=== PATIENT | female | born 1960 | race Caucasian/White ===

== ENCOUNTER 2016-11-24 14:38 | Inpatient (IN) | payer OTHER ==
[~2016-11-24] VITALS: Ht 165.1 cm; Wt 90.6 kg
[~2016-11-24 14:38] MED LIST: ALBU18002 INH; ASPI81TA28 PO; CARV6.252 PO; PARO1TAB27 PO; PRAV20TA PO
[2016-11-24] MEDS ORDERED: SODIUM CHLORIDE 0.9% 1000ML 1,000 ML IV SCH (14:56)
[2016-11-24] MEDS ORDERED: OPTIRAY 320 IV PRN (15:00)
--- NOTE | 2016-11-24 15:03 | EMERGENCY ROOM VISIT NOTE ---
History Report prepared by Katie: Ab Palomino Under the Supervision of: Dr. Michele Viramontes M.D. First contact with patient: 14:46 Chief Complaint: REFERRED BY DOCTOR Stated Complaint: BLOOD SUGAR SPIKED History of Present Illness The patient is a 56 year old female who presents to the Emergency Room via EMS from [facility] with complaints of persistent stroke symptoms that started earlier this morning. She says that she felt "weird" this morning, so she checked her blood sugar and it was 200. The patient states that she then had some coffee, and then an hour later she checked her blood sugar again and it was 292. The patient notes that she then got a really bad right-sided headache, with throbbing pain on the right side of her face into her eye, as well as into the right side of her jaw and neck. She says that she had some numbness on the right side of her neck. The patient adds that she had right ear pain. She says that her right eye was puffy and droopy. The patient states she went to her doctor's office, and had her ear checked, and nothing was found that would be causing her ear pain. She then had a CT scan of her head, which revealed a possible mini-stroke. The patient was then brought here to be evaluated for further treatment. The patient states that she is still having the symptoms, including the right-sided facial and head pain. The patient says that she has a history of migraines, but her migraines have never felt like this. She is a smoker. The patient has not had any recent tick bites. Source of History: patient, spouse/significant other Onset: Earlier this morning Position: other (global - stroke symptoms) Timing: other (persistent) Associated Symptoms: + headache (right side), + neck pain (right side), + numbness (right side of neck) Note: Associated symptoms: [place] "weird this morning" with blood sugar of 292. Right sided facial pain, right sided jaw pain, right eye pain, right eye puffiness and droopiness. Right ear pain. Review of Systems See HPI for pertinent positives & negatives. A total of 10 systems reviewed and were otherwise negative. Past Medical & Surgical Medical Problems: (1) Chest pain (2) COPD (chronic obstructive pulmonary disease) (3) Depression (4) Dyslipidemia (5) HTN (hypertension) (6) Osteoarthritis Surgical Problems: (1) H/O ankle fusion (2) H/O arthroscopic knee surgery (3) H/O hernia repair (4) H/O inguinal hernia repair (5) H/O oophorectomy (6) H/O: hysterectomy (7) History of cholecystectomy (8) History of tonsillectomy Family History FH: CAD (coronary artery disease) FATHER (first [place] in his 40s, from [place] at 75) MOTHER ( from [place] at age 67) BROTHER ([place] in his 50s) BROTHER ([place] in his 50s) FH: CVA (cerebrovascular accident) FATHER FH: diabetes mellitus FATHER Social History Smoking Status: Current Every Day Smoker Marital Status: Housing Status: lives with family Occupation Status: unemployed Current/Historical Medications Scheduled Aspirin (Aspirin Ec), 81 MG PO DAILY Atorvastatin (Lipitor), 40 MG PO DAILY Carvedilol (Coreg), 6.25 MG PO BID Glipizide Xl (Glucotrol Xl), 5 MG PO QAM Ibuprofen (Advil), 400 MG PO PRN UD Paroxetine (Paxil), 20 MG PO DAILY Trazodone Hcl (Trazodone), 100 MG PO HS Allergies Coded Allergies: Morphine (Verified Allergy, Severe, CHEST PAIN, 06/30/16) *06/30/16 "I WAS ON MORPHINE FOR 3 YEARS. I'M NOT ALLERGIC." Sumatriptan (Verified Allergy, Intermediate, DIAPHORESIS, "SKIN CRAWLING" , 06/30/16) Physical Exam Vital Signs Date Time Temp Pulse Resp B/P (MAP) Pulse Ox O2 Delivery O2 Flow Rate FiO2 11/24/16 16:43 86 20 117/71 96 Room Air 11/24/16 16:00 71 16 135/83 96 Room Air 11/24/16 15:17 71 11/24/16 15:06 97 Room Air 11/24/16 15:05 95 Room Air 11/24/16 14:39 36.6 70 18 124/82 96 Room Air Physical Exam GENERAL: Patient is a healthy-appearing well-nourished HEAD: Normocephalic atraumatic EYES: Ocular movements intact pupils equal and react to light OROPHARYNX mucous membranes are moist no exudates present no erythema or edema present NECK: Supple no nuchal rigidity CHEST: Good equal expansion LUNGS: Clear and equal to auscultation CARDIAC: Normal S1 and S2 ABDOMEN: Soft nontender no guarding BACK: No CVA tenderness EXTREMITIES: No pain upon palpation normal muscle strength in all groups no clubbing cyanosis or edema NEURO: Patient is following commands is answering questions appropriately. Alert and oriented x3 Cranial Nerves 2-12 grossly intact Medical Decision & Procedures ER Provider Diagnostic Interpretation: Radiology results as stated below per my review and radiologist interpretation: CT ANGIOGRAPHY HEAD COMBO CLINICAL HISTORY: Stroke symptoms. TECHNIQUE: Unenhanced and arterial phase imaging of the head was performed. Injection of 93 cc Optiray 320 IV was uneventful. Sagittal and coronal reconstructions were viewed on an independent 3-D workstation. COMPARISON STUDY: None. FINDINGS: No acute intracranial hemorrhage, midline shift or mass effect is present. Ventricular system is normal. Basilar cisterns are patent. There are no extra-axial collections. There are no findings to suggest acute dural sinus thrombosis or acute territorial infarct. Numerous white matter hypodensities are noted. These are nonspecific. There are no significant calvarial abnormalities. Visualized portions of the sinuses and the mastoid air cells are clear. The bilateral M1, M2, A1 and A2 segments are patent. The right vertebral artery is dominant. The left vertebral artery likely ends in PICA. No aneurysm or abrupt vessel cut off is identified within the intracranial circulation. IMPRESSION: 1. No acute intracranial findings. 2. Unremarkable CTA of the intracranial circulation. 3. Numerous white matter hypodensities, predominantly subcortical in location. These are nonspecific although statistically reflect small vessel disease. Electronically signed by: Quentin Lepe M.D. 11/24/2016 3:51 PM Dictated Date/Time: 11/24/2016 3:42 PM CHEST ONE VIEW PORTABLE CLINICAL HISTORY: Stroke COMPARISON STUDY: Chest radiograph June 30, 2016. FINDINGS: There is no pneumothorax or pleural effusion. Cardiomediastinal silhouette is stable. There is no evidence of pulmonary edema. No consolidation is identified. IMPRESSION: No acute cardiopulmonary findings. Electronically signed by: Quentin Lepe M.D. 11/24/2016 3:27 PM Dictated Date/Time: 11/24/2016 3:[address] ANGIOGRAPHY OF THE NECK WITH CONTRAST CLINICAL HISTORY: Stroke symptoms. COMPARISON STUDY: No previous studies for comparison. Technique: CT angiography of the carotid and vertebral arteries was obtained using Optiray 320 IV and 3D reconstruction on an independent workstation. NASCET criteria was utilized. CT DOSE: 3351.53 mGy.cm Findings: The bilateral common carotid, internal carotid and vertebral arteries are patent. There is mild plaque within the proximal left internal carotid artery. The right vertebral artery is dominant. The left is diminutive. There is no dissection within the major vasculature of the neck. A few small thyroid nodules are noted. There is no cervical lymphadenopathy. No cervical masses are identified. Chest will be reported separately. IMPRESSION: No stenosis or dissection within the major vasculature of the neck. Electronically signed by: Quentin Lepe M.D. 11/24/2016 3:55 PM Dictated Date/Time: 11/24/2016 3:51 PM CHEST COMBO ANGIO DISSECTION CLINICAL HISTORY: Right sided chest pain. Stroke symptoms. COMPARISON STUDY: Chest CT March 29, 2016. TECHNIQUE: Unenhanced and arterial phase imaging of the chest was performed. Injection of 93 cc of Optiray 320 IV was uneventful. Sagittal and coronal reconstructions were viewed on an independent 3-D workstation. FINDINGS: There is no evidence for intramural hematoma within the thoracic aorta. There is no thoracic aortic dissection. There is mild to moderate calcified plaque within the coronary arteries. There is no pericardial effusion. Central airways are patent. There is no consolidation. There are mild groundglass opacities with mosaic attenuation. Linear right middle lobe opacity reflects atelectasis. There is atelectasis within the lingula. There is no pneumothorax or pleural effusion. Bony thorax is unremarkable. Abdomen and pelvis will be reported separately. There is no thoracic lymphadenopathy. A few small thyroid nodules are suspected. Fatty infiltration of the liver is noted. A hypervascular subcapsular segment 8/4 a focus is unchanged. IMPRESSION: 1. No thoracic aortic dissection. 2. Minimal groundglass opacities with mosaic attenuation within the lungs which could reflect air trapping or a mild infectious process. 3. Mild to moderate coronary artery calcification. Electronically signed by: Quentin Lepe M.D. 11/24/2016 4:02 PM Dictated Date/Time: 11/24/2016 3:[address] OF THE ABDOMEN AND PELVIS WITH CONTRAST CLINICAL HISTORY: Right-sided chest pain. Stroke symptoms. COMPARISON STUDY: CT of the abdomen and pelvis October 03, 2011. TECHNIQUE: Following IV administration of 93 mL of Optiray-320, axial images of the abdomen and pelvis were obtained from the lung bases to the proximal femurs. Images were reviewed in the axial, sagittal, and coronal planes. IV contrast was administered without complication. FINDINGS: Fatty infiltration of the liver is noted. Mild biliary ductal dilatation is unchanged since exam of October 03, 2011 and likely related to prior cholecystectomy. A 2 cm subcapsular hypervascular focus within segment 8/4 is unchanged since prior exam. This is benign given stability. The spleen, adrenal glands, kidneys and pancreas are normal. There is no hydronephrosis or perinephric infiltration. There is no evidence for acute appendicitis. There is hyperdense material within the appendix which is otherwise normal. There is colonic diverticulosis without evidence for acute diverticulitis. There is no lymphadenopathy. The uterus is not visualized. The caliber of the abdominal aorta is normal. There is no dissection of the abdominal aorta. There is mild atherosclerotic plaque. IMPRESSION: 1. No acute process within the abdomen or pelvis. 2. Fatty liver. 3. Stable biliary ductal dilatation likely related to prior cholecystectomy. 4. No abdominal aortic aneurysm or dissection. Electronically signed by: Quentin Lepe M.D. 11/24/2016 4:07 PM Dictated Date/Time: 11/24/2016 4:02 PM Laboratory Results 11/24/16 15:00 Red Blood Count 4.92, Mean Corpuscular Volume 91.3, Mean Corpuscular Hemoglobin 30.9, Mean Corpuscular Hemoglobin Concent 33.9, Mean Platelet Volume 9.2, Neutrophils (%) (Auto) 54.5, Lymphocytes (%) (Auto) 34.1, Monocytes (%) (Auto) 6.7, Eosinophils (%) (Auto) 3.7, Basophils (%) (Auto) 0.5, Neutrophils # (Auto) 5.00, Lymphocytes # (Auto) 3.13, Monocytes # (Auto) 0.62, Eosinophils # (Auto) 0.34, Basophils # (Auto) 0.05 11/24/16 15:00 Test 11/24/16 15:00 11/24/16 15:11 11/24/16 17:22 White Blood Count 9.19 K/uL (4.8-10.8) Red Blood Count 4.92 M/uL (4.2-5.4) Hemoglobin 15.2 g/dL (12.0-16.0) Hematocrit 44.9 % (37-47) Mean Corpuscular Volume 91.3 fL (80-100) Mean Corpuscular Hemoglobin 30.9 pg (25-34) Mean Corpuscular Hemoglobin Concent 33.9 g/dl (32-36) Platelet Count 211 K/uL (130-400) Mean Platelet Volume 9.2 fL (7.4-10.4) Neutrophils (%) (Auto) 54.5 % Lymphocytes (%) (Auto) 34.1 % Monocytes (%) (Auto) 6.7 % Eosinophils (%) (Auto) 3.7 % Basophils (%) (Auto) 0.5 % Neutrophils # (Auto) 5.00 K/uL (1.4-6.5) Lymphocytes # (Auto) 3.13 K/uL (1.2-3.4) Monocytes # (Auto) 0.62 K/uL (0.11-0.59) Eosinophils # (Auto) 0.34 K/uL (0-0.5) Basophils # (Auto) 0.05 K/uL (0-0.2) RDW Standard Deviation 43.0 fL (36.4-46.3) RDW Coefficient of Variation 12.9 % (11.5-14.5) Immature Granulocyte % (Auto) 0.5 % Immature Granulocyte # (Auto) 0.05 K/uL (0.00-0.02) Erythrocyte Sedimentation Rate 10 mm/hr (0-21) Prothrombin Time 10.8 SECONDS (9.0-12.0) Prothromb Time International Ratio 1.0 (0.9-1.1) Activated Partial Thromboplast Time 27.2 SECONDS (21.0-31.0) Partial Thromboplastin Ratio 1.0 Est Creatinine Clear Calc Drug Dose 93.9 ml/min Estimated GFR () 105.0 Estimated GFR (Non- 90.6 BUN/Creatinine Ratio 9.4 (10-20) Calcium Level 8.5 mg/dl (8.5-10.1) Total Creatine Kinase 153 U/L (26-192) Creatine Kinase MB 0.5 ng/ml (0.5-3.6) Creatine Kinase MB Ratio 0.3 (0-3.0) Troponin I < 0.015 ng/ml (0-0.045) C-Reactive Protein 0.36 mg/dl (0-0.29) Bedside Hemoglobin 15.3 g/dl (12.0-16.0) Bedside Hematocrit 45 % (37-47) Bedside Sodium 142 mEq/L (135-144) Bedside Potassium 4.1 mEq/L (3.3-5.0) Bedside Chloride 103 mEq/L (101-112) Bedside Total CO2 24 mEq/l (24-31) Anion Gap 20.0 mmol/L (16-25) Bedside Blood Urea Nitrogen 6 mg/dl (7-18) Bedside Creatinine 0.7 mg/dl (0.6-1.3) Bedside Glucose (other) 88 mg/dl (70-99) Bedside Ionized Calcium (Steven) 1.16 mmol/l (1.12-1.32) Bedside Glucose 131 mg/dl (70-90) Labs reviewed by ED physician. Medications Administered Medications (Trade) Dose Ordered Sig/Hortensia Route Start Time Stop Time Status Last Admin Dose Admin Sodium Chloride 1,000 ml @ 50 mls/hr Q20H IV 11/24/16 14:56 12/24/16 14:55 11/24/16 15:34 50 MLS/HR Aspirin (Aspirin Chew) 324 mg STK-MED ONCE .ROUTE 11/24/16 15:05 11/24/16 15:06 DC 11/24/16 15:07 324 MG Morphine Sulfate (MoRPHine SULFATE INJ) 8 mg NOW STAT IV 11/24/16 15:13 11/24/16 15:15 DC 11/24/16 16:32 8 MG Ondansetron HCl (Zofran Inj) 4 mg NOW STAT IV 11/24/16 15:13 11/24/16 15:15 DC 11/24/16 16:31 4 MG Nicotine (Nicoderm Cq 21MG Patch) 1 patch QAM STAT TD 11/24/16 15:32 11/24/16 15:33 DC 11/24/16 16:18 1 PATCH Methylprednisolone Sodium Succinate (Solu-Medrol IV) 125 mg NOW STAT IV 11/24/16 16:00 11/24/16 16:02 DC 11/24/16 16:32 125 MG Dextrose (Dextrose 50% 50ML Syringe) 50 ml STK-MED ONCE .ROUTE 11/24/16 16:13 11/24/16 16:14 DC 11/24/16 16:17 50 ML ECG Indication: other (stroke symptoms) Rate (beats per minute): 67 Rhythm: normal sinus Findings: T-wave inversion (Anterior), no ectopy Comparison ECG Date: changed from earlier performed today ED Course 1447: Past medical records reviewed. The patient was evaluated in room B6. A complete history and physical examination was performed. 1456: Ordered NSS 1000 ml @ 50 mls/hr IV. 1509: Ordered Aspirin Chew 324 mg PO. 1513: Ordered Zofran Inj 4 mg IV, Morphine Sulfate Inj 8 mg IV. 1532: Ordered Nicoderm Cq 21MG Patch 1 patch TD. 1543: I discussed the patient with Dr. Lepe of radiology. 1600: Ordered Solu-Medrol IV 125 mg IV. 1619: Upon reexamination the patient is resting comfortably. I discussed results and treatment plan with the patient. She verbalizes agreement and understanding. The patient will be evaluated for further management. 1622: I discussed the patient with Dr. Sebas LARES hospitalist - he will evaluate the patient for further treatment. Medical Decision Differential diagnosis: Intracranial hemorrhage, intracranial mass, migraine headache, tension headache , sinusitis, meningitis This is a 56-year-old female who presents emergency department complaining of severe right-sided head pain. The patient was transferred from [facility] over concerns that she was having a CVA. The patient has no evidence of CVA on exam. She also has an abnormal EKG from [place] however her EKG here is normalized. The patient is a smoker as well as a diabetic. An IV was established and laboratory work was drawn. The patient has a normal CBC normal renal profile normal liver profile. She was given morphine and Zofran for the pain. Repeat examination revealed improvement patient's symptoms. Patient was also given 3 and 24 mg of aspirin. Based on the nature of the patient's symptoms she was sent for a CT dissection study which did not show any evidence of acute process. I did discuss the case with the hospitalist service who agreed to admit the patient. Patient family were in agreement with the treatment plan. Consults Time Called: 1540 Consulting Physician: Dr. Lepe of radiology Returned Call: 1543 I discussed the patient with Dr. Lepe of radiology. Additional Consults: Time Called: 1619 Consulted Physician: Dr. Sebas LARES hospitalist Returned Call: 1622 Additional Comments: I discussed the patient with Dr. Sebas LARES hospitalist - he will evaluate the patient for further treatment. Impression Primary Impression: Headache Scribe Attestation The scribe's documentation has been prepared under my direction and personally reviewed by me in its entirety. I confirm that the note above accurately reflects all work, treatment, procedures, and medical decision making performed by me. Departure Information Dispostion Being Evaluated By Hospitalist Referrals Sheyla Caots M.D. (PCP) Patient Instructions My [facility] Problem Qualifiers Primary Impression: Headache Headache type: unspecified Headache chronicity pattern: acute headache Intractability: not intractable Qualified Codes: R51 - Headache
[2016-11-24] MEDS ORDERED: ASPIRIN 324 MG CHEW ONE (15:05)
[2016-11-24] MEDS ORDERED: ASPIRIN 324 MG CHEW PO STA (15:09)
[2016-11-24] MEDS ORDERED: ONDANSETRON INJ 2 MG/ML 2 ML VIAL IV STA (15:13)
[2016-11-24] MEDS ORDERED: MoRPHine SULFATE 10 MG/ML CARP/VIAL IV STA (15:13)
[2016-11-24 15:15] LABS: BASO % 0.5 %; BASO ABS # 0.05 K/uL (0-0.2); COMPLETE YES; EOS % 3.7 %; HEMATOCRIT 44.9 % (37-47); IG% 0.5 %; LYMPH % 34.1 %; LYMPH ABS # 3.13 K/uL (1.2-3.4); MEAN CELL VOLUME 91.3 fL (80-100); MEAN CORPUSCULAR HEMOGLOBIN 30.9 pg (25-34); MEAN CORPUSCULAR HGB CONC 33.9 g/dl (32-36); MEAN PLATELET VOLUME 9.2 fL (7.4-10.4); MONO % 6.7 %; NEUT % 54.5 %; PLATELET COUNT 211 K/uL (130-400); RED BLOOD COUNT 4.92 M/uL (4.2-5.4); WHITE BLOOD COUNT 9.19 K/uL (4.8-10.8)
[2016-11-24 15:23] LABS: PROTHROMBIN TIME (PATIENT) 10.8 SECONDS (9.0-12.0)
[2016-11-24 15:24] LABS: ISTAT CREATININE 0.7 mg/dl (0.6-1.3); ISTAT HEMOGLOBIN 15.3 g/dl (12.0-16.0); ISTAT IONIZED CALCIUM 1.16 mmol/l (1.12-1.32)
--- NOTE | 2016-11-24 15:28 | DIAGNOSTIC IMAGING REPORT ---
CHEST ONE VIEW PORTABLE CLINICAL HISTORY: Stroke COMPARISON STUDY: Chest radiograph June 30, 2016. FINDINGS: There is no pneumothorax or pleural effusion. Cardiomediastinal silhouette is stable. There is no evidence of pulmonary edema. No consolidation is identified. IMPRESSION: No acute cardiopulmonary findings. Electronically signed by: Qunetin Lepe M.D. 11/24/2016 3:27 PM Dictated Date/Time: 11/24/2016 3:25 PM
[2016-11-24 15:31] LABS: BLOOD UREA NITROGEN 7 mg/dl (7-18); BUN/CREATININE RATIO 9.4 (10-20); CALCIUM 8.5 mg/dl (8.5-10.1); CARBON DIOXIDE 27 mmol/L (21-32); CHLORIDE 108 mmol/L (98-107); CREATININE 0.74 mg/dl (0.60-1.20); GLUCOSE 85 mg/dl (70-99); POTASSIUM 4.1 mmol/L (3.5-5.1); SODIUM 143 mmol/L (136-145)
[2016-11-24] MEDS ORDERED: NICOTINE 21 MG/24 HR TDSY TD STA (15:32)
[2016-11-24 15:35] LABS: CKMB/CK RATIO 0.3 (0-3.0)
--- NOTE | 2016-11-24 15:52 | DIAGNOSTIC IMAGING REPORT ---
CT ANGIOGRAPHY HEAD COMBO CLINICAL HISTORY: Stroke symptoms. TECHNIQUE: Unenhanced and arterial phase imaging of the head was performed. Injection of 93 cc Optiray 320 IV was uneventful. Sagittal and coronal reconstructions were viewed on an independent 3-D workstation. COMPARISON STUDY: None. FINDINGS: No acute intracranial hemorrhage, midline shift or mass effect is present. Ventricular system is normal. Basilar cisterns are patent. There are no extra-axial collections. There are no findings to suggest acute dural sinus thrombosis or acute territorial infarct. Numerous white matter hypodensities are noted. These are nonspecific. There are no significant calvarial abnormalities. Visualized portions of the sinuses and the mastoid air cells are clear. The bilateral M1, M2, A1 and A2 segments are patent. The right vertebral artery is dominant. The left vertebral artery likely ends in PICA. No aneurysm or abrupt vessel cut off is identified within the intracranial circulation. IMPRESSION: 1. No acute intracranial findings. 2. Unremarkable CTA of the intracranial circulation. 3. Numerous white matter hypodensities, predominantly subcortical in location. These are nonspecific although statistically reflect small vessel disease. Electronically signed by: Qunetin Lepe M.D. 11/24/2016 3:51 PM Dictated Date/Time: 11/24/2016 3:42 PM
--- NOTE | 2016-11-24 15:56 | DIAGNOSTIC IMAGING REPORT ---
CT ANGIOGRAPHY OF THE NECK WITH CONTRAST CLINICAL HISTORY: Stroke symptoms. COMPARISON STUDY: No previous studies for comparison. Technique: CT angiography of the carotid and vertebral arteries was obtained using [employer] 320 IV and 3D reconstruction on an independent workstation. NASCET criteria was utilized. CT DOSE: 3351.53 mGy.cm Findings: The bilateral common carotid, internal carotid and vertebral arteries are patent. There is mild plaque within the proximal left internal carotid artery. The right vertebral artery is dominant. The left is diminutive. There is no dissection within the major vasculature of the neck. A few small thyroid nodules are noted. There is no cervical lymphadenopathy. No cervical masses are identified. Chest will be reported separately. IMPRESSION: No stenosis or dissection within the major vasculature of the neck. Electronically signed by: Quentin Lepe M.D. 11/24/2016 3:55 PM Dictated Date/Time: 11/24/2016 3:51 PM
[2016-11-24] MEDS ORDERED: METHYLPREDNISOLONE 125 MG VIAL IV STA (16:00)
--- NOTE | 2016-11-24 16:04 | DIAGNOSTIC IMAGING REPORT ---
CHEST COMBO ANGIO DISSECTION CLINICAL HISTORY: Right sided chest pain. Stroke symptoms. COMPARISON STUDY: Chest CT March 29, 2016. TECHNIQUE: Unenhanced and arterial phase imaging of the chest was performed. Injection of 93 cc of Optiray 320 IV was uneventful. Sagittal and coronal reconstructions were viewed on an independent 3-D workstation. FINDINGS: There is no evidence for intramural hematoma within the thoracic aorta. There is no thoracic aortic dissection. There is mild to moderate calcified plaque within the coronary arteries. There is no pericardial effusion. Central airways are patent. There is no consolidation. There are mild groundglass opacities with mosaic attenuation. Linear right middle lobe opacity reflects atelectasis. There is atelectasis within the lingula. There is no pneumothorax or pleural effusion. Bony thorax is unremarkable. Abdomen and pelvis will be reported separately. There is no thoracic lymphadenopathy. A few small thyroid nodules are suspected. Fatty infiltration of the liver is noted. A hypervascular subcapsular segment 8/4 a focus is unchanged. IMPRESSION: 1. No thoracic aortic dissection. 2. Minimal groundglass opacities with mosaic attenuation within the lungs which could reflect air trapping or a mild infectious process. 3. Mild to moderate coronary artery calcification. Electronically signed by: Quentin Lepe M.D. 11/24/2016 4:02 PM Dictated Date/Time: 11/24/2016 3:55 PM
--- NOTE | 2016-11-24 16:08 | DIAGNOSTIC IMAGING REPORT ---
CT OF THE ABDOMEN AND PELVIS WITH CONTRAST CLINICAL HISTORY: Right-sided chest pain. Stroke symptoms. COMPARISON STUDY: CT of the abdomen and pelvis October 03, 2011. TECHNIQUE: Following IV administration of 93 mL of Optiray-320, axial images of the abdomen and pelvis were obtained from the lung bases to the proximal femurs. Images were reviewed in the axial, sagittal, and coronal planes. IV contrast was administered without complication. FINDINGS: Fatty infiltration of the liver is noted. Mild biliary ductal dilatation is unchanged since exam of October 03, 2011 and likely related to prior cholecystectomy. A 2 cm subcapsular hypervascular focus within segment 8/4 is unchanged since prior exam. This is benign given stability. The spleen, adrenal glands, kidneys and pancreas are normal. There is no hydronephrosis or perinephric infiltration. There is no evidence for acute appendicitis. There is hyperdense material within the appendix which is otherwise normal. There is colonic diverticulosis without evidence for acute diverticulitis. There is no lymphadenopathy. The uterus is not visualized. The caliber of the abdominal aorta is normal. There is no dissection of the abdominal aorta. There is mild atherosclerotic plaque. IMPRESSION: 1. No acute process within the abdomen or pelvis. 2. Fatty liver. 3. Stable biliary ductal dilatation likely related to prior cholecystectomy. 4. No abdominal aortic aneurysm or dissection. Electronically signed by: Quentin Lepe M.D. 11/24/2016 4:07 PM Dictated Date/Time: 11/24/2016 4:02 PM
[2016-11-24] MEDS ORDERED: GLIP1TAB91 PO (16:09)
[2016-11-24] MEDS ORDERED: ATOR-24 PO (16:09)
[2016-11-24] MEDS ORDERED: IBUP-1050 PO (16:09)
[2016-11-24] MEDS ORDERED: DEXTROSE 50% 50 ML SYR ONE (16:13)
[2016-11-24] MEDS ORDERED: ONDANSETRON INJ 2 MG/ML 2 ML VIAL IV PRN (17:30)
[2016-11-24] MEDS ORDERED: GLUCOSE 10 TABS/TUBE PO PRN (17:30)
[2016-11-24] MEDS ORDERED: GLUCAGON FOR INJ 1 MG VIAL SQ PRN (17:30)
[2016-11-24] MEDS ORDERED: DEXTROSE 50% 50 ML SYR IV PRN (17:30)
[2016-11-24] MEDS ORDERED: GLUCOSE 40% GEL 15 GM TUBE PO PRN (17:30)
[2016-11-24] MEDS ORDERED: NITROGLYCERIN 0.4 MG SL PER TAB CHARGE SL PRN (17:30)
[2016-11-24] MEDS ORDERED: IV FLUIDS COMPLETED PRN (17:45)
[2016-11-24 17:55] VITALS: O2SAT 93; BMI 32.9
--- NOTE | 2016-11-24 19:23 | History and Physical ---
History & Physical Date & Time of Service: Nov 24, 2016 at 19:05 Chief Complaint: Blood Sugar Spiked Primary Care Physician: Sheyla Coats M.D. History of Present Illness Source: patient, hospital records The patient is a 56-year-old female who initially presented to [facility] with strokelike symptoms involving a right sided throbbing headache, extending to the right side of her eye, jaw and neck. She reports that she's had on and off right ear pain over the past 6 months, but has not had any diagnosis able to be made during that interval. At [facility], there was concern regarding possible CVA, and patient was then arranged to be brought to [facility]. Upon arrival [facility], her symptoms were persistent, that she reported one like any of her migraine headaches, and she underwent a further workup in the emergency department at that time. Past Medical/Surgical History Medical Problems: (1) COPD (chronic obstructive pulmonary disease) Status: Chronic (2) Depression Status: Chronic (3) Dyslipidemia Status: Chronic (4) HTN (hypertension) Status: Chronic (5) Osteoarthritis Status: Chronic Surgical Problems: (1) H/O ankle fusion Status: Chronic (2) H/O arthroscopic knee surgery Status: Chronic (3) H/O hernia repair Status: Chronic (4) H/O inguinal hernia repair Status: Chronic (5) H/O oophorectomy Status: Chronic (6) H/O: hysterectomy Status: Chronic (7) History of cholecystectomy Status: Chronic (8) History of tonsillectomy Status: Chronic Family History FH: CAD (coronary artery disease) FATHER (first [place] in his 40s, [place] at 75) MOTHER ( from [place] at age 67) BROTHER ([place] in his 50s) BROTHER ([place] in his 50s) FH: CVA (cerebrovascular accident) FATHER FH: diabetes mellitus FATHER Social History Smoking Status: Current Every Day Smoker Smokeless Tobacco Use: No Alcohol Use: none Drug Use: none Marital Status: Housing status: lives with family Occupational Status: unemployed Immunizations History of Influenza Vaccine: Yes Influenza Vaccine Date: May 03, 2016 Multi-Drug Resistant Organisms History of MDRO: No Allergies Coded Allergies: Morphine (Verified Allergy, Severe, CHEST PAIN, 06/30/16) *06/30/16 "I WAS ON MORPHINE FOR 3 YEARS. I'M NOT ALLERGIC." Sumatriptan (Verified Allergy, Intermediate, DIAPHORESIS, "SKIN CRAWLING" , 06/30/16) Home Medications Scheduled Aspirin (Aspirin Ec), 81 MG PO DAILY Atorvastatin (Lipitor), 40 MG PO DAILY Carvedilol (Coreg), 6.25 MG PO BID Glipizide Xl (Glucotrol Xl), 5 MG PO QAM Ibuprofen (Advil), 400 MG PO PRN UD Paroxetine (Paxil), 20 MG PO DAILY Trazodone Hcl (Trazodone), 100 MG PO HS Review of Systems The patient denies chest pain, palpitations, shortness of breath, cough, lower extremity swelling, vision change, hearing change, sore throat, fevers, chills, sweats, weight change, fatigue, nausea, vomiting, abdominal pain, pelvic pain, blood in urine or stool, dysuria, urinary frequency or urgency, memory loss, rash, abnormal bruising or bleeding, imbalance, focal or generalized weakness, arthralgias or myalgias, night sweats, or allergy symptoms. The review of systems is otherwise negative other than for that already noted above, and at least 10 systems have been reviewed. Physical Exam Vital Signs Date Time Temp Pulse Resp B/P (MAP) Pulse Ox O2 Delivery O2 Flow Rate FiO2 11/24/16 18:13 69 12 92 11/24/16 18:02 115/76 11/24/16 17:55 93 Room Air 11/24/16 17:43 76 22 93 11/24/16 17:38 75 21 93 11/24/16 17:32 133/78 11/24/16 17:08 65 10 92 11/24/16 17:02 137/86 11/24/16 16:43 86 20 117/71 96 Room Air 11/24/16 16:38 72 17 94 11/24/16 16:32 117/71 11/24/16 16:08 68 14 95 11/24/16 16:02 135/83 11/24/16 16:00 71 16 135/83 96 Room Air 11/24/16 15:38 70 17 94 11/24/16 15:17 71 11/24/16 15:09 126/75 11/24/16 15:06 97 Room Air 11/24/16 15:05 95 Room Air 11/24/16 14:39 36.6 70 18 124/82 96 Room Air The patient is awake, well-developed and adequately nourished, alert and oriented 3, normocephalic and atraumatic, lying in bed and in no acute distress. HEENT--PERRL, EOMI, mucous membranes and oropharynx dry. Right scalp tender to light touch. Neck--supple, no JVD or bruits, thyroid normal, trachea midline, no adenopathy. Heart--normal S1 and S2, no extra beats, no murmurs, rubs or gallops. Lungs--clear bilaterally with good air movement, no respiratory distress, no accessory muscle use. Abdomen--normal bowel sounds and soft, nontender and nondistended, no hernias or masses, no organomegaly. Extremities--no cyanosis, clubbing or edema. There are good distal pulses b/l. Dermatologic--normal skin turgor, normal color, warm and dry, no abnormal lymph nodes, no rash. Right scalp tender to light touch Neurologic--cranial nerves II through XII grossly intact, motor and sensory examination normal. Rheumatologic--normal range of motion, nontender, muscles and joints. Psychiatric--normal affect. Diagnostics Laboratory Results Results Past 24 Hours Test 11/24/16 15:00 11/24/16 15:11 11/24/16 15:57 11/24/16 17:22 Range/Units White Blood Count 9.19 4.8-10.8 K/uL Red Blood Count 4.92 4.2-5.4 M/uL Hemoglobin 15.2 12.0-16.0 g/dL Hematocrit 44.9 37-47 % Mean Corpuscular Volume 91.3 80-100 fL Mean Corpuscular Hemoglobin 30.9 25-34 pg Mean Corpuscular Hemoglobin Concent 33.9 32-36 g/dl Platelet Count 211 130-400 K/uL Mean Platelet Volume 9.2 7.4-10.4 fL Neutrophils (%) (Auto) 54.5 % Lymphocytes (%) (Auto) 34.1 % Monocytes (%) (Auto) 6.7 % Eosinophils (%) (Auto) 3.7 % Basophils (%) (Auto) 0.5 % Neutrophils # (Auto) 5.00 1.4-6.5 K/uL Lymphocytes # (Auto) 3.13 1.2-3.4 K/uL Monocytes # (Auto) 0.62 0.11-0.59 K/uL Eosinophils # (Auto) 0.34 0-0.5 K/uL Basophils # (Auto) 0.05 0-0.2 K/uL RDW Standard Deviation 43.0 36.4-46.3 fL RDW Coefficient of Variation 12.9 11.5-14.5 % Immature Granulocyte % (Auto) 0.5 % Immature Granulocyte # (Auto) 0.05 0.00-0.02 K/uL Erythrocyte Sedimentation Rate 10 0-21 mm/hr Prothrombin Time 10.8 9.0-12.0 SECONDS Prothromb Time International Ratio 1.0 0.9-1.1 Activated Partial Thromboplast Time 27.2 21.0-31.0 SECONDS Partial Thromboplastin Ratio 1.0 Sodium Level 143 136-145 mmol/L Potassium Level 4.1 3.5-5.1 mmol/L Chloride Level 108 98-107 mmol/L Carbon Dioxide Level 27 21-32 mmol/L Anion Gap 8.0 20.0 16-25 mmol/L Blood Urea Nitrogen 7 7-18 mg/dl Creatinine 0.74 0.60-1.20 mg/dl Est Creatinine Clear Calc Drug Dose 93.9 ml/min Estimated GFR () 105.0 Estimated GFR (Non- 90.6 BUN/Creatinine Ratio 9.4 10-20 Random Glucose 85 70-99 mg/dl Calcium Level 8.5 8.5-10.1 mg/dl Total Creatine Kinase 153 26-192 U/L Creatine Kinase MB 0.5 0.5-3.6 ng/ml Creatine Kinase MB Ratio 0.3 0-3.0 Troponin I < 0.015 0-0.045 ng/ml C-Reactive Protein 0.36 0-0.29 mg/dl Bedside Hemoglobin 15.3 12.0-16.0 g/dl Bedside Hematocrit 45 37-47 % Bedside Sodium 142 135-144 mEq/L Bedside Potassium 4.1 3.3-5.0 mEq/L Bedside Chloride 103 101-112 mEq/L Bedside Total CO2 24 24-31 mEq/l Bedside Blood Urea Nitrogen 6 7-18 mg/dl Bedside Creatinine 0.7 0.6-1.3 mg/dl Bedside Glucose (other) 88 70-99 mg/dl Bedside Ionized Calcium (Steven) 1.16 1.12-1.32 mmol/l Bedside Glucose 78 131 70-90 mg/dl Diagnostic Radiology Patient Name: YUN JHAVERI Unit Number: [id number] Dictated: 11/24/161541 Transcribed: 11/24/161541 JA Printed Date/Time: [~ rep prt dt]/[~ rep prt tm] [~ rep ct labl] - [~ rep ct ivnm] [facility] [place] [address] Dictated: 11/24/161541 Transcribed: 11/24/161541 JA Printed Date/Time: [~ rep prt dt]/[~ rep prt tm] [~ rep ct labl] - [~ rep ct ivnm] CT ANGIOGRAPHY HEAD COMBO CLINICAL HISTORY: Stroke symptoms. TECHNIQUE: Unenhanced and arterial phase imaging of the head was performed. Injection of 93 cc Optiray 320 IV was uneventful. Sagittal and coronal reconstructions were viewed on an independent 3-D workstation. COMPARISON STUDY: None. FINDINGS: No acute intracranial hemorrhage, midline shift or mass effect is present. Ventricular system is normal. Basilar cisterns are patent. There are no extra-axial collections. There are no findings to suggest acute dural sinus thrombosis or acute territorial infarct. Numerous white matter hypodensities are noted. These are nonspecific. There are no significant calvarial abnormalities. Visualized portions of the sinuses and the mastoid air cells are clear. The bilateral M1, M2, A1 and A2 segments are patent. The right vertebral artery is dominant. The left vertebral artery likely ends in PICA. No aneurysm or abrupt vessel cut off is identified within the intracranial circulation. IMPRESSION: 1. No acute intracranial findings. 2. Unremarkable CTA of the intracranial circulation. 3. Numerous white matter hypodensities, predominantly subcortical in location. These are nonspecific although statistically reflect small vessel disease. Electronically signed by: Quentin Lepe M.D. 11/24/2016 3:51 PM Dictated Date/Time: 11/24/2016 3:42 PM The status of this report is Signed. Draft = Not yet reviewed or approved by Radiologist. Signed = Reviewed and approved by Radiologist. <AttendingPhy></AttendingPhy> <FamilyPhy>Westrick, Sheyla,M.D.</FamilyPhy> < PrimaryPhy>Sheyla Coats M.D.</PrimaryPhy> <UnitNumber>[id number]</UnitNumber > <VisitNumber>[id number]</VisitNumber> <PatientName>YUN JHAVERI</ PatientName> <DateOfBirth>1960</DateOfBirth> <Location>C.EDB</Location> < ServiceDate>11/24/16</ServiceDate> <MNE>ESINDI</MNE> <OrderingPhy>Michele Viramontes MD</OrderingPhy> <OrderingPhyMNE>f rep ord dr flores</OrderingPhyMNE> < DictatingPhyMNE>f rep dict dr flores</DictatingPhyMNE> <CCListMNE>f rep ct mne</ CCListMNE> <AdmittingPhyMNE>f pt admit dr flores</AdmittingPhyMNE> <AttendingPhyMNE >f pt attend dr flores</AttendingPhyMNE> <ConsultingPhyMNE>f pt consult dr flores</ConsultingPhyMNE> <FamilyPhyMNE>f pt fam dr flores</FamilyPhyMNE> <OtherPhyMNE>f pt other dr flores</OtherPhyMNE> < PrimaryPhyMNE>f pt prim care dr flores</PrimaryPhyMNE> <ReferringPhyMNE>f pt referring dr flores</ReferringPhyMNE> Patient Name: YUN JHAVERI Unit Number: [id number] Dictated: 11/24/161524 Transcribed: 11/24/161524 JA Printed Date/Time: [~ rep prt dt]/[~ rep prt tm] [~ rep ct labl] - [~ rep ct ivnm] [facility] [place] [address] Dictated: 11/24/161524 Transcribed: 11/24/161524 JA Printed Date/Time: [~ rep prt dt]/[~ rep prt tm] [~ rep ct labl] - [~ rep ct ivnm] CHEST ONE VIEW PORTABLE CLINICAL HISTORY: Stroke COMPARISON STUDY: Chest radiograph June 30, 2016. FINDINGS: There is no pneumothorax or pleural effusion. Cardiomediastinal silhouette is stable. There is no evidence of pulmonary edema. No consolidation is identified. IMPRESSION: No acute cardiopulmonary findings. Electronically signed by: Quentin Lepe M.D. 11/24/2016 3:27 PM Dictated Date/Time: 11/24/2016 3:25 PM The status of this report is Signed. Draft = Not yet reviewed or approved by Radiologist. Signed = Reviewed and approved by Radiologist. <AttendingPhy></AttendingPhy> <FamilyPhy>Sheyla Coats M.D.</FamilyPhy> < PrimaryPhy>Sheyla Coats M.D.</PrimaryPhy> <UnitNumber>[id number]</UnitNumber > <VisitNumber>[id number]</VisitNumber> <PatientName>YUN JHAVERI</ PatientName> <DateOfBirth>1960</DateOfBirth> <Location>C.EDB</Location> < ServiceDate>11/24/16</ServiceDate> <MNE>ESINDI</MNE> <OrderingPhy>Michele Viramontes MD</OrderingPhy> <OrderingPhyMNE>f rep ord dr flores</OrderingPhyMNE> < DictatingPhyMNE>f rep dict dr flores</DictatingPhyMNE> <CCListMNE>f rep ct wandae</ CCListMNE> <AdmittingPhyMNE>f pt admit dr flores</AdmittingPhyMNE> <AttendingPhyMNE >f pt attend dr flores</AttendingPhyMNE> <ConsultingPhyMNE>f pt consult dr flores</ConsultingPhyMNE> <FamilyPhyMNE>f pt fam dr flores</FamilyPhyMNE> <OtherPhyMNE>f pt other dr flores</OtherPhyMNE> < PrimaryPhyMNE>f pt prim care dr flores</PrimaryPhyMNE> <ReferringPhyMNE>f pt referring dr flores</ReferringPhyMNE> Patient Name: YUN JHAVERI Unit Number: [id number] Dictated: 11/24/161550 Transcribed: 11/24/16 155 JA Printed Date/Time: [~ rep prt dt]/[~ rep prt tm] [~ rep ct labl] - [~ rep ct ivnm] [facility] Radiology Department [place] [id number] Dictated: 11/24/161550 Transcribed: 11/24/161550 DANNY Printed Date/Time: [~ rep prt dt]/[~ rep prt tm] [~ rep ct labl] - [~ rep ct ivnm] CT ANGIOGRAPHY OF THE NECK WITH CONTRAST CLINICAL HISTORY: Stroke symptoms. COMPARISON STUDY: No previous studies for comparison. Technique: CT angiography of the carotid and vertebral arteries was obtained using [employer] 320 IV and 3D reconstruction on an independent workstation. NASCET criteria was utilized. CT DOSE: 3351.53 mGy.cm Findings: The bilateral common carotid, internal carotid and vertebral arteries are patent. There is mild plaque within the proximal left internal carotid artery. The right vertebral artery is dominant. The left is diminutive. There is no dissection within the major vasculature of the neck. A few small thyroid nodules are noted. There is no cervical lymphadenopathy. No cervical masses are identified. Chest will be reported separately. IMPRESSION: No stenosis or dissection within the major vasculature of the neck. Electronically signed by: Quentin Lepe M.D. 11/24/2016 3:55 PM Dictated Date/Time: 11/24/2016 3:51 PM The status of this report is Signed. Draft = Not yet reviewed or approved by Radiologist. Signed = Reviewed and approved by Radiologist. <AttendingPhy></AttendingPhy> <FamilyPhy>Sheyla Coats M.D.</FamilyPhy> < PrimaryPhy>Sheyla Coats M.D.</PrimaryPhy> <UnitNumber>[id number]</UnitNumber > <VisitNumber>[id number]</VisitNumber> <PatientName>YUN JHAVERI</ PatientName> <DateOfBirth>1960</DateOfBirth> <Location>[facility]AB</Location> < ServiceDate>11/24/16</ServiceDate> <MNE>ESINDI</MNE> <OrderingPhy>Michele Viramontes MD</OrderingPhy> <OrderingPhyMNE>f rep ord dr flores</OrderingPhyMNE> < DictatingPhyMNE>f rep dict dr flores</DictatingPhyMNE> <CCListMNE>f rep ct mne</ CCListMNE> <AdmittingPhyMNE>f pt admit dr flores</AdmittingPhyMNE> <AttendingPhyMNE >f pt attend dr flores</AttendingPhyMNE> <ConsultingPhyMNE>f pt consult dr flores</ConsultingPhyMNE> <FamilyPhyMNE>f pt fam dr flores</FamilyPhyMNE> <OtherPhyMNE>f pt other dr flores</OtherPhyMNE> < PrimaryPhyMNE>f pt prim care dr flores</PrimaryPhyMNE> <ReferringPhyMNE>f pt referring dr flores</ReferringPhyMNE> Patient Name: YUN JHAVERI Unit Number: [id number] Dictated: 11/24/161554 Transcribed: 11/24/161554 JA Printed Date/Time: [~ rep prt dt]/[~ rep prt tm] [~ rep ct labl] - [~ rep ct ivnm] [facility] [place] [address] Dictated: 11/24/161554 Transcribed: 11/24/161554 JA Printed Date/Time: [~ rep prt dt]/[~ rep prt tm] [~ rep ct labl] - [~ rep ct ivnm] CHEST COMBO ANGIO DISSECTION CLINICAL HISTORY: Right sided chest pain. Stroke symptoms. COMPARISON STUDY: Chest CT March 29, 2016. TECHNIQUE: Unenhanced and arterial phase imaging of the chest was performed. Injection of 93 cc of Optiray 320 IV was uneventful. Sagittal and coronal reconstructions were viewed on an independent 3-D workstation. FINDINGS: There is no evidence for intramural hematoma within the thoracic aorta. There is no thoracic aortic dissection. There is mild to moderate calcified plaque within the coronary arteries. There is no pericardial effusion. Central airways are patent. There is no consolidation. There are mild groundglass opacities with mosaic attenuation. Linear right middle lobe opacity reflects atelectasis. There is atelectasis within the lingula. There is no pneumothorax or pleural effusion. Bony thorax is unremarkable. Abdomen and pelvis will be reported separately. There is no thoracic lymphadenopathy. A few small thyroid nodules are suspected. Fatty infiltration of the liver is noted. A hypervascular subcapsular segment 8/4 a focus is unchanged. IMPRESSION: 1. No thoracic aortic dissection. 2. Minimal groundglass opacities with mosaic attenuation within the lungs which could reflect air trapping or a mild infectious process. 3. Mild to moderate coronary artery calcification. Electronically signed by: Quentin Lepe M.D. 11/24/2016 4:02 PM Dictated Date/Time: 11/24/2016 3:55 PM The status of this report is Signed. Draft = Not yet reviewed or approved by Radiologist. Signed = Reviewed and approved by Radiologist. <AttendingPhy></AttendingPhy> <FamilyPhy>Sheyla Coats M.D.</FamilyPhy> < PrimaryPhy>Sheyla Coats M.D.</PrimaryPhy> <UnitNumber>[id number]</UnitNumber > <VisitNumber>[id number]</VisitNumber> <PatientName>YUN JHAVERI</ PatientName> <DateOfBirth>1960</DateOfBirth> <Location>C.EDB</Location> < ServiceDate>11/24/16</ServiceDate> <MNE>ESINDI</MNE> <OrderingPhy>Michele Viramontes MD</OrderingPhy> <OrderingPhyMNE>f rep ord dr flores</OrderingPhyMNE> < DictatingPhyMNE>f rep dict dr flores</DictatingPhyMNE> <CCListMNE>f rep ct mark</ CCListMNE> <AdmittingPhyMNE>f pt admit dr flores</AdmittingPhyMNE> <AttendingPhyMNE >f pt attend dr flores</AttendingPhyMNE> <ConsultingPhyMNE>f pt consult dr flores</ConsultingPhyMNE> <FamilyPhyMNE>f pt fam dr flores</FamilyPhyMNE> <OtherPhyMNE>f pt other dr flores</OtherPhyMNE> < PrimaryPhyMNE>f pt prim care dr flores</PrimaryPhyMNE> <ReferringPhyMNE>f pt referring dr flores</ReferringPhyMNE> Patient Name: YUN JHAVERI Unit Number: [id number] Dictated: 11/24/161601 Transcribed: 11/24/161601 JA Printed Date/Time: [~ rep prt dt]/[~ rep prt tm] [~ rep ct labl] - [~ rep ct ivnm] [facility] Radiology Department [place] [id number] Dictated: 11/24/161601 Transcribed: 11/24/161601 JA Printed Date/Time: [~ rep prt dt]/[~ rep prt tm] [~ rep ct labl] - [~ rep ct ivnm] CT OF THE ABDOMEN AND PELVIS WITH CONTRAST CLINICAL HISTORY: Right-sided chest pain. Stroke symptoms. COMPARISON STUDY: CT of the abdomen and pelvis October 03, 2011. TECHNIQUE: Following IV administration of 93 mL of Optiray-320, axial images of the abdomen and pelvis were obtained from the lung bases to the proximal femurs. Images were reviewed in the axial, sagittal, and coronal planes. IV contrast was administered without complication. FINDINGS: Fatty infiltration of the liver is noted. Mild biliary ductal dilatation is unchanged since exam of October 03, 2011 and likely related to prior cholecystectomy. A 2 cm subcapsular hypervascular focus within segment 8/4 is unchanged since prior exam. This is benign given stability. The spleen, adrenal glands, kidneys and pancreas are normal. There is no hydronephrosis or perinephric infiltration. There is no evidence for acute appendicitis. There is hyperdense material within the appendix which is otherwise normal. There is colonic diverticulosis without evidence for acute diverticulitis. There is no lymphadenopathy. The uterus is not visualized. The caliber of the abdominal aorta is normal. There is no dissection of the abdominal aorta. There is mild atherosclerotic plaque. IMPRESSION: 1. No acute process within the abdomen or pelvis. 2. Fatty liver. 3. Stable biliary ductal dilatation likely related to prior cholecystectomy. 4. No abdominal aortic aneurysm or dissection. Electronically signed by: Quentin Lepe M.D. 11/24/2016 4:07 PM Dictated Date/Time: 11/24/2016 4:02 PM The status of this report is Signed. Draft = Not yet reviewed or approved by Radiologist. Signed = Reviewed and approved by Radiologist. <AttendingPhy></AttendingPhy> <FamilyPhy>Sheyla Coats M.D.</FamilyPhy> < PrimaryPhy>Sheyla Coats M.D.</PrimaryPhy> <UnitNumber>[id number]</UnitNumber > <VisitNumber>[id number]</VisitNumber> <PatientName>YUN JHAVERI</ PatientName> <DateOfBirth>1960</DateOfBirth> <Location>C.EDB</Location> < ServiceDate>11/24/16</ServiceDate> <MNE>ESINDI</MNE> <OrderingPhy>Michele Viramontes MD</OrderingPhy> <OrderingPhyMNE>f rep ord dr flores</OrderingPhyMNE> < DictatingPhyMNE>f rep dict dr flores</DictatingPhyMNE> <CCListMNE>f rep ct wandae</ CCListMNE> <AdmittingPhyMNE>f pt admit dr flores</AdmittingPhyMNE> <AttendingPhyMNE >f pt attend dr flores</AttendingPhyMNE> <ConsultingPhyMNE>f pt consult dr flores</ConsultingPhyMNE> <FamilyPhyMNE>f pt fam dr flores</FamilyPhyMNE> <OtherPhyMNE>f pt other dr flores</OtherPhyMNE> < PrimaryPhyMNE>f pt prim care dr flores</PrimaryPhyMNE> <ReferringPhyMNE>f pt referring dr flores</ReferringPhyMNE> EKG EKG shows normal sinus rhythm with T-wave inversions leads V1 through V4. Impression Assessment and Plan Right-sided throbbing headache--symptoms more consistent with temporal arteritis , although sedimentation rate is normal. She was given Solu-Medrol 125 mg IV in the emergency department, and we'll continue with 40 mg IV every 6 hours and follow response. It was not felt that her symptoms were related to TIA or CVA. Abnormal EKG--she is a variable signs of ischemia on EKGs in the past. She'll be admitted to the telemetry unit for serial cardiac enzymes, cardiac rhythm monitoring and a 2-D echocardiogram with Dopplers. We'll consult cardiology for their assessment. We'll continue aspirin 81 mg by mouth daily, and carvedilol 6.25 mg by mouth twice a day. Diabetes mellitus--hold glipizide 5 mg by mouth every morning. Placed on Accu- Cheks before meals and at bedtime with NovoLog coverage per scale. Hypercholesterolemia-- continue atorvastatin 40 mg by mouth daily. Depression--continue Peroxin 1520 mg by mouth daily and trazodone 100 mg by mouth at bedtime. Level of Care Telemetry Advanced Directives Existing Advance Directive: No Existing Living Will: No Existing Power of Professor Of Psychology: No Resuscitation Status FULL RESUSCITATION VTE Prophylaxis VTE Risk Assessment Done? Y/N: Yes Risk Level: Moderate Given or contraindicated: SCD's
[2016-11-24 19:30] VITALS: BP 108/67; PULSE 70; TEMP 36.6; TEMP 36.9; O2SAT 92
[2016-11-24 20:54] LABS: MANUAL MICROSCOPIC REQUIRED? NO; REVIEW REQ? YES; URINE APPEARANCE CLEAR (CLEAR); URINE COLOR DK YELLOW; URINE EPITHELIAL CELL AUTO >30 /lpf (0-5); URINE NITRITE NEG (NEG); URINE SPECIFIC GRAVITY > 1.045 (1.000-1.030); UROBILINOGEN NEG (NEG); ZZUR CULT IF INDIC CLEAN CATCH YES
[2016-11-24 20:55] LABS: URINE BILIRUBIN NEG (NEG)
[2016-11-24] MEDS ORDERED: TRAZ100T29 PO (21:09)
[2016-11-24 21:30] VITALS: BP 109/72; PULSE 68; TEMP 36.6; O2SAT 93
[2016-11-24] MEDS: TRAZODONE HCL 100 MG TAB PO SCH (21:33)
[2016-11-24] MEDS ORDERED: KETOROLAC TROMETHAMINE 30 MG/ML VIAL IV STA (21:34)
[2016-11-24] MEDS: METHYLPREDNISOLONE IV 40 MG in SYRINGE 0 ML IV SCH (21:34)
[2016-11-24] MEDS: CARVEDILOL 6.25 MG TAB PO SCH (21:34)
[2016-11-24 21:38] VITALS: BP 109/72; PULSE 68
[2016-11-24] MEDS: INSULIN ASPART 100 UNITS/ML 3 ML PEN SC SCH (21:43)
[2016-11-24 23:00] VITALS: BP 98/61; PULSE 72; TEMP 36.6; O2SAT 90
[2016-11-24 23:09] VITALS: BP 98/61; PULSE 72; TEMP 36.6; O2SAT 90
[2016-11-25] MEDS: ACETAMINOPHEN 325 MG TAB PO PRN (02:10)
[2016-11-25 04:00] VITALS: BP_SYST 139; BP_SYST 93; BP_DIAS 56; BP_DIAS 87; PULSE 73; PULSE 78; TEMP 36.5; TEMP 36.8; O2SAT 91; O2SAT 92
[2016-11-25] MEDS: METHYLPREDNISOLONE IV 40 MG in SYRINGE 0 ML IV SCH ×3 (04:12→20:45)
[2016-11-25 05:50] LABS: MEAN CORPUSCULAR HGB CONC 34.3 g/dl (32-36); MEAN PLATELET VOLUME 9.5 fL (7.4-10.4); PLATELET COUNT 201 K/uL (130-400)
[2016-11-25 06:06] LABS: INR 1.1 (0.9-1.1); PROTHROMBIN TIME (PATIENT) 11.3 SECONDS (9.0-12.0)
[2016-11-25 06:21] LABS: COMPLETE YES; LYMPH ABS # 0.48 K/uL (1.2-3.4); LYMPHOCYTE % 3.5 %; MEAN CELL VOLUME 93.8 fL (80-100); MEAN CORPUSCULAR HEMOGLOBIN 32.2 pg (25-34); NEUTROPHILS % 95.6 %; RED BLOOD COUNT 4.69 M/uL (4.2-5.4); WHITE BLOOD COUNT 13.69 K/uL (4.8-10.8)
[2016-11-25 06:22] LABS: BUN/CREATININE RATIO 15.9 (10-20); CALCIUM 8.6 mg/dl (8.5-10.1); CREATININE 0.95 mg/dl (0.60-1.20); MAGNESIUM 2.1 mg/dl (1.8-2.4); POTASSIUM 4.7 mmol/L (3.5-5.1)
[2016-11-25] MEDS: CARVEDILOL 6.25 MG TAB PO SCH ×2 (08:01→20:42)
[2016-11-25] MEDS: ASPIRIN 81 MG ECTAB PO SCH (08:02)
[2016-11-25] MEDS: PAROXETINE 20 MG TAB PO SCH (08:02)
[2016-11-25] MEDS: ATORVASTATIN 40 MG TAB PO SCH (08:02)
[2016-11-25] MEDS: INSULIN ASPART 100 UNITS/ML 3 ML PEN SC SCH ×4 (08:06→21:15)
[2016-11-25 08:22] VITALS: BP 120/75; PULSE 76; TEMP 36.7; O2SAT 93
[2016-11-25] MEDS ORDERED: BUTALBITAL/ACETAMIN/CAFFEINE TAB PO STA (08:36)
[2016-11-25 10:20] LABS: CKMB/CK RATIO 0.5 (0-3.0)
--- NOTE | 2016-11-25 11:39 | CARDIOLOGY CONSULTATION ---
DATE OF CONSULTATION: 11/25/2016 REFERRING PHYSICIAN: Dr. Moncho Mullen. CHIEF COMPLAINT: Abnormal EKG. HISTORY OF PRESENT ILLNESS: Mrs. Karon Sanchez is a 56-year-old woman with a history of diabetes mellitus and nonobstructive coronary disease who presented initially to an urgent care center for evaluation of high blood glucose when she developed a severe right-sided headache. The severity of the patient's headache was such that she was transferred to [facility] under suspicion of possible cerebrovascular accident. The patient states that she occasionally has migraine headaches, but this was quite severe, involved primarily the right side of the face and head. She also had some discomfort in the neck and more recently this has generalized to include right-sided chest wall discomfort. This appeared to come on quite suddenly and is associated with some mild blurry vision in the right eye. She did not have any particular speech difficulty. She did not have any motor deficits. Evaluation at [facility] involved an EKG which is felt to be abnormal. The patient also underwent imaging of the chest and attempt to exclude dissection of the aorta and carotids, this did reveal evidence of coronary calcification. In general, the patient is limited by significant dyspnea. She states that she has dyspnea on exertion, which has been progressive over the past several months. She is noted to have dyspnea even with walking, but this has gotten to the point recently where she has stopped walking with her niece due to an inability to keep up with her. She denies significant orthopnea; however, she has no paroxysmal nocturnal dyspnea. She states that she does awaken at night sometimes due to a sensation of wheezing, but this does not require any change in position as she is able to fall back to sleep. She denies symptoms of chest discomfort with activity. She has fleeting chest pains, some under the left breast and some on the right side of the chest. These lasts for several seconds and are not related to exertion. PAST MEDICAL HISTORY: Significant for 1. COPD. The patient is a current smoker. 2. Nonobstructive coronary disease. The patient claims to have had a positive stress test and subsequent cardiac catheterization perhaps in 2012 in [place]. She stated that she had "small arteries" that have blockages. No intervention was performed. 3. Congestive heart failure by report. 4. Diabetes mellitus, noncompliant. 5. Depression. 6. Hyperlipidemia. 7. Hypertension. 8. Arthritis. PAST SURGICAL HISTORY: Includes arthroscopic knee surgery, a left ankle fusion, multiple inguinal hernia repairs, hysterectomy and oophorectomy, cholecystectomy and tonsillectomy. OUTPATIENT MEDICATIONS: Included aspirin, atorvastatin, carvedilol, glipizide, paroxetine and trazodone. MEDICAL ALLERGIES: INCLUDED MORPHINE AND SUMATRIPTAN. FAMILY HISTORY: Significant for coronary artery disease with 2 brothers who have premature coronary disease, both father and mother had coronary disease, although at later ages. There is a history of diabetes in the family as well. SOCIAL HISTORY: The patient currently lives with her in [place]. She is currently disabled due to frequent hernias. She is a current smoker, but denies significant alcohol use. REVIEW OF SYSTEMS: A complete review of systems was performed with the pertinent positives noted in the history of present illness, the remainder being negative. She does not describe any recent constitutional symptoms such as fevers or chills. She denies swelling in her lower extremities with the exception of the left ankle on occasion. She is not aware of any sustained tachycardias, although she does report occasional palpitations which are fleeting. She has no significant dizziness or lightheadedness. She has not suffered a recent syncopal episode. PHYSICAL EXAMINATION: GENERAL: The patient did appear to be in distress. She was uncomfortable and quite tearful at the beginning of the interview, but she was alert and oriented and answered all questions appropriately. VITAL SIGNS: Include blood pressure of 120/75 with a pulse of 76. Sclerae are anicteric. HEENT: Pupils equal and reactive to light and accommodation. Extraocular movements were intact. Palpation of submandibular region did not reveal any significant lymphadenopathy. The carotids are palpable bilaterally. I do not appreciate any bruits on auscultation. There is no evidence of jugular venous distention. Thyroid is not enlarged. LUNGS: Auscultation of both lung garcia reveal them to be clear. There were no rales, wheezes or rhonchi. She had normal respiratory effort without use of accessory muscles. CARDIAC: Revealed her to be in a regular rhythm. S1, S2, appeared normal. I did not appreciate any murmurs on exam. PMI did not appear to be markedly displaced on palpation. ABDOMEN: Soft and nontender. EXTREMITIES: Evaluation of both wrists revealed radial pulses that were equal in intensity. There is no evidence of cyanosis or clubbing. Evaluation of lower extremities did not reveal any significant peripheral edema. She did have a scar on the left ankle. SKIN: I do not appreciate any rashes on examination today. NEUROLOGIC: Revealed cranial nerves that were intact. LABORATORY STUDIES: Obtained at the time of admission included a white cell count of 13.6, hemoglobin of 15 and a platelet count of 201. Sodium was 141, potassium is 4.7, BUN was 15, creatinine was 0.9, troponin was less than detectable limit. Multiple imaging studies were performed including CT angiography. There was no evidence of aortic dissection. There was no evidence of stenosis or dissection in the carotids or cerebrovascular circulation. Simple head CT did not reveal any acute intracranial findings. Single view chest x-ray was also obtained which did not reveal any acute cardiopulmonary findings. There is no evidence of cardiomegaly or pulmonary edema. Abdomen and pelvic CT was also performed and this did reveal evidence of coronary calcifications. A 12-lead EKG was obtained at the time of admission and again this morning, this revealed the patient to be in normal sinus rhythm with some T-wave changes in the anterior precordium and nonspecific ST changes. ASSESSMENT AND PLAN: 1. Abnormal EKG: The patient's EKG is abnormal, but the findings are relatively nonspecific. She is known to have coronary disease and I suspect this EKG is unchanged from prior. There is also the possibility of some T-wave changes in the setting of acute pain or possibly a cerebrovascular event, which appears to have been excluded currently. She does not have symptoms consistent with an acute coronary syndrome at this time. She does not describe symptoms of angina, although she is very sedentary due to significant breathing trouble likely related to chronic obstructive pulmonary disease. At this point, it would seem prudent to attempt retrieval of her records from [place]; however, in the absence of symptoms at this time or other objective evidence of an acute coronary syndrome I think additional workup can be deferred and she could be followed in an outpatient setting. 2. Congestive heart failure: The patient reports this diagnosis, but this has not been confirmed. She does have significant breathing trouble even with exertion. This would be consistent with chronic obstructive pulmonary disease or possibly congestive heart failure. An echocardiogram was ordered today and this will be reviewed by me later. She is on a beta-tessy currently but no diuretic therapy. Depending on the results of the echocardiogram, we may recommend changes in her medical management. 3. Coronary artery disease: The patient reports having had a cardiac catheterization, perhaps in 2012. She does have coronary calcification on her CT scan. Her description of the cath report is consistent with most diabetics in the sense that she has distal and small vessel disease. No intervention was performed and I suspect at this point medical management will be most appropriate. She is on a daily aspirin and high dose atorvastatin. The patient is also on a beta-tessy. Any additional recommendations will be based on the results of her echocardiogram and symptoms. This once again can be followed over time and she could be seen in the outpatient setting in our clinic if she desires.
[2016-11-25] MEDS: HYDROmorphone INJ 1 MG/ML SYR IV PRN ×2 (11:52→20:45)
[2016-11-25 11:58] VITALS: BP 120/76; PULSE 79; TEMP 37.2; O2SAT 92
--- NOTE | 2016-11-25 12:17 | Neurology Consultation ---
Neurology Consultation Date of Consultation: Nov 25, 2016. Attending Physician: Kulwant Márquez MD Primary Care Physician: Sheyla Coats M.D. Reason for Consultation: New onset headaches concern for possible temporal arteritis, versus early parasellar, versus trigeminal neuralgia. History of Present Illness Source: patient, hospital records This is a 56-year-old female who presents with chief complaint of worsening ear pain and new onset headaches. She reports that she's been having right ear pain that is sharp intermittently for the last 6 months but slowly worsening. She reports that she's been seen several times by primary care in urgent care without any results. Starting yesterday morning she had new onset symptoms. She reports a severe throbbing pain in her right temporal area. She notes new onset blurred vision in her right eye. The blurred vision is intermittent. The pain in the right temporal area is constant. It's tender to touch. She also has associated right jaw pain which is new. She denies any TMJ type symptoms in the past. She reports light and sound sensitivity with these symptoms. She only had nausea in association with getting narcotics in the emergency room. She reports that the ear pain is more intense than it was before. She also reports some of the pain spreading down into her neck and occipital area just behind the ear. She denies any trouble with speech or swallowing. The ear pain is described as more stabbing. She reports one episode of tingling in the right lower face for 10 minutes that resolved. No weakness. She reports a sense of feeling like her temporal and periorbital area is more swollen. No skin changes. No rashes. Patient does report that she had several bottom teeth removed in May but reports the ear pain started before that. Patient is unable to get an MRI of her brain due to what she reports is broken off needle somewhere in her stomach from surgical procedure. CTA of the head and neck done yesterday was unremarkable except for some signs of small vessel ischemic disease. Labs were reviewed and unremarkable except for minimally elevated CRP of 0.36. ESR is normal at 10, but was only checked a few hours after symptom onset. Therapeutic trials. She reports that she's tried [id number] NSAIDs which have not helped. She has had morphine in the past for migraine headaches and back pain which is helpful. She reports that Dilaudid in the emergency room made her nauseous. Reportedly tried the Imitrex causes diaphoresis. Patient does report a history of migraine headaches mostly when she was younger. She describes her migraine headaches in the past as being more generalized, severe, throbbing, light and sound sensitivity. Sometimes would have of black dots in her vision but no other visual auras. Past Medical/Surgical History Medical Problems: (1) Headache Status: Acute Past medical history see began for COPD/asthma, dyslipidemia, hypertension, diabetes on oral medication, insomnia, depression, history of migraine headaches Family History Patient reports a sister with migraine headaches CAD, CVA, diabetes, and hypertension also runs in the family Social History Patient is normally independent in her activities of daily living. Positive daily tobacco use. No alcohol use. No illegal drug use. Smoking Status: Former smoker Smokeless Tobacco Use: No Alcohol Use: none Drug Use: none Marital Status: Housing Status: lives with family Occupation Status: unemployed Allergies Coded Allergies: Morphine (Verified Allergy, Severe, CHEST PAIN, 06/30/16) *06/30/16 "I WAS ON MORPHINE FOR 3 YEARS. I'M NOT ALLERGIC." Sumatriptan (Verified Allergy, Intermediate, DIAPHORESIS, "SKIN CRAWLING" , 06/30/16) Current Inpatient Medications Current Inpatient Medications Medications (Trade) Dose Ordered Sig/Hortensia Route Start Time Stop Time Status Last Admin Dose Admin Ioversol (Optiray 320) 100 ml UD PRN IV 11/24/16 15:00 11/28/16 14:59 Acetaminophen (Tylenol Tab) 650 mg Q4H PRN PO 11/24/16 17:30 12/24/16 17:29 11/25/16 02:10 650 MG Nitroglycerin (Nitrostat Tab) 0.4 mg UD PRN SL 11/24/16 17:30 12/24/16 17:29 Aspirin (Ecotrin Tab) 81 mg DAILY PO 11/25/16 09:00 12/25/16 08:59 11/25/16 08:02 81 MG Atorvastatin Calcium (Lipitor Tab) 40 mg DAILY PO 11/25/16 09:00 12/25/16 08:59 11/25/16 08:02 40 MG Carvedilol (Coreg Tab) 6.25 mg BID PO 11/24/16 21:00 12/24/16 20:59 11/24/16 21:34 6.25 MG Paroxetine HCl (pAXil TAB) 20 mg DAILY PO 11/25/16 09:00 12/25/16 08:59 11/25/16 08:02 20 MG Trazodone HCl (Desyrel Tab) 100 mg HS PO 11/24/16 21:00 12/24/16 20:59 11/24/16 21:33 100 MG Ondansetron HCl (Zofran Inj) 4 mg Q6H PRN IV 11/24/16 17:30 12/24/16 17:29 Insulin Aspart (novoLOG ASPART) SLIDING SCALE If C... ACHS SC 11/24/16 21:00 12/24/16 20:59 11/25/16 08:06 10 UNITS Glucose (Glucose 40% Gel) UD PRN PO 11/24/16 17:30 12/24/16 17:29 Glucose (Glucose Chew Tab) 1 tabs UD PRN PO 11/24/16 17:30 12/24/16 17:29 Dextrose (Dextrose 50% 50ML Syringe) 50 ml UD PRN IV 11/24/16 17:30 12/24/16 17:29 Glucagon (Glucagon Inj) 1 mg UD PRN SQ 11/24/16 17:30 12/24/16 17:29 Miscellaneous (Iv Fluids Completed) 1 ea PRN PRN N/A 11/24/16 17:45 11/24/17 17:44 Hydromorphone HCl (Dilaudid Inj) 0.5 mg Q3H PRN IV 11/25/16 10:45 12/09/16 10:44 Methylprednisolone Sodium Succinate 40 mg/Syringe 0.64 ml @ 1.5 mls/min Q12H IV 11/25/16 22:00 12/24/16 21:59 Review of Systems Complete review of systems otherwise negative except for the above noted in history of present illness Physical Exam Vital Signs (Past 24 Hrs): Date Time Temp Pulse Resp B/P (MAP) Pulse Ox O2 Delivery O2 Flow Rate FiO2 11/25/16 08:22 36.7 76 16 120/75 (90) 93 11/25/16 08:15 Room Air 11/25/16 04:00 Room Air 11/25/16 04:00 36.5 78 20 93/56 (68) 91 Room Air 11/25/16 00:01 Room Air 11/24/16 23:09 36.6 72 20 98/61 (73) 90 Room Air 11/24/16 23:00 36.6 72 20 98/61 (73) 90 Room Air 11/24/16 21:38 68 109/72 (84) 11/24/16 21:30 36.6 68 18 109/72 (84) 93 Room Air 11/24/16 20:00 Room Air 11/24/16 19:30 36.9 70 18 108/67 (81) 92 Room Air 11/24/16 19:30 36.6 70 18 108/67 (81) 92 Room Air 11/24/16 19:11 69 12 115/76 92 11/24/16 18:13 69 12 92 11/24/16 18:02 115/76 11/24/16 17:55 93 Room Air 11/24/16 17:43 76 22 93 11/24/16 17:38 75 21 93 11/24/16 17:32 133/78 11/24/16 17:08 65 10 92 11/24/16 17:02 137/86 11/24/16 16:43 86 20 117/71 96 Room Air 11/24/16 16:38 72 17 94 11/24/16 16:32 117/71 11/24/16 16:08 68 14 95 11/24/16 16:02 135/83 11/24/16 16:00 71 16 135/83 96 Room Air 11/24/16 15:38 70 17 94 11/24/16 15:17 71 11/24/16 15:09 126/75 11/24/16 15:06 97 Room Air 11/24/16 15:05 95 Room Air 11/24/16 14:39 36.6 70 18 124/82 96 Room Air Gen.: Patient is alert and sitting in chair, in no acute distress. HEENT: Normocephalic /atraumatic, no scleral icterus. Patient is tender to touch over the right scientology area. There is a sense of fullness to palpation compared to the left. No jaw popping or crepitations with palpation of the jaw. No significant tenderness with palpation to the rest of the head and cervical area. Heart: Regular rate and rhythm Extremities: No gross deformities or rashes noted Neurological examination: Mental status: Patient is alert and oriented x3. Attention and concentration normal for the situation. Good fund of knowledge. Able to give her own history. Speech is fluent without any dysarthria or aphasia noted Cranial nerve: Funduscopic examination was unremarkable. No papilledema. Pupils equally round and reactive to light. Extraocular muscles intact without nystagmus. No facial asymmetry noted. Facial sensation intact. Tongue is midline. Good palatal elevation. Good shoulder shrug bilaterally. Hearing grossly intact to voice. Strength: 5/5 both proximal and distally in all extremities. There is no arm drift. Tone is normal. Sensation: Grossly intact to light touch in all extremities. Deep tendon reflexes: +1 in bilateral biceps, brachioradialis and patellar. Coordination: Patient had good finger to nose without dysmetria Station within the chair was normal Laboratory Results Past 24 Hours: 11/25/16 05:35 Red Blood Count 4.69, Mean Corpuscular Volume 93.8, Mean Corpuscular Hemoglobin 32.2, Mean Corpuscular Hemoglobin Concent 34.3, Mean Platelet Volume 9.5 11/25/16 05:35 Test 11/24/16 15:00 11/24/16 15:11 11/24/16 20:00 11/25/16 05:35 Immature Granulocyte % (Auto) 0.5 % White Blood Count 9.19 K/uL (4.8-10.8) 13.69 K/uL (4.8-10.8) Red Blood Count 4.92 M/uL (4.2-5.4) 4.69 M/uL (4.2-5.4) Hemoglobin 15.2 g/dL (12.0-16.0) 15.1 g/dL (12.0-16.0) Hematocrit 44.9 % (37-47) 44.0 % (37-47) Mean Corpuscular Volume 91.3 fL (80-100) 93.8 fL (80-100) Mean Corpuscular Hemoglobin 30.9 pg (25-34) 32.2 pg (25-34) Mean Corpuscular Hemoglobin Concent 33.9 g/dl (32-36) 34.3 g/dl (32-36) Platelet Count 211 K/uL (130-400) 201 K/uL (130-400) Mean Platelet Volume 9.2 fL (7.4-10.4) 9.5 fL (7.4-10.4) Neutrophils (%) (Auto) 54.5 % Lymphocytes (%) (Auto) 34.1 % Monocytes (%) (Auto) 6.7 % Eosinophils (%) (Auto) 3.7 % Basophils (%) (Auto) 0.5 % Neutrophils # (Auto) 5.00 K/uL (1.4-6.5) Lymphocytes # (Auto) 3.13 K/uL (1.2-3.4) Monocytes # (Auto) 0.62 K/uL (0.11-0.59) Eosinophils # (Auto) 0.34 K/uL (0-0.5) Basophils # (Auto) 0.05 K/uL (0-0.2) Immature Granulocyte # (Auto) 0.05 K/uL (0.00-0.02) Erythrocyte Sedimentation Rate 10 mm/hr (0-21) C-Reactive Protein 0.36 mg/dl (0-0.29) Bedside Hemoglobin 15.3 g/dl (12.0-16.0) Bedside Hematocrit 45 % (37-47) Bedside Sodium 142 mEq/L (135-144) Bedside Potassium 4.1 mEq/L (3.3-5.0) Bedside Chloride 103 mEq/L (101-112) Bedside Total CO2 24 mEq/l (24-31) Bedside Blood Urea Nitrogen 6 mg/dl (7-18) Bedside Creatinine 0.7 mg/dl (0.6-1.3) Bedside Glucose (other) 88 mg/dl (70-99) Bedside Ionized Calcium (Steven) 1.16 mmol/l (1.12-1.32) Urine Color DK YELLOW Urine Appearance CLEAR (CLEAR) Urine pH 7.0 (4.5-7.5) Urine Specific Hilton > 1.045 (1.000-1.030) Urine Protein TRACE (NEG) Urine Glucose (UA) NEG (NEG) Urine Ketones 1+ (NEG) Urine Occult Blood NEG (NEG) Urine Nitrite NEG (NEG) Urine Bilirubin NEG (NEG) Urine Urobilinogen NEG (NEG) Urine Leukocyte Esterase TRACE (NEG) Urine WBC (Auto) >30 /hpf (0-5) Urine RBC (Auto) 5-10 /hpf (0-4) Urine Hyaline Casts (Auto) 1-5 /lpf (0-5) Urine Epithelial Cells (Auto) >30 /lpf (0-5) Urine Bacteria (Auto) 1+ (NEG) Urine Pathogenic Casts /lpf (0) RDW Standard Deviation 44.3 fL (36.4-46.3) RDW Coefficient of Variation 12.9 % (11.5-14.5) Neutrophils % (Manual) 95.6 % Lymphocytes % (Manual) 3.5 % Monocytes % (Manual) 0.9 % Neutrophils # (Manual) 13.09 K/uL (1.4-6.5) Total Absolute Neutrophils 13.09 K/uL (1.4-6.5) Lymphocytes # (Manual) 0.48 K/uL (1.2-3.4) Total Absolute Lymphocytes 0.48 K/uL (1.2-3.4) Monocytes # (Manual) 0.12 K/uL (0.11-0.59) Red Blood Cell Morphology Unremarkable Prothrombin Time 11.3 SECONDS (9.0-12.0) Prothromb Time International Ratio 1.1 (0.9-1.1) Activated Partial Thromboplast Time 26.6 SECONDS (21.0-31.0) Partial Thromboplastin Ratio 1.0 Anion Gap 10.0 mmol/L (3-11) Est Creatinine Clear Calc Drug Dose 73.2 ml/min Estimated GFR () 77.6 Estimated GFR (Non- 67.0 BUN/Creatinine Ratio 15.9 (10-20) Calcium Level 8.6 mg/dl (8.5-10.1) Magnesium Level 2.1 mg/dl (1.8-2.4) Test 11/25/16 08:00 11/25/16 09:45 Bedside Glucose 222 mg/dl (70-90) Total Creatine Kinase 119 U/L (26-192) Creatine Kinase MB 0.6 ng/ml (0.5-3.6) Creatine Kinase MB Ratio 0.5 (0-3.0) Troponin I < 0.015 ng/ml (0-0.045) Imaging As noted above in history of present illness Impression This is a 66-year-old female with signs and symptoms concerning for right temporal arteritis. Patient does have some migrainous components to her headache which could be due to the fact that she's had a history of migraine headaches. Current symptoms do not seem consistent with her past history of migraine headaches. Differential diagnosis could include migraine headaches. It is unlikely that this is a trigeminal neuralgia or autonomic cephalgia. Of course cannot rule out early varicella-zoster, but I think this is less likely as well. No signs of acute stroke. Plan Agree with steroids as tolerated with her diabetes control. Recommend repeat checking ESR to see if it is increasing, as initial ESR may have been checked to early in terms of her symptoms. Overall I think the patient will likely need to go for a temporal artery biopsy. Considering the patient was started on steroids, there is possibility that the biopsy may be unremarkable. As such if the patient's symptoms appear to be controlled on current steroids, the recommendation would be to continue steroids for a total of 9 months with a slow gradual taper by 10% of the total dose every 2 weeks. Recommend treating headache pain with NSAIDs and limited narcotics. Avoid vasoconstrictive medications in the setting of cardiovascular risk factors. Can use Compazine, Phenergan, or Zofran as needed for nausea. Compazine or Phenergan may also help with migrainous type components to the headaches. Ideally I would've liked an MRI of the brain due to new onset headaches, but the patient is unable to get an MRI secondary to which she reports is broken off needle in her stomach after a surgical procedure. Thank you for allowing me to participate in this patient's care. If there is any questions or concerns, feel free to call/page me. Dr. Carson will be coming onto neurology consult service on Saturday.
--- NOTE | 2016-11-25 15:09 | CONSULTATION REPORT ---
DATE OF CONSULTATION: 11/25/2016 REQUESTING PHYSICIAN: Dr. Márquez. SUMMARY: We were consulted by Dr. Márquez regarding Karon Sanchez for a right temporal artery biopsy to rule out arteritis. I examined the patient with the presence of her who apparently stated that Saturday she had an acute onset of pain into her right side of her head going towards the back of her neck and down to her jaw area. She has had a history of migraines and also had neurologist evaluation. The patient is quite uncomfortable, in fact now she has noticed that her eye, the upper lid is swollen and she has been in the hospital last 24 hours. She has been on some steroids. She has never had any pain like this before. PHYSICAL EXAMINATION: The patient is obviously in some kind of uncomfortable state with pain localized that she describes as almost going around to the front of her head, to the back of her head, to the jaw in the upper neck area. On examination, she is exquisitely tender at the angle of the mandible, that reproduce intensity and sharp pain. LABORATORY: Showed her sed rate when she came in yesterday at a 10, this was repeated, it is 5 today. Other laboratories showed her BUN of 15, creatinine 0.25, WBC slightly elevated at 13.6 now with a left shift. ASSESSMENT AND PLAN: At this point, I discussed the situation with Dr. Márquez. I do not feel at this time that we should chapman in to do a temporal artery biopsy and the fact that she is quite uncomfortable and secondly given the characteristic of the pain and the laboratory findings, I doubt that this is very low in the differential. I would certainly think possibly a trigeminal neuralgia is a primary possibility and other causes. I did discuss with Dr. Márquez also that we will be glad to do it at any time if he needs to more indication this is it. We have about a 2-week window to establish a positive biopsy by arterial sampling even though if the patient is on steroids. I had her on a schedule for tomorrow, but at this point I am going to hold off. MTDD
[2016-11-25 16:21] VITALS: BP 106/93; PULSE 77; TEMP 37; O2SAT 92
[2016-11-25 19:57] VITALS: BP 111/68; PULSE 79; TEMP 37.1; O2SAT 92
[2016-11-25] MEDS: TRAZODONE HCL 100 MG TAB PO SCH (20:42)
[2016-11-25] MEDS: INSULIN GLARGINE SOLOSTAR 100 UNITS/ML 3 ML PEN SC SCH (22:01)
--- NOTE | 2016-11-25 23:39 | Progress Note ---
Subjective Date of Service: Nov 25, 2016. Subjective Pt evaluation today including: conversation w/ patient, physical exam, chart review, lab review, review of studies, conversation w/ [facility] accommodation consultant (neurology, general surgery), review of inpatient medication list Pain: right nondenominational and right face PO Intake: fair Voiding: no voiding problems tele normal since admission patient has severe pain of the right nondenominational, right zygoma area, right cheek, and right jaw no significant pain with eating occasional numbness along the mandible on the right she also mentions pain in the right cervical paraspinal region denies right arm pain/numbness denies any rash of the face Problem List Medical Problems: (1) Headache Status: Acute Review of Systems Constitutional: No fever, No chills Respiratory: No cough, No shortness of breath Cardiac: No chest pain Abdomen: No pain Objective Vital Signs Date Time Temp Pulse Resp B/P (MAP) Pulse Ox O2 Delivery O2 Flow Rate FiO2 11/25/16 20:00 Room Air 11/25/16 19:57 37.1 79 20 111/68 (82) 92 Room Air 11/25/16 16:21 37.0 77 18 106/93 (97) 92 Room Air 11/25/16 16:15 Room Air 11/25/16 12:15 Room Air 11/25/16 11:58 37.2 79 18 120/76 (91) 92 11/25/16 08:22 36.7 76 16 120/75 (90) 93 11/25/16 08:15 Room Air 11/25/16 04:00 Room Air 11/25/16 04:00 36.5 78 20 93/56 (68) 91 Room Air 11/25/16 00:01 Room Air Physical Exam General Appearance: + mild distress (holding the right side of her face - uncomfortable; a/o x 3) ENT: pharynx normal Neck: no JVD, + pertinent finding (passive ROM of the neck does not elicit much pain ) Respiratory/Chest: lungs clear, no respiratory distress, no accessory muscle use Cardiovascular: regular rate, rhythm, no gallop, no murmur Abdomen: normal bowel sounds, non tender, soft, no organomegaly Extremities: no pedal edema Neurologic/Psychiatric: no motor/sensory deficits, alert, oriented x 3 Skin: no rash (on face) Comments: head - very tender to palpation along the course of the right temporal artery; this area seems scantly swollen as well; she is also tender to touch along the course of the right mandible Laboratory Results Last 24 Hours Test 11/25/16 01:12 11/25/16 05:35 11/25/16 08:00 11/25/16 09:45 Total Creatine Kinase 135 U/L 119 U/L Creatine Kinase MB < 0.5 ng/ml 0.6 ng/ml Creatine Kinase MB Ratio 0.5 Troponin I < 0.015 ng/ml < 0.015 ng/ml White Blood Count 13.69 K/uL Red Blood Count 4.69 M/uL Hemoglobin 15.1 g/dL Hematocrit 44.0 % Mean Corpuscular Volume 93.8 fL Mean Corpuscular Hemoglobin 32.2 pg Mean Corpuscular Hemoglobin Concent 34.3 g/dl Platelet Count 201 K/uL Mean Platelet Volume 9.5 fL RDW Standard Deviation 44.3 fL RDW Coefficient of Variation 12.9 % Neutrophils % (Manual) 95.6 % Lymphocytes % (Manual) 3.5 % Monocytes % (Manual) 0.9 % Neutrophils # (Manual) 13.09 K/uL Total Absolute Neutrophils 13.09 K/uL Lymphocytes # (Manual) 0.48 K/uL Total Absolute Lymphocytes 0.48 K/uL Monocytes # (Manual) 0.12 K/uL Red Blood Cell Morphology Unremarkable Prothrombin Time 11.3 SECONDS Prothromb Time International Ratio 1.1 Activated Partial Thromboplast Time 26.6 SECONDS Partial Thromboplastin Ratio 1.0 Sodium Level 141 mmol/L Potassium Level 4.7 mmol/L Chloride Level 106 mmol/L Carbon Dioxide Level 25 mmol/L Anion Gap 10.0 mmol/L Blood Urea Nitrogen 15 mg/dl Creatinine 0.95 mg/dl Est Creatinine Clear Calc Drug Dose 73.2 ml/min Estimated GFR () 77.6 Estimated GFR (Non- 67.0 BUN/Creatinine Ratio 15.9 Random Glucose 187 mg/dl Calcium Level 8.6 mg/dl Magnesium Level 2.1 mg/dl Bedside Glucose 222 mg/dl Test 11/25/16 11:43 11/25/16 12:35 11/25/16 15:47 Bedside Glucose 224 mg/dl 230 mg/dl Erythrocyte Sedimentation Rate 5 mm/hr C-Reactive Protein 0.36 mg/dl Assessment and Plan 56yo female: 1. severe right-sided headache - has history of migraines but patient reports this is "very different." Diff dx - temporal arteritis vs prodrome to shingles vs trigeminal neuralgia vs referred pain from cervical spine issue vs other. All imaging of the head negative. Sed rate/crp normal, but can be normal early on in the setting of temporal arteritis. Spoke with neurology, Dr. Schmidt, who feels we should pursue temporal artery bx. Gen surg consulted for such. Recheck sed rate today. In meantime, continue steroids but cut to q12h dosing. If rash develops then this is shingles and should be appropriately treated. If this is trigeminal neuralgia then trial of tegretol. 2. uncontrolled T2DM - add lantus 10 U HS cont novolog ac/hs 3. abnormal EKG - appreciate cardiology consultation. no evidence of ACS troponin neg echo pending 4. DVT proph - hold on chemical means due to possible temporal artery bx 5. COPD - not in exacerbation at this time. 6. HTN - controlled; continue home meds. 7. abnormal u/a - follow urine culture. 8. prolonged QTc on EKG - mag, K both normal. follow carefully. Continued [facility] stay due to: multiple IV medications needed Discharge planning: home
[2016-11-26] VITALS (9 sets, daily range): BP systolic 102–128; BP diastolic 66–77; PULSE 60–73; TEMP 36.5–37.2; O2SAT 90–96; Ht 165.1 cm; Wt 90.6 kg
[2016-11-26] MEDS: HYDROmorphone INJ 1 MG/ML SYR IV PRN ×4 (01:10→21:15)
[2016-11-26 07:03] LABS: BASO % 0.1 %; BASO ABS # 0.01 K/uL (0-0.2); COMPLETE YES; EOS % 0.1 %; HEMATOCRIT 42.8 % (37-47); IG% 0.6 %; LYMPH % 9.6 %; LYMPH ABS # 1.84 K/uL (1.2-3.4); MEAN CELL VOLUME 93.2 fL (80-100); MEAN CORPUSCULAR HEMOGLOBIN 32.5 pg (25-34); MEAN CORPUSCULAR HGB CONC 34.8 g/dl (32-36); MEAN PLATELET VOLUME 9.9 fL (7.4-10.4); MONO % 5.5 %; NEUT % 84.1 %; PLATELET COUNT 222 K/uL (130-400); RED BLOOD COUNT 4.59 M/uL (4.2-5.4); WHITE BLOOD COUNT 19.11 K/uL (4.8-10.8)
[2016-11-26 07:15] LABS: PARTIAL THROMBOPLASTIN RATIO 0.9; PROTHROMBIN TIME (PATIENT) 10.4 SECONDS (9.0-12.0)
[2016-11-26 07:29] LABS: CALCIUM 8.5 mg/dl (8.5-10.1); CREATININE 0.89 mg/dl (0.60-1.20); MAGNESIUM 2.6 mg/dl (1.8-2.4)
--- NOTE | 2016-11-26 07:51 | Surgery Progress Note ---
Surgery Progress Note Date of Service Nov 26, 2016. Subjective similar pain right jaw Objective Vital Signs: Date Time Temp Pulse Resp B/P (MAP) Pulse Ox O2 Delivery O2 Flow Rate FiO2 11/26/16 04:18 Room Air 11/26/16 04:00 36.7 69 20 117/66 (83) 92 Room Air 11/26/16 00:27 37.2 73 18 116/73 (87) 90 Room Air 11/26/16 00:19 Room Air 11/25/16 20:00 Room Air 11/25/16 19:57 37.1 79 20 111/68 (82) 92 Room Air 11/25/16 16:21 37.0 77 18 106/93 (97) 92 Room Air 11/25/16 16:15 Room Air 11/25/16 12:15 Room Air 11/25/16 11:58 37.2 79 18 120/76 (91) 92 11/25/16 08:22 36.7 76 16 120/75 (90) 93 11/25/16 08:15 Room Air Head: + pertinent finding (tener jaw angle) Laboratory Results: Results Past 24 Hours Test 11/25/16 08:00 11/25/16 09:45 11/25/16 11:43 11/25/16 12:35 Range/Units Bedside Glucose 222 224 70-90 mg/dl Total Creatine Kinase 119 26-192 U/L Creatine Kinase MB 0.6 0.5-3.6 ng/ml Creatine Kinase MB Ratio 0.5 0-3.0 Troponin I < 0.015 0-0.045 ng/ml Erythrocyte Sedimentation Rate 5 0-21 mm/hr C-Reactive Protein 0.36 0-0.29 mg/dl Test 11/25/16 15:47 11/26/16 06:12 Range/Units Bedside Glucose 230 70-90 mg/dl White Blood Count 19.11 4.8-10.8 K/uL Red Blood Count 4.59 4.2-5.4 M/uL Hemoglobin 14.9 12.0-16.0 g/dL Hematocrit 42.8 37-47 % Mean Corpuscular Volume 93.2 80-100 fL Mean Corpuscular Hemoglobin 32.5 25-34 pg Mean Corpuscular Hemoglobin Concent 34.8 32-36 g/dl Platelet Count 222 130-400 K/uL Mean Platelet Volume 9.9 7.4-10.4 fL Neutrophils (%) (Auto) 84.1 % Lymphocytes (%) (Auto) 9.6 % Monocytes (%) (Auto) 5.5 % Eosinophils (%) (Auto) 0.1 % Basophils (%) (Auto) 0.1 % Neutrophils # (Auto) 16.09 1.4-6.5 K/uL Lymphocytes # (Auto) 1.84 1.2-3.4 K/uL Monocytes # (Auto) 1.05 0.11-0.59 K/uL Eosinophils # (Auto) 0.01 0-0.5 K/uL Basophils # (Auto) 0.01 0-0.2 K/uL RDW Standard Deviation 44.4 36.4-46.3 fL RDW Coefficient of Variation 13.0 11.5-14.5 % Immature Granulocyte % (Auto) 0.6 % Immature Granulocyte # (Auto) 0.11 0.00-0.02 K/uL Prothrombin Time 10.4 9.0-12.0 SECONDS Prothromb Time International Ratio 1.0 0.9-1.1 Activated Partial Thromboplast Time 24.4 21.0-31.0 SECONDS Partial Thromboplastin Ratio 0.9 Sodium Level 141 136-145 mmol/L Potassium Level 4.0 3.5-5.1 mmol/L Chloride Level 105 98-107 mmol/L Carbon Dioxide Level 27 21-32 mmol/L Anion Gap 9.0 3-11 mmol/L Blood Urea Nitrogen 19 7-18 mg/dl Creatinine 0.89 0.60-1.20 mg/dl Est Creatinine Clear Calc Drug Dose 78.2 ml/min Estimated GFR () 84.0 Estimated GFR (Non- 72.5 BUN/Creatinine Ratio 21.0 10-20 Random Glucose 216 70-99 mg/dl Calcium Level 8.5 8.5-10.1 mg/dl Magnesium Level 2.6 1.8-2.4 mg/dl Assessment & Plan right jaw pain ESR, CRP remain normal pain slowly improving will hold off on biopsy for today, revaluate tomorrow or can be seen/ performed as an outpatient seen with Dr. Padron
[2016-11-26] MEDS: ASPIRIN 81 MG ECTAB PO SCH (08:26)
[2016-11-26] MEDS: CARVEDILOL 6.25 MG TAB PO SCH ×2 (08:26→21:13)
[2016-11-26] MEDS: PAROXETINE 20 MG TAB PO SCH (08:26)
[2016-11-26] MEDS: ATORVASTATIN 40 MG TAB PO SCH (08:26)
[2016-11-26] MEDS: INSULIN ASPART 100 UNITS/ML 3 ML PEN SC SCH ×4 (08:30→21:12)
--- NOTE | 2016-11-26 09:29 | Neurology Progress Notes ---
Neurology Progress Note Date of Service Nov 26, 2016. Subjective c/o persistent right sided headache, especially ear, stabbing quality, triggered by chewing or speaking, present for about six months Objective Date Time Temp Pulse Resp B/P (MAP) Pulse Ox O2 Delivery O2 Flow Rate FiO2 11/26/16 08:19 36.7 67 18 116/75 (89) 96 11/26/16 04:18 Room Air 11/26/16 04:00 36.7 69 20 117/66 (83) 92 Room Air 11/26/16 00:27 37.2 73 18 116/73 (87) 90 Room Air 11/26/16 00:19 Room Air 11/25/16 20:00 Room Air 11/25/16 19:57 37.1 79 20 111/68 (82) 92 Room Air 11/25/16 16:21 37.0 77 18 106/93 (97) 92 Room Air 11/25/16 16:15 Room Air 11/25/16 12:15 Room Air 11/25/16 11:58 37.2 79 18 120/76 (91) 92 Last 24 Hours Test 11/25/16 09:45 11/25/16 11:43 11/25/16 12:35 11/25/16 15:47 Total Creatine Kinase 119 U/L Creatine Kinase MB 0.6 ng/ml Creatine Kinase MB Ratio 0.5 Troponin I < 0.015 ng/ml Bedside Glucose 224 mg/dl 230 mg/dl Erythrocyte Sedimentation Rate 5 mm/hr C-Reactive Protein 0.36 mg/dl Test 11/26/16 06:12 11/26/16 07:45 White Blood Count 19.11 K/uL Red Blood Count 4.59 M/uL Hemoglobin 14.9 g/dL Hematocrit 42.8 % Mean Corpuscular Volume 93.2 fL Mean Corpuscular Hemoglobin 32.5 pg Mean Corpuscular Hemoglobin Concent 34.8 g/dl Platelet Count 222 K/uL Mean Platelet Volume 9.9 fL Neutrophils (%) (Auto) 84.1 % Lymphocytes (%) (Auto) 9.6 % Monocytes (%) (Auto) 5.5 % Eosinophils (%) (Auto) 0.1 % Basophils (%) (Auto) 0.1 % Neutrophils # (Auto) 16.09 K/uL Lymphocytes # (Auto) 1.84 K/uL Monocytes # (Auto) 1.05 K/uL Eosinophils # (Auto) 0.01 K/uL Basophils # (Auto) 0.01 K/uL RDW Standard Deviation 44.4 fL RDW Coefficient of Variation 13.0 % Immature Granulocyte % (Auto) 0.6 % Immature Granulocyte # (Auto) 0.11 K/uL Prothrombin Time 10.4 SECONDS Prothromb Time International Ratio 1.0 Activated Partial Thromboplast Time 24.4 SECONDS Partial Thromboplastin Ratio 0.9 Sodium Level 141 mmol/L Potassium Level 4.0 mmol/L Chloride Level 105 mmol/L Carbon Dioxide Level 27 mmol/L Anion Gap 9.0 mmol/L Blood Urea Nitrogen 19 mg/dl Creatinine 0.89 mg/dl Est Creatinine Clear Calc Drug Dose 78.2 ml/min Estimated GFR () 84.0 Estimated GFR (Non- 72.5 BUN/Creatinine Ratio 21.0 Random Glucose 216 mg/dl Calcium Level 8.5 mg/dl Magnesium Level 2.6 mg/dl Bedside Glucose 211 mg/dl Exam: alert, fully oriented, normal spontaneous speech pattern, no facial droop, tongue and palate midline, no hearing loss, no pronator drift or weakness of the limbs Current Inpatient Medications Medications (Trade) Dose Ordered Sig/Hortensia Route Start Time Stop Time Status Last Admin Dose Admin Ioversol (Optiray 320) 100 ml UD PRN IV 11/24/16 15:00 11/28/16 14:59 Acetaminophen (Tylenol Tab) 650 mg Q4H PRN PO 11/24/16 17:30 12/24/16 17:29 11/25/16 02:10 650 MG Nitroglycerin (Nitrostat Tab) 0.4 mg UD PRN SL 11/24/16 17:30 12/24/16 17:29 Aspirin (Ecotrin Tab) 81 mg DAILY PO 11/25/16 09:00 12/25/16 08:59 11/26/16 08:26 81 MG Atorvastatin Calcium (Lipitor Tab) 40 mg DAILY PO 11/25/16 09:00 12/25/16 08:59 11/26/16 08:26 40 MG Carvedilol (Coreg Tab) 6.25 mg BID PO 11/24/16 21:00 12/24/16 20:59 11/26/16 08:26 6.25 MG Paroxetine HCl (pAXil TAB) 20 mg DAILY PO 11/25/16 09:00 12/25/16 08:59 11/26/16 08:26 20 MG Trazodone HCl (Desyrel Tab) 100 mg HS PO 11/24/16 21:00 12/24/16 20:59 11/25/16 20:42 100 MG Ondansetron HCl (Zofran Inj) 4 mg Q6H PRN IV 11/24/16 17:30 12/24/16 17:29 Insulin Aspart (novoLOG ASPART) SLIDING SCALE If C... ACHS SC 11/24/16 21:00 12/24/16 20:59 11/26/16 08:30 9 UNITS Glucose (Glucose 40% Gel) UD PRN PO 11/24/16 17:30 12/24/16 17:29 Glucose (Glucose Chew Tab) 1 tabs UD PRN PO 11/24/16 17:30 12/24/16 17:29 Dextrose (Dextrose 50% 50ML Syringe) 50 ml UD PRN IV 11/24/16 17:30 12/24/16 17:29 Glucagon (Glucagon Inj) 1 mg UD PRN SQ 11/24/16 17:30 12/24/16 17:29 Miscellaneous (Iv Fluids Completed) 1 ea PRN PRN N/A 11/24/16 17:45 11/24/17 17:44 Hydromorphone HCl (Dilaudid Inj) 0.5 mg Q3H PRN IV 11/25/16 10:45 12/09/16 10:44 11/26/16 08:43 0.5 MG Methylprednisolone Sodium Succinate 40 mg/Syringe 0.64 ml @ 1.5 mls/min Q12H IV 11/25/16 22:00 12/24/16 21:59 11/25/16 20:45 1.5 MLS/MIN Insulin Glargine (Lantus Solostar Pen) 10 unit HS SC 11/25/16 21:45 12/25/16 21:44 11/25/16 22:01 10 UNIT Impression suspect Trigeminal Neuralgia variant with prominent otalgia Plan start carbamazepine 100 mg tid for 5 days, then increase to 200 mg tid f/u in neurology clinic
[2016-11-26] MEDS ORDERED: NURSING VERBAL MED ORDER ONE ×2 (09:30→18:00)
[2016-11-26] MEDS ORDERED: CARBAMAZEPINE 100 MG CHEW TAB PO ONE (09:30)
[2016-11-26] MEDS: NICOTINE 14 MG/24 HR TDSY TD SCH (10:12)
[2016-11-26] MEDS: METHYLPREDNISOLONE IV 40 MG in SYRINGE 0 ML IV SCH ×2 (10:13→21:43)
--- NOTE | 2016-11-26 10:44 | SURGERY PROGRESS NOTE ---
DATE: 11/26/2016 Karon feels better than she did yesterday, but she still has some residual pain mostly in the side of her head and jaw and upper neck. She says the pain is accentuated even by opening her mouth and she still has some tenderness at the angle of mandible. At this time, I told her we will hold off any temporal artery biopsy in the fact that the likely diagnosis is temporal arteritis is unlikely with low sed rate and yield malina 1-2%, but I did mention to her that if the neurologist and Dr. Márquez still feel strongly about proceeding with that, then we could certainly do it any time in a window of 2 weeks since she started steroids. LARRY
[2016-11-26] MEDS: CARBAMAZEPINE 100 MG CHEW TAB PO SCH ×2 (13:30→21:39)
--- NOTE | 2016-11-26 13:31 | Progress Note ---
Subjective Date of Service: Nov 26, 2016. Subjective Pt evaluation today including: conversation w/ patient, physical exam, chart review, lab review, review of studies, review of inpatient medication list Pt states right ear pain resolved but just had pain medicine Right shoulder no pain for past 2 days No fevers or chills Radiation of pain from right ear into face Problem List Medical Problems: (1) Headache Status: Acute Review of Systems Constitutional: No fever, No chills, No sweats, No weight loss, No weakness Eyes: No worsening of vision, No eye pain, No redness, No diplopia ENT: No hearing loss, No unusual epistaxis, No nasal symptoms, No sore throat, No trouble swallowing Respiratory: No cough, No sputum, No wheezing, No shortness of breath, No dyspnea on exertion Cardiac: No chest pain, No orthopnea, No PND, No edema Abdomen: No pain, No nausea, No vomiting, No diarrhea, No constipation Musculoskeletal: No joint pain, No muscle pain, No swelling, No calf pain Female : No dysuria, No urinary frequency, No hematuria, No incontinence Neurologic: No memory loss, No paralysis, No weakness, No numbness/tingling Psychiatric: No depression symptoms, No anhedonism, No anxiety, No insomnia Skin: No rash, No itch, No new/changing skin lesions, No color change Objective Vital Signs Date Time Temp Pulse Resp B/P (MAP) Pulse Ox O2 Delivery O2 Flow Rate FiO2 11/26/16 08:19 36.7 67 18 116/75 (89) 96 11/26/16 04:18 Room Air 11/26/16 04:00 36.7 69 20 117/66 (83) 92 Room Air 11/26/16 00:27 37.2 73 18 116/73 (87) 90 Room Air 11/26/16 00:19 Room Air 11/25/16 20:00 Room Air 11/25/16 19:57 37.1 79 20 111/68 (82) 92 Room Air 11/25/16 16:21 37.0 77 18 106/93 (97) 92 Room Air 11/25/16 16:15 Room Air Physical Exam General Appearance: WD/WN, + mild distress ENT: normal ENT inspection, hearing grossly normal, TMs normal, pharynx normal Neck: supple, no adenopathy, thyroid normal, no JVD Respiratory/Chest: chest non-tender, lungs clear, normal breath sounds, no respiratory distress Cardiovascular: regular rate, rhythm, no edema, no gallop, no JVD Abdomen: normal bowel sounds, non tender, soft, no organomegaly Extremities: normal range of motion, non-tender, normal inspection, no pedal edema Neurologic/Psychiatric: no motor/sensory deficits, alert, normal mood/affect, oriented x 3 Laboratory Results Last 24 Hours Test 11/25/16 15:47 11/26/16 06:12 11/26/16 07:45 11/26/16 11:52 Bedside Glucose 230 mg/dl 211 mg/dl 169 mg/dl White Blood Count 19.11 K/uL Red Blood Count 4.59 M/uL Hemoglobin 14.9 g/dL Hematocrit 42.8 % Mean Corpuscular Volume 93.2 fL Mean Corpuscular Hemoglobin 32.5 pg Mean Corpuscular Hemoglobin Concent 34.8 g/dl Platelet Count 222 K/uL Mean Platelet Volume 9.9 fL Neutrophils (%) (Auto) 84.1 % Lymphocytes (%) (Auto) 9.6 % Monocytes (%) (Auto) 5.5 % Eosinophils (%) (Auto) 0.1 % Basophils (%) (Auto) 0.1 % Neutrophils # (Auto) 16.09 K/uL Lymphocytes # (Auto) 1.84 K/uL Monocytes # (Auto) 1.05 K/uL Eosinophils # (Auto) 0.01 K/uL Basophils # (Auto) 0.01 K/uL RDW Standard Deviation 44.4 fL RDW Coefficient of Variation 13.0 % Immature Granulocyte % (Auto) 0.6 % Immature Granulocyte # (Auto) 0.11 K/uL Prothrombin Time 10.4 SECONDS Prothromb Time International Ratio 1.0 Activated Partial Thromboplast Time 24.4 SECONDS Partial Thromboplastin Ratio 0.9 Sodium Level 141 mmol/L Potassium Level 4.0 mmol/L Chloride Level 105 mmol/L Carbon Dioxide Level 27 mmol/L Anion Gap 9.0 mmol/L Blood Urea Nitrogen 19 mg/dl Creatinine 0.89 mg/dl Est Creatinine Clear Calc Drug Dose 78.2 ml/min Estimated GFR () 84.0 Estimated GFR (Non- 72.5 BUN/Creatinine Ratio 21.0 Random Glucose 216 mg/dl Calcium Level 8.5 mg/dl Magnesium Level 2.6 mg/dl Assessment and Plan Right otalgia/facial pain Hx of migraines, states pain is more noted in right ear Head CTA neg Gen surg recs unlikely temp arteritis, no urgent need for biopsy even if on steroids Neurology consulted, cont solumedrol 40 mg IV q 12 hrs and start carbamazepine 100 mg PO TID T2DM still uncontrolled Cont lantus 10 U HS Cont novolog AC/HS Abnormal EKG appreciate cardiology consultation. no evidence of ACS, symptoms likely related to pulm etiology troponin neg, echo to be reviewed COPD Stable No worsening shortness of breath Not in exacerbation at this time. HTN Controlled Continue coreg 6.25 mg PO BID FULL CODE Continued [facility] stay due to: multiple IV medications needed Discharge planning: home
[2016-11-26] MEDS ORDERED: HYDROmorphone INJ 1 MG/ML SYR IV STA (18:09)
[2016-11-26] MEDS: INSULIN GLARGINE SOLOSTAR 100 UNITS/ML 3 ML PEN SC SCH (21:12)
[2016-11-26] MEDS: TRAZODONE HCL 100 MG TAB PO SCH (21:14)
[2016-11-27] VITALS (8 sets, daily range): BP systolic 95–131; BP diastolic 56–76; PULSE 60–71; TEMP 36.6–36.9; O2SAT 91–96
--- NOTE | 2016-11-27 07:48 | Surgery Progress Note ---
Surgery Progress Note Date of Service Nov 27, 2016. Subjective pain improving Objective Vital Signs: Date Time Temp Pulse Resp B/P (MAP) Pulse Ox O2 Delivery O2 Flow Rate FiO2 11/27/16 07:42 93 Room Air 11/27/16 07:18 36.7 62 18 122/76 (91) 93 11/27/16 04:19 36.6 60 18 111/62 (78) 91 Room Air 11/27/16 04:00 Room Air 11/27/16 00:00 Room Air 11/26/16 23:55 36.5 60 20 109/71 (84) 92 Room Air 11/26/16 20:00 94 Room Air 11/26/16 19:25 36.7 72 18 102/66 (78) 94 Room Air 11/26/16 16:14 37.0 69 16 118/77 (91) 93 Room Air 11/26/16 16:00 93 Room Air 11/26/16 12:00 36.5 71 16 128/72 (90) 95 11/26/16 08:19 36.7 67 18 116/75 (89) 96 Head: + pertinent finding (minimal tenderness) Laboratory Results: Results Past 24 Hours Test 11/26/16 11:52 11/26/16 17:10 11/26/16 21:00 11/26/16 23:22 Range/Units Bedside Glucose 169 206 175 148 70-90 mg/dl Test 11/27/16 07:29 Range/Units Bedside Glucose 157 70-90 mg/dl Assessment & Plan right jaw pain ESR, CRP remain normal pain improving no plans for biopsy, can be seen as an outpatient if needed seen with Dr. Padron
--- NOTE | 2016-11-27 08:15 | SURGERY PROGRESS NOTE ---
DATE: 11/27/2016 Karon is doing much better. She has resolved the pain triggered by just opening her mouth. She has some residual pain above the temporomandibular junction, but overall she is greatly improved. Yesterday, she was started on Tegretol. She is maintained on steroids. At this point, I have nothing further to add. I will leave it up to the medical service to decide whether to stop the steroids and continue the Tegretol, but it is indicated that they would like to proceed with biopsy to resolve this issue more definitively, we will be glad to do it at anytime, but I am glad overall that her symptoms which were quite significant have pretty much all resolved. I will be out of town for approximately a week or so, but Dr. Holley and Dr. Galarza will be available if further surgical needs are required.
[2016-11-27] MEDS: CARBAMAZEPINE 100 MG CHEW TAB PO SCH ×3 (08:25→20:52)
[2016-11-27] MEDS: NICOTINE 14 MG/24 HR TDSY TD SCH (08:26)
[2016-11-27] MEDS: PAROXETINE 20 MG TAB PO SCH (08:26)
[2016-11-27] MEDS: ASPIRIN 81 MG ECTAB PO SCH (08:26)
[2016-11-27] MEDS: CARVEDILOL 6.25 MG TAB PO SCH ×2 (08:26→20:52)
[2016-11-27] MEDS: ATORVASTATIN 40 MG TAB PO SCH (08:26)
[2016-11-27] MEDS: INSULIN ASPART 100 UNITS/ML 3 ML PEN SC SCH ×4 (08:32→20:59)
[2016-11-27 09:19] LABS: BASO % 0.1 %; BASO ABS # 0.01 K/uL (0-0.2); COMPLETE YES; EOS % 0.1 %; HEMATOCRIT 43.5 % (37-47); LYMPH % 17.8 %; LYMPH ABS # 2.48 K/uL (1.2-3.4); MEAN CORPUSCULAR HEMOGLOBIN 32.4 pg (25-34); MEAN CORPUSCULAR HGB CONC 34.5 g/dl (32-36); MEAN PLATELET VOLUME 9.4 fL (7.4-10.4); MONO % 4.6 %; NEUT % 76.4 %; PLATELET COUNT 204 K/uL (130-400); RED BLOOD COUNT 4.63 M/uL (4.2-5.4); WHITE BLOOD COUNT 13.95 K/uL (4.8-10.8)
[2016-11-27] MEDS: ACETAMINOPHEN 325 MG TAB PO PRN (09:59)
[2016-11-27] MEDS: METHYLPREDNISOLONE IV 40 MG in SYRINGE 0 ML IV SCH (09:59)
[2016-11-27] MEDS: HYDROmorphone INJ 1 MG/ML SYR IV PRN ×3 (11:25→21:01)
--- NOTE | 2016-11-27 11:31 | ECHOCARDIOGRAM REPORT ---
*NOTICE TO RECEIVING [employer] This information is strictly Confidential and protected under [place] law. [place] law prohibits you from making any further disclosure of this information unless further disclosure is expressly permitted by the written consent of the person to whom it pertains or is authorized by law. A general authorization for the release of medical or other information is not sufficient for this purpose. Hospital accepts no responsibility if the information is made available to any other person, INCLUDING THE PATIENT. Interpretation Summary * Name: YUN JHAVERI Study Date: 11/27/2016 06:36 AM BP: 111/62 mmHg * Patient Location: .MED\S\N280\S\2 HR: 63 * : 1960 (M/d/yyyy) Gender: Female Height: 65 in * Age: 56 yrs Ethnicity: [place] Weight: 198 lb * Ordering Physician: Christopher. Zavala MD * Performed By: Destini Pandey * * Reason For Study: CHF, ABNORMAL EKG * BSA: 2.0 m2 * -- Conclusions -- * 1. Mildly dilated left ventricle with normal systolic function. EF 60-65%. No regional wall motion abnormalities. No significant left ventricular hypertrophy. Type 1 diastolic dysfunction. * 2. There is mild mitral regurgitation. * 3. No significant change from prior study on 07/01/2016. Procedure Details * A complete two-dimensional transthoracic echocardiogram was performed (2D, M-mode, Doppler and color flow Doppler). Left Ventricle * Mildly dilated left ventricle with normal systolic function. EF 60-65%. No regional wall motion abnormalities. No significant left ventricular hypertrophy. Type 1 diastolic dysfunction. Right Ventricle * The right ventricle is normal in size and function. * The right ventricular systolic function is normal as assessed by tricuspid annular plane systolic excursion (TAPSE) (normal >1.5 cm). Atria * The left atrial size is normal. * Right atrial size is normal. * There is no evidence of atrial septal defect, but resolution does not allow assessment for a patent foramen ovale. Mitral Valve * The mitral valve is grossly normal. * There is no mitral valve stenosis. * There is mild mitral regurgitation. Tricuspid Valve * The tricuspid valve is not well visualized, but is grossly normal. * There is no tricuspid stenosis. * Significant tricuspid regurgitation is absent. Aortic Valve * The aortic valve is normal in structure and function. * The aortic valve is trileaflet. * No hemodynamically significant valvular aortic stenosis. * No aortic regurgitation is present. Pulmonic Valve * The pulmonary valve is inadequately visualized, but the Doppler data is adequate for interpretation. * There is no pulmonic valvular stenosis. * There is no significant pulmonary regurgitation. Great Vessels * The aortic root is normal size. * Ascending aorta of normal dimension * Aortic arch of normal dimension. Pericardium/Pleural * There is no pericardial effusion. MMode 2D Measurements and Calculations IVSd 1.1 cm IVSs 2.4 cm LVIDd 5.7 cm LVIDs 2.9 cm LVPWd 1.1 cm LVPWs 1.3 cm IVS/LVPW 1.0 FS 48.9 % EDV(Teich) 157.2 ml ESV(Teich) 31.9 ml EF(Teich) 79.7 % EDV(cubed) 180.9 ml ESV(cubed) 24.1 ml EF(cubed) 86.7 % % IVS thick 112.1 % % LVPW thick 16.6 % LV mass(C)d 265.0 grams LV mass(C)dI 134.6 grams/m\S\2 LV mass(C)s 222.9 grams LV mass(C)sI 113.2 grams/m\S\2 CO(Teich) 6.6 l/min CI(Teich) 3.4 l/min/m\S\2 SV(Teich) 125.3 ml SI(Teich) 63.6 ml/m\S\2 CO(cubed) 8.3 l/min CI(cubed) 4.2 l/min/m\S\2 SV(cubed) 156.8 ml SI(cubed) 79.6 ml/m\S\2 Ao root diam 3.5 cm Ao root area 9.8 cm\S\2 ACS 1.5 cm LA dimension 4.3 cm asc Aorta Diam 3.0 cm LA/Ao 1.2 LVOT diam 2.2 cm LVOT area 3.7 cm\S\2 LVAd ap4 23.5 cm\S\2 LVLd ap4 6.4 cm EDV(MOD-sp4) 70.7 ml LVAs ap4 12.7 cm\S\2 LVLs ap4 5.5 cm ESV(MOD-sp4) 25.7 ml EF(MOD-sp4) 63.6 % LVAd ap2 18.8 cm\S\2 LVLd ap2 6.7 cm EDV(MOD-sp2) 46.0 ml EDV(sp2-el) 47.6 ml LVAs ap2 10.6 cm\S\2 LVLs ap2 5.6 cm ESV(MOD-sp2) 17.2 ml EF(MOD-sp2) 62.6 % CO(MOD-sp4) 2.4 l/min CI(MOD-sp4) 1.2 l/min/m\S\2 SV(MOD-sp4) 45.0 ml SI(MOD-sp4) 22.8 ml/m\S\2 CO(MOD-sp2) 1.5 l/min CI(MOD-sp2) 0.77 l/min/m\S\2 SV(MOD-sp2) 28.8 ml SI(MOD-sp2) 14.6 ml/m\S\2 Doppler Measurements and Calculations MV E max renuka 68.9 cm/sec MV A max renuka 102.3 cm/sec MV E/A 0.67 MV dec time 0.24 sec Ao V2 max 119.4 cm/sec Ao max PG 5.7 mmHg Ao max PG (full) 2.7 mmHg AINSLEY(V,A) 2.7 cm\S\2 AINSLEY(V,D) 2.7 cm\S\2 LV V1 max PG 3.0 mmHg LV V1 max 86.5 cm/sec TV E max renuka 41.6 cm/sec PA V2 max 81.5 cm/sec PA max PG 2.7 mmHg
--- NOTE | 2016-11-27 15:06 | Progress Note ---
Subjective Date of Service: Nov 27, 2016. Subjective Pt evaluation today including: conversation w/ patient, physical exam, chart review, lab review, review of studies, review of inpatient medication list Pt states right ear pain/facial pain improved Denies any fevers or chills Ambulating well States new medicine is working well but does not want to be on steroids Problem List Medical Problems: (1) Headache Status: Acute Review of Systems Constitutional: No fever, No chills Eyes: No worsening of vision, No eye pain, No redness, No discharge ENT: No hearing loss, No unusual epistaxis, No nasal symptoms, No sore throat Respiratory: No cough, No sputum, No wheezing, No shortness of breath, No dyspnea on exertion Cardiac: No chest pain, No orthopnea, No PND, No edema Abdomen: No pain, No nausea, No vomiting, No diarrhea, No constipation Musculoskeletal: No joint pain, No muscle pain, No swelling Female : No dysuria, No urinary frequency, No hematuria, No incontinence Neurologic: No memory loss, No paralysis, No weakness, No numbness/tingling Psychiatric: No depression symptoms, No anhedonism, No anxiety, No insomnia Endo: No fatigue, No excessive thirst Skin: No rash, No itch Objective Vital Signs Date Time Temp Pulse Resp B/P (MAP) Pulse Ox O2 Delivery O2 Flow Rate FiO2 11/27/16 12:00 93 Room Air 11/27/16 11:56 36.7 60 18 116/66 (83) 94 11/27/16 07:42 93 Room Air 11/27/16 07:18 36.7 62 18 122/76 (91) 93 11/27/16 04:19 36.6 60 18 111/62 (78) 91 Room Air 11/27/16 04:00 Room Air 11/27/16 00:00 Room Air 11/26/16 23:55 36.5 60 20 109/71 (84) 92 Room Air 11/26/16 20:00 94 Room Air 11/26/16 19:25 36.7 72 18 102/66 (78) 94 Room Air 11/26/16 16:14 37.0 69 16 118/77 (91) 93 Room Air 11/26/16 16:00 93 Room Air Physical Exam General Appearance: WD/WN, + mild distress Neck: supple, no adenopathy, thyroid normal, no JVD Respiratory/Chest: chest non-tender, lungs clear, normal breath sounds, no respiratory distress Cardiovascular: regular rate, rhythm, no edema, no gallop, no JVD Abdomen: normal bowel sounds, non tender, soft, no organomegaly Neurologic/Psychiatric: no motor/sensory deficits, alert, normal mood/affect, oriented x 3 Laboratory Results Last 24 Hours Test 11/26/16 17:10 11/26/16 21:00 11/26/16 23:22 11/27/16 07:29 Bedside Glucose 206 mg/dl 175 mg/dl 148 mg/dl 157 mg/dl Test 11/27/16 09:10 11/27/16 10:50 11/27/16 11:42 White Blood Count 13.95 K/uL Red Blood Count 4.63 M/uL Hemoglobin 15.0 g/dL Hematocrit 43.5 % Mean Corpuscular Volume 94.0 fL Mean Corpuscular Hemoglobin 32.4 pg Mean Corpuscular Hemoglobin Concent 34.5 g/dl Platelet Count 204 K/uL Mean Platelet Volume 9.4 fL Neutrophils (%) (Auto) 76.4 % Lymphocytes (%) (Auto) 17.8 % Monocytes (%) (Auto) 4.6 % Eosinophils (%) (Auto) 0.1 % Basophils (%) (Auto) 0.1 % Neutrophils # (Auto) 10.67 K/uL Lymphocytes # (Auto) 2.48 K/uL Monocytes # (Auto) 0.64 K/uL Eosinophils # (Auto) 0.01 K/uL Basophils # (Auto) 0.01 K/uL RDW Standard Deviation 45.0 fL RDW Coefficient of Variation 13.0 % Immature Granulocyte % (Auto) 1.0 % Immature Granulocyte # (Auto) 0.14 K/uL Bedside Glucose 206 mg/dl 134 mg/dl Assessment and Plan Right otalgia/facial pain - improved on carbamazepine Hx of migraines, states pain is more noted in right ear Head CTA neg Gen surg recs unlikely temp arteritis, no urgent need for biopsy Wean steroids at this time Neurology consulted Cont carbamazepine 100 mg PO TID x 5 days then increase to 200 mg PO TID T2DM Controlled, possiblly also from steroids Cont lantus 10 U HS Cont novolog AC/HS Abnormal EKG appreciate cardiology consultation. no evidence of ACS, symptoms likely related to pulm etiology troponin neg, echo to be reviewed COPD Stable No worsening shortness of breath Not in exacerbation at this time. HTN Controlled Continue coreg 6.25 mg PO BID FULL CODE Continued [facility] stay due to: multiple IV medications needed Discharge planning: home
[2016-11-27] MEDS: TRAZODONE HCL 100 MG TAB PO SCH (20:52)
[2016-11-27] MEDS: INSULIN GLARGINE SOLOSTAR 100 UNITS/ML 3 ML PEN SC SCH (21:00)
[2016-11-28 04:05] VITALS: BP 103/56; PULSE 70; TEMP 36.9; O2SAT 94
[2016-11-28 07:18] VITALS: BP 120/72; PULSE 59; TEMP 36.6; O2SAT 94
[2016-11-28 07:48] VITALS: PULSE 62
[2016-11-28] MEDS: NICOTINE 14 MG/24 HR TDSY TD SCH (07:50)
[2016-11-28] MEDS: CARBAMAZEPINE 100 MG CHEW TAB PO SCH (07:50)
[2016-11-28] MEDS: CARVEDILOL 6.25 MG TAB PO SCH (07:50)
[2016-11-28] MEDS: ATORVASTATIN 40 MG TAB PO SCH (07:50)
[2016-11-28] MEDS: PAROXETINE 20 MG TAB PO SCH (07:50)
[2016-11-28] MEDS: ASPIRIN 81 MG ECTAB PO SCH (07:50)
[2016-11-28] MEDS: INSULIN ASPART 100 UNITS/ML 3 ML PEN SC SCH (07:53)
[2016-11-28] MEDS: ACETAMINOPHEN 325 MG TAB PO PRN (08:01)
[2016-11-28 08:38] LABS: HEMATOCRIT 44.2 % (37-47); MEAN CELL VOLUME 92.7 fL (80-100); MEAN CORPUSCULAR HEMOGLOBIN 30.2 pg (25-34); MEAN CORPUSCULAR HGB CONC 32.6 g/dl (32-36); MEAN PLATELET VOLUME 9.4 fL (7.4-10.4); PLATELET COUNT 196 K/uL (130-400); RED BLOOD COUNT 4.77 M/uL (4.2-5.4); WHITE BLOOD COUNT 12.47 K/uL (4.8-10.8)
[2016-11-28 08:59] LABS: BUN/CREATININE RATIO 17.2 (10-20); CREATININE 1.1 mg/dl (0.60-1.20); POTASSIUM 3.8 mmol/L (3.5-5.1)
[2016-11-28 09:00] LABS: BASO % 0.2 %; BASO ABS # 0.02 K/uL (0-0.2); COMPLETE YES; EOS % 0.7 %; IG% 0.9 %; LYMPH % 48.3 %; LYMPH ABS # 6.02 K/uL (1.2-3.4); MONO % 6.3 %; NEUT % 43.6 %
[2016-11-28] MEDS ORDERED: METHYLPREDNISOLONE IV 40 MG in SYRINGE 0 ML IV SCH (09:00)
[2016-11-28 09:10] LABS: CALCIUM 8.5 mg/dl (8.5-10.1)
[2016-11-28 10:43] LABS: ESTIMATED AVERAGE GLUCOSE 151 mg/dl; HA1C FLAG Normal (Normal)
[2016-11-28] MEDS ORDERED: TGR100 PO (10:54)
--- NOTE | 2016-11-28 10:56 | Discharge Instructions ---
Discharge Instructions Date of Service Nov 28, 2016. Admission Reason for Admission: Headache Discharge Discharge Diagnosis / Problem: Headache, trigeminal neuralgia Discharge Goals Goal(s): Decrease discomfort, Improve function, Increase independence, Improve disease control, Learn about illness, Diagnostic testing, Therapeutic intervention, Prevent Disease Progression Activity Recommendations Activity Limitations: resume your previous activity Exercise/Sports Limitations: none . Instructions / Follow-Up Instructions / Follow-Up Patient to be discharged home Please take carbamazepine 100 mg three times a day If worsening headache, jaw pain please come back to ER Follow up with Dr Carson in 1-2 weeks Current Hospital Diet Patient's current hospital diet: AHA Diet (Heart Healthy), Diabetes Type 2 Diet Discharge Diet Recommended Diet: AHA Diet (Heart Healthy), Diabetes Type 2 Diet Pending Studies Studies pending at discharge: no Laboratory Results Hemoglobin A1c Test 11/28/16 08:26 Range/Units Estimated Average Glucose 151 mg/dl Hemoglobin A1c 6.9 H 4.5-5.6 % Medical Emergencies . Who to Call and When: Medical Emergencies: If at any time you feel your situation is an emergency, please call 911 immediately. . Non-Emergent Contact Non-Emergency issues call your: Primary Care Provider Call Non-Emergent contact if: your pain is worsening . . "Provider Documentation" section prepared by Antwan Mcmahon. . VTE Core Measure Inpt VTE Proph given/why not?: SCD's
[2016-11-28 11:04] VITALS: BP 120/72; PULSE 62; TEMP 36.6; O2SAT 94
--- NOTE | 2016-11-28 13:06 | Discharge Summary ---
Discharge Summary Date of Service Nov 28, 2016. Discharge Summary Admission Date: Nov 25, 2016 at 12:04 Discharge Date: Nov 28, 2016 Discharge Disposition: Home Principal Diagnosis: trigeminal neuralgia Immunizations: Have You Had Influenza Vaccine: Yes Influenza Vaccine Date: May 03, 2016 Consultations: Neurology Medication Reconciliation New Medications: Carbamazepine (Carbamazepine) 100 Mg Chew 100 MG PO TID for 30 Days, #90 TABS Continued Medications: Aspirin (Aspirin Ec) 81 Mg Tab 81 MG PO DAILY Atorvastatin (Lipitor) 40 Mg Tab 40 MG PO DAILY, TAB Carvedilol (Coreg) 6.25 Mg Tab 6.25 MG PO BID, TAB Glipizide Xl (Glucotrol Xl) 5 Mg Tab 5 MG PO QAM, TAB Ibuprofen (Advil) 200 Mg Tab 400 MG PO PRN UD, TAB Paroxetine (Paxil) 20 Mg Tab 20 MG PO DAILY, TAB Trazodone Hcl (Trazodone) 100 Mg Tab 100 MG PO HS, TAB Discharge Exam Review of Systems: Constitutional: No fever, No chills, No sweats, No weakness Respiratory: No cough, No sputum, No wheezing, No shortness of breath, No dyspnea on exertion, No dyspnea at rest Cardiovascular: No chest pain, No orthopnea, No PND, No edema Abdomen: No pain, No nausea, No vomiting, No diarrhea Musculoskeletal: No joint pain, No muscle pain, No swelling Genitourinary - Female: No dysuria, No urinary frequency, No urinary urgency , No urinary incontinence Neurologic: No memory loss, No paralysis, No weakness, No numbness/tingling Psychiatric: No depression symptoms, No anhedonism, No anxiety, No insomnia Endocrine: No fatigue, No excessive thirst Integumentary: No rash, No itch Physical Exam: General Appearance: WD/WN, no apparent distress Eyes: normal inspection, PERRL, EOMI, sclerae normal Neck: supple, no adenopathy, thyroid normal, no JVD Respiratory/Chest: chest non-tender, lungs clear, normal breath sounds, no respiratory distress Cardiovascular: regular rate, rhythm, no edema, no gallop, no JVD Abdomen / GI: normal bowel sounds, non tender, soft, no organomegaly Extremities: normal inspection, no calf tenderness, normal capillary refill , no pedal edema Neurologic/Psychiatric: alert, normal mood/affect, normal reflexes, oriented x 3 Hospital Course Right otalgia/facial pain - resolved on carbamazepine 100 mg PO TID Head CTA neg Gen surg recs unlikely temp arteritis, no urgent need for biopsy Wean steroids at this time, and discontinue on discharge as pt not wanting to take any due to hyperglycemia Neurology consulted cont carbamazepine 100 mg PO TID x 5 days then increase to 200 mg PO TID if needed Will f/u with neurology in 1-2 weeks T2DM Controlled, possibly also from steroids Cont lantus 10 U HS Cont novolog AC/HS Cont glipizide back on DC Abnormal EKG appreciate cardiology consultation. no evidence of ACS, symptoms likely related to pulm etiology troponin neg, echo to be reviewed COPD Stable No worsening shortness of breath Not in exacerbation at this time. HTN Controlled Continue coreg 6.25 mg PO BID FULL CODE Total Time Spent: Greater than 30 minutes This includes examination of the patient, discharge planning, medication reconciliation, and communication with other providers. Discharge Instructions Please refer to the electronic Patient Visit Report (Discharge Instructions) for additional information.
== END 2016-11-28 11:17 | disposition home or self-care (01) | DRG 74 ==
LOC: C.EDB 14:39 → C.MED 17:27 → ENRESERV 17:51 → OBSVTOIN 11-25 12:04 → UNDODISIN 11-26 15:00
PROVIDERS: ADMIT Hospitalist; ATTEND Hospitalist
DX: G50.0 Trigeminal neuralgia (principal); F17.200 Nicotine dependence, unspecified, uncomplicated; J44.9 Chronic obstructive pulmonary disease, unspecified; F32.9 Major depressive disorder, single episode, unspecified; E78.5 Hyperlipidemia, unspecified; I10 Essential (primary) hypertension; M19.90 Unspecified osteoarthritis, unspecified site; E78.00 Pure hypercholesterolemia, unspecified; R94.31 Abnormal electrocardiogram [ECG] [EKG]

== ENCOUNTER 2016-12-23 13:01 | Emergency (ER) | payer OTHER ==
[~2016-12-23] VITALS: Ht 162.6 cm; Wt 90.4 kg
[~2016-12-23 13:01] MED LIST changes: -ALBU18002 INH; +ATOR-24 PO; +GLIP1TAB91 PO; +IBUP-1050 PO; -PRAV20TA PO; +TGR100 PO; +TRAZ100T29 PO
[2016-12-23 13:03] VITALS: TEMP 36.4; Ht 162.6 cm; Wt 90.4 kg
[2016-12-23] MEDS ORDERED: ACETAMINOPHEN 500 MG TAB PO STA (13:52)
[2016-12-23] MEDS ORDERED: hydrOXYzine HCL 25 MG TAB PO STA ×2 (13:52→16:11)
--- NOTE | 2016-12-23 13:54 | EMERGENCY ROOM VISIT NOTE ---
History Report prepared by Katie: Manisha Joya Under the Supervision of: Dr. Trever Moran M.D. First contact with patient: 13:45 Chief Complaint: ILLNESS Stated Complaint: RASH,SORE THROAT,COUGH History of Present Illness The patient is a 56 year old female who presents to the Emergency Room with complaints of a worsening rash beginning 2 weeks prior to arrival. The patient states that the rash began on her lower legs. Since then it has spread to her arms, hands, chest and back. She states that the rash is very itchy. The patient states that she has tried Benadryl and Cortizone itch cream with no relief of her symptoms. This morning the patient states that she developed a sore throat, cough and a headache. She denies fevers, chills, changes in soap or detergents. She denies new pets in the house. The patient last month was put on 100 mg of Tegretol 3 times a day for Trigeminal Myalgia. She does smoke 1 pack a day. 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 Please see Additional Medical History Sheet. Past Medical & Surgical Medical Problems: (1) Chest pain (2) COPD (chronic obstructive pulmonary disease) (3) Depression (4) Dyslipidemia (5) HTN (hypertension) (6) Osteoarthritis Surgical Problems: (1) H/O ankle fusion (2) H/O arthroscopic knee surgery (3) H/O hernia repair (4) H/O inguinal hernia repair (5) H/O oophorectomy (6) H/O: hysterectomy (7) History of cholecystectomy (8) History of tonsillectomy Family History FH: CAD (coronary artery disease) FATHER (first MS in his 40s, from MS at 75) MOTHER ( from MS at age 67) BROTHER (MS in his 50s) BROTHER (MS in his 50s) FH: CVA (cerebrovascular accident) FATHER FH: diabetes mellitus FATHER Social History Smoking Status: Current Every Day Smoker Drug Use: none Marital Status: Housing Status: lives with family Occupation Status: unemployed Current/Historical Medications Scheduled Aspirin (Aspirin Ec), 81 MG PO DAILY Atorvastatin (Lipitor), 40 MG PO DAILY Carbamazepine (Carbamazepine), 100 MG PO TID Carvedilol (Coreg), 6.25 MG PO BID Glipizide Xl (Glucotrol Xl), 5 MG PO QAM Ibuprofen (Advil), 400 MG PO PRN UD Paroxetine (Paxil), 20 MG PO DAILY Trazodone Hcl (Trazodone), 100 MG PO HS Scheduled PRN Hydroxyzine Hcl (Atarax), 50 MG PO Q6 PRN for Itching Allergies Coded Allergies: Morphine (Verified Allergy, Severe, CHEST PAIN, 06/30/16) *06/30/16 "I WAS ON MORPHINE FOR 3 YEARS. I'M NOT ALLERGIC." Sumatriptan (Verified Allergy, Intermediate, DIAPHORESIS, "SKIN CRAWLING" , 12/23/16) Carbamazepine (Unverified Allergy, Unknown, RASH, 12/23/16) Physical Exam Vital Signs Date Time Temp Pulse Resp B/P (MAP) Pulse Ox O2 Delivery O2 Flow Rate FiO2 12/23/16 15:41 62 20 111/59 95 Room Air 12/23/16 13:03 36.4 78 20 120/80 94 Room Air Physical Exam GENERAL: Patient awake, alert, oriented x 3. Patient follows commands. Patient does not appear toxic. Patient is adequately hydrated and well- nourished. SKIN: No erythema, pallor, cyanosis or rash HEENT: Normal head, pupils equal, reactive to light and accommodation. Ears normal. Oral cavity and posterior pharynx has slight erythema with no pus. Neck: Without adenopathy, no neck vein distention. LUNGS: No wheezes, no rales, no rhonchi. Frequent deep cough. HEART: No murmurs. No gallops. No rubs ABDOMEN: Obese. No masses, no rebound, no hepatomegaly or splenomegaly. EXTREMITIES: No signs of trauma. No pedal or pretibial edema. No calf or thigh tenderness. SKIN: Faint red non raised rash over face, extremities, abdomen and chest. Almost constantly scratching. NEUROLOGIC: Cranial nerves II-XII within normal limits. No gross motor sensory function deficits. Medical Decision & Procedures ER Provider Diagnostic Interpretation: X ray results are stated below per my interpretation and the radiologist's interpretation. TWO VIEW CHEST CLINICAL HISTORY: Cough. FINDINGS: PA and lateral chest radiographs are compared to study dated 11/24/2016 and correlated with chest CT dated 03/29/2016.. The heart is enlarged. The pulmonary vascular structures noncongested. Chronic interstitial thickening is similar to previous. Minimal bibasilar atelectasis is observed. No airspace consolidation, large pleural effusion, or pneumothorax is seen. The skeletal structures are osteopenic. The bony thorax appears intact. Degenerative change and mild scoliosis are identified in the thoracic spine. Cholecystectomy clips are noted in the upper abdomen. IMPRESSION: Cardiomegaly with no acute cardiopulmonary abnormality. Electronically signed by: Karlos Blount M.D. 12/23/2016 3:30 PM Dictated Date/Time: 12/23/2016 3:29 PM Laboratory Results 12/23/16 14:10 Red Blood Count 4.75, Mean Corpuscular Volume 91.8, Mean Corpuscular Hemoglobin 31.6, Mean Corpuscular Hemoglobin Concent 34.4, Mean Platelet Volume 8.8, Neutrophils (%) (Auto) 66.7, Lymphocytes (%) (Auto) 20.8, Monocytes (%) (Auto) 7.0, Eosinophils (%) (Auto) 4.5, Basophils (%) (Auto) 0.4, Neutrophils # (Auto) 7.04, Lymphocytes # (Auto) 2.20, Monocytes # (Auto) 0.74, Eosinophils # (Auto) 0.48, Basophils # (Auto) 0.04 12/23/16 14:10 Test 12/23/16 14:10 White Blood Count 10.56 K/uL (4.8-10.8) Red Blood Count 4.75 M/uL (4.2-5.4) Hemoglobin 15.0 g/dL (12.0-16.0) Hematocrit 43.6 % (37-47) Mean Corpuscular Volume 91.8 fL (80-100) Mean Corpuscular Hemoglobin 31.6 pg (25-34) Mean Corpuscular Hemoglobin Concent 34.4 g/dl (32-36) Platelet Count 185 K/uL (130-400) Mean Platelet Volume 8.8 fL (7.4-10.4) Neutrophils (%) (Auto) 66.7 % Lymphocytes (%) (Auto) 20.8 % Monocytes (%) (Auto) 7.0 % Eosinophils (%) (Auto) 4.5 % Basophils (%) (Auto) 0.4 % Neutrophils # (Auto) 7.04 K/uL (1.4-6.5) Lymphocytes # (Auto) 2.20 K/uL (1.2-3.4) Monocytes # (Auto) 0.74 K/uL (0.11-0.59) Eosinophils # (Auto) 0.48 K/uL (0-0.5) Basophils # (Auto) 0.04 K/uL (0-0.2) RDW Standard Deviation 43.9 fL (36.4-46.3) RDW Coefficient of Variation 13.1 % (11.5-14.5) Immature Granulocyte % (Auto) 0.6 % Immature Granulocyte # (Auto) 0.06 K/uL (0.00-0.02) Anion Gap 10.0 mmol/L (3-11) Est Creatinine Clear Calc Drug Dose 99.2 ml/min Estimated GFR () 112.8 Estimated GFR (Non- 97.3 BUN/Creatinine Ratio 13.5 (10-20) Calcium Level 8.6 mg/dl (8.5-10.1) Laboratory results as stated above per my review. Medications Administered Medications (Trade) Dose Ordered Sig/Hortensia Route Start Time Stop Time Status Last Admin Dose Admin Hydroxyzine HCl (Vistaril Tab) 25 mg NOW STAT PO 12/23/16 13:52 12/23/16 13:54 DC 12/23/16 14:01 25 MG Acetaminophen (Tylenol Tab) 1,000 mg NOW STAT PO 12/23/16 13:52 12/23/16 13:54 DC 12/23/16 14:01 1,000 MG Hydroxyzine HCl (Vistaril Tab) 50 mg NOW STAT PO 12/23/16 16:11 12/23/16 16:13 DC 12/23/16 16:19 50 MG ED Course 1346: Past medical records reviewed. The patient was evaluated in room A10. A complete history and physical examination was performed. 1352: Tylenol Tab 1,000 mg PO, Vistaril Tab 25 mg PO. 1601: I talked with the patient about her test results. She will stop taking her Tegretol. 1612: Upon reevaluation, the patient appeared to have improvement of her symptoms. I discussed today's findings with her. She verbalized agreement of the treatment plan. She was discharged home. Medical Decision Nurses notes reviewed. Medical history sheet reviewed. Differential diagnosis includes but is not limited to: medication reaction, pneumonia, bronchitis. Medication Reconciliation: I attest that I have personally reviewed the patient' s current medication list. Blood pressure Screening: Patient was found to have normal blood pressure on screening and does not require follow up. Labs and imaging were obtained. Please see above. Strep test was negative. The patient's white count is elevated. She has no evidence of pneumonia on her x-ray. The patient has a slightly red very pruritic rash which is most likely secondary to Tegretol. She's been on that medication for trigeminal neuralgia. She no longer has symptoms from that problem. The patient has no prior seizure history. The patient would like to be off Tegretol now. There is a risk of seizure with abrupt discontinuation of Tegretol but I believe that is unlikely in someone who has no prior seizure history. The patient will also be maintained on Atarax. Impression Primary Impression: Allergic reaction Additional Impression: Acute bronchitis Scribe Attestation The scribe's documentation has been prepared under my direction and personally reviewed by me in its entirety. I confirm that the note above accurately reflects all work, treatment, procedures, and medical decision making performed by me. Departure Information Dispostion Home / Self-Care Prescriptions Hydroxyzine Hcl (ATARAX) 50 Mg Tab 50 MG PO Q6 Y for Itching, #20 TAB Prov: Trever Moran M.D. 12/23/16 Referrals Sheyla Coats M.D. (PCP) Forms HOME CARE DOCUMENTATION FORM, IMPORTANT VISIT INFORMATION, WORK / SCHOOL INSTRUCTIONS Patient Instructions My [facility] [place] Additional Instructions Stop Tegretol 1 Atarax every 4-6 hours as needed for itching. Luke warm or cool baths with Aveeno for itching. STOP SMOKING Follow-up with your family physician within the next 10 days. Problem Qualifiers
[2016-12-23 14:21] LABS: BASO % 0.4 %; BASO ABS # 0.04 K/uL (0-0.2); COMPLETE YES; EOS % 4.5 %; HEMATOCRIT 43.6 % (37-47); IG% 0.6 %; LYMPH % 20.8 %; MEAN CELL VOLUME 91.8 fL (80-100); MEAN CORPUSCULAR HEMOGLOBIN 31.6 pg (25-34); MEAN CORPUSCULAR HGB CONC 34.4 g/dl (32-36); MEAN PLATELET VOLUME 8.8 fL (7.4-10.4); NEUT % 66.7 %; PLATELET COUNT 185 K/uL (130-400); RED BLOOD COUNT 4.75 M/uL (4.2-5.4); WHITE BLOOD COUNT 10.56 K/uL (4.8-10.8)
[2016-12-23 14:42] LABS: BUN/CREATININE RATIO 13.5 (10-20); CALCIUM 8.6 mg/dl (8.5-10.1); CREATININE 0.69 mg/dl (0.60-1.20); POTASSIUM 3.9 mmol/L (3.5-5.1)
--- NOTE | 2016-12-23 15:32 | DIAGNOSTIC IMAGING REPORT ---
TWO VIEW CHEST CLINICAL HISTORY: Cough. FINDINGS: PA and lateral chest radiographs are compared to study dated 11/24/2016 and correlated with chest CT dated 03/29/2016.. The heart is enlarged. The pulmonary vascular structures noncongested. Chronic interstitial thickening is similar to previous. Minimal bibasilar atelectasis is observed. No airspace consolidation, large pleural effusion, or pneumothorax is seen. The skeletal structures are osteopenic. The bony thorax appears intact. Degenerative change and mild scoliosis are identified in the thoracic spine. Cholecystectomy clips are noted in the upper abdomen. IMPRESSION: Cardiomegaly with no acute cardiopulmonary abnormality. Electronically signed by: Karlos Blount M.D. 12/23/2016 3:30 PM Dictated Date/Time: 12/23/2016 3:29 PM
[2016-12-23 15:41] VITALS: BP 111/59; PULSE 62; O2SAT 95
[2016-12-23] MEDS ORDERED: HYDR-3126 PO (16:10)
== END 2016-12-23 17:08 | disposition home or self-care (01) ==
LOC: C.EDB 13:02 → C.EDA 17:08
DX: T78.40XA Allergy, unspecified, initial encounter (principal); J20.9 Acute bronchitis, unspecified; X58.XXXA Exposure to other specified factors, initial encounter; J44.9 Chronic obstructive pulmonary disease, unspecified; F32.9 Major depressive disorder, single episode, unspecified; E78.5 Hyperlipidemia, unspecified; I10 Essential (primary) hypertension; M19.90 Unspecified osteoarthritis, unspecified site; Z83.3 Family history of diabetes mellitus; F17.200 Nicotine dependence, unspecified, uncomplicated; Z79.82 Long term (current) use of aspirin

== ENCOUNTER 2017-10-23 16:37 | Emergency (ER) | payer OTHER ==
[~2017-10-23] VITALS: Ht 160 cm; Wt 92.0 kg
[2017-10-23 16:51] VITALS: TEMP 36.6; Ht 160 cm; Wt 92.0 kg
[2017-10-23] MEDS ORDERED: BACLOFEN 10 MG TAB PO STA (17:21)
[2017-10-23] MEDS ORDERED: PARO1TAB27 PO (17:25)
--- NOTE | 2017-10-23 17:45 | EMERGENCY ROOM VISIT NOTE ---
History First contact with patient: 17:06 Chief Complaint: FACIAL PAIN/INJURY Stated Complaint: RIGHT SIDE OF FACE HURTS, CAN'T SEE OUT OF R EYE History of Present Illness The patient is a 57 year old female who presents to the Emergency Room with complaints of right-sided facial pain that started last night. Burning sensation that is constant. She has tried Tylenol with minimal relief. The patient has a history of trigeminal neuralgia. She says that this feels like 1 of the flares. She is also having difficulty seeing out of the right eye. She denies any severe headache or neck pain. No recent illnesses. No reported confusion or slurred speech Review of Systems 10 system review performed and negative unless noted in HPI or below Past Medical/Surgical History Medical Problems: (1) Chest pain (2) COPD (chronic obstructive pulmonary disease) (3) Depression (4) Dyslipidemia (5) HTN (hypertension) (6) Osteoarthritis Surgical Problems: (1) H/O ankle fusion (2) H/O arthroscopic knee surgery (3) H/O hernia repair (4) H/O inguinal hernia repair (5) H/O oophorectomy (6) H/O: hysterectomy (7) History of cholecystectomy (8) History of tonsillectomy Family History FH: CAD (coronary artery disease) FATHER (first [place] in his 40s, from [place] at 75) MOTHER ( from [place] at age 67) BROTHER ([place] in his 50s) BROTHER ([place] in his 50s) FH: CVA (cerebrovascular accident) FATHER FH: diabetes mellitus FATHER Social History Smoking Status: Current Every Day Smoker Drug Use: none Marital Status: Housing Status: lives with family Occupation Status: unemployed Current/Historical Medications Scheduled Aspirin (Aspirin Ec), 81 MG PO DAILY Atorvastatin (Lipitor), 40 MG PO DAILY Carvedilol (Coreg), 6.25 MG PO BID Gabapentin (Neurontin), 100 MG PO TID Glipizide Xl (Glucotrol Xl), 5 MG PO QAM Ibuprofen (Advil), 400 MG PO PRN UD Paroxetine (Paxil), 30 MG PO DAILY Trazodone Hcl (Trazodone), 100 MG PO HS Physical Exam Vital Signs Date Time Temp Pulse Resp B/P (MAP) Pulse Ox O2 Delivery O2 Flow Rate FiO2 10/23/17 19:04 63 18 148/90 94 10/23/17 16:51 36.6 73 20 125/85 94 Room Air Physical Exam VITALS: Vitals are noted on the nurse's note and reviewed by myself. Vital signs stable. GENERAL: 57-year-old female, appears older than stated age, mildly uncomfortable ,, SKIN: The skin was without rashes, erythema, edema, or bruising. HEAD: Normocephalic atraumatic. EARS: External auditory canals clear, tympanic membranes pearly kiser without erythema or effusion bilaterally. EYES: Pupils equal round and reactive to light and accommodation. Conjunctivae without injection, sclerae without icterus. Extraocular movements intact. MOUTH: Mucous membranes moist. Tonsils are not enlarged. Pharynx without erythema or exudate. Uvula midline. Airway patent. Tongue does not deviate. NECK: Supple without nuchal rigidity. No lymphadenopathy. Cervical spine is nontender. No JVD. HEART: Regular rate and rhythm without murmurs gallops or rubs. LUNGS: Clear to auscultation bilaterally without wheezes, rales or rhonchi. No accessory muscle use. ABDOMEN: Positive bowel sounds x 4.Soft, nontender, without organomegaly. No guarding or rebound tenderness. MUSCULOSKELETAL: No muscle atrophy, erythema, or edema noted. Strength 5/5 throughout. NEURO: Patient was alert and oriented to person place and time. Cranial nerves intact. Negative Romberg. Cerebellar function intact. Normal sensation to touch. No focal neurological deficits. Medical Decision & Procedures ER Provider Diagnostic Interpretation: CT head w/o contrast IMPRESSION: No acute intracranial findings Electronically signed by: Alfred Jones M.D. 10/23/2017 5:57 PM Dictated Date/Time: 10/23/2017 5:55 PM Laboratory Results Test 10/23/17 18:12 Bedside Glucose 114 mg/dl (70-90) Medications Administered Medications (Trade) Dose Ordered Sig/Hortensia Route Start Time Stop Time Status Last Admin Dose Admin Baclofen (Lioresal Tab) 10 mg ONE STAT PO 10/23/17 17:21 10/23/17 17:27 DC 10/23/17 17:43 10 MG Ketorolac Tromethamine (Toradol Inj) 60 mg ONE STAT IM 10/23/17 18:38 10/23/17 18:39 DC 10/23/17 18:48 60 MG Morphine Sulfate (MoRPHine SULFATE INJ) 4 mg ONE STAT IM 10/23/17 18:38 10/23/17 18:39 DC 10/23/17 18:48 4 MG ED Course The patient was seen and examined She was taken for CT of the head She was medicated with baclofen 10 mg The patient was reassessed. The baclofen has helped slightly. We discussed the results of her CT. She voiced understanding. She was requesting something else for pain. She was offered Neurontin. She says that she already takes this at home. She requested an injection. The patient was given morphine 4 mg IM and Toradol 60 mg IM. She was observed for 20 minutes. There was no reaction. Discharge instructions were reviewed, and she was discharged in good condition Medical Decision Differential diagnosis: Trigeminal neuralgia, acute CVA, temporal arteritis, tension headache, migraine, retinopathy This patient is a 57-year-old female that presents to the emergency department complaining of right-sided facial pain and difficulty with vision in the right eye. On exam, she was uncomfortable, but neurologically intact. Her imaging was negative for any intracranial abnormality. The patient's past visits were reviewed. She had an extensive workup for this. She was admitted. She was also seen by neurology. During her emergency room visit today, she had mild relief with the baclofen. I was then going to give the patient Neurontin, however she already takes his medication. I became highly suspicious of drug- seeking behavior when she said, "can't you just give me a shot of something so we can go?" Patient was given 1 injection of morphine and Toradol. She will be discharged with instructions to follow-up with neurology and her primary care physician. Drug-seeking behavior should be considered for future visits. This chart was completed in part utilizing [employer] Speech Voice Recognition software. Attempts were made to minimize the grammatical errors, random word insertions, pronoun errors and incomplete sentences. Any formal questions or concerns about the content, text or information contained within the body of this dictation should be directly addressed to the provider for clarification. Medication Reconcilliation Current Medication List: was personally reviewed by me Blood Pressure Screening Patient's blood pressure: Normal blood pressure Impression Primary Impression: Trigeminal neuralgia Departure Information Dispostion Home / Self-Care Condition GOOD Referrals Millicent Baldwin D.O. (PCP) Nancy Schmidt D.O. Patient Instructions My [facility] Additional Instructions Please continue current medications as prescribed Call the neurologist in the morning for a follow-up appointment as discussed You have been examined and treated today on an emergency basis only. This is not a substitute for, or an effort to provide, complete comprehensive medical care. It is impossible to recognize and treat all injuries or illnesses in a single emergency department visit. It is therefore important that you follow up closely with [facility], your PCP, and/or your specialist(s). Call as soon as possible for an appointment.
--- NOTE | 2017-10-23 17:58 | DIAGNOSTIC IMAGING REPORT ---
CT HEAD WITHOUT CONTRAST (CT) CLINICAL HISTORY: Right-sided facial pain and decreased vision right eye. COMPARISON STUDY: 11/24/2016 TECHNIQUE: Axial CT of the brain is performed from the vertex to the skull base. IV contrast was not administered for this examination. A dose lowering technique was utilized adhering to the principles of ALARA. CT DOSE: 537.48 mGy.cm FINDINGS: No intra or extra-axial mass lesions are visualized. There is no CT evidence of acute cortical infarction. There is no evidence of midline shift. There is no acute hemorrhage. No calvarial fractures are visualized. There are patchy white matter hypodensities likely on a small vessel basis. There is no evidence of pathologic ventricular dilatation. There is no evidence of acute sinusitis IMPRESSION: No acute intracranial findings Electronically signed by: Alfred Jones M.D. 10/23/2017 5:57 PM Dictated Date/Time: 10/23/2017 5:55 PM
[2017-10-23] MEDS ORDERED: GABA-112 PO (18:05)
[2017-10-23] MEDS ORDERED: KETOROLAC TROMETHAMINE 60 MG/2 ML VIAL IM STA (18:38)
[2017-10-23] MEDS ORDERED: MoRPHine SULFATE 4 MG/ML 1 ML CARP\\VIAL IM STA (18:38)
[2017-10-23 19:04] VITALS: BP 148/90; PULSE 63; O2SAT 94
== END 2017-10-23 19:05 | disposition home or self-care (01) ==
LOC: C.EDB 16:37 → C.EDC 19:05
DX: G50.0 Trigeminal neuralgia (principal); Z76.5 Malingerer [conscious simulation]; F32.9 Major depressive disorder, single episode, unspecified; E78.5 Hyperlipidemia, unspecified; I10 Essential (primary) hypertension; Z79.82 Long term (current) use of aspirin; F17.200 Nicotine dependence, unspecified, uncomplicated; Z82.3 Family history of stroke; Z82.49 Family history of ischemic heart disease and other diseases of the circulatory system

== ENCOUNTER 2018-06-21 13:44 | Inpatient (IN) ==
[2018-06-21] MEDS ORDERED: ALBUT/IPRATROP 3MG/0.5MG NEB 3 ML VIAL INH STA (14:03)
[2018-06-21] MEDS ORDERED: methylPREDNISolone 60 MG in SYRINGE 1 ML IV STA (14:03)
[2018-06-21] MEDS ORDERED: ONDANSETRON INJ 2 MG/ML 2 ML VIAL IV STA (14:06)
[2018-06-21] MEDS ORDERED: MoRPHine SULFATE 4 MG/ML 1 ML CARP\\VIAL IV STA (14:06)
--- NOTE | 2018-06-21 14:21 | XRay Report ---
XR chest 1V portable CLINICAL HISTORY: sob dyspnea COMPARISON STUDY: 12/30/2017 FINDINGS: No evidence for cardiac enlargement. Slight bibasilar parenchymal prominence. No well-defin ed consolidative infiltrates. Mid and upper lungs are clear. IMPRESSION: Mild bibasilar parenchymal interstitial infiltrative-type change. No regions of consolid ation. The above report was generated using voice recognition software. It may contain grammatical, syntax or spelling errors. Electronically signed by: Kalpesh Arias M.D. 06/21/2018 2:19 PM
--- NOTE | 2018-06-21 14:32 | Emergency Department Note ---
Entered by Sarah Jo acting as a scribe for History of Present Illness General Chief complaint: Respiratory Problems Stated complaint: PNEUMONIA Time Seen by Provider: 06/21/18 13:57 Source: patient Mode of arrival: ambulatory Limitations: no limitations History of Present Illness Provider complaint: flu-like symptoms Onset (ago): day(s) 4 Location: chest Pain Consistency: + other (worsening) Maximum Pain Intensity: 10 Quality: + other (flu-like) Associated symptoms: + chest pain (burning), + cough, + nausea/vomiting (nausea , no emesis) and + shortness of breath; no fever/chills Treatments prior to arrival: other (nebulizer, antibiotics, steroids, acetaminophen ) The patient is a 57 year old female who presents to the Emergency Room with complaints of worsening flu-like symptoms that began 4 days ago. The patient reports that she has had a persistent cough as well as shortness of breath and nausea but denies any emesis or fevers. She also notes that she had an episode of diarrhea earlier today and states that she has had left chest discomfort which she describes as a "burning" sensation. She reports that she was evaluated 3 days ago by her PCP who prescribed her antibiotics and steroids for a suspected pneumonia. She states that she has been taking these as well as Advil, Tylenol and nebulizer treatments. The patient notes that she did receive the flu vaccine this year. She also reports that she has a history of pneumonia , COPD and asthma but denies any cardiac history. The patient also denies any recent contact with anyone who is sick. Home Medications Home Medications Medication Instructions Recorded Confirmed Type acetaminophen [Tylenol Extra 500 mg PO Q6H PRN 04/24/18 06/21/18 History Strength] aspirin [Aspir-Low] 81 mg PO DAILY 04/24/18 06/21/18 History atorvastatin [Lipitor] 40 mg PO DAILY 04/24/18 06/21/18 History baclofen 10 mg PO DAILY 04/24/18 06/21/18 History carvedilol [Coreg] 6.25 mg PO BID 04/24/18 06/21/18 History gabapentin [Neurontin] 300 mg PO TID 04/24/18 06/21/18 History insulin glargine [Basaglar KwikPen 16 units SUBCUT QPM 04/24/18 06/21/18 History U-100 Insulin] insulin lispro [Admelog SoloStar 0 units SUBCUT TIDM PRN 04/24/18 06/21/18 History U-100 Insulin] ipratropium-albuterol 3 ml INHALATION QID PRN 04/24/18 06/21/18 History pantoprazole [Protonix] 40 mg PO DAILY 04/24/18 06/21/18 History paroxetine HCl [Paxil] 30 mg PO DAILY 04/24/18 06/21/18 History polyethylene glycol 3350 [Miralax] 17 g PO DAILY PRN 04/24/18 06/21/18 History trazodone 100 mg PO HS 04/24/18 06/21/18 History naproxen sodium [Aleve] 220 mg PO BIDM PRN #0 tab 04/28/18 06/21/18 Rx cyclobenzaprine 10 mg PO Q8H PRN #10 tab 05/02/18 06/21/18 Rx azithromycin 250 mg PO DAILY 06/21/18 06/21/18 History benzonatate 100 mg PO TID PRN 06/21/18 06/21/18 History fluticasone 2 spray INTRANASAL TID 06/21/18 06/21/18 History prednisone 40 mg PO DAILY 06/21/18 06/21/18 History Allergies Allergy/AdvReac Type Severity Reaction Status Date / Time sumatriptan Allergy Intermediate DIAPHORESIS, Verified 06/21/18 15:00 "SKIN CRAWLING" carbamazepine Allergy Unknown RASH Unverified 06/21/18 15:00 metformin AdvReac Severe Diarrhea Verified 06/21/18 15:00 Past Med/Surg History Medical History Nonalcoholic hepatosteatosis (Chronic) Trigeminal neuralgia (Chronic) DM type 2 (diabetes mellitus, type 2) (Chronic) Osteoarthritis (Chronic) COPD (chronic obstructive pulmonary disease) (Chronic) Depression (Chronic) HTN (hypertension) (Chronic) Dyslipidemia (Chronic) Surgical History History of bladder surgery (Chronic) History of right oophorectomy (Chronic) H/O ankle fusion (Chronic) H/O arthroscopic knee surgery (Chronic) History of cholecystectomy (Chronic) History of tonsillectomy (Chronic) H/O inguinal hernia repair (Chronic) H/O: hysterectomy (Chronic) Family History Father CAD (coronary artery disease) Mother CAD (coronary artery disease) Social History Current Living Situation: Spouse Other Information That Helps Us Care for You: No Feels Safe at Home: Yes Safety Concerns: Feels Safe At This Time Smoking Status: Current every day smoker Tobacco Type: cigarettes Cigarettes per Day: 20 Do You Dip or Chew Tobacco: No Second Hand Exposure: No Tobacco Cessation Education Requested by Patient: No Hx Alcohol Use: No Hx Substance Use: No Beliefs That Will Affect Care: None Preferred Language: Greek Communication Ability: Effective Bundle Cutter Required: No Review of Systems See HPI for pertinent positives & negatives. and A total of 10 systems reviewed and were otherwise negative Physical Exam Vital Signs Vital Signs - 24 hr 06/21/18 13:52 06/21/18 14:36 06/21/18 14:54 Temperature 37.2 C Temperature Source Oral Sepsis Recent Fever Within 48 Hours No Sepsis Action Taken by Nursing No Action Required Pulse Rate 77 73 Pulse Rate [Left Radial] 74 Pulse Rhythm [Left Radial] Regular Pulse Strength [Left Radial] Normal Respiratory Rate 22 20 Respiratory Effort / Characteristics Non-Labored Accessory Muscle Use Pursed Lip Short of Breath SOB on Exertion Respiratory Depth Normal Normal Respiratory Pattern Regular Regular Blood Pressure 97/66 L Blood Pressure [Left Arm] 114/66 Blood Pressure Mean 76 Blood Pressure Mean [Left Arm] 82 Blood Pressure Position Sitting Blood Pressure Position [Left Arm] Lying Pulse Oximetry 94 94 94 Pulse Oximetry [Right Middle Finger] Oxygen Delivery Method Room Air Room Air Nasal Cannula Oxygen Delivery Method [Right Middle Finger] Oxygen Flow Rate 2 06/21/18 15:30 06/21/18 16:00 06/21/18 16:19 Temperature 37.1 C Temperature Source Oral Sepsis Recent Fever Within 48 Hours Sepsis Action Taken by Nursing Pulse Rate Pulse Rate [Left Radial] 69 69 Pulse Rhythm [Left Radial] Pulse Strength [Left Radial] Respiratory Rate 22 18 Respiratory Effort / Characteristics Spontaneous Labored Short of Breath SOB on Exertion Non-Labored Respiratory Depth Normal Normal Respiratory Pattern Regular Tachypnea Blood Pressure Blood Pressure [Left Arm] 110/65 120/72 Blood Pressure Mean Blood Pressure Mean [Left Arm] 80 88 Blood Pressure Position Blood Pressure Position [Left Arm] Pulse Oximetry 93 94 Pulse Oximetry [Right Middle Finger] Oxygen Delivery Method Nasal Cannula Nasal Cannula Nasal Cannula Oxygen Delivery Method [Right Middle Finger] Oxygen Flow Rate 2 2 2 06/21/18 17:04 06/21/18 17:15 06/21/18 17:44 Temperature 36.7 C Temperature Source Oral Sepsis Recent Fever Within 48 Hours Sepsis Action Taken by Nursing Pulse Rate Pulse Rate [Left Radial] 78 71 Pulse Rhythm [Left Radial] Regular Regular Pulse Strength [Left Radial] Respiratory Rate 18 20 Respiratory Effort / Characteristics Non-Labored Non-Labored Spontaneous SOB on Exertion Respiratory Depth Normal Normal Respiratory Pattern Regular Blood Pressure Blood Pressure [Left Arm] 116/75 132/76 Blood Pressure Mean Blood Pressure Mean [Left Arm] 88 94 Blood Pressure Position Blood Pressure Position [Left Arm] Sitting Pulse Oximetry 96 100 Pulse Oximetry [Right Middle Finger] Oxygen Delivery Method Nasal Cannula Nasal Cannula Room Air Oxygen Delivery Method [Right Middle Finger] Oxygen Flow Rate 2 2 2 06/21/18 17:45 Temperature Temperature Source Sepsis Recent Fever Within 48 Hours Sepsis Action Taken by Nursing Pulse Rate Pulse Rate [Left Radial] Pulse Rhythm [Left Radial] Pulse Strength [Left Radial] Respiratory Rate Respiratory Effort / Characteristics Respiratory Depth Respiratory Pattern Blood Pressure Blood Pressure [Left Arm] Blood Pressure Mean Blood Pressure Mean [Left Arm] Blood Pressure Position Blood Pressure Position [Left Arm] Pulse Oximetry Pulse Oximetry [Right Middle Finger] 95 Oxygen Delivery Method Oxygen Delivery Method [Right Middle Finger] Room Air Oxygen Flow Rate GENERAL: Patient is in no acute distress. HEENT: No acute trauma, normocephalic atraumatic, mucous membranes moist, no nasal congestion, no scleral icterus. NECK: No stridor, no adenopathy, no meningismus, trachea is midline. LUNGS: Moist cough, increased respiratory rate, equal breath sounds, wheezing bilaterally, significant crackles in the left upper lobe, occasional crackles to the right lung. HEART: Without murmurs gallops or rubs, regular rate and rhythm. ABDOMEN: Soft, nontender, bowel sounds positive, no hernias, no peritonitis. EXTREMITIES: No cyanosis or edema, full range of motion of all the joints without pain or difficulty, no signs for acute trauma. NEUROLOGIC: Oriented x 3, no acute motor or sensory deficits, no focal weakness. SKIN: No rash, no jaundice, no diaphoresis. Course 1359: Past medical records reviewed. The patient was evaluated in room A10, and a complete history and physical examination were performed. 1530: I reviewed the patient's case with Stacey Liz PA-C - [facility] Hospitalist. She will evaluate the patient for further management. Administered Medications Ioversol (Optiray 320 100ml) 86 ml IV ONCE PRN PRN Reason: Interaction Checking Stop: 06/25/18 15:50 Last Admin: 06/21/18 15:52 Dose: 86 ml Discontinued Medications Albuterol (Duoneb) 3 ml INH NOW STA Stop: 06/21/18 14:04 Last Admin: 06/21/18 14:13 Dose: 3 ml Methylprednisolone 60 mg/ (Syringe) 1.96 mls @ 1.5 mls/min IV NOW STA Stop: 06/21/18 14:04 Last Admin: 06/21/18 14:42 Dose: 1.5 mls/min Cefepime HCl 2,000 mg/ Syringe 20 mls @ 5.5 mls/min IV NOW STA Stop: 06/21/18 15:14 Last Admin: 06/21/18 15:32 Dose: 5.5 mls/min Sodium Chloride (Nss 1000ml) 1,000 mls @ 999 mls/hr IV .Q1H1M ANYI Stop: 06/21/18 16:15 Last Infusion: 06/21/18 16:29 Dose: 0 mls/hr Admin: 06/21/18 15:29 Dose: 999 mls/hr Sodium Chloride (Nss 1000ml) 1,000 mls @ 999 mls/hr IV .Q1H1M ANYI Stop: 06/21/18 16:45 Last Infusion: 06/21/18 16:57 Dose: 0 mls/hr Admin: 06/21/18 15:57 Dose: 999 mls/hr Morphine Sulfate (Morphine Sulfate) 4 mg IV NOW STA Stop: 06/21/18 14:07 Last Admin: 06/21/18 14:14 Dose: 4 mg Ondansetron HCl (Zofran) 4 mg IV NOW STA Stop: 06/21/18 14:07 Last Admin: 06/21/18 14:14 Dose: 4 mg Medical Decision Making Differential Diagnosis Differential Diagnosis includes: pneumonia or bronchitis, influenza or flu-like illness, exacerbation of COPD, anemia, electrolyte imbalance, cardiac ischemia, and PE. Medical Records Attestation: I reviewed the patient's medical records. Home Medications Current Medication List: was personally reviewed by me Laboratory Data Attestation: I reviewed the patient's lab results. Result diagrams: 06/21/18 14:30 06/21/18 14:30 Lab Results 06/21/18 06/21/18 06/21/18 Range/Units 14:10 14:30 14:30 WBC 10.66 (4.8-10.8) K/uL RBC 4.93 (4.2-5.4) M/uL Hgb 15.6 (12.0-16.0) g/dL Hct 45.7 (37-47) % MCV 92.7 (80-100) fL MCH 31.6 (25-34) pg MCHC 34.1 (32-36) g/dL RDW Std Deviation 49.4 H (36.4-46.3) fL RDW Coeff of Cathy 14.4 (11.5-14.5) % Plt Count 198 (130-400) K/uL MPV 10.1 (7.4-10.4) fL Immature Gran % (Auto) 0.3 % Neut % (Auto) 87.3 % Lymph % (Auto) 9.3 % [place] % (Auto) 2.9 % Eos % (Auto) 0.1 % Baso % (Auto) 0.1 % Immature Gran # (Auto) 0.03 H (0.00-0.02) K/uL Neut # (Auto) 9.31 H (1.4-6.5) K/uL Lymph # (Auto) 0.99 L (1.2-3.4) K/uL [place] # (Auto) 0.31 (0.11-0.59) K/uL Eos # (Auto) 0.01 (0-0.5) K/uL Baso # (Auto) 0.01 (0-0.2) K/uL PT (9.0-12.0) Seconds INR (0.9-1.1) APTT (21.0-31.0) Seconds PTT Ratio Sodium (136-145) mmol/L Potassium (3.5-5.1) mmol/L Chloride (98-107) mmol/L Carbon Dioxide (21-32) mmol/L Anion Gap (3-11) BUN (7-18) mg/dl Creatinine (0.6-1.2) mg/dl Est Cr Clr Drug Dosing ml/min Est GFR ( Amer) Est GFR (Non-Af Amer) BUN/Creatinine Ratio (10-20) Glucose (70-99) mg/dl Lactate 4.0 H* (0.4-2.0) mmol/L Calcium (8.5-10.1) mg/dl Magnesium (1.8-2.4) mg/dl Total Bilirubin (0.2-1) mg/dl AST (15-37) U/L ALT (12-78) U/L Alkaline Phosphatase (45-117) U/L Troponin I (0-0.045) ng/ml Total Protein (6.4-8.2) gm/dl Albumin (3.4-5.0) gm/dl Globulin (2.5-4.0) gm/dl Albumin/Globulin Ratio (0.9-2) Influenza Type A (PCR) Neg for Influ A (Neg) Influenza Type B (PCR) Neg for Influ B (Neg) 06/21/18 06/21/18 Range/Units 14:30 14:30 WBC (4.8-10.8) K/uL RBC (4.2-5.4) M/uL Hgb (12.0-16.0) g/dL Hct (37-47) % MCV (80-100) fL MCH (25-34) pg MCHC (32-36) g/dL RDW Std Deviation (36.4-46.3) fL RDW Coeff of Cathy (11.5-14.5) % Plt Count (130-400) K/uL MPV (7.4-10.4) fL Immature Gran % (Auto) % Neut % (Auto) % Lymph % (Auto) % [place] % (Auto) % Eos % (Auto) % Baso % (Auto) % Immature Gran # (Auto) (0.00-0.02) K/uL Neut # (Auto) (1.4-6.5) K/uL Lymph # (Auto) (1.2-3.4) K/uL [place] # (Auto) (0.11-0.59) K/uL Eos # (Auto) (0-0.5) K/uL Baso # (Auto) (0-0.2) K/uL PT 10.0 (9.0-12.0) Seconds INR 1.0 (0.9-1.1) APTT 26.7 (21.0-31.0) Seconds PTT Ratio 1.0 Sodium 137 (136-145) mmol/L Potassium 4.1 (3.5-5.1) mmol/L Chloride 105 (98-107) mmol/L Carbon Dioxide 22 (21-32) mmol/L Anion Gap 10.0 (3-11) BUN 17 (7-18) mg/dl Creatinine 1.09 (0.6-1.2) mg/dl Est Cr Clr Drug Dosing 58.6 ml/min Est GFR ( Amer) 65.3 Est GFR (Non-Af Amer) 56.3 BUN/Creatinine Ratio 15.3 (10-20) Glucose 272 H (70-99) mg/dl Lactate (0.4-2.0) mmol/L Calcium 8.5 (8.5-10.1) mg/dl Magnesium 1.9 (1.8-2.4) mg/dl Total Bilirubin 0.4 (0.2-1) mg/dl AST 25 (15-37) U/L ALT 36 (12-78) U/L Alkaline Phosphatase 78 (45-117) U/L Troponin I < 0.015 (0-0.045) ng/ml Total Protein 8.0 (6.4-8.2) gm/dl Albumin 3.8 (3.4-5.0) gm/dl Globulin 4.2 H (2.5-4.0) gm/dl Albumin/Globulin Ratio 0.9 (0.9-2) Influenza Type A (PCR) (Neg) Influenza Type B (PCR) (Neg) Imaging Data Radiologist's Impression: Radiology results as stated below per my review and the radiologist's interpretation: XR chest 1V portable CLINICAL HISTORY: sob dyspnea COMPARISON STUDY: 12/30/2017 FINDINGS: No evidence for cardiac enlargement. Slight bibasilar parenchymal prominence. No well-defined consolidative infiltrates. Mid and upper lungs are clear. IMPRESSION: Mild bibasilar parenchymal interstitial infiltrative-type change. No regions of consolidation. The above report was generated using voice recognition software. It may contain grammatical, syntax or spelling errors. Electronically signed by: Kalpesh Arias M.D. 06/21/2018 2:[address] angio chest PE protocol CT DOSE: 499.51 mGy.cm HISTORY: Chest pain. Dyspnea. PE TECHNIQUE: Multiaxial CT images of the chest were performed following the intravenous administration of contrast to evaluate the pulmonary arteries. Maximal intensity projection images were also obtained. A dose lowering technique was utilized adhering to the principles of ALARA. COMPARISON STUDY: None. FINDINGS: There is a normal caliber thoracic aorta with no evidence for dissection. There is no evidence for pulmonary embolus. No pleural effusions. No pneumothorax. The liver and spleen are unremarkable. No mediastinal or hilar lymphadenopathy. The central airways are patent. The lungs demonstrate a patchy parenchymal infiltrate left lung base. There is peribronchial prominence throughout the mid to lower lungs bilaterally with mild interstitial prominence. IMPRESSION: 1. Study is negative for pulmonary embolus. 2. Small parenchymal infiltrate left base. 3. Generalized interstitial and peribronchial prominence of the mid to lower lungs. The above report was generated using voice recognition software. It may contain grammatical, syntax or spelling errors. Electronically signed by: Kalpesh Arias M.D. 06/21/2018 3:58 PM ECG Data Attestation: I personally reviewed and interpreted this ECG as follows: Indication: SOB/dyspnea Rate (beats per minute): 73 Rhythm: normal sinus Findings: + nonspecific-ST abn; no ST elevation Comparison ECG Date: from (02-MAY-2018) Change: no significant change Blood Pressure Blood Pressure Findings: Normal blood pressure MDM Narrative There is no leukocytosis or concerning anemia. No significant electrolyte abnormality or kidney failure. There was no coagulopathy. No hepatitis. EKG shows a sinus rhythm, no acute ischemia. Cardiac enzyme testing x1 is not consistent with acute cardiac injury. Influenza testing was negative. Blood cultures are pending. Lactic acid level was elevated at 4. I suspect this elevation is more so from dehydration as the patient does not clinically appear septic. Chest film was done, there was a questionable pneumonia on the left. Chest CT does show pneumonia on the left. There was no PE. The patient received a DuoNeb, IV Solu-Medrol, IV saline. She received 2 L of IV saline. She was given IV morphine for pain, IV Zofran for nausea IV cefepime as antibiotic coverage. She was feeling somewhat improved. The patient has pneumonia. She has a flare of her COPD. She has an elevated lactic acid. I do think a hospital stay is warranted. I spoke to the patient and to case management. I spoke to the on-call hospitalist. Impression & Plan Hypoxia, Pneumonia, COPD exacerbation, Dehydration Discharge Plan Visit Data *Final* Discharge Date/Time: 06/21/18 17:15 Chief Complaint: Respiratory Problems Stated Complaint: PNEUMONIA ED Provider: Karlos Dupree Discharge Problem: Hypoxia, Pneumonia, COPD exacerbation, Dehydration Patient Disposition: Admitted As Inpatient Discharge Instructions Interventions: ED Discharge Assessment Last Done: 06/21/18 17:15 The scribe's documentation has been prepared under my direction and personally reviewed by me in its entirety. I confirm that the note above accurately reflects all work, treatment, procedures, and medical decision making performed by me.
[2018-06-21 14:52] LABS: Basophils # (auto) 0.01 K/uL (0-0.2); Basophils % (auto) 0.1 %; Eosinophils # (auto) 0.01 K/uL (0-0.5); Eosinophils % (auto) 0.1 %; Hematocrit (blood only) 45.7 % (37-47); Hemoglobin 15.6 g/dL (12.0-16.0); Immature Granulocytes # (auto) 0.03 K/uL (0.00-0.02); Immature Granulocytes % (auto) 0.3 %; Lymphocytes # (auto) 0.99 K/uL (1.2-3.4); Lymphocytes % (auto) 9.3 %; Mean Corpuscular Hgb Conc 34.1 g/dL (32-36); Mean Corpuscular Volume 92.7 fL (80-100); Mean Platelet Volume 10.1 fL (7.4-10.4); Monocytes # (auto) 0.31 K/uL (0.11-0.59); Monocytes % (auto) 2.9 %; Neutrophils # (auto) 9.31 K/uL (1.4-6.5); Neutrophils % (auto) 87.3 %; Platelet Count 198 K/uL (130-400); RDW Coefficient of Variation 14.4 % (11.5-14.5); RDW Standard Deviation 49.4 fL (36.4-46.3); Red Blood Count 4.93 M/uL (4.2-5.4); White Blood Count 10.66 K/uL (4.8-10.8)
[2018-06-21 15:01] LABS: Partial Thromboplastin Time 26.7 Seconds (21.0-31.0)
[2018-06-21] MEDS ORDERED: CEFEPIME 2,000 MG in SYRINGE 7.5 ML IV STA (15:11)
[2018-06-21] MEDS ORDERED: SODIUM CHLORIDE 0.9% 1000ML 1,000 ML IV SCH ×2 (15:15→15:45)
[2018-06-21 15:17] LABS: Alanine Aminotransferase 36 U/L (12-78); Albumin Level 3.8 gm/dl (3.4-5.0); Aspartate Aminotransferase 25 U/L (15-37); BUN Creatinine Ratio 15.3 (10-20); Blood Urea Nitrogen 17 mg/dl (7-18); Calcium 8.5 mg/dl (8.5-10.1); Carbon Dioxide 22 mmol/L (21-32); Chloride 105 mmol/L (98-107); Creatinine Clr Calc Pharmacy 58.6 ml/min; Est GFR (African American) 65.3; Est GFR (Non-African American) 56.3; Glucose 272 mg/dl (70-99); Magnesium 1.9 mg/dl (1.8-2.4); Potassium 4.1 mmol/L (3.5-5.1); Sodium 137 mmol/L (136-145)
[2018-06-21 15:22] LABS: Albumin Globulin Ratio 0.9 (0.9-2); Alkaline Phosphatase 78 U/L (45-117); Bilirubin,Total 0.4 mg/dl (0.2-1); Globulin 4.2 gm/dl (2.5-4.0); Troponin I < 0.015 ng/ml (0-0.045)
[2018-06-21 15:24] LABS: Influenza A virus by PCR Neg for Influ A (Neg); Influenza B virus by PCR Neg for Influ B (Neg)
[2018-06-21] MEDS ORDERED: IOVERSOL 100ml IV PRN (15:51)
--- NOTE | 2018-06-21 16:00 | CT Scan Report ---
CT angio chest PE protocol CT DOSE: 499.51 mGy.cm HISTORY: Chest pain. Dyspnea. PE TECHNIQUE: Multiaxial CT images of the chest were performed following the intravenous administration of contrast to evaluate the pulmonary arteries. Maximal intensity projection images were also obtaine d. A dose lowering technique was utilized adhering to the principles of ALARA. COMPARISON STUDY: None. FINDINGS: There is a normal caliber thoracic aorta with no evidence for dissection. There is no evide nce for pulmonary embolus. No pleural effusions. No pneumothorax. The liver and spleen are unremarkab le. No mediastinal or hilar lymphadenopathy. The central airways are patent. The lungs demonstrate a patchy parenchymal infiltrate left lung base. There is peribronchial prominence throughout the mid to lower lungs bilaterally with mild interstitial prominence. IMPRESSION: 1. Study is negative for pulmonary embolus. 2. Small parenchymal infiltrate left base. 3. Generalized interstitial and peribronchial prominence of the mid to lower lungs. The above report was generated using voice recognition software. It may contain grammatical, syntax or spelling errors. Electronically signed by: Kalpesh Arias M.D. 06/21/2018 3:58 PM
--- NOTE | 2018-06-21 16:52 | History & Physical Report ---
Date of Service June 21, 2018 Assessment & Plan (1) Pneumonia: Rocephin and Zithromax, steroids, nebulizers (2) Hypoxia: Oxygen as needed (3) Precordial chest pain: Serial troponins (4) COPD exacerbation: Steroids and nebulizers, antibiotics (5) Smoker: Cessation discussed with patient (6) DM type 2 (diabetes mellitus, type 2): Lantus at bedtime, lispro with meals, sliding scale. (7) Trigeminal neuralgia: We will monitor, (8) Nonalcoholic hepatosteatosis: Weight loss discussed with patient (9) HTN (hypertension): Continue outpatient medications were appropriate (10) Depression: Continue SSRI (11) Osteoarthritis: No issues currently (12) Dyslipidemia: Continue statin at this time (13) DVT prophylaxis: Subcu heparin every 8 (14) Family history of coronary artery disease: History of Present Illness Chief Complaint: Shortness of breath and cough Primary Care Provider: Millicent Baldwin DO 57-year-old female with past medical history of obesity, pneumonia, trigeminal neuralgia, DEMPSEY, COPD, asthma, hyperlipidemia, diabetes, GERD, and depression presents with 4 days of cough and sweats. Does not complain of any fever but does complain of chills shortness of breath and nausea and diarrhea that started today. She is also complaining of left chest discomfort with a burning sensation. She went to see her PCP on Saturday who prescribed antibiotics and steroids for suspected pneumonia. We did a chest x-ray today which showed bilateral infiltrates. We did a CT of her chest which was negative for PE but did show left lower lobe pneumonia. ROS-No Headache, No Visual Changes, No Fever, positive chills, No Neck Pain or Stiffness, positive chest discomfort, No Palpitations, No SOB, No GRAY, positive cough, No Sputum, positive wheezing, No Abdominal Pain, positive diarrhea, No Hematemesis, No Hemoptysis, No Unexpected Weight Loss, No Flank pain, No Melena , No Hematochezia, No Frequency, No Urgency, No Burning, No Hematuria, No Rashes , No Diaphoresis. Appetite is Normal Physical Exam Gen-AAO x 3, NAD, Afebrile, obese Head-NCAT, EOMI, PERRLA, Anicteric Sclera, No Posterior Pharyngeal Erythema Neck-Supple, No JVD, No Thyromegaly, No Masses, No LAD, No Bruits Lungs-rales rhonchi and wheezes bilaterally coarse breath sounds bilaterally. Chest-No S4, +S1, +S2, No S3, No Murmurs, No Rubs, No Gallops, No Ectopy Abdomen-Soft, Bowel Sounds Present, obese, non Tender, Non Distended, No Hepatomegaly, No Splenomegaly, No Palpable Masses, No Rebound, No Rigidity, No Guarding Musculoskeletal-Full Range of Motion Bilaterally, No CVAT Extremities-No Cyanosis, No Clubbing, No Edema Nuero-Cranial Nerves II-XII grossly intact, Motor WNL, DTRs WNL, Strength WNL, No Focal Psych-Normal Mood PMH-obesity, hemorrhagic, DEMPSEY, pneumonia, COPD, asthma, hyperlipidemia, type 2 diabetes, GERD, depression PSH-bladder surgery, hysterectomy with right oophorectomy, arthroscopic knee surgery, ankle fusion, tonsil management removed, cholecystectomy, hernia surgery FH-mother and father both from coronary disease SH-current pack-a-day smoker for 40 years, , denies alcohol Meds reviewed and Reconciled Labs Review Allergies sumatriptan Allergy (Intermediate, Verified 06/21/18 15:00) DIAPHORESIS, "SKIN CRAWLING" carbamazepine Allergy (Unknown, Unverified 06/21/18 15:00) RASH metformin Adverse Reaction (Severe, Verified 06/21/18 15:00) Diarrhea Height/Weight/Isolation Height 5 ft 3 in Weight 84.3 kg CBC 06/21/18 06/21/18 06/21/18 14:10 14:30 14:30 WBC 10.66 RBC 4.93 Hgb 15.6 Hct 45.7 MCV 92.7 MCH 31.6 MCHC 34.1 RDW Std Deviation 49.4 H RDW Coeff of Cathy 14.4 Plt Count 198 MPV 10.1 Immature Gran % (Auto) 0.3 Neut % (Auto) 87.3 Lymph % (Auto) 9.3 [place] % (Auto) 2.9 Eos % (Auto) 0.1 Baso % (Auto) 0.1 Immature Gran # (Auto) 0.03 H Neut # (Auto) 9.31 H Lymph # (Auto) 0.99 L [place] # (Auto) 0.31 Eos # (Auto) 0.01 Baso # (Auto) 0.01 PT INR APTT PTT Ratio Sodium Potassium Chloride Carbon Dioxide Anion Gap BUN Creatinine Est Cr Clr Drug Dosing Est GFR ( Amer) Est GFR (Non-Af Amer) BUN/Creatinine Ratio Glucose Lactate 4.0 H* Calcium Magnesium Total Bilirubin AST ALT Alkaline Phosphatase Troponin I Total Protein Albumin Globulin Albumin/Globulin Ratio Influenza Type A (PCR) Neg for Influ A Influenza Type B (PCR) Neg for Influ B 06/21/18 06/21/18 14:30 14:30 WBC RBC Hgb Hct MCV MCH MCHC RDW Std Deviation RDW Coeff of Cathy Plt Count MPV Immature Gran % (Auto) Neut % (Auto) Lymph % (Auto) [place] % (Auto) Eos % (Auto) Baso % (Auto) Immature Gran # (Auto) Neut # (Auto) Lymph # (Auto) [place] # (Auto) Eos # (Auto) Baso # (Auto) PT 10.0 INR 1.0 APTT 26.7 PTT Ratio 1.0 Sodium 137 Potassium 4.1 Chloride 105 Carbon Dioxide 22 Anion Gap 10.0 BUN 17 Creatinine 1.09 Est Cr Clr Drug Dosing 58.6 Est GFR ( Amer) 65.3 Est GFR (Non-Af Amer) 56.3 BUN/Creatinine Ratio 15.3 Glucose 272 H Lactate Calcium 8.5 Magnesium 1.9 Total Bilirubin 0.4 AST 25 ALT 36 Alkaline Phosphatase 78 Troponin I < 0.015 Total Protein 8.0 Albumin 3.8 Globulin 4.2 H Albumin/Globulin Ratio 0.9 Influenza Type A (PCR) Influenza Type B (PCR) Chemistry 06/21/18 14:30 Sodium 137 Potassium 4.1 Chloride 105 Carbon Dioxide 22 Anion Gap 10.0 BUN 17 Creatinine 1.09 Glucose 272 H Microbiology 06/21/18 14:30 Sputum, Expectorated Gram Stain - Pending 06/21/18 14:30 Sputum, Expectorated Sputum Culture - Pending 06/21/18 14:30 Blood Blood Culture - Pending Allergies Allergy/AdvReac Type Severity Reaction Status Date / Time sumatriptan Allergy Intermediate DIAPHORESIS, Verified 06/21/18 15:00 "SKIN CRAWLING" carbamazepine Allergy Unknown RASH Unverified 06/21/18 15:00 metformin AdvReac Severe Diarrhea Verified 06/21/18 15:00 Home Medications Home Medications Medication Instructions Recorded Confirmed Type acetaminophen [Tylenol Extra 500 mg PO Q6H PRN 04/24/18 06/21/18 History Strength] aspirin [Aspir-Low] 81 mg PO DAILY 04/24/18 06/21/18 History atorvastatin [Lipitor] 40 mg PO DAILY 04/24/18 06/21/18 History baclofen 10 mg PO DAILY 04/24/18 06/21/18 History carvedilol [Coreg] 6.25 mg PO BID 04/24/18 06/21/18 History gabapentin [Neurontin] 300 mg PO TID 04/24/18 06/21/18 History insulin glargine [Basaglar KwikPen 16 units SUBCUT QPM 04/24/18 06/21/18 History U-100 Insulin] insulin lispro [Admelog SoloStar 0 units SUBCUT TIDM PRN 04/24/18 06/21/18 History U-100 Insulin] ipratropium-albuterol 3 ml INHALATION QID PRN 04/24/18 06/21/18 History pantoprazole [Protonix] 40 mg PO DAILY 04/24/18 06/21/18 History paroxetine HCl [Paxil] 30 mg PO DAILY 04/24/18 06/21/18 History polyethylene glycol 3350 [Miralax] 17 g PO DAILY PRN 04/24/18 06/21/18 History trazodone 100 mg PO HS 04/24/18 06/21/18 History naproxen sodium [Aleve] 220 mg PO BIDM PRN #0 tab 04/28/18 06/21/18 Rx cyclobenzaprine 10 mg PO Q8H PRN #10 tab 05/02/18 06/21/18 Rx azithromycin 250 mg PO DAILY 06/21/18 06/21/18 History benzonatate 100 mg PO TID PRN 06/21/18 06/21/18 History fluticasone 2 spray INTRANASAL TID 06/21/18 06/21/18 History prednisone 40 mg PO DAILY 06/21/18 06/21/18 History Past Med/Surg History Medical History Nonalcoholic hepatosteatosis (Chronic) Trigeminal neuralgia (Chronic) DM type 2 (diabetes mellitus, type 2) (Chronic) Osteoarthritis (Chronic) COPD (chronic obstructive pulmonary disease) (Chronic) Depression (Chronic) HTN (hypertension) (Chronic) Dyslipidemia (Chronic) Surgical History History of bladder surgery (Chronic) History of right oophorectomy (Chronic) H/O ankle fusion (Chronic) H/O arthroscopic knee surgery (Chronic) History of cholecystectomy (Chronic) History of tonsillectomy (Chronic) H/O inguinal hernia repair (Chronic) H/O: hysterectomy (Chronic) Family History Father CAD (coronary artery disease) Mother CAD (coronary artery disease) Social History Current Living Situation: Spouse Other Information That Helps Us Care for You: No Feels Safe at Home: Yes Safety Concerns: Feels Safe At This Time Smoking Status: Current every day smoker Tobacco Type: cigarettes Cigarettes per Day: 20 Do You Dip or Chew Tobacco: No Second Hand Exposure: No Tobacco Cessation Education Requested by Patient: No Hx Alcohol Use: No Hx Substance Use: No Beliefs That Will Affect Care: None Preferred Language: Greenlandic Communication Ability: Effective [employer] Required: No Physical Exam 2 Vital Signs (Past 24 Hours): Last Vital Signs Temp 37.1 C 06/21/18 15:30 Pulse 69 06/21/18 16:19 Resp 18 06/21/18 16:19 BP 120/72 06/21/18 16:19 Pulse Ox 94 06/21/18 16:19 Results & Data Diagnostic Findings CT negative for PE positive for left lower lobe pneumonia Chest x-ray bilateral infiltrates _ (1) Pneumonia Aspiration pneumonia type: Laterality: unspecified laterality Lung location : unspecified part of lung Pneumonia type: due to unspecified organism Qualified Code(s): J18.9 - Pneumonia, unspecified organism
[2018-06-21] MEDS ORDERED: GLUCOSE 40% GEL 15 GM TUBE PO PRN (17:35)
[2018-06-21] MEDS ORDERED: POLYETHYLENE (MIRALAX) 17 GM PACK PO PRN ×2 (17:35)
[2018-06-21] MEDS ORDERED: CYCLOBENZAPRINE HCL 10 MG TAB PO PRN (17:35)
[2018-06-21] MEDS ORDERED: ONDANSETRON INJ 2 MG/ML 2 ML VIAL IV PRN (17:35)
[2018-06-21] MEDS ORDERED: CARBOHYDRATES FOR HYPOGLYCEMIA PO PRN (17:35)
[2018-06-21] MEDS ORDERED: cefTRIAXone SODIUM 1,000 MG/50 ML BAG IV STA (17:35)
[2018-06-21] MEDS ORDERED: GLUCOSE 10 TABS/TUBE PO PRN (17:35)
[2018-06-21] MEDS ORDERED: DEXTROSE 50% 50 ML SYRINGE IV PRN (17:35)
[2018-06-21] MEDS ORDERED: GLUCAGON FOR INJ 1 MG VIAL SQ PRN (17:35)
[2018-06-21] MEDS: ACETAMINOPHEN 500 MG TAB PO PRN (18:21)
[2018-06-21] MEDS ORDERED: PHARMACY GLYCEMIC MGMT CONSULT PRN (18:29)
[2018-06-21] MEDS: cefTRIAXone SODIUM 1,000 MG in DEXTROSE 5% 50 ML IV SCH (19:22)
[2018-06-21] MEDS: AZITHROMYCIN 250 MG TAB PO SCH (19:22)
[2018-06-21] MEDS: BENZONATATE 100 MG CAPSULE PO PRN (19:37)
[2018-06-21] MEDS ORDERED: KETOROLAC TROMETHAMINE 15 MG/ML VIAL IV STA (19:37)
[2018-06-21] MEDS ORDERED: NURSING DECISION MEDICATION PRN (19:46)
[2018-06-21] MEDS ORDERED: COUGH DROP (SUGAR FREE) LOZ 24 LOZ/1 BOX BUCCAL PRN (19:57)
[2018-06-21] MEDS: TRAMADOL HCL 50 MG TABLET PO PRN (20:09)
[2018-06-21] MEDS: methylPREDNISolone 40 MG in SYRINGE 0 ML IV SCH (20:09)
[2018-06-21] MEDS: GABAPENTIN 300 MG CAP PO SCH (20:09)
[2018-06-21] MEDS ORDERED: GABAPENTIN 300 MG CAP PO SCH (21:00)
[2018-06-21] MEDS: FLUTICASONE PROPIONATE NA SPR 16 GM BTL SCH (21:30)
[2018-06-21] MEDS: TRAZODONE HCL 100 MG TAB PO SCH (21:31)
[2018-06-21] MEDS: CARVEDILOL 6.25 MG TAB PO SCH (21:31)
[2018-06-21] MEDS: HEPARIN SOD 5,000 UNIT/0.5 ML VIAL SQ SCH (21:32)
[2018-06-21] MEDS: INSULIN GLARGINE SOLOSTAR 100 UNITS/ML 3 ML PEN SQ SCH (21:36)
[2018-06-21] MEDS: INSULIN ASPART 100 UNITS/ML 3 ML PEN SC SCH (21:37)
[2018-06-22] MEDS: INSULIN ASPART 100 UNITS/ML 3 ML PEN SC SCH ×6 (00:14→21:33)
[2018-06-22] MEDS: ALBUT/IPRATROP 3MG/0.5MG NEB 3 ML VIAL INH PRN ×3 (00:18→21:22)
[2018-06-22] MEDS: TRAMADOL HCL 50 MG TABLET PO PRN ×5 (00:39→18:54)
[2018-06-22] MEDS: methylPREDNISolone 40 MG in SYRINGE 0 ML IV SCH ×4 (02:03→20:09)
[2018-06-22] MEDS: BENZONATATE 100 MG CAPSULE PO PRN ×2 (04:35→08:10)
[2018-06-22] MEDS: HEPARIN SOD 5,000 UNIT/0.5 ML VIAL SQ SCH ×3 (06:04→21:34)
[2018-06-22 07:50] LABS: Albumin Globulin Ratio 0.9 (0.9-2); Albumin Level 3.4 gm/dl (3.4-5.0); BUN Creatinine Ratio 17.2 (10-20); Bilirubin,Total 0.2 mg/dl (0.2-1); Calcium 8.2 mg/dl (8.5-10.1); Creatinine Clr Calc Pharmacy 92.7 ml/min; Est GFR (Non-African American) 96.6; Globulin 3.8 gm/dl (2.5-4.0); Potassium 4.1 mmol/L (3.5-5.1); Total Protein 7.2 gm/dl (6.4-8.2)
[2018-06-22] MEDS: FLUTICASONE PROPIONATE NA SPR 16 GM BTL SCH ×3 (08:03→21:30)
[2018-06-22] MEDS: ATORVASTATIN 40 MG TAB PO SCH (08:05)
[2018-06-22] MEDS: PARoxetine HCl 20 MG TAB PO SCH (08:05)
[2018-06-22] MEDS: BACLOFEN 10 MG TAB PO SCH (08:05)
[2018-06-22] MEDS: PANTOprazole 40 MG TAB PO SCH (08:05)
[2018-06-22] MEDS: CARVEDILOL 6.25 MG TAB PO SCH ×2 (08:05→21:30)
[2018-06-22] MEDS: AZITHROMYCIN 250 MG TAB PO SCH (08:05)
[2018-06-22] MEDS: GABAPENTIN 300 MG CAP PO SCH ×3 (08:05→21:31)
[2018-06-22] MEDS: ASPIRIN 81 MG ECTAB PO SCH (08:06)
--- NOTE | 2018-06-22 11:57 | Hospitalist Progress Note ---
Date of Service June 22, 2018 Assessment & Plan (1) Pneumonia: (2) Hypoxia: (3) COPD exacerbation: Present on admission with cough associated with SOB CTA showed small parenchymal infiltrate left base. chest negative for pulmonary embolus. Continue steroid IV and nebulizers, antibiotics Will add mucomyst BID Continue monitor (4) Precordial chest pain: Mostly Atypical from coughing EKG showed no ischemic changes Troponinx 3 negative Currently denies any chest pain (5) Smoker: Counseling on smoking cessation (6) DM type 2 (diabetes mellitus, type 2): Hba1c Pending Lantus at bedtime, lispro with meals, sliding scale. (7) Trigeminal neuralgia: Stable (8) Nonalcoholic hepatosteatosis: Weight loss discussed with patient (9) HTN (hypertension): BP stable Continue outpatient medications (10) Depression: Continue SSRI (11) Osteoarthritis: No issues currently (12) Dyslipidemia: Continue statin at this time (13) DVT prophylaxis: Subcu heparin every 8 CODE STATUS FULL CODE Subjective Pt was seen and examined Lying in bed with no distress Pt said that she continues to have SOB with wheezing She said that she continues to cough and cause her to have headache She said that she is having back pain as well and the tramadol does not help Denies any chest pain, palpitation, dizziness and fever Physical Exam 2 Vital Signs (Past 24 Hours): Last Vital Signs Temp 36.7 C 06/22/18 11:26 Pulse 65 06/22/18 11:26 Resp 20 06/22/18 11:26 BP 108/57 L 06/22/18 11:26 Pulse Ox 93 06/22/18 11:26 Physical Exam: General- No acute distress Head- atraumatic Eyes- PERRL, EOMI, ENT- oropharynx clear Neck- supple, no JVD Lungs- +wheezing Heart- regular rhythm; no murmur Abdomen- normal bowel sounds, soft, nontender Extremities- no calf tenderness Neuro- alert, oriented x 3; PERRL, EOMI; no facial palsy Skin- warm & dry _ (1) Pneumonia Aspiration pneumonia type: Laterality: unspecified laterality Lung location : unspecified part of lung Pneumonia type: due to unspecified organism Qualified Code(s): J18.9 - Pneumonia, unspecified organism
--- NOTE | 2018-06-22 14:28 | Pharmacy Report ---
Glycemic Control Consultation - Date of Service June 22, 2018 - Scope Scope: Glycemic Pharmacist consulted by Dr Hodge on 06/21/18 for glycemic control and to write orders per [facility] inpatient glycemic control protocol - Objective Weight: 84.6 kg Accuchecks BSG (last 24hrs): 06/21/18 06/21/18 06/21/18 14:30 18:07 20:27 Glucose 272 H POC Glucose 170 H 236 H 06/22/18 06/22/18 06/22/18 00:04 04:06 06:44 Glucose 177 H POC Glucose 202 H 205 H 06/22/18 06/22/18 07:37 11:10 Glucose POC Glucose 184 H 133 H Laboratory Data (last 24hrs): 06/21/18 06/22/18 14:30 06:44 Potassium 4.1 4.1 Carbon Dioxide 22 29 Anion Gap 10.0 2.0 L Creatinine 1.09 0.69 D Est Cr Clr Drug Dosing 58.6 92.7 - Recent Pertinent Medications Outpatient Anti-diabetic Regimen: * Lantus 16 units SQ PM * Humalog TIDmeals * A1c pending, 6.9% on 11/28/16 The patient is currently receiving: * Basal insulin: Lantus 25 units every 24 hours * Correctional Insulin: Novolog Correction per scale ACHS Goal Range: Low 140 mg/dL - High 180 mg/dL Correction Factor: 30 mg/dL/unit * Prandial insulin: Per carb ratio of 1 unit per 9 grams CHO consumed Risk Factors for Insulin Resistance: * Steroids: Solumedrol 60mg x1 dose, then 40mg IV Q6H * Infection: Pneumonia - IV Rocephin and Zithromax * Diet: Type 2 DM - Assessment & Plan Assessment & Plan: ASSESSMENT: * 57 year old female admitted with hypoxia, COPD exacerbation, pneumonia, started on IV Antibiotics and ATC steroids, causing hyperglycemia. * Type 2 diabetic, unknown glycemic control at home, updated A1c pending * Patient started on increased dose of Lantus last night and CF and CR * Blood sugars remain elevated this morning, tightened CF and CR and goal range , at goal at lunchtime * ADA & AACE recommend a goal blood sugar range 140-180 mg/dl for the majority of critically ill & non-critically ill patients. However, more stringent targets may be selected in individual cases. Will utilize more stringent goal of 110-140mg/dl based on patient age & comorbidities. Additionally, tighter glycemic control is warranted to facilitate wound/infection healing. PLAN FOR INPATIENT GLYCEMIC CONTROL: * Basal insulin * Lantus 25 units SQ HS * Bolus insulin - * NovoLog per scale ACHS or Q6hrs while NPO * CHANGE: Goal Range: Low 110 mg/dL - High 140 mg/dL * TIGHTEN: Correction Factor: 20 mg/dL/unit * TIGHTEN: Nutritional / Prandial insulin per carb ratio of 1 unit per 6 grams CHO consumed * Please note that the plan above was derived based on current level of insulin resistance and hospital stress. These recommendations are appropriate for inpatient admission only. Plan of care upon discharge will need to be reassessed to avoid potential outpatient hypo/hyperglycemia. Thank you.
[2018-06-22] MEDS: cefTRIAXone SODIUM 1,000 MG in DEXTROSE 5% 50 ML IV SCH (18:55)
[2018-06-22] MEDS: NICOTINE 21 MG/24 HR TDSY TD SCH (20:09)
[2018-06-22] MEDS: ACETYLCYSTEINE 10% INHAL SOLN **DISPENSED FROM RESP. INH PRN (21:22)
[2018-06-22] MEDS: TRAZODONE HCL 100 MG TAB PO SCH (21:30)
[2018-06-22] MEDS: INSULIN GLARGINE SOLOSTAR 100 UNITS/ML 3 ML PEN SQ SCH (21:32)
[2018-06-23] MEDS: INSULIN ASPART 100 UNITS/ML 3 ML PEN SC SCH ×6 (00:25→20:37)
[2018-06-23] MEDS: methylPREDNISolone 40 MG in SYRINGE 0 ML IV SCH ×4 (01:40→20:27)
[2018-06-23] MEDS: ALBUT/IPRATROP 3MG/0.5MG NEB 3 ML VIAL INH PRN ×2 (03:36→15:56)
[2018-06-23] MEDS: TRAMADOL HCL 50 MG TABLET PO PRN ×4 (03:55→22:19)
[2018-06-23] MEDS: HEPARIN SOD 5,000 UNIT/0.5 ML VIAL SQ SCH ×3 (05:14→22:13)
[2018-06-23] MEDS: ACETAMINOPHEN 500 MG TAB PO PRN (05:23)
[2018-06-23] MEDS: BENZONATATE 100 MG CAPSULE PO PRN (05:41)
[2018-06-23 06:47] LABS: Estimated Average Glucose 140 mg/dl
[2018-06-23 07:11] LABS: Basophils # (auto) 0.01 K/uL (0-0.2); Basophils % (auto) 0.1 %; Hematocrit (blood only) 40.8 % (37-47); Hemoglobin 13.7 g/dL (12.0-16.0); Immature Granulocytes % (auto) 0.6 %; Lymphocytes # (auto) 1.31 K/uL (1.2-3.4); Lymphocytes % (auto) 7.9 %; Mean Corpuscular Hgb Conc 33.6 g/dL (32-36); Mean Corpuscular Volume 92.1 fL (80-100); Mean Platelet Volume 9.8 fL (7.4-10.4); Monocytes # (auto) 1.03 K/uL (0.11-0.59); Monocytes % (auto) 6.2 %; Neutrophils # (auto) 14.15 K/uL (1.4-6.5); Neutrophils % (auto) 85.2 %; Platelet Count 189 K/uL (130-400); RDW Coefficient of Variation 14.2 % (11.5-14.5); RDW Standard Deviation 47.9 fL (36.4-46.3); Red Blood Count 4.43 M/uL (4.2-5.4)
[2018-06-23] MEDS: FLUTICASONE PROPIONATE NA SPR 16 GM BTL SCH ×3 (08:50→20:30)
[2018-06-23] MEDS: CARVEDILOL 6.25 MG TAB PO SCH ×2 (08:51→20:29)
[2018-06-23] MEDS: GABAPENTIN 300 MG CAP PO SCH ×3 (08:51→20:41)
[2018-06-23] MEDS: PANTOprazole 40 MG TAB PO SCH (08:52)
[2018-06-23] MEDS: AZITHROMYCIN 250 MG TAB PO SCH (08:52)
[2018-06-23] MEDS: BACLOFEN 10 MG TAB PO SCH (08:57)
[2018-06-23] MEDS: ATORVASTATIN 40 MG TAB PO SCH (08:57)
[2018-06-23] MEDS: PARoxetine HCl 20 MG TAB PO SCH (08:58)
[2018-06-23] MEDS: ASPIRIN 81 MG ECTAB PO SCH (08:59)
[2018-06-23] MEDS: NICOTINE 21 MG/24 HR TDSY TD SCH (09:00)
--- NOTE | 2018-06-23 12:18 | Pharmacy Report ---
Glycemic Control Progress Note - Date of Service June 23, 2018 - Scope Glycemic Pharmacist consulted for glycemic control to write orders per [facility] inpatient glycemic control protocol. - Objective Accuchecks BSG(last 24 hours):: 06/22/18 06/22/18 06/23/18 16:32 19:46 00:11 POC Glucose 214 H 162 H 234 H 06/23/18 06/23/18 06/23/18 04:14 07:34 11:12 POC Glucose 190 H 146 H 156 H HbA1c:: Hemoglobin A1c 6.5 % (4.5-5.6) H 06/22/18 06:44 - Recent Pertinent Medications The patient is currently receiving: * Basal insulin: Lantus 25 units every 24 hours in the evening * Correctional Insulin: Novolog Correction per scale ACHS Goal Range: Low 110 mg/dL - High 140 mg/dL Correction Factor: 20 mg/dL/unit * Prandial insulin: Per carb ratio of 1 unit per 6 grams CHO consumed - Outpatient Anti-Diabetic Meds Lantus 16 units in the evening plus Humalog with meals - Assessment & Plan ASSESSMENT: * See progress note from 06/22/18 for more background info, in short: * Pt receiving SQ basal bolus insulin regimen for hyperglycemia secondary to baseline DM (outpatient regimen on hold),stress/infection (pneumonia currently receiving Zithromax and Rocephin), and Solu-Medrol 40 mg IV q6 hours. * Patient is currently receiving an average of 60 units of insulin per day * 25 units of basal insulin * 35 units of prandial/correctional insulin * BSGs ranging 133 - 234 mg/dl over the past 24hrs * Changes needed to insulin regimen: * AM Fasting BSG = 146 mg/dl. This is within goal range for patient based on inpatient targets and co-morbidities. Therefore Basal insulin will currently be continued. Patient did receive an extra 8 units overnight so will provide a scale for this evening. * Post-prandial BSGs tredned upwards after meals therefore tighten CR. CF appears appropriate since patient trended downwards throughout the night. * Total daily dose = 60-70 units. Titrated upwards. PLAN FOR INPATIENT GLYCEMIC CONTROL: * Changing Lantus to 20-30 units SQ HS * Lantus 20 units if blood sugar under 140 mg/dL * Lantus 25 units if blood sugar 140-180 mg/dl * Lantus 30 units if blood sugar over 180 mg/dL * Continuing correction factor of 20 mg/dl/unit * Changing carb ratio to 1 unit per 5 grams CHO consumed * Continuing goal range of Low 110 mg/dL - High 140 mg/dL RECOMMENDATIONS FOR DISCHARGE: * Patient's HbA1C well controlled as an outpatient. Continue current regimen. * Please note that the plan above was derived based on current level of insulin resistance and hospital stress. These recommendations are appropriate for inpatient admission only. Plan of care upon discharge will need to be reassessed to avoid potential outpatient hypo/hyperglycemia. Thank you.
[2018-06-23] MEDS ORDERED: GUAIFENESIN/CODEINE 100MG/10MG 5ML UDC PO PRN (12:19)
[2018-06-23] MEDS ORDERED: ALBUT/IPRATROP 3MG/0.5MG NEB 3 ML VIAL INH PRN (16:45)
[2018-06-23] MEDS: cefTRIAXone SODIUM 1,000 MG in DEXTROSE 5% 50 ML IV SCH (18:36)
--- NOTE | 2018-06-23 18:44 | Hospitalist Progress Note ---
Date of Service June 23, 2018 Assessment & Plan (1) Pneumonia: (2) Hypoxia: (3) COPD exacerbation: Present on admission with cough associated with SOB CTA showed small parenchymal infiltrate left base. chest negative for pulmonary embolus. Continue steroid IV and nebulizers, antibiotics Did not tolerate the mucomust, will d/c it Continue monitor (4) Precordial chest pain: Mostly Atypical from coughing EKG showed no ischemic changes Troponinx 3 negative Currently denies any chest pain (5) Smoker: Counseling on smoking cessation (6) DM type 2 (diabetes mellitus, type 2): Hba1c 6.5 Lantus at bedtime, lispro with meals, sliding scale. Monitor BS (7) Trigeminal neuralgia: Stable (8) Nonalcoholic hepatosteatosis: Weight loss discussed with patient (9) HTN (hypertension): BP stable Continue outpatient medications (10) Depression: Continue SSRI (11) Osteoarthritis: No issues currently (12) Dyslipidemia: Continue statin at this time (13) DVT prophylaxis: Subcu heparin CODE STATUS FULL CODE Subjective Pt was seen and examined Lying in bed with no distress Pt said that she slept for a few hour last night She continues to cough but unable to get the phlegm out She continues to wheeze and require oxygen supplement She said that whenver she coughs, her back and chest wall tender Denies any fever, palpitation and dizziness Physical Exam 2 Vital Signs (Past 24 Hours): Last Vital Signs Temp 36.6 C 06/23/18 15:00 Pulse 79 06/23/18 15:57 Resp 18 06/23/18 15:57 BP 134/74 06/23/18 15:00 Pulse Ox 93 06/23/18 15:57 Physical Exam: General- No acute distress Head- atraumatic Eyes- PERRL, EOMI, ENT- oropharynx clear Neck- supple, no JVD Lungs- +wheezing Heart- regular rhythm; no murmur Abdomen- normal bowel sounds, soft, nontender Extremities- no calf tenderness Neuro- alert, oriented x 3; PERRL, EOMI; no facial palsy Skin- warm & dry _ (1) Pneumonia Aspiration pneumonia type: Laterality: unspecified laterality Lung location : unspecified part of lung Pneumonia type: due to unspecified organism Qualified Code(s): J18.9 - Pneumonia, unspecified organism
[2018-06-23] MEDS: ALBUT/IPRATROP 3MG/0.5MG NEB 3 ML VIAL NEB SCH (20:01)
[2018-06-23] MEDS: TRAZODONE HCL 100 MG TAB PO SCH (20:29)
[2018-06-23] MEDS ORDERED: LORazepam 0.5 MG TAB PO STA (20:33)
[2018-06-23] MEDS: INSULIN GLARGINE SOLOSTAR 100 UNITS/ML 3 ML PEN SQ SCH (20:36)
[2018-06-24] MEDS: INSULIN ASPART 100 UNITS/ML 3 ML PEN SC SCH ×6 (00:18→21:02)
[2018-06-24] MEDS: methylPREDNISolone 40 MG in SYRINGE 0 ML IV SCH ×3 (02:00→15:42)
[2018-06-24] MEDS: HEPARIN SOD 5,000 UNIT/0.5 ML VIAL SQ SCH ×3 (06:07→22:17)
[2018-06-24] MEDS: ALBUT/IPRATROP 3MG/0.5MG NEB 3 ML VIAL NEB SCH ×4 (07:04→19:23)
[2018-06-24] MEDS: TRAMADOL HCL 50 MG TABLET PO PRN ×2 (08:35→13:16)
[2018-06-24] MEDS: FLUTICASONE PROPIONATE NA SPR 16 GM BTL SCH ×3 (08:36→20:46)
[2018-06-24] MEDS: PARoxetine HCl 20 MG TAB PO SCH (08:38)
[2018-06-24] MEDS: GABAPENTIN 300 MG CAP PO SCH ×3 (08:39→20:46)
[2018-06-24] MEDS: PANTOprazole 40 MG TAB PO SCH (08:40)
[2018-06-24] MEDS: AZITHROMYCIN 250 MG TAB PO SCH (08:40)
[2018-06-24] MEDS: CARVEDILOL 6.25 MG TAB PO SCH ×2 (08:41→20:45)
[2018-06-24] MEDS: ATORVASTATIN 40 MG TAB PO SCH (08:41)
[2018-06-24] MEDS: BACLOFEN 10 MG TAB PO SCH (08:41)
[2018-06-24] MEDS: NICOTINE 21 MG/24 HR TDSY TD SCH (08:42)
[2018-06-24] MEDS: ASPIRIN 81 MG ECTAB PO SCH (08:42)
[2018-06-24] MEDS: ACETAMINOPHEN 500 MG TAB PO PRN ×2 (09:35→15:40)
[2018-06-24] MEDS ORDERED: SODIUM CHLORIDE 0.65% NA SOLN 45 ML (OCEAN) ONE (10:22)
--- NOTE | 2018-06-24 12:00 | Pharmacy Report ---
Pharmacy Glycemic Short Note 2 - Date of Service June 24, 2018 - Glycemic Short BSG Results (Last 24 hours): 06/23/18 06/23/18 06/24/18 16:45 20:19 00:08 POC Glucose 177 H 200 H 141 H 06/24/18 06/24/18 06/24/18 04:32 07:45 11:31 POC Glucose 146 H 176 H 106 H OUTPATIENT ANTIDIABETIC REGIMEN: * Lantus 16 units SQ Q HS * Humalog SQ TID w/ meals per sliding scale ASSESSMENT: * Glycemic control overall acceptable in the last 24 hrs * Only 1 post-prandial BSG greater than 180 (max 200 at bedtime) * Fasting BSG 146-176 this AM w/ 30 units Lantus on board + 2 units Novolog correction given overnight * Solu-medrol continues at the same dose used yesterday * ABX therapy continues * Current insulin doses are reasonable to continue another 24 hrs PLAN FOR INPATIENT GLYCEMIC CONTROL: * Basal insulin (no change) * Lantus SQ Q HS per scale * 20 units if blood sugar under 140 mg/dL * 25 units if blood sugar 140-180 mg/dL * 30 units if blood sugar over 180 mg/dL * Bolus insulin * NovoLog per scale ACHS or Q6hrs while NPO * Goal Range: Low 110 mg/dL - High 140 mg/dL * Correction Factor: 20 mg/dL/unit * Nutritional / Prandial insulin per carb ratio of 1 unit per 5 grams CHO consumed PLAN FOR DISCHARGE: * Given recent A1c results, resuming outpt insulin regimen would be reasonable.
[2018-06-24] MEDS: HYDROCODONE/HOMATROPINE SYRUP 5MG/1.5MG 5ML UDP PO PRN ×2 (13:16→20:57)
--- NOTE | 2018-06-24 13:33 | Hospitalist Progress Note ---
Date of Service June 24, 2018 Assessment & Plan (1) Pneumonia: (2) Hypoxia: (3) COPD exacerbation: Present on admission with cough associated with SOB CTA showed small parenchymal infiltrate left base. chest negative for pulmonary embolus. Continue steroid IV and nebulizers, antibiotics Continue chest PT, flutter valve and mycomust Hydrocan adding for chest wall tenderness with coughing Will consider Pulmonology consult for possible bronch Similar scenario during last admission where she had to get bronch to help with her symptoms Continue monitor (4) Precordial chest pain: Mostly Atypical from coughing EKG showed no ischemic changes Troponinx 3 negative Stable (5) Smoker: Counseling on smoking cessation (6) DM type 2 (diabetes mellitus, type 2): Hba1c 6.5 Lantus at bedtime, lispro with meals, sliding scale. Monitor BS (7) Trigeminal neuralgia: Stable (8) Nonalcoholic hepatosteatosis: Weight loss discussed with patient (9) HTN (hypertension): BP stable Continue outpatient medications (10) Depression: Continue SSRI (11) Osteoarthritis: No issues currently (12) Dyslipidemia: Continue statin at this time (13) DVT prophylaxis: Subcu heparin CODE STATUS FULL CODE Disposition Will discharge once medically stable Subjective Pt was seen and examined Sitting in bed with with respiratory distress Pt said that she continues coughing She said that cannot get any phlegm out when coughing She said that she had similar scenario last time she was here She said that she was in the hospital for 2 weeks and had a bronch done by Dr. Hidalgo to help her breathing Pt said that she is having ribs pain after coughing spell She said that last night she slept well after given the lorazepam Denies any chest pain, palpitation, dizziness and fever Physical Exam 2 Vital Signs (Past 24 Hours): Last Vital Signs Temp 36.6 C 06/24/18 11:20 Pulse 58 L 06/24/18 11:20 Resp 18 06/24/18 11:20 BP 119/70 06/24/18 11:20 Pulse Ox 90 06/24/18 11:20 Physical Exam: General- No acute distress Head- atraumatic Eyes- PERRL, EOMI, ENT- oropharynx clear Neck- supple, no JVD Lungs- +wheezing Heart- regular rhythm; no murmur Abdomen- normal bowel sounds, soft, nontender Extremities- no calf tenderness Neuro- alert, oriented x 3; PERRL, EOMI; no facial palsy Skin- warm & dry _ (1) Pneumonia Aspiration pneumonia type: Laterality: unspecified laterality Lung location : unspecified part of lung Pneumonia type: due to unspecified organism Qualified Code(s): J18.9 - Pneumonia, unspecified organism
[2018-06-24] MEDS: BENZONATATE 100 MG CAPSULE PO PRN (14:12)
[2018-06-24] MEDS: ACETYLCYSTEINE 10% INHAL SOLN **DISPENSED FROM RESP. INH PRN (15:20)
[2018-06-24] MEDS: cefTRIAXone SODIUM 1,000 MG in DEXTROSE 5% 50 ML IV SCH (19:05)
[2018-06-24] MEDS: TRAZODONE HCL 100 MG TAB PO SCH (20:46)
[2018-06-24] MEDS: INSULIN GLARGINE SOLOSTAR 100 UNITS/ML 3 ML PEN SQ SCH (20:58)
[2018-06-25] MEDS: INSULIN ASPART 100 UNITS/ML 3 ML PEN SC SCH ×7 (00:06→23:39)
[2018-06-25] MEDS: methylPREDNISolone 40 MG in SYRINGE 0 ML IV SCH ×2 (00:06→08:08)
[2018-06-25] MEDS: TRAMADOL HCL 50 MG TABLET PO PRN (00:12)
[2018-06-25] MEDS ORDERED: LORazepam 0.5 MG TAB PO STA (00:21)
[2018-06-25] MEDS: HEPARIN SOD 5,000 UNIT/0.5 ML VIAL SQ SCH ×3 (06:28→21:23)
[2018-06-25] MEDS: ALBUT/IPRATROP 3MG/0.5MG NEB 3 ML VIAL NEB SCH ×2 (07:12→11:42)
[2018-06-25] MEDS: ACETYLCYSTEINE 10% INHAL SOLN **DISPENSED FROM RESP. INH PRN (07:12)
[2018-06-25] MEDS: GABAPENTIN 300 MG CAP PO SCH ×3 (08:08→21:15)
[2018-06-25] MEDS: CARVEDILOL 6.25 MG TAB PO SCH ×2 (08:09→21:15)
[2018-06-25] MEDS: BACLOFEN 10 MG TAB PO SCH (08:09)
[2018-06-25] MEDS: AZITHROMYCIN 250 MG TAB PO SCH (08:09)
[2018-06-25] MEDS: PANTOprazole 40 MG TAB PO SCH (08:09)
[2018-06-25] MEDS: PARoxetine HCl 20 MG TAB PO SCH (08:10)
[2018-06-25] MEDS: NICOTINE 21 MG/24 HR TDSY TD SCH (08:11)
[2018-06-25] MEDS: FLUTICASONE PROPIONATE NA SPR 16 GM BTL SCH ×3 (08:11→21:14)
[2018-06-25] MEDS: ASPIRIN 81 MG ECTAB PO SCH (08:11)
[2018-06-25] MEDS: INSULIN GLARGINE SOLOSTAR 100 UNITS/ML 3 ML PEN SQ SCH ×2 (08:14→21:24)
[2018-06-25] MEDS: ATORVASTATIN 40 MG TAB PO SCH (08:35)
--- NOTE | 2018-06-25 10:47 | XRay Report ---
XR chest 1V portable HISTORY: 57 years-old Female SOB /cough acute shortness of breath with cough COMPARISON: CTA chest and chest radiograph 06/21/2018 TECHNIQUE: Portable AP view of the chest FINDINGS: Cardiac silhouette is mildly enlarged, unchanged. No pneumothorax, pleural effusion or overt pulmonar y edema. Mild persistent bilateral bronchial wall thickening with ill-defined subsegmental left basil ar opacities. Degenerative changes of the shoulders and spine. IMPRESSION: 1. Persistent ill-defined subsegmental left basilar opacities suspicious for pneumonitis, better seen on comparison CTA of the chest. 2. Mild cardiomegaly without overt pulmonary edema. 3. Mild bilateral bronchial wall thickening is unchanged. The above report was generated using voice recognition software. It may contain grammatical, syntax o r spelling errors. Electronically signed by: Dejuan Phillips M.D. 06/25/2018 10:45 AM
[2018-06-25] MEDS: HYDROCODONE/HOMATROPINE SYRUP 5MG/1.5MG 5ML UDP PO PRN (12:36)
[2018-06-25 12:56] LABS: HCO3 ABG 25 mmol/L (19-24); Oxygen Saturation ABG 95.2 % (90-95); PCO2 ABG 34 mmHg (35-46); PO2 ABG 71 mm/Hg (80-95); pH ABG 7.48 (7.35-7.45)
[2018-06-25 12:57] LABS: Allen Test Pos (Pos)
[2018-06-25] MEDS ORDERED: AZITHROMYCIN 250 MG TAB PO ONE (13:15)
--- NOTE | 2018-06-25 13:35 | Pharmacy Report ---
Pharmacy Glycemic Short Note 2 - Date of Service June 25, 2018 - Glycemic Short BSG Results (Last 24 hours): 06/24/18 06/24/18 06/25/18 16:39 20:54 00:04 POC Glucose 185 H 252 H 205 H 06/25/18 06/25/18 06/25/18 03:53 07:29 11:13 POC Glucose 264 H 167 H 116 H OUTPATIENT ANTIDIABETIC REGIMEN: * Lantus 16 units SQ Q HS * Humalog SQ TID w/ meals per sliding scale ASSESSMENT: 06/25/18 * Glycemic control did deteriorate yesterday as the day progressed - this was likely due to improved PO intake. The rising BSGs later in the day may also have been due to Lantus effect wearing off when given once daily at bedtime. Will add smaller AM dose to help bridge this time period. * Post-prandial hyperglycemia more common following lunch and dinner, so will increase prandial Novolog dose at these time 06/24/18 * Glycemic control overall acceptable in the last 24 hrs * Only 1 post-prandial BSG greater than 180 (max 200 at bedtime) * Fasting BSG 146-176 this AM w/ 30 units Lantus on board + 2 units Novolog correction given overnight * Solu-medrol continues at the same dose used yesterday * ABX therapy continues * Current insulin doses are reasonable to continue another 24 hrs PLAN FOR INPATIENT GLYCEMIC CONTROL: * Basal insulin (increased dose) * Lantus 10 units SQ Q AM * Lantus 30 units SQ Q HS * Bolus insulin * NovoLog per scale ACHS + 0000, 0400 coverage tonight (due to recent nocturnal hyperglycemia) * Goal Range: Low 110 mg/dL - High 140 mg/dL * Correction Factor: 20 mg/dL/unit * Nutritional / Prandial insulin per carb ratio of 1 unit per 5 grams CHO consumed w/ breakfast * Nutritional / Prandial insulin per carb ratio of 1 unit per 4 grams CHO consumed w/ lunch and dinner PLAN FOR DISCHARGE: * Given recent A1c results, resuming outpt insulin regimen would be reasonable.
[2018-06-25] MEDS: methylPREDNISolone 60 MG in SYRINGE 0 ML IV SCH ×2 (13:55→21:16)
--- NOTE | 2018-06-25 15:09 | Hospitalist Progress Note ---
Date of Service June 25, 2018 Assessment & Plan (1) Acute on chronic respiratory failure with hypoxemia: due to COPD exacerbation hx of > 1 pk cig smoking for > 20 yrs presents with worsening of SOB , non productive cough , GRAY pt is continued with IV steroids , Neb tx appreciate input from Pulmonology pt will need out pt pulm follow up and formal Lung function test smoking cessation counselling provided -pt says ' she is done with smoking " Present on Admission?: Yes (2) Pneumonia: Rocephin and Zithromax, steroids, nebulizers Present on Admission?: Yes (3) Hypoxia: due to COPD exacerbation chronic tobacco use disorder will need 2 step exercise to assess home 02 needs prior to discharge Present on Admission?: Yes (4) COPD exacerbation: Present on admission with cough associated with SOB CTA showed small parenchymal infiltrate left base. chest negative for pulmonary embolus. Continue steroid IV and nebulizers, antibiotics Continue chest PT, flutter valve and mycomust Hydrocan adding for chest wall tenderness with coughing Pulmonology consutled , appreciate input (5) Precordial chest pain: Mostly Atypical from coughing EKG showed no ischemic changes Troponinx [address] chest negative for PE cont symptomatic tx with antitussive (6) Smoker: Counseling on smoking cessation pt is willing to quit refuses nicotine patch (7) DM type 2 (diabetes mellitus, type 2): Hba1c 6.5 Lantus at bedtime, lispro with meals, sliding scale. Monitor BS (8) Trigeminal neuralgia: Stable (9) Nonalcoholic hepatosteatosis: Weight loss discussed with patient (10) HTN (hypertension): BP stable Continue outpatient medications (11) Depression: Continue SSRI (12) Osteoarthritis: No issues currently (13) Dyslipidemia: Continue statin at this time (14) DVT prophylaxis: Subcu heparin CODE STATUS FULL CODE Disposition Will discharge once medically stable Subjective continues to have no productive cough thinks cough stuck in her throat doing pursed lip breathing attempted to walk on hallway felt dizzy and lightheaded very SOB , with GRAY no fever or chills Physical Exam 2 Vital Signs (Past 24 Hours): Last Vital Signs Temp 36.7 C 06/25/18 11:30 Pulse 66 06/25/18 12:24 Resp 18 06/25/18 12:24 BP 117/72 06/25/18 12:24 Pulse Ox 91 06/25/18 12:24 Physical Exam: GENERAL: in respiratory distress HEENT: Sclera nonicteric, Normal oral mucosa, neck: No JVD, no thyromegaly, trachea midline Lungs: breath sound diminished , + wheeze , using accesory muscles Cardiovascular: Regular S1 and S2, no lower extremity edema Abdomen: Soft, nontender, bowel sounds active, no hepatosplenomegaly Extremities: No rash or deformity, normal joint, Neuro: No focal neurological deficit, no dysarthria, no facial droop Psych: Alert awake oriented x3: Euthymic Skin: No rash LYMPH NODES: No cervical lymphadenopathy _ (1) DM type 2 (diabetes mellitus, type 2) Diabetes mellitus manager long term care insulin use: unspecified manager long term care insulin use status Diabetes mellitus complication status: with unspecified complications Qualified Code(s): E11.8 - Type 2 diabetes mellitus with unspecified complications (2) Depression Depression Type: unspecified Qualified Code(s): F32.9 - Major depressive disorder, single episode, unspecified (3) Osteoarthritis Osteoarthritis location: unspecified site (4) HTN (hypertension) Hypertension type: unspecified Qualified Code(s): I10 - Essential (primary) hypertension (5) Pneumonia Aspiration pneumonia type: Laterality: unspecified laterality Lung location : unspecified part of lung Pneumonia type: due to unspecified organism Qualified Code(s): J18.9 - Pneumonia, unspecified organism
[2018-06-25] MEDS ORDERED: XOPENEX/ATROVENT 1.25mg/0.5MG NEB COMBO NEB SCH (16:00)
[2018-06-25] MEDS: LEVALBUTEROL 1.25MG/0.5ML NEB INH SCH ×2 (16:41→22:01)
[2018-06-25] MEDS: IPRATROPIUM BROMIDE NEB SOLN 0.02% 2.5 ML VIAL INH SCH ×2 (16:41→22:01)
[2018-06-25] MEDS: cefTRIAXone SODIUM 1,000 MG in DEXTROSE 5% 50 ML IV SCH (19:14)
[2018-06-25] MEDS: TRAZODONE HCL 100 MG TAB PO SCH (21:15)
[2018-06-25] MEDS: LORazepam 1 MG TAB PO PRN (21:55)
--- NOTE | 2018-06-25 23:15 | Pulmonary Consultation ---
Date of Consultation June 25, 2018 Assessment & Plan (1) Pneumonia: Impression: 1. COPD exacerbation, gold level cannot be determined, grade B. 2. Left lower lobe pneumonia. 3. Multiple medications the patient is taking and which could alter her respiratory status including Flexeril and benzonatate and baclofen. Plan: 1. Obtain MRSA nasal swabs. 2. Change the frequency of steroids to every 6 hours. 3. Complete 7 days of ceftriaxone if not been done already. 4. Continue current bronchodilators. 5. Start the patient on hypertonic saline inhaled. Thank you, will follow. Aspiration pneumonia type: Laterality: unspecified laterality Lung location: unspecified part of lung Pneumonia type: due to unspecified organism Qualified Code(s): J18.9 - Pneumonia, unspecified organism History of Present Illness Reason for Consultation: COPD exacerbation Requesting Physician: Dr. schmidt Attending Physician: Nicci Schmidt MD History of Present Illness Dear Dr. Schmidt: Thank you for the kind referral of Mrs. Sanchez to pulmonary service. This is a 57-year-old female with a history of COPD, active smoker, has been maintained on Advair at home, has not been taking her inhalers properly, she does have a nebulizer which she has been using only for the past few days due to increased shortness of breath, she is active smoker up until the day of admission, presented to the hospital with increasing shortness of breath accompanied with cough, no constitutional symptoms were reported, denies any chest pain, the patient has difficulty raising her sputum. She started having subcostal pain due to the cough. No diarrhea, no nausea or vomiting and no aspiration, no dysphagia no dysphonia. No increased swelling in her lower extremities. The rest of the review of system otherwise was unremarkable. The patient is active smoker more than [id number] history, she does not have industrial work, no family history contributing except her who is an active smoker as well. Allergies Allergy/AdvReac Type Severity Reaction Status Date / Time sumatriptan Allergy Intermediate DIAPHORESIS, Verified 06/21/18 15:00 "SKIN CRAWLING" carbamazepine Allergy Unknown RASH Unverified 06/21/18 15:00 metformin AdvReac Severe Diarrhea Verified 06/21/18 15:00 Home Medications Home Medications Medication Instructions Recorded Confirmed Type acetaminophen [Tylenol Extra 500 mg PO Q6H PRN 04/24/18 06/21/18 History Strength] aspirin [Aspir-Low] 81 mg PO DAILY 04/24/18 06/21/18 History atorvastatin [Lipitor] 40 mg PO DAILY 04/24/18 06/21/18 History baclofen 10 mg PO DAILY 04/24/18 06/21/18 History carvedilol [Coreg] 6.25 mg PO BID 04/24/18 06/21/18 History gabapentin [Neurontin] 300 mg PO TID 04/24/18 06/21/18 History insulin glargine [Basaglar KwikPen 16 units SUBCUT QPM 04/24/18 06/21/18 History U-100 Insulin] insulin lispro [Admelog SoloStar 0 units SUBCUT TIDM PRN 04/24/18 06/21/18 History U-100 Insulin] ipratropium-albuterol 3 ml INHALATION QID PRN 04/24/18 06/21/18 History pantoprazole [Protonix] 40 mg PO DAILY 04/24/18 06/21/18 History paroxetine HCl [Paxil] 30 mg PO DAILY 04/24/18 06/21/18 History polyethylene glycol 3350 [Miralax] 17 g PO DAILY PRN 04/24/18 06/21/18 History trazodone 100 mg PO HS 04/24/18 06/21/18 History naproxen sodium [Aleve] 220 mg PO BIDM PRN #0 tab 04/28/18 06/21/18 Rx cyclobenzaprine 10 mg PO Q8H PRN #10 tab 05/02/18 06/21/18 Rx azithromycin 250 mg PO DAILY 06/21/18 06/21/18 History benzonatate 100 mg PO TID PRN 06/21/18 06/21/18 History fluticasone 2 spray INTRANASAL TID 06/21/18 06/21/18 History prednisone 40 mg PO DAILY 06/21/18 06/21/18 History Patient History Medical History Nonalcoholic hepatosteatosis (Chronic) Trigeminal neuralgia (Chronic) DM type 2 (diabetes mellitus, type 2) (Chronic) Osteoarthritis (Chronic) COPD (chronic obstructive pulmonary disease) (Chronic) Depression (Chronic) HTN (hypertension) (Chronic) Dyslipidemia (Chronic) Surgical History History of bladder surgery (Chronic) History of right oophorectomy (Chronic) H/O ankle fusion (Chronic) H/O arthroscopic knee surgery (Chronic) History of cholecystectomy (Chronic) History of tonsillectomy (Chronic) H/O inguinal hernia repair (Chronic) H/O: hysterectomy (Chronic) Family History Father CAD (coronary artery disease) Mother CAD (coronary artery disease) Social History marital status: Current Living Situation: Spouse Other Information That Helps Us Care for You: No Feels Safe at Home: Yes Safety Concerns: Feels Safe At This Time Smoking Status: Current every day smoker Tobacco Type: cigarettes Cigarettes per Day: 20 Do You Dip or Chew Tobacco: No Second Hand Exposure: No Tobacco Cessation Education Requested by Patient: No Hx Alcohol Use: No Hx Substance Use: No Beliefs That Will Affect Care: None Communication Ability: Effective Review of Systems Review of system apart from the above including 10 systems was unremarkable. Physical Exam 2 Vital Signs (Past 24 Hours): Last Vital Signs Temp 36.7 C 06/25/18 19:00 Pulse 80 06/25/18 22:01 Resp 18 06/25/18 22:01 BP 129/73 06/25/18 19:00 Pulse Ox 95 06/25/18 22:01 Physical Exam: Actively wheezing, using accessory muscles, vital signs are stable however she is using oxygen at 2 L O2 saturation remains at 95%. S1-S2 regular rate and rhythm. Abdomen is benign. Nontender. Edema in the periphery noted. Results & Data Laboratory Results Labs showed respiratory alkalosis without compensation. Leukocytosis noted 2 days ago, no repeat of labs. BUN and creatinine are normal. Glucose is slightly elevated. Diagnostic Findings Chest x-ray and CAT scan also showed lateral segment of the left lower lobe consolidation as well as COPD changes with peribronchial thickening.
[2018-06-26] MEDS: IPRATROPIUM BROMIDE NEB SOLN 0.02% 2.5 ML VIAL INH SCH ×7 (02:18→23:48)
[2018-06-26] MEDS: LEVALBUTEROL 1.25MG/0.5ML NEB INH SCH ×7 (02:19→23:48)
[2018-06-26] MEDS: methylPREDNISolone 60 MG in SYRINGE 0 ML IV SCH ×4 (04:04→21:20)
[2018-06-26] MEDS: INSULIN ASPART 100 UNITS/ML 3 ML PEN SC SCH ×5 (04:05→21:13)
[2018-06-26] MEDS: HEPARIN SOD 5,000 UNIT/0.5 ML VIAL SQ SCH ×3 (06:19→21:10)
[2018-06-26] MEDS: PANTOprazole 40 MG TAB PO SCH (07:58)
[2018-06-26] MEDS: CARVEDILOL 6.25 MG TAB PO SCH ×2 (07:58→21:05)
[2018-06-26] MEDS: BACLOFEN 10 MG TAB PO SCH (07:58)
[2018-06-26] MEDS: GABAPENTIN 300 MG CAP PO SCH ×3 (07:59→21:04)
[2018-06-26] MEDS: ATORVASTATIN 40 MG TAB PO SCH (07:59)
[2018-06-26] MEDS: PARoxetine HCl 20 MG TAB PO SCH (08:00)
[2018-06-26] MEDS: ASPIRIN 81 MG ECTAB PO SCH (08:01)
[2018-06-26] MEDS: NICOTINE 21 MG/24 HR TDSY TD SCH (08:02)
[2018-06-26] MEDS: FLUTICASONE PROPIONATE NA SPR 16 GM BTL SCH ×3 (08:02→21:00)
[2018-06-26] MEDS: INSULIN GLARGINE SOLOSTAR 100 UNITS/ML 3 ML PEN SQ SCH ×2 (08:03→21:15)
[2018-06-26] MEDS: ACETAMINOPHEN 500 MG TAB PO PRN (08:20)
[2018-06-26] MEDS: GUAIFENESIN/DEXTROM SYRUP 200MG/20MG 10ML UDC PO PRN (08:22)
[2018-06-26] MEDS: AZITHROMYCIN 250 MG TAB PO SCH (09:33)
--- NOTE | 2018-06-26 11:54 | Pharmacy Report ---
Pharmacy Glycemic Short Note 2 - Date of Service June 26, 2018 - Glycemic Short BSG Results (Last 24 hours): 06/25/18 06/25/18 06/25/18 16:16 20:32 23:35 POC Glucose 204 H 207 H 210 H 06/26/18 06/26/18 06/26/18 04:02 07:18 11:00 POC Glucose 163 H 161 H 265 H OUTPATIENT ANTIDIABETIC REGIMEN: * Lantus 16 units SQ Q HS * Humalog SQ TID w/ meals per sliding scale ASSESSMENT: 06/26/18 * Blood sugars slightly above goal, likely due to increase in steroids to Solu- medrol 60mg IV Q6H * Will tighten CR at all times * Lantus increased yesterday, will continue at this time * Continue accuchecks overnight d/t ATC steroids 06/25/18 * Glycemic control did deteriorate yesterday as the day progressed - this was likely due to improved PO intake. The rising BSGs later in the day may also have been due to Lantus effect wearing off when given once daily at bedtime. Will add smaller AM dose to help bridge this time period. * Post-prandial hyperglycemia more common following lunch and dinner, so will increase prandial Novolog dose at these time 06/24/18 * Glycemic control overall acceptable in the last 24 hrs * Only 1 post-prandial BSG greater than 180 (max 200 at bedtime) * Fasting BSG 146-176 this AM w/ 30 units Lantus on board + 2 units Novolog correction given overnight * Solu-medrol continues at the same dose used yesterday * ABX therapy continues * Current insulin doses are reasonable to continue another 24 hrs PLAN FOR INPATIENT GLYCEMIC CONTROL: * Basal insulin - CONTINUE * Lantus 10 units SQ Q AM * Lantus 30 units SQ Q HS * Bolus insulin * NovoLog per scale ACHS + 0000, 0400 coverage tonight (due to ATC steroids) * Goal Range: Low 110 mg/dL - High 140 mg/dL * Correction Factor: 20 mg/dL/unit * TIGHTEN: Nutritional / Prandial insulin per carb ratio of 1 unit per 4 grams CHO consumed w/ breakfast * TIGHTEN: Nutritional / Prandial insulin per carb ratio of 1 unit per 3.5 grams CHO consumed w/ lunch and dinner PLAN FOR DISCHARGE: * Given recent A1c results, resuming outpt insulin regimen would be reasonable.
[2018-06-26] MEDS: HYDROCODONE/HOMATROPINE SYRUP 5MG/1.5MG 5ML UDP PO PRN (13:23)
[2018-06-26] MEDS: SODIUM CHLOR 7% 4 ML NEB INH SCH ×2 (13:25→19:39)
--- NOTE | 2018-06-26 17:33 | Hospitalist Progress Note ---
Date of Service June 26, 2018 Assessment & Plan (1) Acute on chronic respiratory failure with hypoxemia: due to COPD exacerbation hx of > 1 pk cig smoking for > 20 yrs presents with worsening of SOB , non productive cough , GRAY CT chest with contrast shows : small parenchymal infiltrate in left base generalized interstitial and peribronchial prominence of mid to lower lung pt is continued with IV steroids , Neb tx appreciate input from Pulmonology pt will need out pt pulm follow up and formal Lung function test smoking cessation counselling provided -pt says ' she is done with smoking " (2) Pneumonia: left lower lobe infiltrate noted in CT chest on empiric Abx with Rocephin and Zithromax, ordered for sputum culture (3) Hypoxia: resolved noted to be GRAY on activation cont 2 L 02 via nasal canula due to COPD exacerbation chronic tobacco use disorder -pt is counselled to quit smoking will need 2 step exercise to assess home 02 needs prior to discharge (4) COPD exacerbation: Present on admission with cough associated with SOB CTA showed small parenchymal infiltrate left base. chest negative for pulmonary embolus. Continue steroid IV and nebulizers, antibiotics Continue chest PT, flutter valve and mycomust Hydrocan adding for chest wall tenderness with coughing Pulmonology consutled , appreciate input (5) Precordial chest pain: Mostly Atypical from coughing EKG showed no ischemic changes Troponinx [address] chest negative for PE cont symptomatic tx with antitussive (6) Smoker: Counseling on smoking cessation pt is willing to quit refuses nicotine patch (7) DM type 2 (diabetes mellitus, type 2): Hba1c 6.5 Lantus at bedtime, lispro with meals, sliding scale. Monitor BS (8) Trigeminal neuralgia: Stable (9) Nonalcoholic hepatosteatosis: Weight loss discussed with patient (10) HTN (hypertension): BP stable Continue outpatient medications (11) Depression: Continue SSRI (12) Osteoarthritis: No issues currently (13) Dyslipidemia: Continue statin at this time (14) DVT prophylaxis: Subcu heparin CODE STATUS FULL CODE Disposition Will discharge once medically stable 2 step pulse oximetry prior to discharge home Subjective breathing a bit better this morning less SOB , no complain of GRAY continues to have harsh non productive cough no fever or chills Physical Exam 2 Vital Signs (Past 24 Hours): Last Vital Signs Temp 36.8 C 06/26/18 15:00 Pulse 81 06/26/18 16:25 Resp 18 06/26/18 16:25 BP 129/68 06/26/18 15:00 Pulse Ox 95 06/26/18 16:25 Constitutional: WD/WN, vitals as above no acute distress Eyes: + anicteric sclerae ENMT: external ear and nose normal, oropharynx normal Neck: trachea midline, no thyromegaly Respiratory: + cough; no respiratory distress and no labored breathing Auscultation: + diminished lung sounds, + rales and + wheezes Cardiovascular: RRR, no murmur, no edema Gastrointestinal (Abdomen): normal bowel sounds, soft, nontender, no hepatosplenomegaly Musculoskeletal: no cyanosis or clubbing, extremities motor strength 5/5 Skin: no rashes, warm and dry Neurologic: PERRL, EOMI, accommodation nl, no face palsy, no dysarthria Psychiatric: A+Ox3, euthymic affect _ (1) DM type 2 (diabetes mellitus, type 2) Chronic kidney disease stage: Diabetes mellitus complication detail: Diabetes mellitus complication status: with unspecified complications Diabetes mellitus usp insulin use: unspecified usp insulin use status Diabetes mellitus macular edema: Diabetic retinopathy severity: Laterality: Proliferative retinopathy type: Qualified Code(s): E11.8 - Type 2 diabetes mellitus with unspecified complications (2) Depression Active/Remission status: Depression Type: unspecified Major depression episode severity: Major depression recurrence: Psychotic features: Trimester: Qualified Code(s): F32.9 - Major depressive disorder, single episode, unspecified (3) Osteoarthritis Laterality: Osteoarthritis location: unspecified site Osteoarthritis type: Spinal osteoarthritis complication: Spinal region: (4) HTN (hypertension) Hypertension type: unspecified Qualified Code(s): I10 - Essential (primary) hypertension (5) Pneumonia Aspiration pneumonia type: Laterality: unspecified laterality Lung location : unspecified part of lung Pneumonia type: due to unspecified organism Qualified Code(s): J18.9 - Pneumonia, unspecified organism
--- NOTE | 2018-06-26 18:01 | Pulmonology Progress Note ---
Date of Service June 26, 2018 Assessment & Plan (1) Pneumonia: Impression: 1. COPD exacerbation, gold level cannot be determined, grade B. 2. Left lower lobe pneumonia. 3. Multiple medications the patient is taking and which could alter her respiratory status including Flexeril and benzonatate and baclofen. Plan: 1. MRSA nasal swabs are negative. 2. Continue Solu-Medrol 60 mg IV every 6 hours. 3. Complete 7 days of ceftriaxone if not been done already. 4. Continue current bronchodilators. 5. Start the patient on hypertonic saline inhaled. 6. Ambulate the patient. 7. Incentive spirometry with flutter valve as well. Thank you, will follow. Aspiration pneumonia type: Laterality: unspecified laterality Lung location: unspecified part of lung Pneumonia type: due to unspecified organism Qualified Code(s): J18.9 - Pneumonia, unspecified organism Subjective The patient claims feeling better however she continued to have wheezing and persistent cough with difficulty raising her sputum. No new symptoms reported. Physical Exam 2 Vital Signs (Past 24 Hours): Last Vital Signs Temp 36.8 C 06/26/18 15:00 Pulse 81 06/26/18 16:25 Resp 18 06/26/18 16:25 BP 129/68 06/26/18 15:00 Pulse Ox 95 06/26/18 16:25 Physical Exam: No fever, O2 sat 95% on room air, S1-S2 regular rate and rhythm , diffuse wheezing bilaterally, abdomen is benign, no edema. Results & Data Laboratory Results No new labs. Diagnostic Findings No new imaging.
[2018-06-26] MEDS: cefTRIAXone SODIUM 1,000 MG in DEXTROSE 5% 50 ML IV SCH (18:14)
[2018-06-26] MEDS: LORazepam 1 MG TAB PO PRN (21:05)
[2018-06-26] MEDS: TRAZODONE HCL 100 MG TAB PO SCH (21:05)
[2018-06-27] MEDS: INSULIN ASPART 100 UNITS/ML 3 ML PEN SC SCH ×7 (00:32→23:59)
[2018-06-27] MEDS: LEVALBUTEROL 1.25MG/0.5ML NEB INH SCH ×6 (03:35→23:24)
[2018-06-27] MEDS: IPRATROPIUM BROMIDE NEB SOLN 0.02% 2.5 ML VIAL INH SCH ×6 (03:36→23:25)
[2018-06-27] MEDS: methylPREDNISolone 60 MG in SYRINGE 0 ML IV SCH ×4 (03:40→21:38)
[2018-06-27] MEDS: HEPARIN SOD 5,000 UNIT/0.5 ML VIAL SQ SCH ×3 (06:04→21:38)
[2018-06-27] MEDS: SODIUM CHLOR 7% 4 ML NEB INH SCH ×2 (07:49→20:38)
[2018-06-27] MEDS: NICOTINE 21 MG/24 HR TDSY TD SCH (07:56)
[2018-06-27] MEDS: CARVEDILOL 6.25 MG TAB PO SCH ×2 (07:58→20:27)
[2018-06-27] MEDS: BACLOFEN 10 MG TAB PO SCH (07:58)
[2018-06-27] MEDS: PARoxetine HCl 20 MG TAB PO SCH (07:58)
[2018-06-27] MEDS: AZITHROMYCIN 250 MG TAB PO SCH (07:58)
[2018-06-27] MEDS: ATORVASTATIN 40 MG TAB PO SCH (07:58)
[2018-06-27] MEDS: ASPIRIN 81 MG ECTAB PO SCH (07:58)
[2018-06-27] MEDS: ACETAMINOPHEN 500 MG TAB PO PRN ×2 (07:59→16:57)
[2018-06-27] MEDS: GUAIFENESIN/DEXTROM SYRUP 200MG/20MG 10ML UDC PO PRN ×2 (07:59→17:25)
[2018-06-27] MEDS: PANTOprazole 40 MG TAB PO SCH (08:00)
[2018-06-27] MEDS: GABAPENTIN 300 MG CAP PO SCH ×3 (08:00→20:28)
[2018-06-27] MEDS: FLUTICASONE PROPIONATE NA SPR 16 GM BTL SCH ×3 (08:47→20:27)
[2018-06-27] MEDS: INSULIN GLARGINE SOLOSTAR 100 UNITS/ML 3 ML PEN SQ SCH ×2 (08:48→20:27)
--- NOTE | 2018-06-27 11:29 | Hospitalist Progress Note ---
Date of Service June 27, 2018 Assessment & Plan (1) Acute on chronic respiratory failure with hypoxemia: presented with hypoxia, SOB , cough due to COPD exacerbation very slow improvement of respiratory status continues to have ongoing SOB and cough leading to pleuritic chest pain / muskulosketal tenderness on shoulder and ant chest wall mentions of sinus congestion afebrile ordred for CT sinus Abx changed to Augmentin follow sputum culture Pulm following -will discuss regarding role of [place] hx of > 1 pk cig smoking for > 20 yrs presents with worsening of SOB , non productive cough , GRAY CT chest with contrast shows : small parenchymal infiltrate in left base generalized interstitial and peribronchial prominence of mid to lower lung pt is continued with IV steroids , Neb tx appreciate input from Pulmonology pt will need out pt pulm follow up and formal Lung function test smoking cessation counselling provided -pt says ' she is done with smoking " (2) Pneumonia: left lower lobe infiltrate noted in CT chest abx changed to Augmentins for possible sinus infection ordered for sputum culture (3) Hypoxia: resolved noted to be GRAY on activation cont 2 L 02 via nasal canula due to COPD exacerbation chronic tobacco use disorder -pt is counselled to quit smoking will need 2 step exercise to assess home 02 needs prior to discharge (4) COPD exacerbation: Present on admission with cough associated with SOB CTA showed small parenchymal infiltrate left base. chest negative for pulmonary embolus. Continue steroid IV and nebulizers, antibiotics Continue chest PT, flutter valve and mycomust Hydrocan adding for chest wall tenderness with coughing Pulmonology consutled , appreciate input (5) Precordial chest pain: Mostly Atypical from coughing ordered lidoderm patch EKG showed no ischemic changes Troponinx [address] chest negative for PE cont symptomatic tx with antitussive (6) Smoker: Counseling on smoking cessation pt is willing to quit refuses nicotine patch (7) DM type 2 (diabetes mellitus, type 2): Hba1c 6.5 Lantus at bedtime, lispro with meals, sliding scale. Monitor BS (8) Trigeminal neuralgia: Stable (9) Nonalcoholic hepatosteatosis: Weight loss discussed with patient (10) HTN (hypertension): BP stable Continue outpatient medications (11) Depression: Continue SSRI (12) Osteoarthritis: No issues currently (13) Dyslipidemia: Continue statin at this time (14) DVT prophylaxis: Subcu heparin CODE STATUS FULL CODE Disposition Will discharge once medically stable 2 step pulse oximetry prior to discharge home Subjective feels more SOB today chest feels congested , complains of sinus pressure with post nasal drip her shoulders and side of the chest hurt with cough throat feels very scratchy and burn with coughing afebrile feels frustrated that she is not getting any better with neb tx and steroids wants to know why bronchoscopy is not scheduled yet it helped her last time Physical Exam 2 Vital Signs (Past 24 Hours): Last Vital Signs Temp 36.9 C 06/27/18 08:01 Pulse 58 L 06/27/18 08:01 Resp 22 06/27/18 08:01 BP 151/87 H 06/27/18 08:01 Pulse Ox 93 06/27/18 08:01 Constitutional: WD/WN, vitals as above + acute distress (due to cough and pluritic chest pain ) Eyes: + anicteric sclerae ENMT: external ear and nose normal, oropharynx normal Neck: trachea midline, no thyromegaly Respiratory: + respiratory distress, + cough, able to speak in complete sentences, + prolonged expiratory phase and + audible wheezes Auscultation: + diminished lung sounds (poor air entry ), + rales and + wheezes Cardiovascular: RRR, no murmur, no edema Gastrointestinal (Abdomen): normal bowel sounds, soft, nontender, no hepatosplenomegaly Musculoskeletal: no cyanosis or clubbing, extremities motor strength 5/5 Skin: no rashes, warm and dry Neurologic: PERRL, EOMI, accommodation nl, no face palsy, no dysarthria Psychiatric: Orientation: alert and oriented x 3 Affect: + anxious affect _ (1) DM type 2 (diabetes mellitus, type 2) Chronic kidney disease stage: Diabetes mellitus complication detail: Diabetes mellitus complication status: with unspecified complications Diabetes mellitus care home insulin use: unspecified care home insulin use status Diabetes mellitus macular edema: Diabetic retinopathy severity: Laterality: Proliferative retinopathy type: Qualified Code(s): E11.8 - Type 2 diabetes mellitus with unspecified complications (2) Depression Active/Remission status: Depression Type: unspecified Major depression episode severity: Major depression recurrence: Psychotic features: Trimester: Qualified Code(s): F32.9 - Major depressive disorder, single episode, unspecified (3) Osteoarthritis Laterality: Osteoarthritis location: unspecified site Osteoarthritis type: Spinal osteoarthritis complication: Spinal region: (4) HTN (hypertension) Hypertension type: unspecified Qualified Code(s): I10 - Essential (primary) hypertension (5) Pneumonia Aspiration pneumonia type: Laterality: unspecified laterality Lung location : unspecified part of lung Pneumonia type: due to unspecified organism Qualified Code(s): J18.9 - Pneumonia, unspecified organism
[2018-06-27] MEDS ORDERED: SODIUM CHLORIDE 0.65% NA SOLN 45 ML (OCEAN) PRN (11:32)
[2018-06-27] MEDS: HYDROCODONE/HOMATROPINE SYRUP 5MG/1.5MG 5ML UDP PO PRN (11:33)
[2018-06-27] MEDS ORDERED: LIDOCAINE 5% 1 PATCH TD ONE (11:45)
--- NOTE | 2018-06-27 12:16 | Pharmacy Report ---
Pharmacy Glycemic Short Note 2 - Date of Service June 27, 2018 - Glycemic Short BSG Results (Last 24 hours): 06/26/18 06/26/18 06/27/18 16:18 20:19 00:25 POC Glucose 145 H 315 H 268 H 06/27/18 06/27/18 06/27/18 03:37 04:17 07:21 POC Glucose 257 H 194 H 146 H 06/27/18 11:34 POC Glucose 186 H OUTPATIENT ANTIDIABETIC REGIMEN: * Lantus 16 units SQ Q HS * Humalog SQ TID w/ meals per sliding scale ASSESSMENT: 06/27/18 * Blood sugars remain above goal, likely due to increase in steroids to Solu- medrol 60mg IV Q6H on 06/25, despite tightening CR yesterday * Will tighten CR further and tighten CF * Continue accuchecks overnight d/t ATC steroids 06/26/18 * Blood sugars slightly above goal, likely due to increase in steroids to Solu- medrol 60mg IV Q6H * Will tighten CR at all times * Lantus increased yesterday, will continue at this time * Continue accuchecks overnight d/t ATC steroids 06/25/18 * Glycemic control did deteriorate yesterday as the day progressed - this was likely due to improved PO intake. The rising BSGs later in the day may also have been due to Lantus effect wearing off when given once daily at bedtime. Will add smaller AM dose to help bridge this time period. * Post-prandial hyperglycemia more common following lunch and dinner, so will increase prandial Novolog dose at these time 06/24/18 * Glycemic control overall acceptable in the last 24 hrs * Only 1 post-prandial BSG greater than 180 (max 200 at bedtime) * Fasting BSG 146-176 this AM w/ 30 units Lantus on board + 2 units Novolog correction given overnight * Solu-medrol continues at the same dose used yesterday * ABX therapy continues * Current insulin doses are reasonable to continue another 24 hrs PLAN FOR INPATIENT GLYCEMIC CONTROL: * Basal insulin - CONTINUE * Lantus 10 units SQ Q AM * Lantus 30 units SQ Q HS * Bolus insulin * NovoLog per scale ACHS + 0000, 0400 coverage tonight (due to ATC steroids) * Goal Range: Low 110 mg/dL - High 140 mg/dL * TIGHTEN: Correction Factor: 15 mg/dL/unit * TIGHTEN: Nutritional / Prandial insulin per carb ratio of 1 unit per 3 grams CHO consumed PLAN FOR DISCHARGE: * Given recent A1c results, resuming outpt insulin regimen would be reasonable.
--- NOTE | 2018-06-27 12:25 | XRay Report ---
XR chest 1V portable CLINICAL HISTORY: Shortness of breath. Cough. COMPARISON STUDY: Chest CT June 21, 2018 and chest radiograph June 25, 2018. FINDINGS: Cardiomediastinal silhouette is stable. There is no pneumothorax or pleural effusion. Inter stitial thickening has slightly increased. There is pulmonary vascular congestion with possible mild pulmonary edema. Mild left basilar opacity persists. IMPRESSION: 1. Pulmonary vascular congestion with suspected mild pulmonary edema. 2. Persistent mild left basilar opacity which may reflect atelectasis or pneumonia. Electronically signed by: Quentin Lepe M.D. 06/27/2018 12:24 PM
[2018-06-27] MEDS: AMOXICILLIN/CLAVULANATE 875 MG TAB PO SCH ×2 (13:07→16:57)
--- NOTE | 2018-06-27 14:02 | CT Scan Report ---
CT sinus wo con HISTORY: 57 years-old Female evaluation for sinusitis. Acute headache with history of sinusitis. COMPARISON: CT head 04/24/2018. TECHNIQUE: Multiple axial CT images of the paranasal sinuses were obtained without the use of IV cont rast. A dose lowering technique was used consistent with the principals of SARAH. FINDINGS: No acute process of the imaged intracranial structures. Senescent calcification is noted about the le ft lentiform nucleus. Cerebral vascular calcifications are noted. The orbits and soft tissues appear to be unremarkable. There is no calvarial fracture identified. The mastoid air cells and middle ear c avities appear clear. Mild mucosal thickening of the bilateral maxillary sinuses. 3 mm focus of polypoid mucosal thickening involves the posterolateral left maxillary sinus. Minimal aerated secretions are noted anteriorly ab out the left maxillary sinus. 7 mm area of polypoid mucosal thickening involves the anteromedial aspe ct of the right sphenoid sinus. Mild mucosal thickening of the sphenoid sinuses. Hypoplastic frontal sinuses. The right frontal sinus is clear. Mild mucosal thickening of the inferior left frontal sinus . Mild to moderate mucosal thickening of the ethmoid air cells, most pronounced anteriorly on the lef t. Opacified small left todd bullosa. Nasal septum is midline. Mild mucosal thickening noted about the bilateral maxillary ostiomeatal units. Small bilateral Minnie cells are noted. Rosio rudy appea rs normal. Opacification of the left frontoethmoidal recess. The right frontoethmoidal recess is beard nt. Patency of the bilateral sphenoethmoidal recesses. Nasopharynx is patent. Mild mucosal thickening of the nasal turbinates. IMPRESSION: 1. Paranasal sinus disease as above, mild to moderate about the ethmoid air cells. 2. Patency with mild mucosal thickening of the bilateral maxillary ostiomeatal units. 3. Opacification of the left frontoethmoidal recess. 4. Small opacified left todd bullosa. The above report was generated using voice recognition software. It may contain grammatical, syntax o r spelling errors. Dictated: 06/27/2018 1:35 PM Transcribed: 06/27/2018 1:48 PM Lidia [id number] [email or web address] Electronically signed by: Dejuan Phillips M.D. 06/27/2018 1:50 PM
[2018-06-27] MEDS: TRAZODONE HCL 100 MG TAB PO SCH (20:27)
[2018-06-27] MEDS: LORazepam 1 MG TAB PO PRN (20:35)
--- NOTE | 2018-06-27 21:21 | Pulmonology Progress Note ---
Date of Service June 27, 2018 Assessment & Plan (1) Pneumonia: Impression: 1. COPD exacerbation, gold level cannot be determined, grade B. 2. Left lower lobe pneumonia. 3. Multiple medications the patient is taking and which could alter her respiratory status including Flexeril and benzonatate and baclofen. Plan: 1. Continue with Augmentin. 2. Continue Solu-Medrol 60 mg IV every 6 hours. 3. N.p.o. after midnight for bronchoscopy in the morning. 4. Continue current bronchodilators. 5. Start the patient on hypertonic saline inhaled. 6. Ambulate the patient. 7. Incentive spirometry with flutter valve as well. Thank you, will follow. Aspiration pneumonia type: Laterality: unspecified laterality Lung location: unspecified part of lung Pneumonia type: due to unspecified organism Qualified Code(s): J18.9 - Pneumonia, unspecified organism Subjective The patient is still with difficulty raising her sputum, she continued to have cough, she does not feel any better according to her. She is participating with a flutter valve and incentive spirometry without significant improvement. Physical Exam 2 Vital Signs (Past 24 Hours): Last Vital Signs Temp 37 C 06/27/18 19:29 Pulse 78 06/27/18 20:39 Resp 16 06/27/18 20:39 BP 151/82 H 06/27/18 19:29 Pulse Ox 95 06/27/18 20:39 Physical Exam: Vital signs are stable, O2 sats 95% on nasal cannula, S1-S2 regular rate and rhythm, bilateral wheezing, abdomen is benign, no edema. Neurologically she is intact. Results & Data Laboratory Results No new labs. Diagnostic Findings CT of the sinuses was noted for significant sinusitis bilaterally. Chest x-ray with pulmonary vascular congestion, left basilar atelectasis, otherwise unremarkable.
[2018-06-28] MEDS ORDERED: D5W AND NSS 1,000 ML IV SCH
[2018-06-28] MEDS: LEVALBUTEROL 1.25MG/0.5ML NEB INH SCH ×6 (03:17→23:16)
[2018-06-28] MEDS: IPRATROPIUM BROMIDE NEB SOLN 0.02% 2.5 ML VIAL INH SCH ×6 (03:18→23:16)
[2018-06-28] MEDS: INSULIN ASPART 100 UNITS/ML 3 ML PEN SC SCH ×7 (03:30→23:56)
[2018-06-28] MEDS: methylPREDNISolone 60 MG in SYRINGE 0 ML IV SCH ×2 (03:30→13:48)
[2018-06-28] MEDS: HEPARIN SOD 5,000 UNIT/0.5 ML VIAL SQ SCH ×3 (05:27→20:36)
[2018-06-28] MEDS: SODIUM CHLOR 7% 4 ML NEB INH SCH ×2 (07:37→19:36)
--- NOTE | 2018-06-28 08:46 | Hospitalist Progress Note ---
Date of Service June 28, 2018 Assessment & Plan (1) Acute on chronic respiratory failure with hypoxemia: presented with hypoxia, SOB , cough due to COPD exacerbation very slow improvement of respiratory status continues to have ongoing SOB and cough leading to pleuritic chest pain / muskulosketal tenderness on shoulder and ant chest wall mentions of sinus congestion afebrile CT sinus 1. Paranasal sinus disease as above, mild to moderate about the ethmoid air cells. 2. Patency with mild mucosal thickening of the bilateral maxillary ostiomeatal units. 3. Opacification of the left frontoethmoidal recess. 4. Small opacified left todd bullosa. Abx changed to Augmentin follow sputum culture pulm following , scheduled for bronchoscopy today hx of > 1 pk cig smoking for > 20 yrs presents with worsening of SOB , non productive cough , GRAY CT chest with contrast shows : small parenchymal infiltrate in left base generalized interstitial and peribronchial prominence of mid to lower lung pt will need out pt pulm follow up and formal Lung function test smoking cessation counselling provided -pt says ' she is done with smoking " (2) Acute sinusitis: complains of severe sinus headache with post nasal drip CT of sinus : 1. Paranasal sinus disease as above, mild to moderate about the ethmoid air cells. 2. Patency with mild mucosal thickening of the bilateral maxillary ostiomeatal units. 3. Opacification of the left frontoethmoidal recess. 4. Small opacified left todd bullosa. on Augmentin 3 mm foucs of polypoid mucosal thickening involves the post lateral L maxillary sinus will need out pt ENT follow up -pt updated Present on Admission?: Yes (3) Pneumonia: left lower lobe infiltrate noted in CT chest abx changed to Augmentins for sinus infection (4) Hypoxia: resolved noted to be GRAY on activation cont 2 L 02 via nasal canula due to COPD exacerbation chronic tobacco use disorder -pt is counselled to quit smoking will need 2 step exercise to assess home 02 needs prior to discharge (5) COPD exacerbation: Present on admission with cough associated with SOB CTA showed small parenchymal infiltrate left base. chest negative for pulmonary embolus. Continue steroid IV and nebulizers, antibiotics Continue chest PT, flutter valve and mycomust Hydrocan adding for chest wall tenderness with coughing Pulmonology consutled , appreciate input (6) Precordial chest pain: Mostly Atypical from coughing ordered lidoderm patch -pt mentions improvement of chest wall pain EKG showed no ischemic changes Troponinx [address] chest negative for PE cont symptomatic tx with antitussive (7) Smoker: Counseling on smoking cessation pt is willing to quit refuses nicotine patch (8) DM type 2 (diabetes mellitus, type 2): Hba1c 6.5 Lantus at bedtime, lispro with meals, sliding scale. Monitor BS (9) Trigeminal neuralgia: Stable (10) Nonalcoholic hepatosteatosis: Weight loss discussed with patient (11) HTN (hypertension): BP stable Continue outpatient medications (12) Depression: Continue SSRI (13) Osteoarthritis: No issues currently (14) Dyslipidemia: Continue statin at this time (15) DVT prophylaxis: Subcu heparin CODE STATUS FULL CODE Disposition Will discharge once medically stable Follows with Dr Millicent Taylor will need Pulmonology referral at [facility] will need ENT referral at [facility] 2 step pulse oximetry prior to discharge home Subjective had and uneventful night able to sleep , cough improved mildly Liderderm patch helping with chest wall pain due to coughing scheduled for bronchoscope today Physical Exam 2 Vital Signs (Past 24 Hours): Last Vital Signs Temp 36.6 C 06/28/18 07:00 Pulse 66 06/28/18 07:37 Resp 18 06/28/18 07:37 BP 144/88 H 06/28/18 07:00 Pulse Ox 94 06/28/18 07:37 Constitutional: WD/WN, vitals as above + acute distress (due to cough and pluritic chest pain ) Eyes: + anicteric sclerae ENMT: external ear and nose normal, oropharynx normal Neck: trachea midline, no thyromegaly Respiratory: + respiratory distress, + cough, able to speak in complete sentences, + prolonged expiratory phase and + audible wheezes Auscultation: + diminished lung sounds (poor air entry ) and + wheezes Cardiovascular: RRR, no murmur, no edema Gastrointestinal (Abdomen): normal bowel sounds, soft, nontender, no hepatosplenomegaly Musculoskeletal: no cyanosis or clubbing, extremities motor strength 5/5 Skin: no rashes, warm and dry Neurologic: PERRL, EOMI, accommodation nl, no face palsy, no dysarthria Psychiatric: A+Ox3, euthymic affect Orientation: alert and oriented x 3 Affect: + anxious affect _ (1) Acute sinusitis Recurrence: not specified as recurrent Sinusitis location: pansinusitis Qualified Code(s): J01.40 - Acute pansinusitis, unspecified (2) DM type 2 (diabetes mellitus, type 2) Chronic kidney disease stage: Diabetes mellitus complication detail: Diabetes mellitus complication status: with unspecified complications Diabetes mellitus half-way insulin use: unspecified [employer] insulin use status Diabetes mellitus macular edema: Diabetic retinopathy severity: Laterality: Proliferative retinopathy type: Qualified Code(s): E11.8 - Type 2 diabetes mellitus with unspecified complications (3) Depression Active/Remission status: Depression Type: unspecified Major depression episode severity: Major depression recurrence: Psychotic features: Trimester: Qualified Code(s): F32.9 - Major depressive disorder, single episode, unspecified (4) Osteoarthritis Osteoarthritis location: unspecified site Osteoarthritis type: unspecified Qualified Code(s): M19.90 - Unspecified osteoarthritis, unspecified site (5) HTN (hypertension) Hypertension type: unspecified Qualified Code(s): I10 - Essential (primary) hypertension (6) Pneumonia Aspiration pneumonia type: Laterality: unspecified laterality Lung location : unspecified part of lung Pneumonia type: due to unspecified organism Qualified Code(s): J18.9 - Pneumonia, unspecified organism
--- NOTE | 2018-06-28 11:57 | Pre Anesthesia Assessment ---
Date of Service June 28, 2018 Pre Sedation Assessment Vital Signs Temp Pulse Pulse Pulse Resp BP Pulse Ox 06/28/18 11:34 36.5 C 57 L 20 160/83 H 96 06/28/18 11:25 60 18 97 06/28/18 07:37 66 18 94 06/28/18 07:00 36.6 C 62 18 144/88 H 93 06/28/18 04:29 36.7 C 63 20 120/77 91 06/28/18 03:18 61 16 95 06/28/18 00:29 63 06/27/18 23:27 59 L 16 86 L 06/27/18 23:26 37 C 62 20 101/58 L 90 06/27/18 22:59 59 L 06/27/18 20:39 78 16 95 06/27/18 19:29 37 C 64 18 151/82 H 95 06/27/18 15:26 81 20 95 06/27/18 15:00 36.8 C 63 18 119/59 L 99 Cardiovascular RRR, no murmur, no edema Respiratory + rhonchi and + wheezes Pre-Sedation Airway Assessment Smoking Status: Current every day smoker Hx Sleep Apnea: No Hx Difficult Intubation: No Short, Thick Neck: No Oral Cavity: + WNL Mallampati Class: II ASA: ASA2 NPO Status Date of Last Intake of Fluids: 06/27/18 Date of Last Intake of Solid Food: 06/27/18 Procedure Planning Contraindications for Sedation: none Current Medications Reviewed: Yes Notes The planned sedation has been discussed with the patient. Informed Consent was obtained. I have identified the patient, determined the appropriateness of sedation and have assessed the patient immediately prior to the procedure. All medicine(s) and interventions are by my order.
[2018-06-28] MEDS ORDERED: fentaNYL citrate 100 MCG/2 ML VIAL IV PRN (12:22)
[2018-06-28] MEDS: TRAMADOL HCL 50 MG TABLET PO PRN ×2 (12:22→17:59)
[2018-06-28] MEDS: PANTOprazole 40 MG TAB PO SCH (12:22)
[2018-06-28] MEDS ORDERED: MIDAZOLAM HCL 1 MG/ML 2ML VIAL IV PRN (12:23)
[2018-06-28] MEDS: NICOTINE 21 MG/24 HR TDSY TD SCH (12:23)
[2018-06-28] MEDS ORDERED: MIDAZOLAM HCL 1 MG/ML 2ML VIAL ONE (12:24)
[2018-06-28] MEDS: LIDOCAINE 5% 1 PATCH TD SCH (12:24)
[2018-06-28] MEDS ORDERED: fentaNYL citrate 100 MCG/2 ML VIAL ONE (12:25)
[2018-06-28] MEDS: GABAPENTIN 300 MG CAP PO SCH ×3 (12:48→20:33)
[2018-06-28] MEDS: FLUTICASONE PROPIONATE NA SPR 16 GM BTL SCH ×3 (12:49→20:33)
[2018-06-28] MEDS: CARVEDILOL 6.25 MG TAB PO SCH ×2 (14:31→20:34)
[2018-06-28] MEDS: ATORVASTATIN 40 MG TAB PO SCH (14:31)
[2018-06-28] MEDS: ASPIRIN 81 MG ECTAB PO SCH (14:32)
[2018-06-28] MEDS: PARoxetine HCl 20 MG TAB PO SCH (14:32)
[2018-06-28] MEDS: AMOXICILLIN/CLAVULANATE 875 MG TAB PO SCH ×2 (14:33→16:54)
[2018-06-28] MEDS: INSULIN GLARGINE SOLOSTAR 100 UNITS/ML 3 ML PEN SQ SCH ×2 (14:35→20:31)
[2018-06-28] MEDS: methylPREDNISolone 40 MG in SYRINGE 0 ML IV SCH ×2 (15:32→20:32)
[2018-06-28] MEDS: ACETAMINOPHEN 500 MG TAB PO PRN (15:41)
[2018-06-28] MEDS: ALUMINUM/MAGNESIUM SUSP 30 ML UDC PO PRN (16:54)
--- NOTE | 2018-06-28 18:54 | Pulmonology Progress Note ---
Date of Service June 28, 2018 Assessment & Plan (1) Pneumonia: Impression: 1. COPD exacerbation, gold level cannot be determined, grade B. 2. Left lower lobe pneumonia. 3. Multiple medications the patient is taking and which could alter her respiratory status including Flexeril and benzonatate and baclofen. 4. Strong evidence of sinusitis noted bilaterally on the bronchoscopy. History of present subacute to chronic sinusitis. Plan: 1. Continue with Augmentin, treatment should continue for at least 3 weeks due to the findings on the [facility] that support the diagnosis of chronic sinusitis.. 2. Change Solu-Medrol to prednisone p.o. daily. 3. Resume diet after bronchoscopy. 4. Continue current bronchodilators. 5. Start the patient on hypertonic saline inhaled. 6. Bronchoscopy was done showing large amount of thick secretions in multiple subsegments, the whole mucosa appeared to be erythematous, consistent with chronic bronchitis. Specimen was sent for cultures. 7. Incentive spirometry with flutter valve as well. 8. Start the patient on treatment of subacute sinusitis including Afrin for 3 days, cetirizine daily for 28 days, Augmentin for 21 days, nasal saline and steroids. 9. Follow bronchoscopy cultures. 10. Patient can be discharged home, she felt much better after the bronchoscopy. 11. Quit smoking. Thank you, will follow as needed. Aspiration pneumonia type: Laterality: unspecified laterality Lung location: unspecified part of lung Pneumonia type: due to unspecified organism Qualified Code(s): J18.9 - Pneumonia, unspecified organism Subjective The patient continued in the morning to feel worse, denies any chest pain but she does have cough with difficulty raising sputum, wheezing and nasal congestion as well as rhinorrhea. No new symptoms. Otherwise review of system was unremarkable. Physical Exam 2 Vital Signs (Past 24 Hours): Last Vital Signs Temp 36.8 C 06/28/18 13:43 Pulse 71 06/28/18 15:30 Resp 18 06/28/18 15:30 BP 141/84 H 06/28/18 13:43 Pulse Ox 92 06/28/18 15:30 Physical Exam: No tenderness in the facial bones, no stridor, S1-S2 regular rate and rhythm, scattered wheezing and rhonchi, abdomen is benign, no edema. Neurologically she is intact and no rash. Results & Data Laboratory Results Labs were reviewed from earlier. Diagnostic Findings CAT scan of the sinuses showed significant sinusitis in this patient. Chest x- ray did not show any changes from previous, with hyperinflated lungs.
--- NOTE | 2018-06-28 18:58 | Procedure Note ---
Procedure Note Date of Service June 28, 2018 Note Bronchoscopy was done in room #6 in ICU, due to the patient's inability to raise her sputum, multiple days of COPD exacerbation, consented for the procedure, agreed to the risks and benefits. Consented also for sedation. The patient monitored in the ICU with ICU style of monitoring. Conscious sedation provided by nursing staff, timeout provided by nursing staff, appreciate their assistance. The patient was initially prepared with 10 mL of 4% lidocaine nebulized, total of 20 mL of 1% lidocaine injected throughout the bronchoscopy, the patient was on a facemask using a bite block, the procedure proceeded as follows: 1. The bronchoscope passed through the bite-block to the oral cavity, large amount of thick secretions noted around the arytenoid joints, consistent with postnasal drip. 2. Vocal cords were mobile, edema of the arytenoid joints also noted. 3. The tracheobronchial tree examined to the sub-subsegmental level. 4. Large amount of thick secretions noted occluding multiple subsegments including lateral segment of the right middle lobe, superior segment and lateral segment of the right lower lobe, all the segments of the left lower lobe. Suctioned all to clear. Total amount of bronchial lavage used was 40 mL and suctioned completely. 5. The bronchoscope was removed from the oral cavity. Explored to the right nostril at the left nostril. And the findings were consistent with lateral turbinate on the left side with polyps, thick secretions occluding both nostrils , suctioned all to clear, able to pass the bronchoscope without difficulty. Turbinates appear to be also inflamed and congested as well as the nasopharynx. These findings are consistent with subacute to chronic sinusitis. 6. The bronchoscope after that was removed, the patient is awake and following commands. No immediate complication. Specimen was sent for culture. Patient notified about the results. Pictures were unable to print.
[2018-06-28] MEDS: OXYMETAZOLINE 0.05% 30 ML BTL SCH (20:32)
[2018-06-28] MEDS: TRAZODONE HCL 100 MG TAB PO SCH (20:34)
[2018-06-28] MEDS: LORazepam 1 MG TAB PO PRN (20:37)
[2018-06-29] MEDS: methylPREDNISolone 40 MG in SYRINGE 0 ML IV SCH ×3 (01:05→14:13)
[2018-06-29] MEDS: INSULIN ASPART 100 UNITS/ML 3 ML PEN SC SCH ×7 (03:07→21:36)
[2018-06-29] MEDS: LEVALBUTEROL 1.25MG/0.5ML NEB INH SCH ×6 (03:28→23:25)
[2018-06-29] MEDS: IPRATROPIUM BROMIDE NEB SOLN 0.02% 2.5 ML VIAL INH SCH ×6 (03:28→23:25)
[2018-06-29] MEDS: HEPARIN SOD 5,000 UNIT/0.5 ML VIAL SQ SCH ×3 (05:13→21:40)
[2018-06-29] MEDS: SODIUM CHLOR 7% 4 ML NEB INH SCH ×2 (07:29→19:41)
[2018-06-29] MEDS: ATORVASTATIN 40 MG TAB PO SCH (09:08)
[2018-06-29] MEDS: PANTOprazole 40 MG TAB PO SCH (09:08)
[2018-06-29] MEDS: GABAPENTIN 300 MG CAP PO SCH ×3 (09:08→21:08)
[2018-06-29] MEDS: CETIRIZINE HCL 10 MG TABLET PO SCH (09:08)
[2018-06-29] MEDS: PARoxetine HCl 20 MG TAB PO SCH (09:08)
[2018-06-29] MEDS: ASPIRIN 81 MG ECTAB PO SCH (09:08)
[2018-06-29] MEDS: OXYMETAZOLINE 0.05% 30 ML BTL SCH ×2 (09:09→21:39)
[2018-06-29] MEDS: AMOXICILLIN/CLAVULANATE 875 MG TAB PO SCH ×2 (09:09→16:39)
[2018-06-29] MEDS: FLUTICASONE PROPIONATE NA SPR 16 GM BTL SCH ×3 (09:10→21:39)
[2018-06-29] MEDS: CARVEDILOL 6.25 MG TAB PO SCH ×2 (09:10→21:08)
[2018-06-29] MEDS: LIDOCAINE 5% 1 PATCH TD SCH (09:11)
[2018-06-29] MEDS: NICOTINE 21 MG/24 HR TDSY TD SCH (09:11)
[2018-06-29] MEDS: INSULIN GLARGINE SOLOSTAR 100 UNITS/ML 3 ML PEN SQ SCH ×2 (09:12→21:39)
[2018-06-29] MEDS: ACETAMINOPHEN 500 MG TAB PO PRN (12:14)
--- NOTE | 2018-06-29 14:14 | Pharmacy Report ---
Pharmacy Glycemic Short Note 2 - Date of Service June 29, 2018 - Glycemic Short BSG Results (Last 24 hours): 06/28/18 06/28/18 06/28/18 16:28 20:12 23:55 POC Glucose 204 H 191 H 177 H 06/29/18 06/29/18 06/29/18 03:06 07:19 11:36 POC Glucose 188 H 156 H 137 H OUTPATIENT ANTIDIABETIC REGIMEN: * Lantus 16 units SQ Q HS * Humalog SQ TID w/ meals per sliding scale ASSESSMENT: 06/29/18 * Karon received 76 units of insulin yesterday (this was reduced compared to previous days due to NPO status for bronchoscopy) * She remains on solu medrol IV - dose was reduced to 40 mg IV q6 yesterday * Post prandial BSGs were elevated yesterday. Patient refused Novolog at breakfast and lunch. She also refused for her AM Lantus to be given until after her procedure, therefore BSG elevation later in the day was to be expected. * Continue to need tight Novolog parameters due to high dose IV steroids. 06/27/18 * Blood sugars remain above goal, likely due to increase in steroids to Solu- medrol 60mg IV Q6H on 06/25, despite tightening CR yesterday * Will tighten CR further and tighten CF * Continue accuchecks overnight d/t ATC steroids 06/26/18 * Blood sugars slightly above goal, likely due to increase in steroids to Solu- medrol 60mg IV Q6H * Will tighten CR at all times * Lantus increased yesterday, will continue at this time * Continue accuchecks overnight d/t ATC steroids 06/25/18 * Glycemic control did deteriorate yesterday as the day progressed - this was likely due to improved PO intake. The rising BSGs later in the day may also have been due to Lantus effect wearing off when given once daily at bedtime. Will add smaller AM dose to help bridge this time period. * Post-prandial hyperglycemia more common following lunch and dinner, so will increase prandial Novolog dose at these time 06/24/18 * Glycemic control overall acceptable in the last 24 hrs * Only 1 post-prandial BSG greater than 180 (max 200 at bedtime) * Fasting BSG 146-176 this AM w/ 30 units Lantus on board + 2 units Novolog correction given overnight * Solu-medrol continues at the same dose used yesterday * ABX therapy continues * Current insulin doses are reasonable to continue another 24 hrs PLAN FOR INPATIENT GLYCEMIC CONTROL: * Basal insulin * Lantus 10 units SQ Q AM * Lantus 30 units SQ Q HS * Bolus insulin * NovoLog per scale ACHS + 0000, 0400 coverage tonight (due to ATC steroids) * Goal Range: Low 110 mg/dL - High 140 mg/dL * Correction Factor: 15 mg/dL/unit * Nutritional / Prandial insulin per carb ratio of 1 unit per 3 grams CHO consumed PLAN FOR DISCHARGE: * Given recent A1c results, resuming outpt insulin regimen would be reasonable.
--- NOTE | 2018-06-29 15:13 | Pulmonology Progress Note ---
Date of Service June 29, 2018 Assessment & Plan (1) Pneumonia: Impression: 1. COPD exacerbation, gold level cannot be determined, grade B. 2. Left lower lobe pneumonia. 3. Multiple medications the patient is taking and which could alter her respiratory status including Flexeril and benzonatate and baclofen. 4. Strong evidence of sinusitis noted bilaterally on the bronchoscopy. History of present subacute to chronic sinusitis. Plan: 1. Augmentin twice daily for 3 weeks. 2. Prednisone 60 mg p.o. daily for 5 days then taper by 10 mg every other day. 3. Follow the cultures from bronchoscopy specimen. 4. Continue current bronchodilators. 5. Nocturnal oxygen. 6. 2 steps testing for the need for home O2. 7. Incentive spirometry with flutter valve as well. 8. Continue cetirizine for 28 days and stop Afrin after 3 days. 9. The patient would benefit from ENT consult as an outpatient. 10. Quit smoking. 11. Discharge the patient home. 12. She can be followed with pulmonary as an outpatient. Thank you, will follow as needed. Aspiration pneumonia type: Laterality: unspecified laterality Lung location: unspecified part of lung Pneumonia type: due to unspecified organism Qualified Code(s): J18.9 - Pneumonia, unspecified organism Subjective The patient is feeling better, now she is 92% on room air, episodes of desaturation overnight, no wheezing, cough has become dry, and improved. Tolerating oral intake. No events overnight. Physical Exam 2 Vital Signs (Past 24 Hours): Last Vital Signs Temp 37.0 C 06/29/18 14:59 Pulse 69 06/29/18 14:59 Resp 16 06/29/18 14:59 BP 114/70 06/29/18 14:59 Pulse Ox 91 06/29/18 14:59 Physical Exam: Vital signs are stable, 91% on room air at rest, S1-S2 regular rate and rhythm, distant breath sounds, no wheezing, no stridor, no edema. Results & Data Laboratory Results No new laboratory, bronchoscopy specimen so far showed normal reggie. Diagnostic Findings No new imaging.
[2018-06-29] MEDS: predniSONE 20 MG TAB PO SCH (16:39)
--- NOTE | 2018-06-29 17:18 | Hospitalist Progress Note ---
Date of Service June 29, 2018 Assessment & Plan (1) Pneumonia: left lower lobe infiltrate noted in CT chest abx changed to Augmentins for sinus infection (2) Hypoxia: resolved noted to be GRAY on activation cont 2 L 02 via nasal canula due to COPD exacerbation chronic tobacco use disorder -pt is counselled to quit smoking 2 step exercise shows no desaturation nocturnal pulse oximetry ordered (3) COPD exacerbation: Present on admission with cough associated with SOB CTA showed small parenchymal infiltrate left base. chest negative for pulmonary embolus. Continue steroid IV and nebulizers, antibiotics Continue chest PT, flutter valve and mycomust Hydrocan adding for chest wall tenderness with coughing appreciate Pulmonology eval s/p Bronch (4) Precordial chest pain: Mostly Atypical from coughing EKG showed no ischemic changes Troponinx 3 negative Stable (5) Smoker: Counseling on smoking cessation (6) DM type 2 (diabetes mellitus, type 2): Hba1c 6.5 Lantus at bedtime, lispro with meals, sliding scale. Monitor BS (7) Trigeminal neuralgia: Stable (8) Nonalcoholic hepatosteatosis: Weight loss discussed with patient (9) HTN (hypertension): BP stable Continue outpatient medications (10) Depression: Continue SSRI (11) Osteoarthritis: No issues currently (12) Dyslipidemia: Continue statin at this time (13) DVT prophylaxis: Subcu heparin CODE STATUS FULL CODE Disposition ordered for nocturnal pulse oximety discharge home tomorrow will need arrangements for night time home 02 if desaturation noted at nocturnal oximetry Subjective cough has improved no GRAY 2 step exercise shows pt does not require 02 at rest or ambulation pt had episodes of desaturation at night nocturnal pulse oximetry ordered Physical Exam 2 Vital Signs (Past 24 Hours): Last Vital Signs Temp 37.0 C 06/29/18 14:59 Pulse 70 06/29/18 16:02 Resp 18 06/29/18 16:02 BP 114/70 06/29/18 14:59 Pulse Ox 95 06/29/18 16:02 Constitutional: WD/WN, vitals as above + acute distress (due to cough and pluritic chest pain ) Eyes: + anicteric sclerae ENMT: external ear and nose normal, oropharynx normal Neck: trachea midline, no thyromegaly Respiratory: able to speak in complete sentences; no respiratory distress Cardiovascular: RRR, no murmur, no edema Gastrointestinal (Abdomen): normal bowel sounds, soft, nontender, no hepatosplenomegaly Musculoskeletal: no cyanosis or clubbing, extremities motor strength 5/5 Skin: no rashes, warm and dry Neurologic: PERRL, EOMI, accommodation nl, no face palsy, no dysarthria Psychiatric: A+Ox3, euthymic affect Orientation: alert and oriented x 3 _ (1) DM type 2 (diabetes mellitus, type 2) Chronic kidney disease stage: Diabetes mellitus complication detail: Diabetes mellitus complication status: with unspecified complications Diabetes mellitus house rn insulin use: unspecified chcf insulin use status Diabetes mellitus macular edema: Diabetic retinopathy severity: Laterality: Proliferative retinopathy type: Qualified Code(s): E11.8 - Type 2 diabetes mellitus with unspecified complications (2) Depression Active/Remission status: Depression Type: unspecified Major depression episode severity: Major depression recurrence: Psychotic features: Trimester: Qualified Code(s): F32.9 - Major depressive disorder, single episode, unspecified (3) Osteoarthritis Laterality: Osteoarthritis location: unspecified site Osteoarthritis type: unspecified Spinal osteoarthritis complication: Spinal region: Qualified Code(s): M19.90 - Unspecified osteoarthritis, unspecified site (4) HTN (hypertension) Hypertension type: unspecified Qualified Code(s): I10 - Essential (primary) hypertension (5) Pneumonia Aspiration pneumonia type: Laterality: unspecified laterality Lung location : unspecified part of lung Pneumonia type: due to unspecified organism Qualified Code(s): J18.9 - Pneumonia, unspecified organism
[2018-06-29] MEDS: TRAZODONE HCL 100 MG TAB PO SCH (21:08)
[2018-06-29] MEDS: LORazepam 1 MG TAB PO PRN (21:08)
[2018-06-30] MEDS: IPRATROPIUM BROMIDE NEB SOLN 0.02% 2.5 ML VIAL INH SCH ×2 (03:50→07:15)
[2018-06-30] MEDS: LEVALBUTEROL 1.25MG/0.5ML NEB INH SCH ×2 (03:50→07:15)
[2018-06-30] MEDS: INSULIN ASPART 100 UNITS/ML 3 ML PEN SC SCH ×3 (05:08→08:07)
[2018-06-30] MEDS: HEPARIN SOD 5,000 UNIT/0.5 ML VIAL SQ SCH (05:09)
[2018-06-30] MEDS: SODIUM CHLOR 7% 4 ML NEB INH SCH (07:15)
[2018-06-30] MEDS: ATORVASTATIN 40 MG TAB PO SCH (08:03)
[2018-06-30] MEDS: GABAPENTIN 300 MG CAP PO SCH (08:03)
[2018-06-30] MEDS: ASPIRIN 81 MG ECTAB PO SCH (08:04)
[2018-06-30] MEDS: CETIRIZINE HCL 10 MG TABLET PO SCH (08:04)
[2018-06-30] MEDS: PARoxetine HCl 20 MG TAB PO SCH (08:04)
[2018-06-30] MEDS: PANTOprazole 40 MG TAB PO SCH (08:04)
[2018-06-30] MEDS: CARVEDILOL 6.25 MG TAB PO SCH (08:04)
[2018-06-30] MEDS: predniSONE 20 MG TAB PO SCH (08:05)
[2018-06-30] MEDS: NICOTINE 21 MG/24 HR TDSY TD SCH (08:05)
[2018-06-30] MEDS: OXYMETAZOLINE 0.05% 30 ML BTL SCH (08:06)
[2018-06-30] MEDS: LIDOCAINE 5% 1 PATCH TD SCH (08:06)
[2018-06-30] MEDS: FLUTICASONE PROPIONATE NA SPR 16 GM BTL SCH (08:06)
[2018-06-30] MEDS: ALUMINUM/MAGNESIUM SUSP 30 ML UDC PO PRN (08:13)
[2018-06-30] MEDS: AMOXICILLIN/CLAVULANATE 875 MG TAB PO SCH (09:33)
--- NOTE | 2018-06-30 10:10 | Discharge Summary ---
Date of Service June 30, 2018 Admission HPI Per Admitting Provider 57-year-old female with past medical history of obesity, pneumonia, trigeminal neuralgia, DEMPSEY, COPD, asthma, hyperlipidemia, diabetes, GERD, and depression presents with 4 days of cough and sweats. Does not complain of any fever but does complain of chills shortness of breath and nausea and diarrhea that started today. She is also complaining of left chest discomfort with a burning sensation. She went to see her PCP on Saturday who prescribed antibiotics and steroids for suspected pneumonia. We did a chest x-ray today which showed bilateral infiltrates. We did a CT of her chest which was negative for PE but did show left lower lobe pneumonia. ROS-No Headache, No Visual Changes, No Fever, positive chills, No Neck Pain or Stiffness, positive chest discomfort, No Palpitations, No SOB, No GRAY, positive cough, No Sputum, positive wheezing, No Abdominal Pain, positive diarrhea, No Hematemesis, No Hemoptysis, No Unexpected Weight Loss, No Flank pain, No Melena , No Hematochezia, No Frequency, No Urgency, No Burning, No Hematuria, No Rashes , No Diaphoresis. Appetite is Normal Physical Exam Gen-AAO x 3, NAD, Afebrile, obese Head-NCAT, EOMI, PERRLA, Anicteric Sclera, No Posterior Pharyngeal Erythema Neck-Supple, No JVD, No Thyromegaly, No Masses, No LAD, No Bruits Lungs-rales rhonchi and wheezes bilaterally coarse breath sounds bilaterally. Chest-No S4, +S1, +S2, No S3, No Murmurs, No Rubs, No Gallops, No Ectopy Abdomen-Soft, Bowel Sounds Present, obese, non Tender, Non Distended, No Hepatomegaly, No Splenomegaly, No Palpable Masses, No Rebound, No Rigidity, No Guarding Musculoskeletal-Full Range of Motion Bilaterally, No CVAT Extremities-No Cyanosis, No Clubbing, No Edema Nuero-Cranial Nerves II-XII grossly intact, Motor WNL, DTRs WNL, Strength WNL, No Focal Psych-Normal Mood PMH-obesity, hemorrhagic, DEMPSEY, pneumonia, COPD, asthma, hyperlipidemia, type 2 diabetes, GERD, depression PSH-bladder surgery, hysterectomy with right oophorectomy, arthroscopic knee surgery, ankle fusion, tonsil management removed, cholecystectomy, hernia surgery FH-mother and father both from coronary disease SH-current pack-a-day smoker for 40 years, , denies alcohol Meds reviewed and Reconciled Labs Review Allergies sumatriptan Allergy (Intermediate, Verified 06/21/18 15:00) DIAPHORESIS, "SKIN CRAWLING" carbamazepine Allergy (Unknown, Unverified 06/21/18 15:00) RASH metformin Adverse Reaction (Severe, Verified 06/21/18 15:00) Diarrhea Height/Weight/Isolation Height 5 ft 3 in Weight 84.3 kg CBC 06/21/18 06/21/18 06/21/18 14:10 14:30 14:30 WBC 10.66 RBC 4.93 Hgb 15.6 Hct 45.7 MCV 92.7 MCH 31.6 MCHC 34.1 RDW Std Deviation 49.4 H RDW Coeff of Cathy 14.4 Plt Count 198 MPV 10.1 Immature Gran % (Auto) 0.3 Neut % (Auto) 87.3 Lymph % (Auto) 9.3 Jennings % (Auto) 2.9 Eos % (Auto) 0.1 Baso % (Auto) 0.1 Immature Gran # (Auto) 0.03 H Neut # (Auto) 9.31 H Lymph # (Auto) 0.99 L Jennings # (Auto) 0.31 Eos # (Auto) 0.01 Baso # (Auto) 0.01 PT INR APTT PTT Ratio Sodium Potassium Chloride Carbon Dioxide Anion Gap BUN Creatinine Est Cr Clr Drug Dosing Est GFR ( Amer) Est GFR (Non-Af Amer) BUN/Creatinine Ratio Glucose Lactate 4.0 H* Calcium Magnesium Total Bilirubin AST ALT Alkaline Phosphatase Troponin I Total Protein Albumin Globulin Albumin/Globulin Ratio Influenza Type A (PCR) Neg for Influ A Influenza Type B (PCR) Neg for Influ B 06/21/18 06/21/18 14:30 14:30 WBC RBC Hgb Hct MCV MCH MCHC RDW Std Deviation RDW Coeff of Cathy Plt Count MPV Immature Gran % (Auto) Neut % (Auto) Lymph % (Auto) Jennings % (Auto) Eos % (Auto) Baso % (Auto) Immature Gran # (Auto) Neut # (Auto) Lymph # (Auto) Jennings # (Auto) Eos # (Auto) Baso # (Auto) PT 10.0 INR 1.0 APTT 26.7 PTT Ratio 1.0 Sodium 137 Potassium 4.1 Chloride 105 Carbon Dioxide 22 Anion Gap 10.0 BUN 17 Creatinine 1.09 Est Cr Clr Drug Dosing 58.6 Est GFR ( Amer) 65.3 Est GFR (Non-Af Amer) 56.3 BUN/Creatinine Ratio 15.3 Glucose 272 H Lactate Calcium 8.5 Magnesium 1.9 Total Bilirubin 0.4 AST 25 ALT 36 Alkaline Phosphatase 78 Troponin I < 0.015 Total Protein 8.0 Albumin 3.8 Globulin 4.2 H Albumin/Globulin Ratio 0.9 Influenza Type A (PCR) Influenza Type B (PCR) Chemistry 06/21/18 14:30 Sodium 137 Potassium 4.1 Chloride 105 Carbon Dioxide 22 Anion Gap 10.0 BUN 17 Creatinine 1.09 Glucose 272 H Microbiology 06/21/18 14:30 Sputum, Expectorated Gram Stain - Pending 06/21/18 14:30 Sputum, Expectorated Sputum Culture - Pending 06/21/18 14:30 Blood Blood Culture - Pending Principal Diagnosis COPD EXACERBATION /ACUTE HYPOXEMIC RESPIRATORY FAILURE Discharge Exam Constitutional WD/WN, vitals as above Eyes + anicteric sclerae ENMT external ear and nose normal, oropharynx normal Neck trachea midline, no thyromegaly Respiratory normal respiratory effort, lungs clear to auscultation able to speak in complete sentences; no respiratory distress Cardiovascular RRR, no murmur, no edema Gastrointestinal (Abdomen) normal bowel sounds, soft, nontender, no hepatosplenomegaly Musculoskeletal no cyanosis or clubbing, extremities motor strength 5/5 Skin no rashes, warm and dry Neurologic PERRL, EOMI, accommodation nl, no face palsy, no dysarthria Psychiatric A+Ox3, euthymic affect Orientation: alert and oriented x 3 Discharge Data Allergies Allergy/AdvReac Type Severity Reaction Status Date / Time sumatriptan Allergy Intermediate DIAPHORESIS, Verified 06/21/18 15:00 "SKIN CRAWLING" carbamazepine Allergy Unknown RASH Unverified 06/21/18 15:00 metformin AdvReac Severe Diarrhea Verified 06/21/18 15:00 Consultations 06/21/18 15:31 ED Decision to Admit Stat 06/25/18 11:17 Consult Pulmonology Routine Ordered Studies 06/21/18 15:04 CT angio chest PE protocol Stat 06/27/18 11:30 CT sinus wo con Routine Hospital Course (1) Pneumonia: respiratory status improved markedly no cough or fever , no GRAY left lower lobe infiltrate noted in CT chest S/P bronchoscopy By Dr Deras : - Large amount of thick secretions noted occluding multiple subsegments including lateral segment of the right middle lobe, superior segment and lateral segment of the right lower lobe, all the segments of the left lower lobe. Suctioned all to clear. Total amount of bronchial lavage used was 40 mL and suctioned completely. -. abx changed to Augmentin will need 3 weeks tx scheduled to have ENT follow up next week at [facility] Will need Puomonolgy follow up (2) Hypoxia: resolved-due to COPD exacerbation /pneumonia noted to be GRAY on activation required 2 L 02 via nasal canula due to COPD exacerbation chronic tobacco use disorder -pt is counselled to quit smoking Symptom markedly improved after Bronchoscopy 2 step exercise shows no desaturation -does not qualify for home 02 nocturnal pulse oximetry : shows multiple episodes of desaturations < 88% in RA case mangement updated script given Home 02 2 L via nasal canula at night pt is counselled repeatedly for smoking cessation will benefit with Out patient Sleep study (3) COPD exacerbation: Present on admission with cough associated with SOB CTA showed small parenchymal infiltrate left base. chest negative for pulmonary embolus. pt was treated with steroid IV and nebulizers, antibiotics appreciate Pulmonology eval s/p Bronch transitioned to PO Prednisone has Neb tx at home script sent for Advair discuss and Spiriva does not have insurance coverage too expensive for out of pocket will be followed with Pulmonology at [facility] needs to explore option for alternate iNH (4) Precordial chest pain: Mostly Atypical from coughing EKG showed no ischemic changes Troponinx 3 negative Chest pain resolved after cough /sob improved (5) Smoker: Counseling on smoking cessation Pt is willing to quit (6) DM type 2 (diabetes mellitus, type 2): Hba1c 6.5 Lantus at bedtime, lispro with meals, sliding scale. (7) Trigeminal neuralgia: Stable on Neurontin (8) Nonalcoholic hepatosteatosis: Weight loss discussed with patient (9) HTN (hypertension): BP stable Continue outpatient medications (10) Depression: Continue SSRI (11) Osteoarthritis: No issues currently (12) Dyslipidemia: Continue statin at this time (13) DVT prophylaxis: Subcu heparin CODE STATUS FULL CODE Disposition Discharge home today (14) LISANDRA and COPD overlap syndrome: Total Time Total Time Spent Total Time Spent (In Minutes): 40 mins Discharge Plan Discharge Items Patient Disposition: Home - Self-Care Reason For Visit: PNEUMONIA Discharge Diagnosis: COPD EXACERBATION /PNEUMONIA /ACUTE SINUSITIS Discharge Goals: Decrease discomfort, Diagnostic testing and Therapeutic intervention Activity: Resume your previous activity Non-emergency contact: Primary Care Provider Call non-emergency contact if: you have any medication questions Follow-up/Referrals: Millicent Baldwin DO [Primary Care Provider] - 07/08/18 11:05 am Diet: Heart Healthy Addtl Provider Instructions: NEED TO QUIT SMOKING TO PREVENT FURTHER COMPROMISE OF CHRONIC LUNG DISEASE ( COPD ) NEED TO FOLLOW UP WITH PULMONOLOGY AT [facility] FORMAL LUNG FUNCTION TEST TO ASSESS SEVERITY OF LUNG DISEASE FOLLOW UP WITH ENT (EAR NOSE THROAT ) DOCTOR IN [facility] FOR CHRONIC SINUSITUS /SINUS POLYP ENT FOLLOW UP : Date & Time 07/02/2018 9:00 AM PROVIDER : Ruth Mcmahon PA-C Otolaryngology [facility] Prescriptions: New cetirizine 10 mg Tablet 10 mg PO QAM 30 Days Qty: 30 RF: 3 nicotine [Nicoderm CQ] 21 mg/24 hr Patch 24 Hour 21 mg Transdermal QAM 30 Days Qty: 30 RF: 0 prednisone 10 mg tablets,dose pack 20 mg PO DAILY 7 Days Qty: 14 RF: 0 lorazepam 1 mg Tablet 0.5 mg PO HS PRN (Reason: sleep) Qty: 10 RF: 0 amoxicillin-pot clavulanate [Augmentin] 875-125 mg tablet 1 tab PO BID 14 Days Qty: 28 RF: 0 Continue atorvastatin [Lipitor] 40 mg tablet 40 mg PO DAILY RF: 0 ipratropium-albuterol 0.5 mg-3 mg(2.5 mg base)/3 mL Solution For Nebulization 3 ml INHALATION QID PRN (Reason: Shortness Of Breath) RF: 0 polyethylene glycol 3350 [Miralax] 17 gram Powder In Packet 17 g PO DAILY PRN (Reason: Constipation) RF: 0 trazodone 100 mg tablet 100 mg PO HS RF: 0 paroxetine HCl [Paxil] 30 mg tablet 30 mg PO DAILY RF: 0 pantoprazole [Protonix] 40 mg tablet,delayed release (DR/EC) 40 mg PO DAILY RF: 0 gabapentin [Neurontin] 300 mg capsule 300 mg PO TID RF: 0 carvedilol [Coreg] 6.25 mg tablet 6.25 mg PO BID RF: 0 aspirin [Aspir-Low] 81 mg Tablet,Delayed Release (Dr/Ec) 81 mg PO DAILY RF: 0 acetaminophen [Tylenol Extra Strength] 500 mg Tablet 500 mg PO Q6H PRN (Reason: Pain) RF: 0 insulin lispro [Admelog SoloStar U-100 Insulin] 100 unit/mL insulin pen subcut TIDM PRN (Reason: sliding scale) RF: 0 insulin glargine [Basaglar KwikPen U-100 Insulin] 100 unit/mL (3 mL) insulin pen 16 units subcut QPM RF: 0 cyclobenzaprine 10 mg tablet 10 mg PO Q8H PRN (Reason: muscle spasm) Qty: 10 RF: 0 benzonatate 100 mg Capsule 100 mg PO TID PRN (Reason: Cough) RF: 0 fluticasone 50 mcg/actuation spray,suspension 2 spray Intranasal TID RF: 0 Discontinued baclofen 10 mg tablet 10 mg PO DAILY RF: 0 naproxen sodium [Aleve] 220 mg Tablet 220 mg PO BIDM PRN (Reason: Pain) Qty: 0 RF: 0 azithromycin 250 mg tablet 250 mg PO DAILY RF: 0 prednisone 20 mg Tablet 40 mg PO DAILY RF: 0 Visit Report Forms: [facility] Portal Stand-Alone Forms: [facility] Discharge Orders: Discharge Order (Routine); Ordered 06/30/18 Ordered By: Nicci Schmidt Admission Data Admit Date/Time: 06/21/18 16:44 Attending Provider: Nicci Schmidt Admit Provider: Stephon Hodge Primary Care Provider: Millicent Baldwin Other Providers: Steve Kapadia ; Stephon Hodge ; Justin Deras Service: Medical Other Interventions: Discharge Summary Assessment (RN) Last Done: 06/30/18 10:30 DC Date/Time DO NOT enter until pt leaves facility: 06/30/18 10:54
[2018-07-16 22:57] LABS: Source BAL
== END 2018-06-30 10:54 | disposition home or self-care (01) | DRG 193 ==
LOC: ED 13:44 → SUATTDRO 16:44 → 2W 16:44
DX: I10 Essential (primary) hypertension; G50.0 Trigeminal neuralgia; R07.89 Other chest pain; Z79.4 Long term (current) use of insulin; E87.3 Alkalosis; Z98.1 Arthrodesis status; E78.5 Hyperlipidemia, unspecified; E86.0 Dehydration; E66.9 Obesity, unspecified; Z82.49 Family history of ischemic heart disease and other diseases of the circulatory system; J01.90 Acute sinusitis, unspecified; J18.9 Pneumonia, unspecified organism; J96.21 Acute and chronic respiratory failure with hypoxia; F32.9 Major depressive disorder, single episode, unspecified; F17.210 Nicotine dependence, cigarettes, uncomplicated; Z79.82 Long term (current) use of aspirin; J44.1 Chronic obstructive pulmonary disease with (acute) exacerbation; K21.9 Gastro-esophageal reflux disease without esophagitis; M19.90 Unspecified osteoarthritis, unspecified site; Z88.8 Allergy status to other drugs, medicaments and biological substances; K76.0 Fatty (change of) liver, not elsewhere classified; E11.9 Type 2 diabetes mellitus without complications

== ENCOUNTER 2018-11-03 07:41 | Inpatient (IN) ==
[2018-11-03] MEDS ORDERED: ALBUT/IPRATROP 3MG/0.5MG NEB 3 ML VIAL NEB STA (09:08)
--- NOTE | 2018-11-03 09:11 | History & Physical Bridge Note ---
Date of Service November 03, 2018 History & Physical Bridge Note I have examined the patient, reviewed the History & Physical and in the interval since the performance of the History & Physical I have noted the following changes of clinical significance: no changes noted
--- NOTE | 2018-11-03 09:12 | Pre Anesthesia Assessment ---
Date of Service November 03, 2018 Pre Sedation Assessment Vital Signs Temp Pulse Resp BP Pulse Ox 11/03/18 08:39 36.8 C 71 20 110/75 95 Cardiovascular RRR, no murmur, no edema + peripheral pulses normal Respiratory normal respiratory effort, lungs clear to auscultation Pre-Sedation Airway Assessment Smoking Status: Current every day smoker Hx Sleep Apnea: No Hx Difficult Intubation: No Thyromental Distance: > or= 3.5 Finger Breadths Oral Cavity: + WNL Mallampati Class: II ASA: ASA3 Procedure Planning Contraindications for Sedation: none Current Medications Reviewed: Yes Notes The planned sedation has been discussed with the patient. Informed Consent was obtained. I have identified the patient, determined the appropriateness of sedation and have assessed the patient immediately prior to the procedure. All medicine(s) and interventions are by my order.
[2018-11-03] MEDS ORDERED: SODIUM CHLORIDE 0.9% 1000ML 1,000 ML IV SCH (09:15)
[2018-11-03] MEDS ORDERED: LEVALBUTEROL HCL 1.25 MG/3 ML NEB NEB STA (10:18)
[2018-11-03] MEDS ORDERED: fentaNYL citrate 100 MCG/2 ML VIAL IV ONE (10:18)
[2018-11-03] MEDS ORDERED: OXYMETAZOLINE 0.05% 30 ML BTL ONE (10:18)
[2018-11-03] MEDS ORDERED: MIDAZOLAM HCL 1 MG/ML 2ML VIAL IV STA (10:18)
[2018-11-03] MEDS ORDERED: LIDOCAINE HCL 2% (LOCAL) INJ 50 ML VIAL INSTIL STA (10:24)
[2018-11-03] MEDS ORDERED: LIDOCAINE HCL VISCOUS SOLN 2% 15 ML UDC MT ONE (10:24)
[2018-11-03] MEDS ORDERED: LIDOCAINE 4% INH SOLN 4 ML BTL INH ONE (10:27)
--- NOTE | 2018-11-03 10:29 | Post Anesthesia Assessment ---
Date of Service November 03, 2018 Post Sedation Assessment Vital Signs Temp Pulse Pulse Resp BP BP Pulse Ox 11/03/18 10:12 87 20 112/71 98 11/03/18 10:07 96 H 16 144/83 H 93 11/03/18 10:05 97 H 20 152/97 H 99 11/03/18 10:00 79 16 121/74 96 11/03/18 09:55 78 20 111/77 97 11/03/18 09:50 80 20 118/80 94 11/03/18 09:16 70 16 97 11/03/18 08:39 36.8 C 71 20 110/75 95 Recovery Score Activity: Moves 4 extremities Respiration: Deep Breath/Cough Circulation: +/-20% PreAnes Value Consciousness: Fully Awake Oxygen Saturation: O2 needed for >90% Post Anesthesia Score: 9 Discharge Sedation Level of Care: Higher Level of Care Post Sedation Plan On clinical assessment, the patient appears to have tolerated the sedation without complications. Patient is recovering as anticipated. Patient will continue to be monitored by nursing and may be discharged when sedation discharge criteria are met per below protocol. Upon Completions of procedure and additional 15 minutes continue every 5 minute vital signs and the P.A.R. score; then discharge to a Phase I or Fast Track to Phase II per the following guidelines: * Discharge Patient to appropriate Phase II area if PAR is 8 or greater or return to pre- procedure baseline. The post - procedure orders will be as directed. * If PAR score is less than 8 or not return to pre-procedure baseline then patient will follow Phase I monitoring till PAR is reached for Phase II. The Phase I may be done in procedure room or may call to secure a Phase I area. * If naloxone or flumazenil are used for reversal, hold in Phase I for continued monitoring from when last reversal dose was given for a minimum of 60 minutes or longer pending the nurse and/or physician discretion of patient condition before discharge to Phase II. Please call the Sedation Physician to re-evaluate and complete post-note for discharge to Phase II area. Do NOT discharge from procedure sedation or Phase 1 until post- sedation evaluation note is complete by procedure /sedation MD Sedation Discharge Instructions to be given to the patient at discharge to home.
--- NOTE | 2018-11-03 10:30 | Post Operative Brief Note ---
Immediate Post Op Note v1 Date of Surgery November 03, 2018 Pre & Post Diagnosis Operation Date: 11/03/18 09:00 Pre-Op Diagnosis: chronic bronchitis Post-Op Diagnosis: chronic mucopurulent bronchitis Procedure Operation Date: 11/03/18 09:00 Actual Procedures p Bronchoscopy (Bilateral) - Papi Hidalgo MD Surgeon Papi Hidalgo MD Access Registrar none Estimated Blood Loss 0 Findings Consistent with Post-Op Diagnosis Chronic Mucopurulent Bronchitis Complications none Disposition Accompanied Patient To Recovery: No Overlapping Procedure I was present for: the critical portions of procedure. I was immediately available: during the entire case. Back up surgeon: was not required during procedure.
--- NOTE | 2018-11-03 12:27 | History & Physical Report ---
Date of Service November 03, 2018 Assessment & Plan (1) COPD (chronic obstructive pulmonary disease): Suspect acute exacerbation of COPD, progressive GRAY/wheeze and SOB. Patient presently with no evidence of respiratory distress, adequate saturation on 2L. -Admit to medical floor -Check CXR -DuoNeb q 4 hours -Albuterol q 2 hours PRN -Budesonide/Formoterol BID -Solumedrol 30mg IV TID -Continue Azithromycin 250mg PO to complete 5 day course -Supplemental O2 as needed -Patient should receive prescription for Albuterol inhaler prior to discharge -Smoking cessation counseling -Follow studies sent from BAL Present on Admission?: Yes (2) DM type 2 (diabetes mellitus, type 2): Patient with DM, overall well controlled. RvI4O=2.5 on 06/22/18. Labile blood sugars while on PO steroids. -Lantus 16u qHS and insulin sliding scale -Closely monitor blood sugars while on IV steroids -Continue Gabapentin for neuropathy Present on Admission?: Yes (3) Dyslipidemia: Chronic. Stable -Continue Atorvastatin daily Present on Admission?: Yes (4) HTN (hypertension): Chronic. Stable. Blood pressure well controlled -Continue Carvedilol Present on Admission?: Yes (5) Smoker: Smoking cessation counselling Nicotine patch F/E/N - Heplock. Monitor electrolytes. CC diet as tolerated Ppx - low risk for DVT. Encourage ambulation Code - Full per discussion with patient Dispo - Medical floor History of Present Illness Chief Complaint: SOB Primary Care Provider: NICK Seaman, MS, PHYSICIAN OFFICE SECRETARY-C Karon Sanchez is a pleasant 58yo C female with history of O2 dependent COPD on 2L, LISANDRA, HTN, HLP and DM. Patient was seen in the ER on 11/01/18 with complaint of right hip pain x 3 weeks. Her hip workup was negative but she was diagnosed with bronchitis and discharged on Azithromycin. Patient reports 2-3 days of worsening SOB and GRAY as well as dry cough and worsening wheezing. She has been taking her Symbicort at home. Reports that she does not have Albuterol at home. She took some PO Prednisone at home which caused her blood sugar to increase to 429. She had a subjective fever yesterday as well as some nausea and dizziness. She had a bronchoscopy performed by Dr. Hidalgo today and is recommended to stay overnight for continued observation and treatment of suspected COPD exacerbation. Patient additionally complaining of right hip pain and loose stools. Allergies Allergy/AdvReac Type Severity Reaction Status Date / Time sumatriptan Allergy Intermediate DIAPHORESIS, Verified 11/03/18 08:29 "SKIN CRAWLING" carbamazepine Allergy Unknown RASH Verified 11/03/18 08:29 metformin AdvReac Severe Diarrhea Verified 11/03/18 08:29 Home Medications Home Medications Medication Instructions Recorded Confirmed Type Basaglar KwikPen U-100 Insulin 16 units SUBCUT QPM 04/24/18 11/03/18 History acetaminophen [Tylenol Extra 500 mg PO Q6H PRN 04/24/18 11/03/18 History Strength] aspirin [Aspir-Low] 81 mg PO DAILY 04/24/18 11/03/18 History atorvastatin [Lipitor] 40 mg PO DAILY 04/24/18 11/03/18 History carvedilol [Coreg] 6.25 mg PO BID 04/24/18 11/03/18 History gabapentin [Neurontin] 300 mg PO TID 04/24/18 11/03/18 History insulin lispro [Admelog SoloStar 0 units SUBCUT AC PRN 04/24/18 11/03/18 History U-100 Insulin] ipratropium-albuterol 3 ml INHALATION QID PRN 04/24/18 11/03/18 History pantoprazole [Protonix] 40 mg PO DAILY 04/24/18 11/03/18 History trazodone 100 mg PO HS 04/24/18 11/03/18 History fluticasone propionate 2 spray INTRANASAL DAILY PRN 06/21/18 11/03/18 History azithromycin 250 mg PO DAILY 4 Days #4 tab 11/01/18 11/03/18 Rx polyethylene glycol 3350 [ClearLax] 17 g PO DAILY PRN 11/01/18 11/03/18 History prednisone 50 mg PO DAILY 5 Days #5 tab 11/01/18 11/03/18 Rx Oxygen Home 11/03/18 11/03/18 History budesonide-formoterol [Symbicort] 2 puff INHALATION BID 11/03/18 11/03/18 History Past Med/Surg History Medical History Nonalcoholic hepatosteatosis (Chronic) Trigeminal neuralgia (Chronic) DM type 2 (diabetes mellitus, type 2) (Chronic) Osteoarthritis (Chronic) COPD (chronic obstructive pulmonary disease) (Chronic) 2L O2 Depression (Chronic) HTN (hypertension) (Chronic) Dyslipidemia (Chronic) LISANDRA on CPAP Surgical History History of bladder surgery (Chronic) History of right oophorectomy (Chronic) H/O ankle fusion (Chronic) H/O arthroscopic knee surgery (Chronic) History of cholecystectomy (Chronic) History of tonsillectomy (Chronic) H/O inguinal hernia repair (Chronic) H/O: hysterectomy (Chronic) Social History Preferred Language: Hebrew Communication Ability: Effective Visual Impairment: No Limitations 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 Beliefs That Will Affect Care: None marital status: Current Living Situation: Alone Current Living Situation Comment: home on weekends Other Information That Helps Us Care for You: No Feels Safe at Home: No Is there a partner from a previous relationship who is making you feel unsafe now?: No Any Concerns about Your Family Situation: No Would You Like to Speak to Someone About Your Situation: No Safety Concerns: Feels Safe At This Time Smoking Status: Current every day smoker Tobacco Type: cigarettes Cigarettes Per Day: 20 Do You Dip or Chew Tobacco: No Second Hand Exposure: No Tobacco Cessation Education Requested by Patient: Yes Hx Alcohol Use: No Hx Substance Use: No Review of Systems Review of Systems: All systems reviewed & are unremarkable except as noted in HPI & below Physical Exam Physical Exam: General: patient resting comfortably, NAD, non-toxic in appearance, AA&O x 4 Skin: warm, dry, intact, no rashes or lesions HEENT: NC/AT, PERRL, EOMI, anicteric sclera, conjunctiva without injection, external ear normal to inspection and nontender, nares patent, moist mucus membranes, dentition intact, no oropharyngeal lesions, neck supple, trachea midline, no LAD, no thyromegaly, no JVD Heart: +S1/S2, regular, no m/r/g Lungs: equal air entry bilaterally, no rales/rhonchi, faint scattered end- expiratory wheezes Abd: +BS, soft, NT/ND, no masses/organomegaly/ascites Ext: warm, 2+ pulses in UE/LE bilaterally, no clubbing/cyanosis or edema, pain with palpation of right abdomen, no rebound/guarding/peritoneal signs Neuro: nonfocal, patient AA&O x 4, speech intact, no facial droop, moving all extremities on command with equal strength 5/5 Results & Data Vital Signs (Past 12 Hours) Vital Signs Temp Pulse Pulse Resp BP BP Pulse Ox 11/03/18 12:12 36.5 C 72 18 112/79 97 11/03/18 11:30 36.7 C 68 20 110/63 95 11/03/18 11:00 73 20 117/73 98 11/03/18 10:44 36.9 C 88 20 109/78 97 11/03/18 10:30 36.7 C 80 20 99/76 L 94 11/03/18 10:22 82 20 119/71 94 11/03/18 10:17 90 20 115/66 97 11/03/18 10:12 87 20 112/71 98 11/03/18 10:07 96 H 16 144/83 H 93 11/03/18 10:05 97 H 20 152/97 H 99 11/03/18 10:00 79 16 121/74 96 11/03/18 09:55 78 20 111/77 97 11/03/18 09:50 80 20 118/80 94 11/03/18 09:16 70 16 97 11/03/18 08:39 36.8 C 71 20 110/75 95 Laboratory Results Lab Results 11/03/18 11/03/18 11/03/18 Range/Units 08:52 13:13 13:13 POC Glucose 133 H 205 H (70-99) Phosphorus 3.8 (2.5-4.9) mg/dl Magnesium 2.0 (1.8-2.4) mg/dl Code Status & VTE Plan Code Status FULL Critical Care Time Critical Care Time: No (1) COPD (chronic obstructive pulmonary disease) COPD type: unspecified COPD Qualified Code(s): J44.9 - Chronic obstructive pulmonary disease, unspecified (2) HTN (hypertension) Hypertension type: unspecified Qualified Code(s): I10 - Essential (primary) hypertension (3) DM type 2 (diabetes mellitus, type 2) Diabetes mellitus watermelon inspector insulin use: unspecified fpc insulin use status Diabetes mellitus complication status: with unspecified complications Qualified Code(s): E11.8 - Type 2 diabetes mellitus with unspecified complications
[2018-11-03] MEDS ORDERED: GLUCOSE 40% GEL 15 GM TUBE PO PRN (12:56)
[2018-11-03] MEDS ORDERED: DOCUSATE SODIUM 100 MG CAP PO PRN (12:56)
[2018-11-03] MEDS ORDERED: GLUCOSE 10 TABS/TUBE PO PRN (12:56)
[2018-11-03] MEDS ORDERED: ALBUTEROL 0.5% NEB SOLN 2.5 MG/0.5 ML VIAL NEB PRN (12:56)
[2018-11-03] MEDS ORDERED: CARBOHYDRATES FOR HYPOGLYCEMIA PO PRN (12:56)
[2018-11-03] MEDS ORDERED: FLUTICASONE PROPIONATE NA SPR 16 GM BTL PRN (12:56)
[2018-11-03] MEDS ORDERED: DEXTROSE 50% 50 ML SYRINGE IV PRN (12:56)
[2018-11-03] MEDS ORDERED: POLYETHYLENE (MIRALAX) 17 GM PACK PO PRN (12:56)
[2018-11-03] MEDS ORDERED: GLUCAGON FOR INJ 1 MG VIAL SQ PRN (12:56)
[2018-11-03] MEDS ORDERED: ONDANSETRON INJ 2 MG/ML 2 ML VIAL IV PRN (12:56)
[2018-11-03 13:56] LABS: Phosphorus 3.8 mg/dl (2.5-4.9)
[2018-11-03] MEDS: GABAPENTIN 300 MG CAP PO SCH ×2 (14:16→20:27)
[2018-11-03] MEDS: NICOTINE 21 MG/24 HR TDSY TD SCH (14:16)
[2018-11-03] MEDS: methylPREDNISolone 30 MG in SYRINGE 0 ML IV SCH ×2 (14:17→20:26)
[2018-11-03] MEDS: INSULIN ASPART 100 UNITS/ML 3 ML PEN SC SCH ×3 (14:17→20:29)
[2018-11-03] MEDS: ALBUT/IPRATROP 3MG/0.5MG NEB 3 ML VIAL NEB SCH ×3 (15:02→23:10)
--- NOTE | 2018-11-03 17:06 | XRay Report ---
XR chest 2V routine HISTORY: 58 years-old Female SOB acute cough with shortness of breath COMPARISON: Chest radiograph 11/01/2018 TECHNIQUE: PA and lateral views of the chest FINDINGS: Cardiac mediastinal and hilar silhouettes are within normal limits. There is improved aeration of the lung bases with only minimal bibasilar interstitial opacities noted. No pneumothorax, pleural effusi on or overt pulmonary edema. Surgical clips noted about the upper abdomen. Degenerative changes of th e shoulders and spine. IMPRESSION: Improved aeration of the lung bases with only minimal bibasilar interstitial opacities favoring atele ctasis. Correlate clinically. The above report was generated using voice recognition software. It may contain grammatical, syntax o r spelling errors. Electronically signed by: Dejuan Phillips M.D. 11/03/2018 5:04 PM
[2018-11-03] MEDS: ACETAMINOPHEN 500 MG TAB PO PRN (17:56)
[2018-11-03] MEDS ORDERED: TRAMADOL HCL 50 MG TABLET PO STA (19:50)
[2018-11-03] MEDS: CARVEDILOL 6.25 MG TAB PO SCH (20:26)
[2018-11-03] MEDS: TRAZODONE HCL 100 MG TAB PO SCH (20:27)
[2018-11-03] MEDS: BUDESONIDE/FORMOTEROL FUMARATE 160/4.5 60 PUFFS/INHALER INH SCH (20:27)
[2018-11-03] MEDS ORDERED: INSULIN GLARGINE SOLOSTAR 100 UNITS/ML 3 ML PEN SQ SCH (21:00)
--- NOTE | 2018-11-03 21:08 | CT Scan Report ---
CT hip RT wo con HISTORY: 58 years-old Female severe pain acute severe right-sided hip pain COMPARISON: Pelvis right hip radiographs 11/01/2018 TECHNIQUE: Multiple axial CT images of the right hip were obtained without the use of IV contrast. A dose lowering technique was used consistent with the principals of SARAH. FINDINGS: Mild to moderate right hip osteoarthritis. No acute fracture, dislocation or avascular necrosis. Imag ed right hemipelvis also appears to be intact. Minimal insertional dystrophic calcifications are note d about the posterior lateral aspect of the proximal femoral diaphysis in the region of the gluteus m aximus insertion site. No large joint effusion or evidence of bursitis. Indeterminate calcifications are noted within the region of the vaginal cuff. Prior hysterectomy. Sof t tissues are unremarkable. Visualized appendix appears unremarkable. IMPRESSION: No acute fracture or dislocation. The above report was generated using voice recognition software. It may contain grammatical, syntax o r spelling errors. Electronically signed by: Dejuan Phillips M.D. 11/03/2018 9:07 PM
--- NOTE | 2018-11-03 22:22 | Operative Report ---
DATE OF OPERATION: 11/03/2018 PROCEDURE: Fiberoptic bronchoscopy with bronchoalveolar lavage. INDICATIONS: Chronic bronchitis, persistent symptoms in a chronic smoker refractory to outpatient therapy. ANESTHESIA PREOPERATIVELY: None. ANESTHESIA DURING PROCEDURE: 3 mg IV Versed, 50 mcg IV fentanyl, 20 mL 2% Xylocaine spray above and below the cords, 4% viscous Xylocaine intranasally. Moderate conscious sedation was utilized and begun on 09:59 and completed at 10:10. The patient was evaluated in ASU-1 prior to the procedure and given a nebulizer treatment with DuoNeb solution and 40 mg of IV Solu-Medrol prior to the procedure. Fiberoptic bronchoscope was inserted into the left naris with minimal difficulty and passed to the level of the true vocal cord. The cords appeared to approximate normally with phonation without evidence of lesions or paralysis. The scope was then introduced into the trachea and right and left tracheobronchial tree. The barrett was sharp. The right main bronchus was explored initially and no endobronchial lesion was seen. EDAC or endoscopic dynamic airway collapse was seen throughout the right tracheobronchial tree and began at the level of the barrett and was seen up to the level of the right lower lobe bronchus. The right upper lobe, the apical posterior, anterior segments, bronchus intermedius and the right middle lobe with medial lateral segments, all basilar segments of right lower lobe showed copious mucopurulent secretion that was lavaged until clear and the aspirate sent for appropriate studies. Severe inflammatory mucosal change was seen with mucous pitting and bronchial crypts and clefts visible throughout the right tracheobronchial tree. Left tracheobronchial tree was then explored and no endobronchial lesions seen. Left upper lobe, lingual subdivision and left lower lobe were free of endobronchial lesions down to subsegmental bronchi. Each lobar segment was copiously lavaged with normosol and the aspirate sent for appropriate studies. Once the procedure was terminated, patient remains bronchospastic and had to be given another 40 mg IV Solu-Medrol and a nebulizer treatment with Xopenex 1.25 mg and transferred back to ASU-1 hemodynamically stable with no further signs of respiratory compromise. The patient remained somewhat bronchospastic and after careful discussion with both the patient and her sister, decision was made to admit her onto the [facility] hospitalist service for more aggressive medical management with pulmonary toilet that would include aerosolized bronchodilator, IV Solu-Medrol with careful attention to glucose monitoring (patient was seen in the ER, the weekend prior to the procedure and was administered prednisone which she only took 2 days' worth because of its profound effect on contributing to her hyperglycemia). The patient will require round the clock BSG assessment and insulin coverage during this hospital stay. I attest to the content of the Intraoperative Record and any orders documented therein. Any exception s are noted below.
[2018-11-04] MEDS: TRAMADOL HCL 50 MG TABLET PO PRN ×3 (00:44→20:14)
[2018-11-04] MEDS: ACETAMINOPHEN 500 MG TAB PO PRN (03:07)
[2018-11-04] MEDS: ALBUT/IPRATROP 3MG/0.5MG NEB 3 ML VIAL NEB SCH ×6 (03:09→23:06)
[2018-11-04 06:12] LABS: Basophils # (auto) 0.01 K/uL (0-0.2); Basophils % (auto) 0.1 %; Eosinophils # (auto) 0.01 K/uL (0-0.5); Eosinophils % (auto) 0.1 %; Hematocrit (blood only) 38.5 % (37-47); Hemoglobin 13.8 g/dL (12.0-16.0); Immature Granulocytes # (auto) 0.16 K/uL (0.00-0.02); Lymphocytes # (auto) 1.93 K/uL (1.2-3.4); Lymphocytes % (auto) 12.3 %; Mean Corpuscular Hgb Conc 35.8 g/dL (32-36); Mean Corpuscular Volume 89.5 fL (80-100); Mean Platelet Volume 9.7 fL (7.4-10.4); Monocytes # (auto) 0.83 K/uL (0.11-0.59); Monocytes % (auto) 5.3 %; Neutrophils # (auto) 12.72 K/uL (1.4-6.5); Neutrophils % (auto) 81.2 %; Platelet Count 219 K/uL (130-400); RDW Coefficient of Variation 13.1 % (11.5-14.5); RDW Standard Deviation 42.5 fL (36.4-46.3); White Blood Count 15.66 K/uL (4.8-10.8)
[2018-11-04 06:57] LABS: BUN Creatinine Ratio 18.6 (10-20); Calcium 9.3 mg/dl (8.5-10.1); Creatinine Clr Calc Pharmacy 66.3 ml/min; Est GFR (African American) 70.2; Est GFR (Non-African American) 60.6; Potassium 4.1 mmol/L (3.5-5.1)
[2018-11-04 07:10] LABS: Beta-Hydroxybutyrate 1.56 mg/dl (0.2-2.81)
[2018-11-04] MEDS: CARVEDILOL 6.25 MG TAB PO SCH ×3 (07:48→20:50)
[2018-11-04] MEDS: AZITHROMYCIN 250 MG TAB PO SCH (07:54)
[2018-11-04] MEDS: ATORVASTATIN 40 MG TAB PO SCH (07:54)
[2018-11-04] MEDS: PANTOprazole 40 MG TAB PO SCH (07:54)
[2018-11-04] MEDS: BUDESONIDE/FORMOTEROL FUMARATE 160/4.5 60 PUFFS/INHALER INH SCH ×2 (07:54→20:51)
[2018-11-04] MEDS: GABAPENTIN 300 MG CAP PO SCH ×3 (07:54→20:50)
[2018-11-04] MEDS: ASPIRIN 81 MG ECTAB PO SCH (07:54)
[2018-11-04] MEDS: methylPREDNISolone 30 MG in SYRINGE 0 ML IV SCH ×2 (07:55→20:51)
[2018-11-04] MEDS: NICOTINE 21 MG/24 HR TDSY TD SCH (07:55)
[2018-11-04] MEDS ORDERED: PHARMACY GLYCEMIC MGMT CONSULT PRN (08:36)
[2018-11-04] MEDS: INSULIN ASPART 100 UNITS/ML 3 ML PEN SC SCH ×4 (08:58→21:01)
[2018-11-04] MEDS ORDERED: INSULIN GLARGINE SOLOSTAR 100 UNITS/ML 3 ML PEN SQ ONE ×2 (09:00→12:15)
--- NOTE | 2018-11-04 09:43 | Pharmacy Report ---
Glycemic Control Consultation - Date of Service November 04, 2018 - Scope Scope: Glycemic Pharmacist consulted by Selena Carmona on 11-04 for glycemic control and to write orders per [facility] inpatient glycemic control protocol - Objective Weight: 92.6 kg Accuchecks BSG (last 24hrs): 11/03/18 11/03/18 11/03/18 13:13 16:41 20:17 Glucose POC Glucose 205 H 302 H* 249 H 11/04/18 11/04/18 05:18 07:53 Glucose 328 H* POC Glucose 252 H Laboratory Data (last 24hrs): 11/04/18 05:18 Potassium 4.1 Carbon Dioxide 23 Anion Gap 10.0 Creatinine 1.02 Est Cr Clr Drug Dosing 66.3 Beta-Hydroxybutyric Acd 1.56 - Recent Pertinent Medications Outpatient Anti-diabetic Regimen: * Basaglar 16 units HS, lispro SSI * A1c = 6.5 % [06-22-19] The patient is currently receiving: * Basal insulin: Lantus 16 units HS * Correctional Insulin: Novolog Correction per scale ACHS Goal Range: Low 80 mg/dL - High 140 mg/dL Correction Factor: 20 mg/dL/unit * Prandial insulin: Per carb ratio of 1 unit per 7 grams CHO consumed Risk Factors for Insulin Resistance: * Steroids: solm 30 mg IV TID * Diet: T2DM - Assessment & Plan Assessment & Plan: ASSESSMENT: * Patient admitted for COPD exacerbation. PMHx significant for DM2, htn, hld, COPD, osteoarthritis * Patient currently on solumedrol 30 mg iv tid - pharmacy consulted this morning, patient with AM BSG of 328 mg/dL * Steroids had been started yesterday morning, anticipate further steroids induced hyperglycemia - patient received her home dose of Lantus last evening as well as correctional insulin * Per review of MD notes, patient previously on prednisone 50 mg at home and reports BSG of 429 while on steroid * BSGs yesterday elevated 205-304-249 mg/dl - will tighten CF/CR today. After speaking with nurse, patient reports snacking overnight (eating mary crackers) therefore could also have contributed to higher BSG this morning. Will add overnight checks. * Steroids now adjusted from TID to Q12 hr dosing - will continue same insulin plan for now PLAN FOR INPATIENT GLYCEMIC CONTROL: * Basal insulin * Lantus 30 units QAM x 1 * Lantus HS per scale based upon BSG -For BSG less than 160 mg/dL - 8 units -For BSG 160 - 16 units * Bolus insulin - tighten * NovoLog per scale ACHS or Q6hrs while NPO * Goal Range: Low 110 mg/dL - High 140 mg/dL * Correction Factor: 12 mg/dL/unit * Nutritional / Prandial insulin per carb ratio of 1 unit per 5 grams CHO consumed * Please note that the plan above was derived based on current level of insulin resistance and hospital stress. These recommendations are appropriate for inpatient admission only. Plan of care upon discharge will need to be reassessed to avoid potential outpatient hypo/hyperglycemia. Thank you.
--- NOTE | 2018-11-04 12:12 | Hospitalist Progress Note ---
Date of Service November 04, 2018 Assessment & Plan (1) COPD (chronic obstructive pulmonary disease): - Presented with increased SOB/wheezing after failing outpt Azithromycin therapy; has ongoing SOB with exertion today. - S/p bronchoscopy on 11/03, cultures are pending. Pulmonary following. - CXR was negative for PNA. - Duonebs scheduled q4hr; Albuterol q2hr prn. - Continue Azithromycin to complete a 5 day course (end date: 11/05/18) - Solu-medrol 30 mg IV -- will taper to BID dosing. - Continue Symbicort as prescribed; will need Rx for albuterol inhaler at discharge. - Encouraged tobacco cessation. (2) DM type 2 (diabetes mellitus, type 2): - Hgb A1C was 6.25 in Jun 2018; does have steroid induced hyperglycemia, BG>400 after taking PO Prednisone at home. - Continue Lantus with SSI coverage -- pharmacy consulted for glycemic management. - Pt. is concerned about BG management at home in setting of steroids -- will need education about insulin management prior to discharge. - Repeat A1C ordered on 11/05/18. (3) Dyslipidemia: - Continue statin daily. (4) HTN (hypertension): - Continue Coreg as prescribed. (5) Smoker: - Smokes 3/4-1 PPD. - Encouraged tobacco cessation. (6) Chronic right hip pain: - Hip XR and Hip CT were both negative. - Has chronic hip right, was previously prescribed narcotics by former PCP but does not receive meds for pain control at this point. - Was evaluated by pain management a few weeks ago, attributes increased pain to manipulations during appt. - Will need to follow up with pain management as outpatient. (7) Neuropathy: - Continue gabapentin as prescribed. (8) DVT prophylaxis: - Encourage ambulation; Lovenox daily. Dispo: Med/surg; discharge likely on 11/05 pending improvement in SOB and blood glucose management in setting of steroid induced hyperglycemia. Will need PCP appt with Dr. Lori Velázquez rescheduled. Supervising Physician Co-Signing Physician Notes Attending Attestation: Chart reviewed, care plan d/w CRYSTAL Raymond. I agree w/ the sapp components of her documentation. Continue IV steroids for COPD exacerbation. Appreciate pharmacy assistance with T2DM. Kulwant Márquez MD Subjective Pt. has ongoing SOB with exertion today. Is stable on room air; usually requires 2L via NC at night. Has non-productive cough, no improvement. Pain in right hip is stable this morning -- she was recently evaluated by pain management as an outpatient and attributes recent increased right hip pain to manipulatio ns/movement during that appointment. She was also previously prescribed narcotics by her former PCP; her new physician does not prescribe narcotic scripts for pain control. Plan to monitor for another 24 hours. She is very concerned about taking PO steroids at home due to h/o steroid induced hyperglycemia. Discussed with pharmacist, can provide detailed instructions on insulin management in setting of steroids at discharge. Review of Systems Review of Systems: All systems reviewed & are unremarkable except as noted in HPI & below Constitutional: no fever, no chills, no fatigue, no weakness and no anorexia Respiratory: + cough, + dyspnea and + dyspnea on exertion; no change in sputum, no sputum production and no wheezing Cardiovascular: no chest pain, no palpitations, no lightheadedness, no syncope and no edema Gastrointestinal: no abdominal pain, no nausea, no vomiting, no constipation and no diarrhea/loose stools Genitourinary: no difficulty urinating Musculoskeletal: no back pain and no joint pain Integumentary: no non-healing lesions Allergy / Immunological: no rash Physical Exam Physical Exam: General: Resting comfortably in no apparent distress; A&OX3 HEENT: NC/AT; PERRLA with EOMI; [place] conjunctiva, MMM. No erythema of posterior pharynx Neck: Supple and nontender Cardiac: RRR w/o murmurs, gallops or rubs Lungs: on room air; CTA bilaterally Abdomen: Bowel normoactive X 4; Nontender to palpation Extremities: Warm. No edema present Neuro: No focal weakness Skin: No rash Results & Data Vital Signs (Past 12 Hours) Vital Signs Temp Pulse Resp BP Pulse Ox 11/04/18 11:20 78 15 98 11/04/18 07:48 36.8 C 59 L 18 130/79 92 11/04/18 07:27 77 18 92 11/04/18 03:09 63 18 97 Laboratory Results 11/04/18 11/04/18 11/04/18 Range/Units 12:00 07:53 05:18 WBC (4.8-10.8) K/uL RBC (4.2-5.4) M/uL Hgb (12.0-16.0) g/dL Hct (37-47) % MCV (80-100) fL MCH (25-34) pg MCHC (32-36) g/dL RDW Std Deviation (36.4-46.3) fL RDW Coeff of Cathy (11.5-14.5) % Plt Count (130-400) K/uL MPV (7.4-10.4) fL Immature Gran % (Auto) % Neut % (Auto) % Lymph % (Auto) % Emmons % (Auto) % Eos % (Auto) % Baso % (Auto) % Immature Gran # (Auto) (0.00-0.02) K/uL Neut # (Auto) (1.4-6.5) K/uL Lymph # (Auto) (1.2-3.4) K/uL Emmons # (Auto) (0.11-0.59) K/uL Eos # (Auto) (0-0.5) K/uL Baso # (Auto) (0-0.2) K/uL Sodium 137 (136-145) mmol/L Potassium 4.1 (3.5-5.1) mmol/L Chloride 104 (98-107) mmol/L Carbon Dioxide 23 (21-32) mmol/L Anion Gap 10.0 (3-11) BUN 19 H (7-18) mg/dl Creatinine 1.02 (0.6-1.2) mg/dl Est Cr Clr Drug Dosing 66.3 ml/min Est GFR ( Amer) 70.2 Est GFR (Non-Af Amer) 60.6 BUN/Creatinine Ratio 18.6 (10-20) Glucose 328 H* (70-99) mg/dl POC Glucose 295 H 252 H (70-99) Calcium 9.3 (8.5-10.1) mg/dl Phosphorus (2.5-4.9) mg/dl Magnesium (1.8-2.4) mg/dl Beta-Hydroxybutyric Acd 1.56 (0.2-2.81) mg/dl 11/04/18 11/03/18 11/03/18 Range/Units 05:18 20:17 16:41 WBC 15.66 H (4.8-10.8) K/uL RBC 4.30 (4.2-5.4) M/uL Hgb 13.8 (12.0-16.0) g/dL Hct 38.5 (37-47) % MCV 89.5 (80-100) fL MCH 32.1 (25-34) pg MCHC 35.8 (32-36) g/dL RDW Std Deviation 42.5 (36.4-46.3) fL RDW Coeff of Cathy 13.1 (11.5-14.5) % Plt Count 219 (130-400) K/uL MPV 9.7 (7.4-10.4) fL Immature Gran % (Auto) 1.0 % Neut % (Auto) 81.2 % Lymph % (Auto) 12.3 % Emmons % (Auto) 5.3 % Eos % (Auto) 0.1 % Baso % (Auto) 0.1 % Immature Gran # (Auto) 0.16 H (0.00-0.02) K/uL Neut # (Auto) 12.72 H (1.4-6.5) K/uL Lymph # (Auto) 1.93 (1.2-3.4) K/uL Emmons # (Auto) 0.83 H (0.11-0.59) K/uL Eos # (Auto) 0.01 (0-0.5) K/uL Baso # (Auto) 0.01 (0-0.2) K/uL Sodium (136-145) mmol/L Potassium (3.5-5.1) mmol/L Chloride (98-107) mmol/L Carbon Dioxide (21-32) mmol/L Anion Gap (3-11) BUN (7-18) mg/dl Creatinine (0.6-1.2) mg/dl Est Cr Clr Drug Dosing ml/min Est GFR ( Amer) Est GFR (Non-Af Amer) BUN/Creatinine Ratio (10-20) Glucose (70-99) mg/dl POC Glucose 249 H 302 H* (70-99) Calcium (8.5-10.1) mg/dl Phosphorus (2.5-4.9) mg/dl Magnesium (1.8-2.4) mg/dl Beta-Hydroxybutyric Acd (0.2-2.81) mg/dl 11/03/18 11/03/18 Range/Units 13:13 13:13 WBC (4.8-10.8) K/uL RBC (4.2-5.4) M/uL Hgb (12.0-16.0) g/dL Hct (37-47) % MCV (80-100) fL MCH (25-34) pg MCHC (32-36) g/dL RDW Std Deviation (36.4-46.3) fL RDW Coeff of Cathy (11.5-14.5) % Plt Count (130-400) K/uL MPV (7.4-10.4) fL Immature Gran % (Auto) % Neut % (Auto) % Lymph % (Auto) % Emmons % (Auto) % Eos % (Auto) % Baso % (Auto) % Immature Gran # (Auto) (0.00-0.02) K/uL Neut # (Auto) (1.4-6.5) K/uL Lymph # (Auto) (1.2-3.4) K/uL Emmons # (Auto) (0.11-0.59) K/uL Eos # (Auto) (0-0.5) K/uL Baso # (Auto) (0-0.2) K/uL Sodium (136-145) mmol/L Potassium (3.5-5.1) mmol/L Chloride (98-107) mmol/L Carbon Dioxide (21-32) mmol/L Anion Gap (3-11) BUN (7-18) mg/dl Creatinine (0.6-1.2) mg/dl Est Cr Clr Drug Dosing ml/min Est GFR ( Amer) Est GFR (Non-Af Amer) BUN/Creatinine Ratio (10-20) Glucose (70-99) mg/dl POC Glucose 205 H (70-99) Calcium (8.5-10.1) mg/dl Phosphorus 3.8 (2.5-4.9) mg/dl Magnesium 2.0 (1.8-2.4) mg/dl Beta-Hydroxybutyric Acd (0.2-2.81) mg/dl (1) DM type 2 (diabetes mellitus, type 2) Diabetes mellitus complication status: with unspecified complications 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
[2018-11-04] MEDS: ENOXAPARIN INJ 40 MG/0.4 ML SYR SQ SCH (14:01)
[2018-11-04] MEDS ORDERED: INSULIN HUMAN REGULAR PER UNIT 10 UNITS in SYRINGE 9.9 ML IV SCH (18:00)
[2018-11-04] MEDS: TRAZODONE HCL 100 MG TAB PO SCH (20:50)
[2018-11-04] MEDS ORDERED: INSULIN GLARGINE SOLOSTAR 100 UNITS/ML 3 ML PEN SQ SCH (21:00)
[2018-11-05] MEDS: INSULIN ASPART 100 UNITS/ML 3 ML PEN SC SCH ×4 (00:32→13:03)
[2018-11-05] MEDS: TRAMADOL HCL 50 MG TABLET PO PRN (00:51)
[2018-11-05] MEDS: ACETAMINOPHEN 500 MG TAB PO PRN ×2 (00:52→08:28)
[2018-11-05] MEDS: ALBUT/IPRATROP 3MG/0.5MG NEB 3 ML VIAL NEB SCH ×4 (04:11→15:02)
[2018-11-05 07:07] LABS: Hematocrit (blood only) 43.5 % (37-47); Hemoglobin 15.1 g/dL (12.0-16.0); Mean Corpuscular Hgb Conc 34.7 g/dL (32-36); Mean Platelet Volume 9.5 fL (7.4-10.4); Platelet Count 231 K/uL (130-400); RDW Coefficient of Variation 13.2 % (11.5-14.5); RDW Standard Deviation 43.8 fL (36.4-46.3); Red Blood Count 4.78 M/uL (4.2-5.4); White Blood Count 15.65 K/uL (4.8-10.8)
--- NOTE | 2018-11-05 07:40 | Consultation Report ---
DATE OF CONSULTATION: 11/04/2018 PULMONARY MEDICINE CONSULTATION TIME: 1100. REASON FOR CONSULTATION: COPD exacerbation, status post bronchoscopy with BAL. HISTORY OF PRESENT ILLNESS: A 58-year-old white female with severe COPD and ongoing smoking history, who underwent bronchoscopic evaluation yesterday for refractory chest congestion, cough, despite aggressive outpatient management and recent ER visitation. The patient remained bronchospastic post procedure and a decision was made to admit her for further evaluation and therapy and treatment. The patient has smoked up to the time of the bronchoscopy. She had been prescribed prednisone as an outpatient from the ER, but had not taken more than 2 days of therapy because of its effect on her diabetes and poor control. Decision was made to admit her on to the [facility] hospitalist service post procedure for additional treatment. She was admitted by the physician farm assistant. For details of past medical history, medications, family and social history, I refer you to current and past record and the history and physical for the bronchoscopic evaluation. PHYSICAL EXAMINATION: VITAL SIGNS: Blood pressure 130/79, pulse 78 and regular, respiratory rate 15, temperature 36.8, O2 sat 98% on room air. SKIN: Without lesion. HEENT: Atraumatic, normocephalic. PERRLA. LUNGS: Scattered wheeze, distant P and A. CARDIAC: Regular rate and rhythm. No murmurs or gallops. ABDOMEN: Soft, protuberant. EXTREMITIES: No significant pedal edema, clubbing, or cyanosis. NEUROLOGIC: Intact. No lateralizing signs. LABORATORY DATA: Bronchial washings previously had grown out Shabnam albicans from 06/28/2018, current cultures are pending. Hip CT scan done last night because of persistent pain showed no acute fracture or dislocation. There is [id number] right hip osteoarthritis noted. White count 15,000, H&H 13.8 and 38.5, 2.4% eosinophilia on admission. Other studies pending. ASSESSMENT AND PLAN: A 58-year-old with severe chronic obstructive pulmonary disease exacerbation, refractory to outpatient management, who underwent bronchoscopy, bronchoalveolar lavage, and inpatient management. I agree with current selection of antibiotic pending culture, results of the bronchial washings, and additional studies. I have had patient agree to staying in another 24 hours and will need both long-acting insulin to be continued with perhaps the dose being adjusted and coverage at mealtime as well to take into consideration moderately severe hyperglycemia from steroid utilization. Slow taper over a 16- to 24-day course is warranted.
[2018-11-05 07:46] LABS: BUN Creatinine Ratio 19.3 (10-20); Calcium 9.1 mg/dl (8.5-10.1); Creatinine Clr Calc Pharmacy 74.3 ml/min; Est GFR (African American) 80.6; Est GFR (Non-African American) 69.5; Potassium 3.9 mmol/L (3.5-5.1)
[2018-11-05 07:53] LABS: Estimated Average Glucose 180 mg/dl; Hemoglobin A1C 7.9 % (4.5-5.6)
[2018-11-05] MEDS: ASPIRIN 81 MG ECTAB PO SCH (08:17)
[2018-11-05] MEDS: methylPREDNISolone 30 MG in SYRINGE 0 ML IV SCH (08:17)
[2018-11-05] MEDS: AZITHROMYCIN 250 MG TAB PO SCH (08:17)
[2018-11-05] MEDS: GABAPENTIN 300 MG CAP PO SCH ×2 (08:17→13:04)
[2018-11-05] MEDS: NICOTINE 21 MG/24 HR TDSY TD SCH (08:18)
[2018-11-05] MEDS: ENOXAPARIN INJ 40 MG/0.4 ML SYR SQ SCH (08:19)
[2018-11-05] MEDS: ATORVASTATIN 40 MG TAB PO SCH (08:19)
[2018-11-05] MEDS: CARVEDILOL 6.25 MG TAB PO SCH (08:19)
[2018-11-05] MEDS: PANTOprazole 40 MG TAB PO SCH (08:19)
[2018-11-05] MEDS: BUDESONIDE/FORMOTEROL FUMARATE 160/4.5 60 PUFFS/INHALER INH SCH (08:20)
[2018-11-05] MEDS ORDERED: INSULIN GLARGINE SOLOSTAR 100 UNITS/ML 3 ML PEN SQ ONE (09:00)
[2018-11-05] MEDS ORDERED: METFORMIN HCL 500 MG TAB PO SCH ×2 (09:50→17:00)
[2018-11-05] MEDS ORDERED: FLUTICASONE PROPIONATE NA SPR 16 GM BTL SCH (10:00)
[2018-11-05] MEDS ORDERED: CETIRIZINE HCL 10 MG TABLET PO SCH (10:15)
[2018-11-05] MEDS ORDERED: predniSONE 20 MG TAB PO SCH ×2 (12:00→15:00)
--- NOTE | 2018-11-05 12:37 | Pharmacy Report ---
Pharmacy Glycemic Short Note 2 - Date of Service November 05, 2018 - Glycemic Short BSG Results (Last 24 hours): 11/04/18 11/04/18 11/05/18 16:39 20:06 00:16 Glucose POC Glucose 332 H* 100 H 163 H 11/05/18 11/05/18 11/05/18 03:58 06:45 07:56 Glucose 225 H POC Glucose 193 H 176 H OUTPATIENT ANTIDIABETIC REGIMEN: * Basaglar 16 units every evening * Humalog QID per sliding scale as follows: * for BSG 200-250 = 3 units * for BSG 250-300 = 6 units * for BSG greater than 300 = 9 units ASSESSMENT: * Patient received total of 119 units of insulin yesterday of which 46 units were basal Lantus and the rest were bolus Novolog. * Patient was receiving Solu Medrol 30 mg IV q12h for COPD exacerbation. This has now changed to Prednisone 60 mg daily starting today then taper down by 10 mg every 3 days upon discharge. * I spoke to patient today- she said she checks her blood sugars at home four to five times a day but this is randomly done when she feels like her glucose is high and not exactly before meals. * I also spoke to the nurse at [facility] medicine office in [place] who confirmed that patient was on both Basaglar and Humalog. She was prescribed Metformin before but this was stopped because of diarrhea. * Recommended starting Metformin XR 500 mg once daily with evening meal to Selena Carmona PA-C today to try while patient still hospitalized to see if she can tolerate the XR form of Metformin without problems. Patient had also told me she gets diarrhea off and on anyway and did not recall that Metformin had caused diarrhea in the past. * Fasting BSG = 176 this AM, this is better than yesterday but still high, therefore carb ratio was tightened with lunch today. Will also order a higher dose of Lantus based on scale with HS dose tonight. PLAN FOR INPATIENT GLYCEMIC CONTROL: * Added oral Metformin 500 mg XR daily with dinner * Basal insulin- increased * Lantus 30 units SQ this AM, then per scale at HS - for BSG less than 160- give 16 units - for BSG 160 - 200- give 22 units - for BSG greater than 200- give 25 units * Bolus insulin- tightened and add overnight checks tonight. * NovoLog per scale ACHS or Q6hrs while NPO * Goal Range: Low 110 mg/dL - High 140 mg/dL * Correction Factor: 15 mg/dL/unit * Nutritional / Prandial insulin per carb ratio of 1 unit per 5 grams CHO consumed PLAN FOR DISCHARGE: * HbA1c = 7.9% * Patient to be discharged on Prednisone 60 mg daily x 3 days then 50 mg x 3 days, 40 mg x 3 days, 30 mg x 3 days, 20 mg x 2 days then 10 mg x 2 days. * Recommend: - increasing Lantus (or Basaglar) home dose to 30 units every evening while on Prednisone 60 mg, 50 mg and 40 mg doses, - decrease to 25 units Basaglar for Prednisone 30 mg, - decrease to 20 units Basaglar for Prednisone 20 mg, - decrease to 16 units (home dose) Basaglar for Prednisone 10 mg then continue this after prednisone is finished. * Recommend: - increasing Humalog to 5 units + home sliding scale dose while on Prednisone 60 mg, 50 mg and 40 mg doses. - 4 units + home sliding scale dose for Prednisone 30 mg - 3 units + home sliding scale dose for Prednisone 20 mg - 1 unit + home sliding scale dose for Prednisone 10 mg - continue only home sliding scale dose after Prednisone finished. * Continue Metformin XR 500 mg PO with evening meal. * Educate patient to check BSGs before meals TID and HS rather than at random ti mes.
[2018-11-05 15:00] LABS: CMV DNA Qnt Real Time PCR <200 IU/mL (<200); CMV DNA Quant PCR <2.30 log IU/mL (<2.30)
--- NOTE | 2018-11-05 15:36 | Discharge Summary ---
Date of Service November 05, 2018 Admission HPI Per Admitting Provider Karon Sanchez is a pleasant 58yo C female with history of O2 dependent COPD on 2L, LISANDRA, HTN, HLP and DM. Patient was seen in the ER on 11/01/18 with complaint of right hip pain x 3 weeks. Her hip workup was negative but she was diagnosed with bronchitis and discharged on Azithromycin. Patient reports 2-3 days of worsening SOB and GRAY as well as dry cough and worsening wheezing. She has been taking her Symbicort at home. Reports that she does not have Albuterol at home. She took some PO Prednisone at home which caused her blood sugar to increase to 429. She had a subjective fever yesterday as well as some nausea and dizziness. She had a bronchoscopy performed by Dr. Hidalgo today and is recommended to stay overnight for continued observation and treatment of suspected COPD exacerbation. Patient additionally complaining of right hip pain and loose stools. Admission Exam Per Admitting Provider General: patient resting comfortably, NAD, non-toxic in appearance, AA&O x 4 Skin: warm, dry, intact, no rashes or lesions HEENT: NC/AT, PERRL, EOMI, anicteric sclera, conjunctiva without injection, external ear normal to inspection and nontender, nares patent, moist mucus membranes, dentition intact, no oropharyngeal lesions, neck supple, trachea midline, no LAD, no thyromegaly, no JVD Heart: +S1/S2, regular, no m/r/g Lungs: equal air entry bilaterally, no rales/rhonchi, faint scattered end- expiratory wheezes Abd: +BS, soft, NT/ND, no masses/organomegaly/ascites Ext: warm, 2+ pulses in UE/LE bilaterally, no clubbing/cyanosis or edema, pain with palpation of right abdomen, no rebound/guarding/peritoneal signs Neuro: nonfocal, patient AA&O x 4, speech intact, no facial droop, moving all extremities on command with equal strength 5/5 Principal Diagnosis COPD Exacerbation Discharge Exam General: Resting comfortably in no apparent distress; A&OX3 HEENT: NC/AT; PERRLA with EOMI; Worden conjunctiva, MMM. No erythema of posterior pharynx Neck: Supple and nontender Cardiac: RRR w/o murmurs, gallops or rubs Lungs: on room air; scattered rhonchi and wheezing throughout all lung garcia. Abdomen: Bowel normoactive X 4; Nontender to palpation Extremities: Warm. No edema present Neuro: No focal weakness Skin: No rash Discharge Data Allergies Allergy/AdvReac Type Severity Reaction Status Date / Time sumatriptan Allergy Intermediate DIAPHORESIS, Verified 11/03/18 08:29 "SKIN CRAWLING" carbamazepine Allergy Unknown RASH Verified 11/03/18 08:29 metformin AdvReac Severe Diarrhea Verified 11/03/18 08:29 Consultations 11/03/18 10:48 Consult Hospitalist Routine Procedures Performed Operation Date: 11/03/18 09:00 Actual Procedures p Bronchoscopy (Bilateral) - Papi Hidalgo MD Ordered Studies 11/03/18 20:13 CT hip RT wo con Routine CXR 11/01 and 11/03 Hospital Course (1) COPD (chronic obstructive pulmonary disease): Presented with increased SOB/wheezing after failing outpt Azithromycin therapy. S/p bronchoscopy on 11/03, cultures negative to date. Pulmonary following. CXR negative for PNA. Duonebs scheduled q4hr; Albuterol nebs q2hr prn. Completed 5 day course of Azithromycin. Solu-medrol 30 mg IV TID started at admission, tapered and converted to 60 mg PO daily. Will complete a 16 day course per pulmonary recs. Continued Symbicort as prescribed. Also provided script for albuterol inhaler at discharge. Encouraged tobacco cessation. (2) DM type 2 (diabetes mellitus, type 2): Hgb A1C was 6.25 in Jun 2018; does have steroid induced hyperglycemia, BG>400 after taking PO Prednisone at home. Continued Lantus with SSI coverage -- pharmacy was consulted for glycemic management due to severely uncontrolled blood glucose levels. Pt. was concerned about BG management at home in setting of steroids -- multiple providers, including wall and floor tiler, filter operator and pharmacist discussed plan for insulin taper in setting of steroids. A handout was also provided. Will increase basal to 30 units qhs, continue SSI coverage and add Humalog 5 units with all meals. Instructed to begin tapering mealtime Humalog by 1 unit and taper basal insulin by 5 units on 11/15 (after Prednisone is tapered to 30 mg daily). Will decrease mealtime insulin by 1 unit and basal insulin by 5 mg with every 10 mg decrease in Prednisone Repeat A1C was 7.9 during this admission. (3) Dyslipidemia: Continued statin daily. (4) HTN (hypertension): Continued Coreg as prescribed. (5) Smoker: Smokes 3/4-1 PPD. Encouraged tobacco cessation. (6) Chronic right hip pain: Hip XR and Hip CT were both negative. Has chronic hip right, was previously prescribed narcotics by former PCP but does not receive meds for pain control at this point. Was evaluated by pain management a few weeks ago, attributes increased pain to manipulations during appt. Will need to follow up with pain management as outpatient. (7) Neuropathy: Continued gabapentin as prescribed. (8) DVT prophylaxis: Encouraged ambulation; Lovenox daily. Discharged to home on 11/05/18. Will f/u with pulmonary and PCP as outpatient. Total Time Total Time Spent Total Time Spent (In Minutes): >30 minutes Total Time Includes: Examination of the Patient, Discharge Planning, Medication Reconciliation, Communication With Other Providers and Other Discharge Plan Discharge Items Patient Disposition: Home - Self-Care Reason For Visit: COPD EXACERBATION Discharge Diagnosis: COPD Exacerbation Condition: Fair Discharge Goals: Decrease discomfort, Improve disease control, Improve function, Increase independence, Improve nutritional status and Prevent disease Activity: As commented below Exercise/Sports: Gradually increase as tolerated Non-emergency contact: Primary Care Provider Call non-emergency contact if: you have any medication questions, your symptoms worsen, your pain is not controlled, your pain is worsening, your pain is unusual for you, your pain is concerning for you and you have a fever Follow-up/Referrals: Dmitriy Busch PA-C [Physician Bridge Ironworker Helper] - 11/13/18 10:45 am (Please, follow up at [facility] with Liborio Busch PA-C on November 13 at 10:45 am. *The office is located in [address] of [facility]. This is the big building located next to this hospital. Disregard the above address on [facility] - that was the old office. If you need to change this appointment, call the office at [phone].) Lori Velázquez CRNP, MS, EDWINC [Primary Care Provider] - 11/12/18 2:00 pm (Please, follow up at [facility] Velázquez's office with her associate, Jerrica Marr PA-C, on SaturdayNovember 12 at 2:00 pm. *The office is located in [address] of [facility]. This is the big building located next to the office. If you need to change this appointment, call the office at [phone]. ) Diet: Carb Consistent or DM2 Addtl Provider Instructions: 1. COPD * Please continue Prednisone taper as follows (20 mg tablets) - Prednisone 60 mg daily x 3 days (3 tablets) -- 11/06-11/08. - Prednisone 50 mg daily x 3 days (2.5 tablets) -- 11/09-11/11. - Prednisone 40 mg daily x 3 days (2 tablets) -- 11/12-11/14. - Prednisone 30 mg daily x 3 days (1.5 tablets) - 11/15-11/17. - Prednisone 20 mg daily x 2 days (1 tablet) -- 11/18-11/19. - Prednisone 10 mg daily x 2 days (0.5 tablet) -- 11/20-11/21. * Please continue Symbicort as prescribed; prescription for Albuterol inhaler was also sent to your pharmacy -- this medication can be used every 4-6 hours for increased wheezing. * Please continue nebulizer machine with Duonebs every 6 hours scheduled at home. * Discontinue tobacco use at home. * Please follow up with your primary care provider and pulmonary as scheduled in the outpatient clinic. 2. Diabetes Mellitus * It is very important to monitor blood glucose checks with meals and at bedtime -- record all readings and bring records to your primary care appointment. * Metformin XR 500 mg daily has been started -- please take this medication every evening with dinner. Prescription was sent to your pharmacy. * Please follow instructions for insulin dosing per handout provided by our filter operator. * Please follow up with your primary care provider as scheduled on 11/12/18. 3. Chronic Right Hip Pain * Please reschedule appointment with pain management to discuss pain management options. Prescriptions: New Novolog Flexpen U-100 Insulin 100 unit/mL (3 mL) Insulin Pen 5 units SC AC Qty: 15 RF: 0 prednisone 20 mg Tablet 60 mg PO DAILY Qty: 30 RF: 0 metformin 500 mg Tablet Extended Release 24 Hr 500 mg PO QDD 30 Days Qty: 30 RF: 1 albuterol sulfate 90 mcg/actuation HFA aerosol inhaler 1 puffs INH Q6H PRN (Reason: shortness of breath or wheezing) Qty: 6.7 RF: 0 Continued Symbicort 160-4.5 mcg/actuation Hfa Aerosol Inhaler 2 puff INHALATION BID RF: 0 Oxygen Home Liters Per Minute RF: 0 atorvastatin [Lipitor] 40 mg tablet 40 mg PO DAILY RF: 0 ipratropium-albuterol 0.5 mg-3 mg(2.5 mg base)/3 mL Solution For Nebulization 3 ml INHALATION QID PRN (Reason: Shortness Of Breath Or Wheezing) RF: 0 trazodone 100 mg tablet 100 mg PO HS RF: 0 pantoprazole [Protonix] 40 mg tablet,delayed release (DR/EC) 40 mg PO DAILY RF: 0 gabapentin [Neurontin] 300 mg capsule 300 mg PO TID RF: 0 carvedilol [Coreg] 6.25 mg tablet 6.25 mg PO BID RF: 0 aspirin [Aspir-Low] 81 mg Tablet,Delayed Release (Dr/Ec) 81 mg PO DAILY RF: 0 acetaminophen [Tylenol Extra Strength] 500 mg Tablet 500 mg PO Q6H PRN (Reason: Pain) RF: 0 fluticasone propionate 50 mcg/actuation spray,suspension 2 spray Intranasal DAILY PRN (Reason: Allergy Symptoms) RF: 0 polyethylene glycol 3350 [ClearLax] 17 gram/dose powder 17 g PO DAILY PRN (Reason: Constipation) RF: 0 Changed insulin lispro [Admelog SoloStar U-100 Insulin] 100 unit/mL insulin pen subcut QID PRN (Reason: sliding scale) Qty: 0 RF: 0 Basaglar KwikPen U-100 Insulin 100 unit/mL (3 mL) insulin pen 30 unit subcut QPM Qty: 0 RF: 0 Discontinued prednisone 50 mg tablet 50 mg PO DAILY 5 Days Qty: 5 RF: 0 Stand-Alone Forms: [facility] Discharge Orders: Discharge Order (Routine); Ordered 11/05/18 Ordered By: Selena Carmona Admission Data Admit Date/Time: 11/03/18 11:56 Attending Provider: Kulwant Márquez Admit Provider: Annie Castro Primary Care Provider: Lori Velázquez Other Providers: Moncho Mullen ; Lexi Kinney ; Armando Grimm ; Lois Maldonado ; Jayson Holden ; Ángel Berg ; Booker Tyler ; Devaughn Yeager ; Chloe Vega ; Cathy Bello ; Rekha Seaman ; Jorge Rosas ; Annie Castro ; Vahe Pandey ; Osmin Alvarado ; Valdemar Perez ; Selena Carmona ; Leona Gunn ; Americo Priest ; Reginaldo Green ; Casie Mittal ; Colette Rojo ; Anish Dasilva Service: Medical Other Interventions: Discharge Summary Assessment (RN) Last Done: 11/05/18 15:19 Pending Studies at Discharge: No DC Date/Time DO NOT enter until pt leaves facility: 11/05/18 15:39 Supervising Physician Co-Signing Physician Notes Attending Discharge Note & Attestation - Pt seen/examined, chart reviewed, discharge care plan d/w PA Selena Carmona. I agree w/ the sapp components of her documentation. 58yo female with COPD and tobacco use who underwent bronchoscopy by Dr Faustino Hidalgo on day of admission. Following the procedure the patient had severe bronchospasm and decision was made to admit for COPD exacerbation. She was treated in the customary fashion with IV steroids, bronchodilators, etc. She gradually improved over the course of her stay. She will take a long prednisone taper at home. She was also given very specific instructions re: her T2DM control at home in the context of steroid use. Discharge exam - gen - obese, NAD mouth - no thrush heart - RRR, s1, s2 lungs - mild end-exp wheeze, good airation, no rales abd - soft NT ext - no edema Kulwant Márquez MD
[2018-11-05] MEDS ORDERED: METFORMIN HCL ER 500 MG TABCR PO SCH (16:30)
[2018-11-05] MEDS ORDERED: INSULIN GLARGINE SOLOSTAR 100 UNITS/ML 3 ML PEN SQ SCH (21:00)
[2018-11-06] MEDS ORDERED: INSULIN ASPART 100 UNITS/ML 3 ML PEN SC SCH
== END 2018-11-05 15:39 | disposition home or self-care (01) | DRG 192 ==
LOC: ASU 07:41 → 4W 11:56 → SUATTDRO 11:56

== ENCOUNTER 2019-01-23 15:45 | Inpatient (IN) ==
[2019-01-23] MEDS ORDERED: ALBUT/IPRATROP 3MG/0.5MG NEB 3 ML VIAL NEB ONE (17:12)
[2019-01-23] MEDS ORDERED: methylPREDNISolone 80 MG in SYRINGE 0 ML IV STA (17:12)
[2019-01-23] MEDS ORDERED: LORazepam 1 MG/2 ML VIAL IV STA (17:12)
[2019-01-23 17:20] LABS: Basophils # (auto) 0.01 K/uL (0-0.2); Basophils % (auto) 0.1 %; Hematocrit (blood only) 42.8 % (37-47); Immature Granulocytes # (auto) 0.07 K/uL (0.00-0.02); Immature Granulocytes % (auto) 0.7 %; Lymphocytes # (auto) 1.36 K/uL (1.2-3.4); Lymphocytes % (auto) 12.8 %; Mean Corpuscular Volume 93.2 fL (80-100); Mean Platelet Volume 9.5 fL (7.4-10.4); Monocytes # (auto) 0.54 K/uL (0.11-0.59); Monocytes % (auto) 5.1 %; Neutrophils # (auto) 8.68 K/uL (1.4-6.5); Neutrophils % (auto) 81.3 %; Platelet Count 211 K/uL (130-400); RDW Coefficient of Variation 14.4 % (11.5-14.5); RDW Standard Deviation 48.6 fL (36.4-46.3); Red Blood Count 4.59 M/uL (4.2-5.4); White Blood Count 10.66 K/uL (4.8-10.8)
[2019-01-23 17:27] LABS: Blood Urea Nitrogen 15 mg/dl (7-18); Carbon Dioxide 28 mmol/L (21-32); Chloride 106 mmol/L (98-107); Creatinine Clr Calc Pharmacy 73.1 ml/min; Est GFR (African American) 79.6; Est GFR (Non-African American) 68.6; Glucose 283 mg/dl (70-99); Potassium 4.2 mmol/L (3.5-5.1); Sodium 140 mmol/L (136-145)
[2019-01-23 17:32] LABS: Troponin I < 0.015 ng/ml (0-0.045)
--- NOTE | 2019-01-23 17:36 | Emergency Department Note ---
History of Present Illness General Chief complaint: Shortness of Breath/Dyspnea Stated complaint: copd, trouble breathing Time Seen by Provider: 01/23/19 16:41 History of Present Illness Maximum Pain Intensity: 7 Patient is a 58-year-old female with past medical history significant for COPD, diabetes on insulin, dyslipidemia, hypertension, GERD, depression and LISANDRA on CPAP who presents the emergency department for evaluation of cough and shortness of breath times roughly 4 weeks. Patient reports she came down with an upper respiratory illness about 3 to 4 weeks ago. Subsequently settled in her chest. She was seen by her primary care provider first on the , 16 days ago. She received a nebulizer in the office. A chest x-ray was performed and was negative. She was sent home on Augmentin and a prednisone taper and instructed to continue her inhalers, including albuterol and Symbicort. Patient had follow-up in 1 week on the . At that point she was not getting any better. She received 2 nebulizers in the office and IM Depo-Medrol. She was switched from Augmentin to Levaquin and continued on prednisone. She continues to do albuterol nebulizers every 4 hours and is using her inhalers. Patient was still not improving. She went to urgent care this week on the . They increased her prednisone again, and placed her on cough syrup with codeine, which she states helps with her cough, but gives her a headache and makes her feel nauseous. She is still not getting any better. She called her PCP today and they referred her to the emergency department as they did not want her to wait through the weekend. Patient states that her blood sugars have been erratic due to the prednisone. Today she was able to clear some sputum that was yellow, this is the first her cough has been productive. She notes a stabbing pain in the midsternal area of her chest and a an aching pain in the scapulas of her back with coughing and deep breathing. She has not documented any fevers. She reports a headache from all of the coughing. Home Medications Home Medications Medication Instructions Recorded Confirmed Type acetaminophen [Tylenol Extra 500 mg PO Q6H PRN 04/24/18 01/23/19 History Strength] aspirin [Aspir-Low] 81 mg PO DAILY 04/24/18 01/23/19 History atorvastatin [Lipitor] 40 mg PO DAILY 04/24/18 01/23/19 History carvedilol [Coreg] 6.25 mg PO BID 04/24/18 01/23/19 History ipratropium-albuterol 3 ml INHALATION QID PRN 04/24/18 01/23/19 History pantoprazole [Protonix] 40 mg PO DAILY 04/24/18 01/23/19 History trazodone 100 mg PO HS 04/24/18 01/23/19 History fluticasone propionate 2 spray INTRANASAL DAILY PRN 06/21/18 01/23/19 History polyethylene glycol 3350 [ClearLax] 17 g PO DAILY PRN 11/01/18 01/23/19 History Symbicort 2 puff INHALATION BID 11/03/18 01/23/19 History gabapentin 300 mg capsule 300 mg PO TID #90 cap 12/16/18 01/23/19 Rx escitalopram 10 mg tablet 10 mg PO DAILY #90 tab 01/07/19 01/23/19 Rx prednisone 10 mg tablet See Rx Instructions .ROUTE 01/13/19 01/23/19 Rx .COMPLEX #100 tablet prednisone 10 mg tablet 10 mg PO DAILY #20 tab 01/14/19 01/23/19 Rx levofloxacin 750 mg tablet 750 mg PO DAILY #10 tab 01/19/19 01/23/19 Rx Basaglar KwikPen U-100 Insulin 20 unit SUBCUT QPM 01/23/19 01/23/19 History albuterol sulfate 1 puffs INH Q6H PRN 01/23/19 01/23/19 History vseakyiabw-kosozynifirjd-fphm 1 cap PO Q8H PRN 01/23/19 01/23/19 History [Fioricet] insulin lispro [Admelog SoloStar 5 unit SUBCUT TIDM PRN 01/23/19 01/23/19 History U-100 Insulin] metformin 500 mg PO DAILY 01/23/19 01/23/19 History Allergies Allergy/AdvReac Type Severity Reaction Status Date / Time sumatriptan Allergy Intermediate DIAPHORESIS, Verified 01/23/19 17:30 "SKIN CRAWLING" carbamazepine Allergy Unknown RASH Verified 01/23/19 17:30 Past Med/Surg History Medical History LISANDRA on CPAP (Chronic) Nonalcoholic hepatosteatosis (Chronic) Trigeminal neuralgia (Chronic) DM type 2 (diabetes mellitus, type 2) (Chronic) Osteoarthritis (Chronic) COPD (chronic obstructive pulmonary disease) (Chronic) 2L O2 Depression (Chronic) HTN (hypertension) (Chronic) Dyslipidemia (Chronic) Surgical History History of bronchoscopy (Resolved) History of bladder surgery (Resolved) History of right oophorectomy (Resolved) H/O ankle fusion (Resolved) H/O arthroscopic knee surgery (Resolved) History of cholecystectomy (Resolved) History of tonsillectomy (Resolved) H/O inguinal hernia repair (Resolved) H/O: hysterectomy (Resolved) Family History Father Coronary heart disease Myocardial infarction Mother Coronary heart disease Myocardial infarction Brother Myocardial infarction Social History Preferred Language: Japanese Communication Ability: Effective Visual Impairment: No Limitations Fire Protection Specialist Required: No Beliefs That Will Affect Care: None marital status: Current Living Situation: Spouse Current Living Situation Comment: home on weekends Other Information That Helps Us Care for You: No Feels Safe at Home: Yes Safety Concerns: Feels Safe At This Time Smoking Status: Current every day smoker Tobacco Type: cigarettes ; Cigarettes Per Day: 20 ; Do You Dip or Chew Tobacco: No ; Second Hand Exposure: No ; Tobacco Cessation Education Requested by Patient: Yes Hx Alcohol Use: No Hx Substance Use: No Review of Systems A total of 10 systems reviewed and were otherwise negative Physical Exam Vital Signs Vital Signs - 24 hr 01/23/19 15:48 01/23/19 16:49 01/23/19 16:50 Temperature 36.9 C Temperature Source Oral Sepsis Recent Fever Within 48 Hours No Sepsis New/Unexplained Change in Mental Status No Sepsis Action Taken by Nursing No Action Required Pulse Rate 77 71 71 Pulse Rate [Apical] Pulse Rate from SpO2 Sensor 73 71 Respiratory Rate 24 13 28 H Respiratory Effort / Characteristics Short of Breath SOB on Exertion Respiratory Depth Respiratory Pattern Blood Pressure 136/69 Blood Pressure [Right Arm] Blood Pressure Mean 91 Blood Pressure Mean [Right Arm] Blood Pressure Position Sitting Blood Pressure Position [Right Arm] Pulse Oximetry 97 95 96 Oxygen Delivery Method Room Air Oxygen Flow Rate 01/23/19 16:51 01/23/19 17:00 01/23/19 17:10 Temperature Temperature Source Sepsis Recent Fever Within 48 Hours Sepsis New/Unexplained Change in Mental Status Sepsis Action Taken by Nursing Pulse Rate 79 71 Pulse Rate [Apical] Pulse Rate from SpO2 Sensor 77 79 Respiratory Rate 20 18 Respiratory Effort / Characteristics Respiratory Depth Respiratory Pattern Blood Pressure Blood Pressure [Right Arm] Blood Pressure Mean Blood Pressure Mean [Right Arm] Blood Pressure Position Blood Pressure Position [Right Arm] Pulse Oximetry 94 93 Oxygen Delivery Method Room Air Oxygen Flow Rate 94 01/23/19 17:20 01/23/19 17:30 01/23/19 17:40 Temperature Temperature Source Sepsis Recent Fever Within 48 Hours Sepsis New/Unexplained Change in Mental Status Sepsis Action Taken by Nursing Pulse Rate 70 72 70 Pulse Rate [Apical] Pulse Rate from SpO2 Sensor 68 74 69 Respiratory Rate 19 27 H 24 Respiratory Effort / Characteristics Respiratory Depth Respiratory Pattern Blood Pressure Blood Pressure [Right Arm] Blood Pressure Mean Blood Pressure Mean [Right Arm] Blood Pressure Position Blood Pressure Position [Right Arm] Pulse Oximetry 92 95 94 Oxygen Delivery Method Oxygen Flow Rate 01/23/19 17:50 01/23/19 17:51 01/23/19 17:58 Temperature Temperature Source Sepsis Recent Fever Within 48 Hours Sepsis New/Unexplained Change in Mental Status Sepsis Action Taken by Nursing Pulse Rate 70 66 Pulse Rate [Apical] 63 75 Pulse Rate from SpO2 Sensor 71 65 Respiratory Rate 18 18 17 Respiratory Effort / Characteristics Non-Labored Spontaneous Non-Labored Spontaneous Respiratory Depth Normal Respiratory Pattern Regular Blood Pressure 115/71 Blood Pressure [Right Arm] 115/71 Blood Pressure Mean 85 Blood Pressure Mean [Right Arm] 85 Blood Pressure Position Blood Pressure Position [Right Arm] Sitting Pulse Oximetry 93 94 98 Oxygen Delivery Method Room Air Room Air Oxygen Flow Rate 01/23/19 18:00 01/23/19 18:10 01/23/19 18:20 Temperature Temperature Source Sepsis Recent Fever Within 48 Hours Sepsis New/Unexplained Change in Mental Status Sepsis Action Taken by Nursing Pulse Rate 66 71 72 Pulse Rate [Apical] Pulse Rate from SpO2 Sensor 66 69 71 Respiratory Rate 27 H 19 17 Respiratory Effort / Characteristics Respiratory Depth Respiratory Pattern Blood Pressure Blood Pressure [Right Arm] Blood Pressure Mean Blood Pressure Mean [Right Arm] Blood Pressure Position Blood Pressure Position [Right Arm] Pulse Oximetry 98 98 97 Oxygen Delivery Method Oxygen Flow Rate 01/23/19 18:30 01/23/19 18:40 01/23/19 18:50 Temperature Temperature Source Sepsis Recent Fever Within 48 Hours Sepsis New/Unexplained Change in Mental Status Sepsis Action Taken by Nursing Pulse Rate 73 72 76 Pulse Rate [Apical] Pulse Rate from SpO2 Sensor 73 73 74 Respiratory Rate 20 21 21 Respiratory Effort / Characteristics Respiratory Depth Respiratory Pattern Blood Pressure Blood Pressure [Right Arm] Blood Pressure Mean Blood Pressure Mean [Right Arm] Blood Pressure Position Blood Pressure Position [Right Arm] Pulse Oximetry 97 95 96 Oxygen Delivery Method Oxygen Flow Rate 01/23/19 19:00 01/23/19 19:10 01/23/19 19:20 Temperature Temperature Source Sepsis Recent Fever Within 48 Hours Sepsis New/Unexplained Change in Mental Status Sepsis Action Taken by Nursing Pulse Rate 69 78 82 Pulse Rate [Apical] Pulse Rate from SpO2 Sensor 68 78 80 Respiratory Rate 19 20 15 Respiratory Effort / Characteristics Respiratory Depth Respiratory Pattern Blood Pressure Blood Pressure [Right Arm] Blood Pressure Mean Blood Pressure Mean [Right Arm] Blood Pressure Position Blood Pressure Position [Right Arm] Pulse Oximetry 96 93 Oxygen Delivery Method Room Air Nasal Cannula Oxygen Flow Rate 3 01/23/19 19:30 01/23/19 19:40 01/23/19 19:50 Temperature Temperature Source Sepsis Recent Fever Within 48 Hours Sepsis New/Unexplained Change in Mental Status Sepsis Action Taken by Nursing Pulse Rate 71 70 63 Pulse Rate [Apical] Pulse Rate from SpO2 Sensor 69 70 66 Respiratory Rate 19 19 20 Respiratory Effort / Characteristics Respiratory Depth Respiratory Pattern Blood Pressure Blood Pressure [Right Arm] Blood Pressure Mean Blood Pressure Mean [Right Arm] Blood Pressure Position Blood Pressure Position [Right Arm] Pulse Oximetry 92 92 92 Oxygen Delivery Method Oxygen Flow Rate 3 3 3 01/23/19 20:00 01/23/19 20:10 01/23/19 20:20 Temperature Temperature Source Sepsis Recent Fever Within 48 Hours Sepsis New/Unexplained Change in Mental Status Sepsis Action Taken by Nursing Pulse Rate 68 73 63 Pulse Rate [Apical] Pulse Rate from SpO2 Sensor 69 72 67 Respiratory Rate 19 17 18 Respiratory Effort / Characteristics Respiratory Depth Respiratory Pattern Blood Pressure Blood Pressure [Right Arm] Blood Pressure Mean Blood Pressure Mean [Right Arm] Blood Pressure Position Blood Pressure Position [Right Arm] Pulse Oximetry 92 92 91 Oxygen Delivery Method Oxygen Flow Rate 3 3 01/23/19 20:30 01/23/19 20:40 01/23/19 20:50 Temperature Temperature Source Sepsis Recent Fever Within 48 Hours Sepsis New/Unexplained Change in Mental Status Sepsis Action Taken by Nursing Pulse Rate 71 64 72 Pulse Rate [Apical] Pulse Rate from SpO2 Sensor 69 66 69 Respiratory Rate 16 19 15 Respiratory Effort / Characteristics Respiratory Depth Respiratory Pattern Blood Pressure Blood Pressure [Right Arm] Blood Pressure Mean Blood Pressure Mean [Right Arm] Blood Pressure Position Blood Pressure Position [Right Arm] Pulse Oximetry 94 97 92 Oxygen Delivery Method Oxygen Flow Rate 01/23/19 21:00 01/23/19 21:10 01/23/19 21:20 Temperature Temperature Source Sepsis Recent Fever Within 48 Hours Sepsis New/Unexplained Change in Mental Status Sepsis Action Taken by Nursing Pulse Rate 71 69 72 Pulse Rate [Apical] Pulse Rate from SpO2 Sensor 71 69 72 Respiratory Rate 19 17 18 Respiratory Effort / Characteristics Respiratory Depth Respiratory Pattern Blood Pressure Blood Pressure [Right Arm] Blood Pressure Mean Blood Pressure Mean [Right Arm] Blood Pressure Position Blood Pressure Position [Right Arm] Pulse Oximetry 92 92 93 Oxygen Delivery Method Oxygen Flow Rate 01/23/19 21:23 01/23/19 21:28 01/23/19 21:30 Temperature Temperature Source Sepsis Recent Fever Within 48 Hours Sepsis New/Unexplained Change in Mental Status Sepsis Action Taken by Nursing Pulse Rate 71 77 77 Pulse Rate [Apical] Pulse Rate from SpO2 Sensor 72 Respiratory Rate 16 24 20 Respiratory Effort / Characteristics Respiratory Depth Respiratory Pattern Blood Pressure 123/81 123/81 Blood Pressure [Right Arm] Blood Pressure Mean 95 95 Blood Pressure Mean [Right Arm] Blood Pressure Position Blood Pressure Position [Right Arm] Pulse Oximetry 93 Oxygen Delivery Method Nasal Cannula Oxygen Flow Rate 3 01/23/19 21:40 01/23/19 21:50 Temperature Temperature Source Sepsis Recent Fever Within 48 Hours Sepsis New/Unexplained Change in Mental Status Sepsis Action Taken by Nursing Pulse Rate 82 78 Pulse Rate [Apical] Pulse Rate from SpO2 Sensor Respiratory Rate 22 18 Respiratory Effort / Characteristics Respiratory Depth Respiratory Pattern Blood Pressure Blood Pressure [Right Arm] Blood Pressure Mean Blood Pressure Mean [Right Arm] Blood Pressure Position Blood Pressure Position [Right Arm] Pulse Oximetry Oxygen Delivery Method Oxygen Flow Rate CONSTITUTIONAL: Patient is an obese, ill although nontoxic appearing 58-year-old female who is awake and alert and sitting upright on the gurney in no acute distress. She has a frequent forceful moist cough. She is able to speak in full sentences. No conversational dyspnea. EYES: Pupils equal, round, reactive to light and accommodation. EOMs intact without nystagmus. Sclera are anicteric. ENT: Tympanic membranes intact, with normal landmarks. External canals are clear. Oral and nasopharynx are clear. Mucous membranes are moist, no lesions, tongue and gums appear normal. NECK: No bruits auscultated. Supple without lymphadenopathy. No thyromegaly. No meningeal signs. Full active range of motion without discomfort. CARDIOVASCULAR: Regular rate and rhythm, with normal S1 and S2, no murmur or gallop or rub is heard. No carotid bruits auscultated. No JVD. Peripheral pulses easily palpable. RESPIRATORY: Breath sounds harsh and diminished to auscultation throughout with wheezes and rhonchi noted throughout all lung garcia. Full and equal chest expansion without accessory muscle use or retractions. ABDOMEN: Soft, non-tender, bowel sounds are present. EXTREMITIES: Calves are soft and nontender. No pitting edema. INTEGUMENTARY: No lesions or rash, normal skin turgor. LYMPH: No lymphadenopathy. Course The patient was seen and assessed as above. Her old records were reviewed, specifically her to recent outpatient internal medicine visits. She presents the emergency department for evaluation of COPD exacerbation. IV lock was initiated and laboratory studies were collected. EKG was performed and was as noted below. Chest x-ray was obtained and was unremarkable. The patient was placed on a 1 hour long DuoNeb treatment. She was given Solu-Medrol 80 mg IV. She requested something to help her with jitteriness secondary to the DuoNeb and was given Ativan 1 mg IV. She later complained of feeling nauseous from the nebulizer treatment and was given Zofran 4 mg IV. Laboratory studies noted a normal white count of 10,600, with left shift and bands noted. H&H is normal. Electrolytes are within normal limits. Troponin is negative x1. Chest x-ray was negative for focal opacity, large effusion or pneumothorax. The patient was reassessed frequently during her nebulizer treatment. She t olerated it well. She did feel that she was coughing more after the treatment, but did have some improved shortness of breath. All laboratory and diagnostic imaging studies were reviewed with attending physician and discussed with the patient and her spouse. At this point, it was felt that the patient has exhausted outpatient capabilities and admission/observation in the hospital was warranted. This was discussed with her and she was in agreement. Patient was reviewed with the [facility] for admission/observation. Administered Medications Carvedilol (Coreg) 6.25 mg PO BID ANYI Stop: 02/22/19 22:31 Last Admin: 01/23/19 23:43 Dose: 6.25 mg Documented by: [id number] Trazodone HCl (Desyrel) 100 mg PO HS ANYI Stop: 02/22/19 22:52 Last Admin: 01/23/19 23:43 Dose: 100 mg Documented by: [id number] Discontinued Medications Albuterol (Duoneb) 12 ml NEB ONE ONE Stop: 01/23/19 17:13 Last Admin: 01/23/19 17:51 Dose: 12 ml Documented by: [id number] Lorazepam (Ativan) 1 mg in 2 mls @ 2 mls/min IV NOW STA Stop: 01/23/19 17:13 Last Admin: 01/23/19 18:30 Dose: 1 mls/min Documented by: [id number] Methylprednisolone 80 mg/ (Syringe) 1.28 mls @ 1.5 mls/min IV NOW STA Stop: 01/23/19 17:13 Last Admin: 01/23/19 18:30 Dose: 1.5 mls/min Documented by: [id number] Ondansetron HCl (Zofran) 4 mg IV NOW STA Stop: 01/23/19 18:22 Last Admin: 01/23/19 18:30 Dose: 4 mg Documented by: [id number] Medical Decision Making Differential Diagnosis Differential diagnosis includes acute myocardial infarction, acute coronary syndrome, myocarditis, pericarditis, pulmonary embolism, pneumonia, pneumothorax, cardiomyopathy, congestive heart failure, anemia, COPD exacerbatio n, bronchitis, costochondritis, among others. Medical Records Attestation: I reviewed the patient's medical records. Home Medications Current Medication List: was personally reviewed by me Laboratory Data Attestation: I reviewed the patient's lab results. Result diagrams: 01/23/19 16:30 01/23/19 16:30 Lab Results 01/23/19 01/23/19 Range/Units 16:30 16:30 WBC 10.66 (4.8-10.8) K/uL RBC 4.59 (4.2-5.4) M/uL Hgb 15.0 (12.0-16.0) g/dL Hct 42.8 (37-47) % MCV 93.2 (80-100) fL MCH 32.7 (25-34) pg MCHC 35.0 (32-36) g/dL RDW Std Deviation 48.6 H (36.4-46.3) fL RDW Coeff of Cathy 14.4 (11.5-14.5) % Plt Count 211 (130-400) K/uL MPV 9.5 (7.4-10.4) fL Immature Gran % (Auto) 0.7 % Neut % (Auto) 81.3 % Lymph % (Auto) 12.8 % [place] % (Auto) 5.1 % Eos % (Auto) 0.0 % Baso % (Auto) 0.1 % Immature Gran # (Auto) 0.07 H (0.00-0.02) K/uL Neut # (Auto) 8.68 H (1.4-6.5) K/uL Lymph # (Auto) 1.36 (1.2-3.4) K/uL [place] # (Auto) 0.54 (0.11-0.59) K/uL Eos # (Auto) 0.00 (0-0.5) K/uL Baso # (Auto) 0.01 (0-0.2) K/uL Sodium 140 (136-145) mmol/L Potassium 4.2 (3.5-5.1) mmol/L Chloride 106 (98-107) mmol/L Carbon Dioxide 28 (21-32) mmol/L Anion Gap 6.0 (3-11) BUN 15 (7-18) mg/dl Creatinine 0.92 (0.6-1.2) mg/dl Est Cr Clr Drug Dosing 73.1 ml/min Est GFR ( Amer) 79.6 Est GFR (Non-Af Amer) 68.6 BUN/Creatinine Ratio 16.0 (10-20) Glucose 283 H (70-99) mg/dl Calcium 9.0 (8.5-10.1) mg/dl Troponin I < 0.015 (0-0.045) ng/ml Imaging Data Attestation: I personally reviewed and interpreted this imaging study as follows: Radiologist's Impression: XR chest 1V portable CLINICAL HISTORY: 58 years-old Female presenting with COPD EXACERBATION. TECHNIQUE: Portable upright AP view of the chest was obtained. COMPARISON: 01/07/2019. FINDINGS: Atherosclerosis of the aortic arch. Cardiac silhouette enlarged. Pulmonary vascular prominence. No focal opacity. No large effusion or pneumothorax. Osseous structures normal. Upper abdomen normal. IMPRESSION: 1. Cardiomegaly with volume overload. No letty pulmonary edema. 2. No focal infiltrate to suggest pneumonia. ECG Data Attestation: I personally reviewed and interpreted this ECG as follows: Indication: chest pain and SOB/dyspnea Rate (beats per minute): 80 Rhythm: normal sinus Findings: no acute ischemic change and no ectopy Change: no significant change Blood Pressure Blood Pressure Findings: Low blood pressure Blood Pressure Disposition: did not require urgent referral MDM Narrative See ED Course. Impression & Plan COPD exacerbation, Failure of outpatient treatment Discharge Plan Visit Data *Final* Discharge Date/Time: 01/23/19 22:17 Chief Complaint: Shortness of Breath/Dyspnea Stated Complaint: copd, trouble breathing ED Provider: Garcia Rivera ED Midlevel Provider: Bre Khanna Discharge Problem: COPD exacerbation, Failure of outpatient treatment Patient Disposition: Admitted As Inpatient Discharge Instructions Interventions: ED Discharge Assessment Last Done: 01/23/19 22:17
--- NOTE | 2019-01-23 18:02 | XRay Report ---
XR chest 1V portable CLINICAL HISTORY: 58 years-old Female presenting with COPD EXACERBATION. TECHNIQUE: Portable upright AP view of the chest was obtained. COMPARISON: 01/07/2019. FINDINGS: Atherosclerosis of the aortic arch. Cardiac silhouette enlarged. Pulmonary vascular prominence. No fo jade opacity. No large effusion or pneumothorax. Osseous structures normal. Upper abdomen normal. IMPRESSION: 1. Cardiomegaly with volume overload. No letty pulmonary edema. 2. No focal infiltrate to suggest pneumonia. Electronically signed by: Edil Chavarria M.D. 01/23/2019 6:01 PM
[2019-01-23] MEDS ORDERED: ONDANSETRON INJ 2 MG/ML 2 ML VIAL IV STA (18:21)
--- NOTE | 2019-01-23 21:51 | History & Physical Report ---
Date of Service January 23, 2019 Assessment & Plan (1) COPD exacerbation: COPD exacerbation- Duonebs every 4 hours while awake and every 2 hours when necessary. Sputum Gram stain and culture. Pulmicort Respules 0.5 mg inhaled twice daily SoluMedrol 40 mg IV every 8 hours. Doxycycline 100 mg IV every 12 hours. Nasal cannula oxygen, titrate to keep pulse ox 92 to 94%. Present on Admission?: Yes (2) Failure of outpatient treatment: See above Present on Admission?: Yes (3) LISANDRA on CPAP: Patient does not have on CPAP, will supply. Present on Admission?: Yes (4) DM type 2 (diabetes mellitus, type 2): Continue insulin glargine 20 units subcu in the evening. Hold metformin. Place on Accu-Cheks before meals and at bedtime NovoLog coverage per scale Present on Admission?: Yes (5) HTN (hypertension): Continue carvedilol 6.25 mg p.o. twice daily with hold parameters Present on Admission?: Yes (6) Dyslipidemia: Continue atorvastatin 40 mg daily Present on Admission?: Yes (7) Neuropathy: Continue gabapentin 300 mg p.o. 3 times daily Present on Admission?: Yes (8) Depression: Continue Escitalopram 10 mg p.o. daily and trazodone 100 mg at bedtime Present on Admission?: Yes (9) GERD (gastroesophageal reflux disease): Continue pantoprazole 40 mg p.o. daily Present on Admission?: Yes History of Present Illness Chief Complaint: The patient presents to the emergency department due to gradually worsening shortness of breath and cough over the past 4 weeks, that has not responded to outpatient treatment. Primary Care Provider: NICK Seaman, MS, [employer] The patient is a 58-year-old female with a past medical history including COPD, diabetes mellitus, dyslipidemia, hypertension, GERD, depression and obstructive sleep apnea, who began treatment for upper respiratory illness about 4 weeks ago with Augmentin and her usual inhalers. She was then seen about 10 days ago, at that time was changed to levofloxacin and continued on oral prednisone. She went to urgent care 5 days ago, had her prednisone dosing increased, but with persistence and worsening of her symptoms, she called her PCPs office today, and they recommended that she come to the emergency department for assessment tonight. Allergies Allergy/AdvReac Type Severity Reaction Status Date / Time sumatriptan Allergy Intermediate DIAPHORESIS, Verified 01/23/19 17:30 "SKIN CRAWLING" carbamazepine Allergy Unknown RASH Verified 01/23/19 17:30 Home Medications Home Medications Medication Instructions Recorded Confirmed Type acetaminophen [Tylenol Extra 500 mg PO Q6H PRN 04/24/18 01/23/19 History Strength] aspirin [Aspir-Low] 81 mg PO DAILY 04/24/18 01/23/19 History atorvastatin [Lipitor] 40 mg PO DAILY 04/24/18 01/23/19 History carvedilol [Coreg] 6.25 mg PO BID 04/24/18 01/23/19 History ipratropium-albuterol 3 ml INHALATION QID PRN 04/24/18 01/23/19 History pantoprazole [Protonix] 40 mg PO DAILY 04/24/18 01/23/19 History trazodone 100 mg PO HS 04/24/18 01/23/19 History fluticasone propionate 2 spray INTRANASAL DAILY PRN 06/21/18 01/23/19 History polyethylene glycol 3350 [ClearLax] 17 g PO DAILY PRN 11/01/18 01/23/19 History Symbicort 2 puff INHALATION BID 11/03/18 01/23/19 History gabapentin 300 mg capsule 300 mg PO TID #90 cap 12/16/18 01/23/19 Rx escitalopram 10 mg tablet 10 mg PO DAILY #90 tab 01/07/19 01/23/19 Rx prednisone 10 mg tablet See Rx Instructions .ROUTE 01/13/19 01/23/19 Rx .COMPLEX #100 tablet prednisone 10 mg tablet 10 mg PO DAILY #20 tab 01/14/19 01/23/19 Rx levofloxacin 750 mg tablet 750 mg PO DAILY #10 tab 01/19/19 01/23/19 Rx Basaglar KwikPen U-100 Insulin 20 unit SUBCUT QPM 01/23/19 01/23/19 History albuterol sulfate 1 puffs INH Q6H PRN 01/23/19 01/23/19 History gwvlkycabu-jywkuvqlwutlh-lrmc 1 cap PO Q8H PRN 01/23/19 01/23/19 History [Fioricet] insulin lispro [Admelog SoloStar 5 unit SUBCUT TIDM PRN 01/23/19 01/23/19 History U-100 Insulin] metformin 500 mg PO DAILY 01/23/19 01/23/19 History Past Med/Surg History Medical History LISANDRA on CPAP (Chronic) Back pain (Chronic) Neuropathy (Chronic) Chronic right hip pain (Chronic) LISANDRA and COPD overlap syndrome (Chronic) Family history of coronary artery disease (Chronic) Smoker (Chronic) Nonalcoholic hepatosteatosis (Chronic) Trigeminal neuralgia (Chronic) DM type 2 (diabetes mellitus, type 2) (Chronic) Osteoarthritis (Chronic) COPD (chronic obstructive pulmonary disease) (Chronic) 2L O2 Depression (Chronic) HTN (hypertension) (Chronic) Dyslipidemia (Chronic) Surgical History History of bronchoscopy (Resolved) H/O oophorectomy (Resolved) History of bladder surgery (Resolved) History of right oophorectomy (Resolved) H/O ankle fusion (Resolved) H/O arthroscopic knee surgery (Resolved) History of cholecystectomy (Resolved) History of tonsillectomy (Resolved) H/O inguinal hernia repair (Resolved) H/O: hysterectomy (Resolved) Family History Father Coronary heart disease Myocardial infarction Mother Coronary heart disease Myocardial infarction Brother Myocardial infarction Social History Preferred Language: Setswana Communication Ability: Effective Visual Impairment: No Limitations Source Inspector Required: No Beliefs That Will Affect Care: None marital status: Current Living Situation: Spouse Current Living Situation Comment: home on weekends Other Information That Helps Us Care for You: No Feels Safe at Home: Yes Safety Concerns: Feels Safe At This Time Smoking Status: Current every day smoker Tobacco Type: cigarettes ; Cigarettes Per Day: 20 ; Do You Dip or Chew Tobacco: No ; Second Hand Exposure: No ; Tobacco Cessation Education Requested by Patient: Yes Hx Alcohol Use: No Hx Substance Use: No Review of Systems Review of Systems: The patient denies chest pain, palpitations, lower extremity swelling, sore throat, fevers, chills, sweats, weight change, nausea, vomiting, diarrhea , constipation, abdominal pain, pelvic pain, blood in urine or stool, dysuria, urinary frequency or urgency, lightheadedness, dizziness, headache, memory loss, loss of consciousness, rash, abnormal bruising or bleeding, imbalance, focal weakness, numbness or tingling in arms or legs, back or neck pain, or night sweats. The review of systems is otherwise negative other than for that already noted above, and at least 10 systems have been reviewed. Physical Exam Physical Exam: The patient is awake, alert and oriented 3, normocephalic and atraumatic, lying in bed, looks very fatigued, and in no acute distress. HEENT--PERRL, EOMI, mucous membranes and oropharynx normal. Neck--supple. No JVD. No bruits. Thyroid normal, trachea midline, no adenopathy. Heart--normal S1 and S2. No murmurs, rubs or gallops. Lungs--few coarse breath sounds, with diffuse wheezing throughout Abdomen--normal bowel sounds and soft. Nontender. Nondistended. Extremities--no cyanosis or clubbing. No edema. There are good distal pulses b/l. Dermatologic--normal skin turgor, normal color, no abnormal lymph nodes, no rash. Neurologic--cranial nerves II through XII grossly intact. Rheumatologic--normal range of motion. Psychiatric--normal affect. Results & Data Vital Signs (Past 12 Hours) Vital Signs Temp Pulse Pulse Resp BP BP Pulse Ox 01/23/19 21:23 71 16 123/81 93 01/23/19 21:20 72 18 93 01/23/19 21:10 69 17 92 01/23/19 21:00 71 19 92 01/23/19 20:50 72 15 92 01/23/19 20:40 64 19 97 01/23/19 20:30 71 16 94 01/23/19 20:20 63 18 91 01/23/19 20:10 73 17 92 01/23/19 20:00 68 19 92 01/23/19 19:50 63 20 92 01/23/19 19:40 70 19 92 01/23/19 19:30 71 19 92 01/23/19 19:20 82 15 93 01/23/19 19:10 78 20 01/23/19 19:00 69 19 96 01/23/19 18:50 76 21 96 01/23/19 18:40 72 21 95 01/23/19 18:30 73 20 97 01/23/19 18:20 72 17 97 01/23/19 18:10 71 19 98 01/23/19 18:00 66 27 H 98 01/23/19 17:58 66 75 17 115/71 115/71 98 01/23/19 17:51 63 18 94 01/23/19 17:50 70 18 93 01/23/19 17:40 70 24 94 01/23/19 17:30 72 27 H 95 01/23/19 17:20 70 19 92 01/23/19 17:10 71 18 93 01/23/19 17:00 79 20 94 01/23/19 16:50 71 28 H 96 01/23/19 16:49 71 13 95 01/23/19 15:48 98.4 F 77 24 136/69 97 Laboratory Results Laboratory Results WBC 10.66 K/uL (4.8-10.8) 01/23/19 16:30 RBC 4.59 M/uL (4.2-5.4) 01/23/19 16:30 Hgb 15.0 g/dL (12.0-16.0) 01/23/19 16:30 Hct 42.8 % (37-47) 01/23/19 16:30 MCV 93.2 fL (80-100) 01/23/19 16:30 MCH 32.7 pg (25-34) 01/23/19 16:30 MCHC 35.0 g/dL (32-36) 01/23/19 16:30 RDW Std Deviation 48.6 fL (36.4-46.3) H 01/23/19 16:30 RDW Coeff of Cathy 14.4 % (11.5-14.5) 01/23/19 16:30 Plt Count 211 K/uL (130-400) 01/23/19 16:30 MPV 9.5 fL (7.4-10.4) 01/23/19 16:30 Immature Gran % (Auto) 0.7 % 01/23/19 16:30 Neut % (Auto) 81.3 % 01/23/19 16:30 Lymph % (Auto) 12.8 % 01/23/19 16:30 [place] % (Auto) 5.1 % 01/23/19 16:30 Eos % (Auto) 0.0 % 01/23/19 16:30 Baso % (Auto) 0.1 % 01/23/19 16:30 Immature Gran # (Auto) 0.07 K/uL (0.00-0.02) H 01/23/19 16:30 Neut # (Auto) 8.68 K/uL (1.4-6.5) H 01/23/19 16:30 Lymph # (Auto) 1.36 K/uL (1.2-3.4) 01/23/19 16:30 [place] # (Auto) 0.54 K/uL (0.11-0.59) 01/23/19 16:30 Eos # (Auto) 0.00 K/uL (0-0.5) 01/23/19 16:30 Baso # (Auto) 0.01 K/uL (0-0.2) 01/23/19 16:30 PT 11.1 Seconds (9.0-12.0) 01/23/19 23:09 INR 1.1 (0.9-1.1) 01/23/19 23:09 Sodium 140 mmol/L (136-145) 01/23/19 16:30 Potassium 4.2 mmol/L (3.5-5.1) 01/23/19 16:30 Chloride 106 mmol/L (98-107) 01/23/19 16:30 Carbon Dioxide 28 mmol/L (21-32) 01/23/19 16:30 Anion Gap 6.0 (3-11) 01/23/19 16:30 BUN 15 mg/dl (7-18) 01/23/19 16:30 Creatinine 0.92 mg/dl (0.6-1.2) 01/23/19 16:30 Est Cr Clr Drug Dosing 73.1 ml/min 01/23/19 16:30 Est GFR ( Amer) 79.6 01/23/19 16:30 Est GFR (Non-Af Amer) 68.6 01/23/19 16:30 BUN/Creatinine Ratio 16.0 (10-20) 01/23/19 16:30 Glucose 283 mg/dl (70-99) H 01/23/19 16:30 Calcium 9.0 mg/dl (8.5-10.1) 01/23/19 16:30 Troponin I < 0.015 ng/ml (0-0.045) 01/23/19 16:30 Diagnostic Findings [facility], [place] [phone] XRay Report Patient: YUN JHAVERI Date: 01/23/19 MR#: [id number]: [address] Acct ID:[id number]: [facility] [place] [id number] Age: 58Location: ED Sex: F Room/Bed: Att Phy: Diagnosis: copd, trouble breathing Corrie Phy: Lori VelázquezNPService Date: 01/23/19 Fam Phy: Interpreting Phy: Edil Chavarria MD Admit Phy: Ordering Phy: Alma Khanna PA cc: ~ XR chest 1V portable CLINICAL HISTORY: 58 years-old Female presenting with COPD EXACERBATION. TECHNIQUE: Portable upright AP view of the chest was obtained. COMPARISON: 01/07/2019. FINDINGS: Atherosclerosis of the aortic arch. Cardiac silhouette enlarged. Pulmonary vascular prominence. No focal opacity. No large effusion or pneumothorax. Osseous structures normal. Upper abdomen normal. IMPRESSION: 1. Cardiomegaly with volume overload. No letty pulmonary edema. 2. No focal infiltrate to suggest pneumonia. Electronically signed by: Edil Chavarria M.D. 01/23/2019 6:01 PM Dictated: 01/23/19 1800 Transcribed: 01/23/19 1800 Code Status & VTE Plan Code Status Full code VTE Prophylaxis Plan VTE Prophylaxis will be ordered: Yes PG Care Time/CCT Total # of Minutes Spent Total Time Spent with Patient: Total time spent is greater than 50% in coordination of care (as documented) at patient's floor/unit and/or counseling patient: (1) HTN (hypertension) Hypertension type: unspecified Qualified Code(s): I10 - Essential (primary) hypertension (2) DM type 2 (diabetes mellitus, type 2) Diabetes mellitus residential insulin use: unspecified residential insulin use status Diabetes mellitus complication status: with unspecified complications Qualified Code(s): E11.8 - Type 2 diabetes mellitus with unspecified complications (3) Depression Depression Type: unspecified Qualified Code(s): F32.9 - Major depressive disorder, single episode, unspecified
[2019-01-23] MEDS ORDERED: POLYETHYLENE (MIRALAX) 17 GM PACK PO PRN (22:32)
[2019-01-23] MEDS ORDERED: ONDANSETRON INJ 2 MG/ML 2 ML VIAL IV PRN (22:32)
[2019-01-23] MEDS ORDERED: MAGNESIUM HYDROXIDE SUSP 30 ML UDC PO PRN (22:32)
[2019-01-23] MEDS ORDERED: GLUCOSE 10 TABS/TUBE PO PRN (22:32)
[2019-01-23] MEDS ORDERED: GLUCOSE 40% GEL 15 GM TUBE PO PRN (22:32)
[2019-01-23] MEDS ORDERED: GLUCAGON FOR INJ 1 MG VIAL SQ PRN (22:32)
[2019-01-23] MEDS ORDERED: ALUMINUM/MAGNESIUM SUSP 30 ML UDC PO PRN (22:32)
[2019-01-23] MEDS ORDERED: CARBOHYDRATES FOR HYPOGLYCEMIA PO PRN (22:32)
[2019-01-23] MEDS ORDERED: DEXTROSE 50% 50 ML SYRINGE IV PRN (22:32)
[2019-01-23] MEDS ORDERED: ACETAMINOPHEN 325 MG TAB PO PRN (22:32)
[2019-01-23 23:28] LABS: INR 1.1 (0.9-1.1); Prothrombin Time 11.1 Seconds (9.0-12.0)
[2019-01-23] MEDS: TRAZODONE HCL 100 MG TAB PO SCH (23:43)
[2019-01-23] MEDS: CARVEDILOL 6.25 MG TAB PO SCH (23:43)
[2019-01-24] MEDS: methylPREDNISolone 40 MG in SYRINGE 0 ML IV SCH ×3 (01:44→17:28)
[2019-01-24] MEDS: DOXYCYCLINE HYCLATE 100 MG in DEXTROSE 5% 100 ML IV SCH ×2 (05:00→16:44)
[2019-01-24] MEDS: BUDESONIDE 0.5 MG/2 ML VIAL (PULMICORT) NEB SCH ×2 (07:14→19:11)
[2019-01-24] MEDS: ALBUT/IPRATROP 3MG/0.5MG NEB 3 ML VIAL NEB SCH ×4 (07:14→19:11)
[2019-01-24 07:40] LABS: Estimated Average Glucose 186 mg/dl; Hemoglobin A1C 8.1 % (4.5-5.6)
[2019-01-24] MEDS: INSULIN ASPART 100 UNITS/ML 3 ML PEN SC SCH ×4 (08:14→20:38)
[2019-01-24] MEDS: HEPARIN SOD 5,000 UNIT/0.5 ML VIAL SQ SCH ×2 (08:19→20:33)
[2019-01-24] MEDS: PANTOprazole 40 MG TAB PO SCH (08:19)
[2019-01-24] MEDS: guaiFENesin 600 MG TABCR PO SCH ×2 (08:19→20:34)
[2019-01-24] MEDS: ESCITALOPRAM OXALATE 10 MG TAB PO SCH (08:19)
[2019-01-24] MEDS: CARVEDILOL 6.25 MG TAB PO SCH ×2 (08:19→20:34)
[2019-01-24] MEDS: ATORVASTATIN 40 MG TAB PO SCH (08:19)
[2019-01-24] MEDS: ASPIRIN 81 MG ECTAB PO SCH (08:19)
[2019-01-24] MEDS: GABAPENTIN 300 MG CAP PO SCH ×3 (08:20→20:34)
[2019-01-24] MEDS ORDERED: AZITHROMYCIN 500 MG in DEXTROSE 5% 250 ML IV SCH (09:00)
[2019-01-24] MEDS ORDERED: KETOROLAC TROMETHAMINE 15 MG/ML VIAL IV PRN (11:44)
[2019-01-24] MEDS: INSULIN GLARGINE SOLOSTAR 100 UNITS/ML 3 ML PEN SC SCH (12:09)
[2019-01-24] MEDS: NICOTINE 14 MG/24 HR PATCH TD SCH (12:10)
[2019-01-24] MEDS: BUTALBITAL/ACETAMIN/CAFFEINE TAB PO PRN (12:13)
--- NOTE | 2019-01-24 12:51 | Hospitalist Progress Note ---
Date of Service January 24, 2019 Assessment & Plan (1) COPD exacerbation: ongoing for several weeks by patient's recollection she has had 2 rounds of antibiotics (Augmentin and then Levaquin) and 2-3 rounds of steroids no real improvement main symptom is harsh, violent cough, some sputum but not a lot continue Solu Medrol 40mg q8, continue Duonebs, continue Doxycycline for atypical coverage CXR without evidence of pneumonia consult Dr. Neal since this has been ongoing for a few weeks and no improvement can transfer to medical floor today (2) LISANDRA on CPAP: Patient does not have her own CPAP, will supply. (3) Tobacco abuse: counseled on importance of quitting, especially with severe COPD and exacerbations she tried vaping and did not like it she said she has a lot of stress, her son and his family moved into her small home, chaotic in her home will supply nicotine patch (4) DM type 2 (diabetes mellitus, type 2): Hold metformin. hyperglycemia with the Solu Medrol will add Lantus 10 units in AM and continue the 20 units PM tighten Novolog to correction factor 15 and ratio of 8 (5) HTN (hypertension): Continue carvedilol 6.25 mg p.o. twice daily with hold parameters (6) Dyslipidemia: Continue atorvastatin 40 mg daily (7) Neuropathy: Continue gabapentin 300 mg p.o. 3 times daily (8) Depression: Continue Escitalopram 10 mg p.o. daily and trazodone 100 mg at bedtime (9) GERD (gastroesophageal reflux disease): Continue pantoprazole 40 mg p.o. daily (10) Headache: likely tension headache, worse with coughing use Fioricet and Toradol PRN Subjective patient note feeling much better compared to last evening she said she does feel a little less congested, had more pressure in chest last night discussed recent illness she reports being sick since around January 03 developed cough, dyspnea, sputum production went to PCP, prescribed Augmentin for possible PNA but CXR was clear of infiltrate did not improve, given a round of Prednisone and a course of Levaquin by her count she has had 2-3 rounds of steroids and two courses of antibiotics without much improvement she admits that she continues to smoke 1 ppd, cannot quit tried vaping but made her cough more little sputum production, no blood seen she ambulated in the hallway and got dizzy and had to sit down, did no desaturate discussed that I would get pulmonary involved, she follows with Liborio ROJAS in the office he had discussed maybe getting bronchoscopy with Dr Hidalgo, she has had two bronchs in the past reviewed labs from admission, stable sugars elevated, will add Lantus in the AM, tighten Novolog coverage Review of Systems Review of Systems: All systems reviewed & are unremarkable except as noted in HPI & below Constitutional: + fatigue and + weakness; no fever, no chills and no sweats Respiratory: + cough, + chest congestion, + dyspnea on exertion and + sputum production; no dyspnea and no hemoptysis Cardiovascular: no chest pain, no palpitations, no syncope and no edema Gastrointestinal: no abdominal pain, no nausea, no vomiting, no constipation and no diarrhea/loose stools Neurologic: + headache(s) Physical Exam Constitutional: WD/WN, vitals as above + obese Eyes: PERRL, conjunctivae normal, anicteric sclerae ENMT: external ear and nose normal, oropharynx normal Neck: trachea midline, no thyromegaly Respiratory: normal respiratory effort and + pursed lip breathing; no respiratory distress Auscultation: + diminished lung sounds, + rhonchi and + wheezes (expiratory, bilateral) Cardiovascular: RRR, no murmur, no edema Gastrointestinal (Abdomen): normal bowel sounds, soft, nontender, no hepatosplenomegaly Musculoskeletal: no cyanosis or clubbing, extremities motor strength 5/5 Skin: no rashes, warm and dry Neurologic: patellar DTR's 2+ bilat, sensation intact and PERRL, EOMI, accommodation nl, no face palsy, no dysarthria Psychiatric: A+Ox3, euthymic affect Lymphatic: no cervical or axillary lymphadenopathy Results & Data Vital Signs (Past 12 Hours) Vital Signs Temp Pulse Pulse Resp BP Pulse Ox 01/24/19 11:11 64 16 94 01/24/19 08:02 36.8 C 80 18 130/81 92 01/24/19 07:14 63 14 94 01/24/19 04:01 36.9 C 63 18 107/66 93 Laboratory Results Laboratory Results - last 24 hr 01/23/19 01/23/19 01/23/19 16:30 16:30 23:09 WBC 10.66 RBC 4.59 Hgb 15.0 Hct 42.8 MCV 93.2 MCH 32.7 MCHC 35.0 RDW Std Deviation 48.6 H RDW Coeff of Cathy 14.4 Plt Count 211 MPV 9.5 Immature Gran % (Auto) 0.7 Neut % (Auto) 81.3 Lymph % (Auto) 12.8 [place] % (Auto) 5.1 Eos % (Auto) 0.0 Baso % (Auto) 0.1 Immature Gran # (Auto) 0.07 H Neut # (Auto) 8.68 H Lymph # (Auto) 1.36 [place] # (Auto) 0.54 Eos # (Auto) 0.00 Baso # (Auto) 0.01 PT 11.1 INR 1.1 Sodium 140 Potassium 4.2 Chloride 106 Carbon Dioxide 28 Anion Gap 6.0 BUN 15 Creatinine 0.92 Est Cr Clr Drug Dosing 73.1 Est GFR ( Amer) 79.6 Est GFR (Non-Af Amer) 68.6 BUN/Creatinine Ratio 16.0 Glucose 283 H POC Glucose Estimat Average Glucose Hemoglobin A1c Calcium 9.0 Troponin I < 0.015 01/24/19 01/24/19 01/24/19 06:37 07:11 10:41 WBC RBC Hgb Hct MCV MCH MCHC RDW Std Deviation RDW Coeff of Cathy Plt Count MPV Immature Gran % (Auto) Neut % (Auto) Lymph % (Auto) [place] % (Auto) Eos % (Auto) Baso % (Auto) Immature Gran # (Auto) Neut # (Auto) Lymph # (Auto) [place] # (Auto) Eos # (Auto) Baso # (Auto) PT INR Sodium Potassium Chloride Carbon Dioxide Anion Gap BUN Creatinine Est Cr Clr Drug Dosing Est GFR ( Amer) Est GFR (Non-Af Amer) BUN/Creatinine Ratio Glucose POC Glucose 257 H 200 H Estimat Average Glucose 186 Hemoglobin A1c 8.1 H Calcium Troponin I 01/24/19 11:49 WBC RBC Hgb Hct MCV MCH MCHC RDW Std Deviation RDW Coeff of Cathy Plt Count MPV Immature Gran % (Auto) Neut % (Auto) Lymph % (Auto) [place] % (Auto) Eos % (Auto) Baso % (Auto) Immature Gran # (Auto) Neut # (Auto) Lymph # (Auto) Winn # (Auto) Eos # (Auto) Baso # (Auto) PT INR Sodium Potassium Chloride Carbon Dioxide Anion Gap BUN Creatinine Est Cr Clr Drug Dosing Est GFR ( Amer) Est GFR (Non-Af Amer) BUN/Creatinine Ratio Glucose POC Glucose 174 H Estimat Average Glucose Hemoglobin A1c Calcium Troponin I Medications Administered Current Inpatient Medications Acetaminophen (Tylenol) 650 mg PO Q4H PRN PRN Reason: Pain or Fever Stop: 02/22/19 22:31 Acetaminophen/Butalbital/Caffeine (Fioricet) 1 tab PO Q8H PRN PRN Reason: Pain Last Admin: 01/24/19 12:13 Dose: 1 tab Documented by: Al Hydrox/Mg Hydrox/Simethicone (Maalox) 15 ml PO Q4H PRN PRN Reason: Dyspepsia Stop: 02/22/19 22:31 Albuterol (Duoneb) 3 ml NEB QIDR REPLACED BY [facility] Stop: 02/23/19 07:59 Last Admin: 01/24/19 11:10 Dose: 3 ml Documented by: Aspirin (Ecotrin Ectab) 81 mg PO DAILY REPLACED BY [facility] Stop: 02/23/19 08:59 Last Admin: 01/24/19 08:19 Dose: 81 mg Documented by: Atorvastatin Calcium (Lipitor) 40 mg PO DAILY REPLACED BY [facility] Stop: 02/23/19 08:59 Last Admin: 01/24/19 08:19 Dose: 40 mg Documented by: Budesonide (Pulmicort Respules) 0.5 mg NEB BIDR REPLACED BY [facility] Stop: 02/23/19 07:59 Last Admin: 01/24/19 07:14 Dose: 0.5 mg Documented by: Carvedilol (Coreg) 6.25 mg PO BID REPLACED BY [facility] Stop: 02/22/19 22:31 Last Admin: 01/24/19 08:19 Dose: 6.25 mg Documented by: Dextrose (Dextrose 50%) 25 - 50 ml IV UD PRN; Protocol PRN Reason: Hypoglycemia Protocol Stop: 02/22/19 22:31 Escitalopram Oxalate (Lexapro Tab) 10 mg PO DAILY REPLACED BY [facility] Stop: 02/23/19 08:59 Last Admin: 01/24/19 08:19 Dose: 10 mg Documented by: Gabapentin (Neurontin) 300 mg PO TID ANYI Stop: 02/23/19 08:59 Last Admin: 01/24/19 08:20 Dose: 300 mg Documented by: Glucagon (Glucagen) 1 mg SQ UD PRN; Protocol PRN Reason: Hypoglycemia Protocol Stop: 02/22/19 22:31 Glucose (Glucose 40%) 15 - 30 gm PO UD PRN; Protocol PRN Reason: Hypoglycemia Protocol Stop: 02/22/19 22:31 Glucose (Dex4 Glucose) 4 - 8 tabs PO UD PRN; Protocol PRN Reason: Hypoglycemia Protocol Stop: 02/22/19 22:31 Guaifenesin (Mucinex) 600 mg PO Q12 ANYI Stop: 02/23/19 08:59 Last Admin: 01/24/19 08:19 Dose: 600 mg Documented by: Heparin Sodium (Porcine) (Heparin Sodium (Porcine)) 5,000 units SQ Q12 ANYI Stop: 02/23/19 08:59 Last Admin: 01/24/19 08:19 Dose: 5,000 units Documented by: Methylprednisolone 40 mg/ (Syringe) 0.64 mls @ 1.5 mls/min IV Q8H ANYI Stop: 02/23/19 01:59 Last Admin: 01/24/19 10:12 Dose: 1.5 mls/min Documented by: Doxycycline Hyclate 100 mg/ (Dextrose) 110 mls @ 50 mls/hr IV Q12H ANYI Stop: 01/31/19 04:29 Last Infusion: 01/24/19 07:12 Dose: Infused Documented by: Insulin Aspart (Novolog Flexpen) 0 units SC ACHS REPLACED BY [facility] Stop: 02/23/19 07:29 Last Admin: 01/24/19 12:07 Dose: 6 units Documented by: Insulin Glargine (Lantus Solostar Pen) 20 units SQ QPM ANYI Stop: 02/23/19 20:59 Insulin Glargine (Lantus Solostar Pen) 10 units SC QAM ANYI Stop: 02/23/19 11:44 Last Admin: 01/24/19 12:09 Dose: 10 units Documented by: Ketorolac Tromethamine (Toradol) 15 mg IV Q6H PRN PRN Reason: Headache Stop: 01/29/19 11:43 Magnesium Hydroxide (Milk Of Magnesia) 30 ml PO Q12H PRN PRN Reason: Constipation Stop: 02/22/19 22:31 Miscellaneous (Carbohydrates For Hypoglycemia) 15 - 30 gm PO UD PRN PRN Reason: Hypoglycemia Treatment Stop: 02/22/19 22:31 Miscellaneous (Remove Nicoderm Patch) 1 ea N/A [facility] Stop: 02/23/19 20:59 Nicotine (Nicoderm Cq) 14 mg TD QAM REPLACED BY [facility] Stop: 02/23/19 11:59 Last Admin: 01/24/19 12:10 Dose: 14 mg Documented by: Ondansetron HCl (Zofran) 4 mg IV Q6H PRN PRN Reason: Nausea Stop: 02/22/19 22:31 Pantoprazole Sodium (Protonix) 40 mg PO DAILY REPLACED BY [facility] Stop: 02/23/19 08:59 Last Admin: 01/24/19 08:19 Dose: 40 mg Documented by: Polyethylene Glycol (Miralax Powder Packet) 17 gm PO DAILY PRN PRN Reason: Constipation Stop: 02/22/19 22:31 Trazodone HCl (Desyrel) 100 mg PO [facility] Stop: 02/22/19 22:52 Last Admin: 01/23/19 23:43 Dose: 100 mg Documented by: PG Care Time/CCT Total # of Minutes Spent Total Time Spent with Patient: Total time spent is greater than 50% in coordination of care (as documented) at patient's floor/unit and/or counseling patient: (1) DM type 2 (diabetes mellitus, type 2) Diabetes mellitus extermination inspector insulin use: unspecified [facility] insulin use status Diabetes mellitus complication status: with unspecified complications Qualified Code(s): E11.8 - Type 2 diabetes mellitus with unspecified complications (2) HTN (hypertension) Hypertension type: unspecified Qualified Code(s): I10 - Essential (primary) h ypertension (3) Depression Depression Type: unspecified Qualified Code(s): F32.9 - Major depressive disorder, single episode, unspecified
[2019-01-24] MEDS ORDERED: LORazepam 0.5 MG TAB PO ONE (20:00)
[2019-01-24] MEDS ORDERED: LORazepam 0.5 MG TAB PO PRN (20:01)
[2019-01-24] MEDS: TRAZODONE HCL 100 MG TAB PO SCH (20:33)
[2019-01-24] MEDS ORDERED: INSULIN GLARGINE SOLOSTAR 100 UNITS/ML 3 ML PEN SQ SCH (21:00)
[2019-01-25] MEDS: methylPREDNISolone 40 MG in SYRINGE 0 ML IV SCH (02:14)
[2019-01-25] MEDS: DOXYCYCLINE HYCLATE 100 MG in DEXTROSE 5% 100 ML IV SCH (03:29)
[2019-01-25] MEDS: BUTALBITAL/ACETAMIN/CAFFEINE TAB PO PRN (05:29)
[2019-01-25] MEDS: ALBUT/IPRATROP 3MG/0.5MG NEB 3 ML VIAL NEB SCH ×2 (07:05→11:12)
[2019-01-25] MEDS: BUDESONIDE 0.5 MG/2 ML VIAL (PULMICORT) NEB SCH (07:05)
--- NOTE | 2019-01-25 07:35 | Pulmonary Consultation ---
Date of Consultation January 25, 2019 Impression: 58-year-old female with history of advanced obstructive lung disease due to ongoing tobacco exposure with recurrent cough wheezing and sputum production. I am suspicious that she may have tracheobronchial malacia causing her symptoms as she is not really improved with fairly aggressive therapy for COPD over the last 4 to 6weeks. We will need to review her bronchoscopy with . Assessment & Plan (1) LISANDRA and COPD overlap syndrome: Recommendations: 1. Highly suspicious the patient may have tracheobronchial malacia which is causing her symptoms. Steroids may be contributing to this. She definitely is not responded to steroids over the last several weeks and I think continuing to push high-dose steroids will likely result in more problems and actual benefit. She does not appear infected at this point in time and I would not recommend antibiotics. We will review her prior bronchoscopy with Dr. Hidalgo to see if she has evidence of significant malacia. If this is unclear, repeating her bronchoscopy under dynamic conditions may be beneficial. If tracheobronchial malacia is identified will need to assess the extent to which the airways are involved. If it is merely the trachea, consideration for stenting and/or trach eoplasty may be appropriate. For now a trial of positive airway pressure may be helpful and will place her on CPAP at 8 cm of water nightly. 2. We will discontinue steroids at this point time. 3. Continue bronchodilators. 4. We will add a trial of hypertonic saline nebs as well as Mucinex to see if this offers her clinical benefit with her chest congestion. (2) COPD exacerbation: Recommendations: 1. Not entirely convinced this represents an exacerbation of COPD. The patient appears to be doing relatively well clinically and can likely be dismissed from the hospital with close outpatient pulmonary follow-up. History of Present Illness Attending Physician: Chloe Vega MD History of Present Illness Patient seen and examined. Electronic medical record reviewed. History obtained from discussion with the patient the bedside. The patient is a 58-year-old female with an extensive history of tobacco exposure who continues to smoke on a daily basis. She is been followed previously by CRYSTAL Busch in the outpatient setting for obstructive lung disease. The patient is undergone bronchoscopy x2, the initial one back in June and a follow-up in October. She reports about a 6-week history of cough and shortness of breath with expiratory wheezes. She has been on prednisone for approximately 4 to 5 weeks without significant improvement in her symptoms. She denies fevers chills or night sweats. Her appetite has been good. Her weight has been stable. She is never been diagnosed with sleep disordered breathing is never used CPAP previously. She is scheduled to undergo a sleep study next week. She is gained a significant amount of weight in association with her prednisone. She does use inhalers on a regular basis and feels that she does obtain some clinical benefit from them. She denies any chest pain or palpitations and is not had any significant lower extremity edema. She has a course barking cough. Again she feels that the prednisone has not been beneficial with regards to her symptoms. She uses oxygen at night but does not require submental oxygen during the day. Allergies Allergy/AdvReac Type Severity Reaction Status Date / Time sumatriptan Allergy Intermediate DIAPHORESIS, Verified 01/23/19 17:30 "SKIN CRAWLING" carbamazepine Allergy Unknown RASH Verified 01/23/19 17:30 Home Medications Home Medications Medication Instructions Recorded Confirmed Type acetaminophen [Tylenol Extra 500 mg PO Q6H PRN 04/24/18 01/23/19 History Strength] aspirin [Aspir-Low] 81 mg PO DAILY 04/24/18 01/23/19 History atorvastatin [Lipitor] 40 mg PO DAILY 04/24/18 01/23/19 History carvedilol [Coreg] 6.25 mg PO BID 04/24/18 01/23/19 History ipratropium-albuterol 3 ml INHALATION QID PRN 04/24/18 01/23/19 History pantoprazole [Protonix] 40 mg PO DAILY 04/24/18 01/23/19 History trazodone 100 mg PO HS 04/24/18 01/23/19 History fluticasone propionate 2 spray INTRANASAL DAILY PRN 06/21/18 01/23/19 History polyethylene glycol 3350 [ClearLax] 17 g PO DAILY PRN 11/01/18 01/23/19 History Symbicort 2 puff INHALATION BID 11/03/18 01/23/19 History gabapentin 300 mg capsule 300 mg PO TID #90 cap 12/16/18 01/23/19 Rx escitalopram 10 mg tablet 10 mg PO DAILY #90 tab 01/07/19 01/23/19 Rx prednisone 10 mg tablet See Rx Instructions .ROUTE 01/13/19 01/23/19 Rx .COMPLEX #100 tablet prednisone 10 mg tablet 10 mg PO DAILY #20 tab 01/14/19 01/23/19 Rx levofloxacin 750 mg tablet 750 mg PO DAILY #10 tab 01/19/19 01/23/19 Rx Basaglar DeborahPen U-100 Insulin 20 unit SUBCUT QPM 01/23/19 01/23/19 History albuterol sulfate 1 puffs INH Q6H PRN 01/23/19 01/23/19 History utspontwet-abjpqsahycwgu-asrw 1 cap PO Q8H PRN 01/23/19 01/23/19 History [Fioricet] insulin lispro [Admelog SoloStar 5 unit SUBCUT TIDM PRN 01/23/19 01/23/19 History U-100 Insulin] metformin 500 mg PO DAILY 01/23/19 01/23/19 History Patient History Medical History LISANDRA on CPAP (Chronic) Back pain (Chronic) Neuropathy (Chronic) Chronic right hip pain (Chronic) LISANDRA and COPD overlap syndrome (Chronic) Family history of coronary artery disease (Chronic) Smoker (Chronic) Nonalcoholic hepatosteatosis (Chronic) Trigeminal neuralgia (Chronic) DM type 2 (diabetes mellitus, type 2) (Chronic) Osteoarthritis (Chronic) COPD (chronic obstructive pulmonary disease) (Chronic) 2L O2 Depression (Chronic) HTN (hypertension) (Chronic) Dyslipidemia (Chronic) Surgical History History of bronchoscopy (Resolved) H/O oophorectomy (Resolved) History of bladder surgery (Resolved) History of right oophorectomy (Resolved) H/O ankle fusion (Resolved) H/O arthroscopic knee surgery (Resolved) History of cholecystectomy (Resolved) History of tonsillectomy (Resolved) H/O inguinal hernia repair (Resolved) H/O: hysterectomy (Resolved) Family History Father Coronary heart disease Myocardial infarction Mother Coronary heart disease Myocardial infarction Brother Myocardial infarction Social History Preferred Language: [place] Communication Ability: Effective Visual Impairment: No Limitations Scenic Arts Supervisor Required: No Beliefs That Will Affect Care: None marital status: Current Living Situation: Spouse Current Living Situation Comment: home on weekends Other Information That Helps Us Care for You: No Feels Safe at Home: Yes Safety Concerns: Feels Safe At This Time Smoking Status: Current every day smoker Tobacco Type: cigarettes ; Cigarettes Per Day: 20 ; Do You Dip or Chew Tobacco: No ; Second Hand Exposure: No ; Tobacco Cessation Education Requested by Patient: Yes Hx Alcohol Use: No Hx Substance Use: No Review of Systems Review of Systems: All systems reviewed & are unremarkable except as noted in HPI & below Physical Exam Constitutional: WD/WN, vitals as above + obese Neck: trachea midline, no thyromegaly Respiratory: Coarse mid-to-late and expiratory wheezes. The patient has a barking cough Cardiovascular: RRR, no murmur, no edema Gastrointestinal (Abdomen): normal bowel sounds, soft, nontender, no hepatosplenomegaly Skin: no rashes, warm and dry Results & Data Vital Signs (Past 12 Hours) Vital Signs Temp Pulse Pulse Resp BP Pulse Ox 01/25/19 07:09 37.4 C 59 L 18 134/80 95 01/25/19 07:05 66 18 94 01/25/19 05:21 36.9 C 64 20 115/73 94 01/24/19 23:50 36.7 C 65 16 103/60 94 01/24/19 20:03 36.7 C 61 18 111/71 95 Laboratory Results 01/23/19 16:30 01/23/19 16:30 Diagnostic Findings Chest x-ray independently reviewed XR chest 1V portable CLINICAL HISTORY: 58 years-old Female presenting with COPD EXACERBATION. TECHNIQUE: Portable upright AP view of the chest was obtained. COMPARISON: 01/07/2019. FINDINGS: Atherosclerosis of the aortic arch. Cardiac silhouette enlarged. Pulmonary vascular prominence. No focal opacity. No large effusion or pneumothorax. Osseous structures normal. Upper abdomen normal. IMPRESSION: 1. Cardiomegaly with volume overload. No letty pulmonary edema. 2. No focal infiltrate to suggest pneumonia. Reviewed CT of the chest from June 21, 2018. There does appear to be some collapse of the distal airways although this was a full inspiratory film and not dynamic therefore commenting on tracheobronchomalacia somewhat difficult. PG Care Time/CCT Total # of Minutes Spent Total Time Spent with Patient: Total time spent is greater than 50% in coordination of care (as documented) at patient's floor/unit and/or counseling patient: 45 minutes reviewing case and coordinate in care
[2019-01-25] MEDS: CARVEDILOL 6.25 MG TAB PO SCH (07:47)
[2019-01-25] MEDS: ESCITALOPRAM OXALATE 10 MG TAB PO SCH (07:47)
[2019-01-25] MEDS: ASPIRIN 81 MG ECTAB PO SCH (07:47)
[2019-01-25] MEDS: GABAPENTIN 300 MG CAP PO SCH (07:48)
[2019-01-25] MEDS: NICOTINE 14 MG/24 HR PATCH TD SCH (07:48)
[2019-01-25] MEDS: PANTOprazole 40 MG TAB PO SCH (07:49)
[2019-01-25] MEDS: ATORVASTATIN 40 MG TAB PO SCH (07:50)
[2019-01-25] MEDS ORDERED: SODIUM CHLOR 7% 4 ML NEB INH SCH (08:00)
[2019-01-25] MEDS ORDERED: guaiFENesin 600 MG TABCR PO SCH (09:00)
[2019-01-25] MEDS ORDERED: FORMOTEROL 20 MCG/2 ML VIAL NEB SCH (09:00)
[2019-01-25] MEDS: INSULIN ASPART 100 UNITS/ML 3 ML PEN SC SCH (09:19)
[2019-01-25] MEDS: HEPARIN SOD 5,000 UNIT/0.5 ML VIAL SQ SCH (09:20)
[2019-01-25] MEDS: INSULIN GLARGINE SOLOSTAR 100 UNITS/ML 3 ML PEN SC SCH (09:25)
--- NOTE | 2019-01-25 10:37 | Discharge Summary ---
Date of Service January 25, 2019 Admission HPI Per Admitting Provider The patient is a 58-year-old female with a past medical history including COPD, diabetes mellitus, dyslipidemia, hypertension, GERD, depression and obstructive sleep apnea, who began treatment for upper respiratory illness about 4 weeks ago with Augmentin and her usual inhalers. She was then seen about 10 days ago, at that time was changed to levofloxacin and continued on oral prednisone. She went to urgent care 5 days ago, had her prednisone dosing increased, but with persistence and worsening of her symptoms, she called her PCPs office today, and they recommended that she come to the emergency department for assessment tonight. Principal Diagnosis COPD Exacerbation, Suspected tracheobronchial malacia Discharge Exam Constitutional WD/WN, vitals as above + obese Eyes PERRL, conjunctivae normal, anicteric sclerae ENMT external ear and nose normal, oropharynx normal (with dentures in place) Neck trachea midline, no thyromegaly Respiratory normal respiratory effort; no labored breathing Auscultation: + wheezes (expiratory wheeze, bilat, louder in upper airway regions and anteriorly); no diminished lung sounds, no crackles and no rhonchi Cardiovascular RRR, no murmur, no edema Gastrointestinal (Abdomen) normal bowel sounds, soft, nontender, no hepatosplenomegaly Musculoskeletal Extremities: extremities normal to inspection; no cyanosis and no clubbing Skin no rashes, warm and dry Neurologic moves all extremities and awake; no focal motor deficits Psychiatric A+Ox3, euthymic affect Discharge Data Allergies Allergy/AdvReac Type Severity Reaction Status Date / Time sumatriptan Allergy Intermediate DIAPHORESIS, Verified 01/23/19 17:30 "SKIN CRAWLING" carbamazepine Allergy Unknown RASH Verified 01/23/19 17:30 Consultations Pulmonology Ordered Studies CXR Hospital Course (1) COPD exacerbation: ongoing for several weeks by patient's recollection she has had 2 rounds of antibiotics (Augmentin and then Levaquin) and 2-3 rounds of steroids no real improvement main symptom is harsh, violent cough, some sputum but not a lot Received Solu Medrol 40mg q8, Duonebs, bronchodilator nebs -was treated with Doxycycline for atypical coverage CXR without evidence of pneumonia Consulted Dr. Neal of Pulmonology--> he thinks she may have tracheobronchial malacia and steroids are making this worse -recommended stopping all steroids, stopping abx -recommended getting CPAP--> she has sleep study in 2 days as an outpt -Pulm to review previous bronchoscopy and see if eeds repeat bronchoscopy to specifically look for tracheobronchial malacia -needs close outpt f/u with Pulm (2) LISANDRA on CPAP: Patient does not have her own CPAP yet-has sleep study on Saturday (3) Tobacco abuse: counseled on importance of quitting, especially with severe COPD and exacerbations she tried vaping and did not like it she said she has a lot of stress, her son and his family moved into her small home, chaotic in her home -continue nicotine patch after discharge (4) DM type 2 (diabetes mellitus, type 2): Held metformin while here but can restart upon dc. hyperglycemia with the Solu Medrol--> will improve now that is off steroids -continue home insulin (5) HTN (hypertension): Continue carvedilol 6.25 mg p.o. twice daily controlled (6) Dyslipidemia: Continue atorvastatin 40 mg daily (7) Neuropathy: Continue gabapentin 300 mg p.o. 3 times daily (8) Depression: Continue Escitalopram 10 mg p.o. daily and trazodone 100 mg at bedtime (9) GERD (gastroesophageal reflux disease): Continue pantoprazole 40 mg p.o. daily (10) Headache: likely tension headache, worse with coughing, has ongoing HAs for years use Fioricet and Toradol PRN -likely has analgesia induced headaches at this point as frequently takes meds at home--> consider stopping all analgesics and seeing Neuro as outpt Dispo-stable for dc to home Total Time Total Time Spent Total Time Spent (In Minutes): >30 min Total Time Includes: Examination of the Patient, Discharge Planning and Medication Reconciliation Discharge Plan Discharge Items Patient Disposition: Home - Self-Care Reason For Visit: COPD EXACERBATION,FAILURE OF OUTPATIENT TREATMENT Discharge Diagnosis: COPD Exacerbation Condition: Good Discharge Goals: Diagnostic testing, Improve disease control, Learn about illness and Therapeutic intervention Activity: Resume your previous activity Bathing: No limitations Exercise/Sports: Gradually increase as tolerated Driving/Machine Use: No limitations Non-emergency contact: Primary Care Provider and Director Of Medical Education Call non-emergency contact if: you have any medication questions and your symptoms worsen Follow-up/Referrals: Busch,Dmitriy M., PA-C [Physician Medication Technician] - (Please keep your appointment as scheduled with Liborio Busch.) Lori Velázquez CRNP, MS, RECORDS OFFICER-C [Primary Care Provider] - (Please call for a HOSPITAL FOLLOW UP VISIT within 1-2 weeks after discharge ) Diet: Heart Healthy Addtl Provider Instructions: You were treated for a COPD exacerbation, however the Director Of Medical Education here thinks you may have "Tracheobronchial malacia." Steroids may worsen this condition. He wants to review your last bronchoscopy with Dr. Hidalgo and determine if you will need a repeat bronchoscopy in the future. Please continue your usual home inhalers and follow up closely with your PCP and with Pulmonology within 1-2 weeks. Most importantly, you MUST STOP SMOKING. Prescriptions: New nicotine 7 mg/24 hr Patch 24 Hour 14 mg transdermal QAM Qty: 14 RF: 0 guaifenesin [Mucinex] 600 mg Tablet Extended Release 12hr 1,200 mg PO Q12 Qty: 60 RF: 0 Robitussin Cough-Chest Eulalio DM 5-100 mg/5 mL liquid 10 ml PO Q8H PRN (Reason: cough) Qty: 118 RF: 0 Continued gabapentin [Neurontin] 300 mg capsule 300 mg PO TID Qty: 90 RF: 5 escitalopram oxalate 10 mg tablet 10 mg PO DAILY Qty: 90 RF: 3 Symbicort 160-4.5 mcg/actuation Hfa Aerosol Inhaler 2 puff INHALATION BID RF: 0 atorvastatin [Lipitor] 40 mg tablet 40 mg PO DAILY RF: 0 ipratropium-albuterol 0.5 mg-3 mg(2.5 mg base)/3 mL Solution For Nebulization 3 ml INHALATION QID PRN (Reason: Shortness Of Breath Or Wheezing) RF: 0 trazodone 100 mg tablet 100 mg PO HS RF: 0 pantoprazole [Protonix] 40 mg tablet,delayed release (DR/EC) 40 mg PO DAILY RF: 0 carvedilol [Coreg] 6.25 mg tablet 6.25 mg PO BID RF: 0 aspirin [Aspir-Low] 81 mg Tablet,Delayed Release (Dr/Ec) 81 mg PO DAILY RF: 0 acetaminophen [Tylenol Extra Strength] 500 mg Tablet 500 mg PO Q6H PRN (Reason: Pain) RF: 0 fluticasone propionate 50 mcg/actuation spray,suspension 2 spray Intranasal DAILY PRN (Reason: Allergy Symptoms) RF: 0 polyethylene glycol 3350 [ClearLax] 17 gram/dose powder 17 g PO DAILY PRN (Reason: Constipation) RF: 0 metformin 500 mg tablet extended release 24 hr 500 mg PO DAILY RF: 0 insulin lispro [Admelog SoloStar U-100 Insulin] 100 unit/mL insulin pen 5 unit subcut TIDM PRN (Reason: sliding scale) RF: 0 Basaglar KwikPen U-100 Insulin 100 unit/mL (3 mL) insulin pen 20 unit subcut QPM RF: 0 atkabpukre-bfdwbgyousllk-ysej [Fioricet] 50-300-40 mg capsule 1 cap PO Q8H PRN (Reason: Pain) RF: 0 Changed albuterol sulfate 90 mcg/actuation HFA aerosol inhaler 2 puffs INH Q4H PRN (Reason: Shortness Of Breath Or Wheezing) Qty: 18 RF: 0 Discontinued prednisone 10 mg tablet See Rx Instructions .ROUTE .COMPLEX Qty: 100 RF: 0 levofloxacin [Levaquin] 750 mg tablet 750 mg PO DAILY Qty: 10 RF: 0 prednisone 10 mg tablet 10 mg PO DAILY Qty: 20 RF: 0 Visit Report Forms: Smoking Cessation Stand-Alone Forms: [facility] Discharge Orders: Discharge Order (Routine); Ordered 01/25/19 Ordered By: Chloe Vega Admission Data Admit Date/Time: 01/23/19 21:51 Attending Provider: Chloe Vega Admit Provider: Moncho Mullen Primary Care Provider: Lori Velázquez Other Providers: Moncho Mullen ; Donald Neal Service: Medical Other Pending Studies at Discharge: No
== END 2019-01-25 12:08 | disposition home or self-care (01) | DRG 202 ==
LOC: ED 15:45 → 2S 21:51 → SUATTDRO 21:51 → 2S 22:17 → 2N 01-24 13:24

== ENCOUNTER 2019-03-08 09:25 | Inpatient (IN) ==
[2019-03-08] MEDS ORDERED: methylPREDNISolone 125 MG/2 ML VIAL IV STA (10:11)
[2019-03-08] MEDS ORDERED: ALBUT/IPRATROP 3MG/0.5MG NEB 3 ML VIAL NEB STA (10:11)
[2019-03-08 10:13] LABS: Basophils # (auto) 0.06 K/uL (0-0.2); Basophils % (auto) 0.8 %; Eosinophils # (auto) 0.24 K/uL (0-0.5); Hematocrit (blood only) 44.6 % (37-47); Hemoglobin 15.3 g/dL (12.0-16.0); Immature Granulocytes # (auto) 0.03 K/uL (0.00-0.02); Immature Granulocytes % (auto) 0.4 %; Lymphocytes # (auto) 2.72 K/uL (1.2-3.4); Lymphocytes % (auto) 34.3 %; Mean Corpuscular Hemoglobin 31.7 pg (25-34); Mean Corpuscular Hgb Conc 34.3 g/dL (32-36); Mean Corpuscular Volume 92.5 fL (80-100); Mean Platelet Volume 9.4 fL (7.4-10.4); Monocytes # (auto) 0.68 K/uL (0.11-0.59); Monocytes % (auto) 8.6 %; Neutrophils % (auto) 52.9 %; Platelet Count 177 K/uL (130-400); RDW Coefficient of Variation 13.3 % (11.5-14.5); RDW Standard Deviation 45.3 fL (36.4-46.3); Red Blood Count 4.82 M/uL (4.2-5.4); White Blood Count 7.93 K/uL (4.8-10.8)
[2019-03-08] MEDS ORDERED: MoRPHine SULFATE 2 MG/ML CARP IV STA (10:15)
[2019-03-08] MEDS ORDERED: ALBUT/IPRATROP 3MG/0.5MG NEB 3 ML VIAL NEB ONE (10:16)
[2019-03-08] MEDS ORDERED: PROMETHAZINE 12.5 MG/50.5 ML BAG IV STA (10:18)
--- NOTE | 2019-03-08 10:20 | XRay Report ---
XR chest 1V portable CLINICAL HISTORY: 58 years-old Female presenting with Dyspnea. TECHNIQUE: Portable upright AP view of the chest was obtained. COMPARISON: 03/02/2019. FINDINGS: Atherosclerosis of the aortic arch. Cardiac silhouette enlarged. Mild pulmonary vascular prominence. Lungs are hyperinflated. No focal opacity. No pleural effusion or pneumothorax. Osseous structures no rmal. Upper abdomen normal. IMPRESSION: 1. Cardiomegaly with possible mild volume overload. No advanced congestive change or letty pulmonary edema. Electronically signed by: Edil Chavarria M.D. 03/08/2019 10:18 AM
[2019-03-08 10:30] LABS: Alanine Aminotransferase 26 U/L (12-78); Albumin Level 3.7 gm/dl (3.4-5.0); Aspartate Aminotransferase 15 U/L (15-37); BUN Creatinine Ratio 8.3 (10-20); Blood Urea Nitrogen 6 mg/dl (7-18); Calcium 8.9 mg/dl (8.5-10.1); Carbon Dioxide 27 mmol/L (21-32); Chloride 109 mmol/L (98-107); Creatinine Clr Calc Pharmacy 97.4 ml/min; Est GFR (African American) 111.2; Glucose 142 mg/dl (70-99); Potassium 3.9 mmol/L (3.5-5.1); Sodium 143 mmol/L (136-145)
[2019-03-08 10:35] LABS: Albumin Globulin Ratio 1.1 (0.9-2); Alkaline Phosphatase 76 U/L (45-117); Bilirubin,Total 0.3 mg/dl (0.2-1); Globulin 3.3 gm/dl (2.5-4.0); Troponin I < 0.015 ng/ml (0-0.045)
[2019-03-08] MEDS ORDERED: BACLOFEN 10 MG TAB PO PRN (12:48)
[2019-03-08] MEDS ORDERED: FLUTICASONE PROPIONATE NA SPR 16 GM BTL PRN (12:48)
[2019-03-08] MEDS ORDERED: BENZONATATE 100 MG CAPSULE PO PRN (12:48)
[2019-03-08] MEDS ORDERED: POLYETHYLENE GLYCOL 17 GM PO PRN (12:48)
[2019-03-08] MEDS ORDERED: GLUCOSE 40% GEL 15 GM TUBE PO PRN ×2 (12:50→20:27)
[2019-03-08] MEDS ORDERED: POLYETHYLENE (MIRALAX) 17 GM PACK PO PRN (12:50)
[2019-03-08] MEDS ORDERED: MAGNESIUM HYDROXIDE SUSP 30 ML UDC PO PRN (12:50)
[2019-03-08] MEDS ORDERED: DEXTROSE 50% 50 ML SYRINGE IV PRN ×2 (12:50→20:27)
[2019-03-08] MEDS ORDERED: ALUMINUM/MAGNESIUM SUSP 30 ML UDC PO PRN (12:50)
[2019-03-08] MEDS ORDERED: GLUCAGON FOR INJ 1 MG VIAL SQ PRN ×2 (12:50→20:27)
[2019-03-08] MEDS ORDERED: CARBOHYDRATES FOR HYPOGLYCEMIA PO PRN ×2 (12:50→20:27)
[2019-03-08] MEDS ORDERED: GLUCOSE 10 TABS/TUBE PO PRN ×2 (12:50→20:27)
[2019-03-08] MEDS ORDERED: SODIUM CHLORIDE 0.9% 1000ML 1,000 ML IV SCH (13:00)
--- NOTE | 2019-03-08 13:06 | History & Physical Report ---
Date of Service March 08, 2019 Assessment & Plan (1) Acute respiratory failure with hypoxia: Plan Admit patient to telemetry Start patient on bronchodilators, albuterol/Atrovent 0.63 inhalation nebulizer 4 times daily Pulmicort inhaler Start patient on steroids, Solu-Medrol 60 mg IV every 6 hours Chest imaging reviewed, showed no active pneumonia but likely bacterial bronchitis EKG reviewed, no QTc prolongation, will start patient on azithromycin 500 mg IV daily which will have also anti-inflammatory benefit for COPD QTC today is 490, will order EKG daily and please stop azithromycin if QTC goes above 500 We will also add ceftriaxone to cover for acute bronchitis giving her yellow sputum and since she failed Augmentin as an out Add probiotic for C. difficile prevention Pulmonary consultation if no improvement as needed Pepcid for GI prophylaxis Lovenox subcu for DVT prophylaxis Patient will need pulmonary function test in 6 weeks after resolution (2) COPD exacerbation: As above (3) Tobacco abuse: Counseled heavily regarding tobacco abuse, and willing to quit (4) DM type 2 (diabetes mellitus, type 2): Appears to be under good control Continue 20 units of long-acting insulin and 5 units pre-meal short-acting Add sliding scale insulin since she will be on Solu-Medrol As soon as she improves quick taper of Solu-Medrol (5) Dyslipidemia: Appears to be stable We will leave it up to her primary care physician to order lipids panel and confirm compliance For now we will continue her Lipitor (6) HTN (hypertension): Controlled on medications Continue home meds (7) Depression: Controlled continue home meds History of Present Illness 58 years old female with past medical history of essential hypertension, dyslipidemia, depression copd who was on nocturnal O2 supplement only. Patient stated she never was intubated before our because of COPD exacerbation. Patient is currently active smoker. She was in her regular state of health until about 7 days ago when she developed severe productive cough with whitish and yellowish sputum. She also developed severe bronchospasm/wheezing. Her primary care physician gave her a course of Augmentin she took 7 days worth of the a ntibiotics without any improvement. Also developed pleuritic chest pain with cough. She came to the ED for further evaluation and management, and ED chest x-ray showed increased bronchovascular markings but no pneumonia. She was found to have borderline low oxygen saturation around 90 RA. During my evaluation she dropped her oxygen to 89, she was unable to speak full sentences due to shortness of breath, she was using accessory muscles of respiratory Primary Care Provider: NICK Seaman, MS, [facility] Allergies Allergy/AdvReac Type Severity Reaction Status Date / Time sumatriptan Allergy Intermediate DIAPHORESIS, Verified 03/08/19 11:19 "SKIN CRAWLING" carbamazepine Allergy Unknown RASH Verified 03/08/19 11:19 Home Medications Home Medications Medication Instructions Recorded Confirmed Type acetaminophen [Tylenol Extra 500 mg PO Q6H PRN 04/24/18 03/08/19 History Strength] aspirin [Aspir-Low] 81 mg PO DAILY 04/24/18 03/08/19 History ipratropium-albuterol 3 ml INHALATION QID PRN 04/24/18 03/08/19 History fluticasone propionate 2 spray INTRANASAL DAILY PRN 06/21/18 03/08/19 History wxghffeslz-gqvqyyiaqvhnq-ebvj 1 cap PO Q8H PRN 01/23/19 03/08/19 History [Fioricet] baclofen 10 mg tablet 10 mg PO DAILY PRN #90 tab 01/28/19 03/08/19 History budesonide-formoterol HFA 160 2 puff INHALATION BID 01/28/19 03/08/19 History mcg-4.5 mcg/actuation aerosol inhaler carvedilol 6.25 mg tablet 6.25 mg PO BIDM tab 01/28/19 03/08/19 History polyethylene glycol 3350 17 17 g PO DAILY PRN 01/28/19 03/08/19 History gram/dose oral powder albuterol sulfate HFA 90 2 puffs INH Q4H PRN #18 gm 02/02/19 03/08/19 Rx mcg/actuation aerosol inhaler atorvastatin 40 mg tablet 40 mg PO ONCE tab 02/02/19 03/08/19 History escitalopram 10 mg tablet 10 mg PO DAILY #90 tab 02/02/19 03/08/19 Rx gabapentin 300 mg capsule 300 mg PO TID #90 cap 02/02/19 03/08/19 Rx insulin glargine (U-100) 100 20 unit SUBCUT QPM #3 ml 02/02/19 03/08/19 Rx unit/mL (3 mL) subcutaneous pen insulin lispro (U- 100) 100 5 unit SUBCUT TIDM PRN #3 ml 02/02/19 03/08/19 Rx unit/mL subcutaneous pen metformin ER 500 mg 500 mg PO DAILY #30 tab 02/02/19 03/08/19 Rx tablet,extended release 24 hr pantoprazole 40 mg tablet,delayed 40 mg PO DAILY #30 tab 02/02/19 03/08/19 Rx release trazodone 150 mg tablet 150 mg PO DAILY #30 tab 02/02/19 03/08/19 Rx benzonatate 100 mg capsule 100 mg PO TID PRN #90 cap 02/12/19 03/08/19 Rx ranitidine 300 mg capsule 300 mg PO DAILY #30 cap 02/12/19 03/08/19 Rx amoxicillin 875 mg-potassium 1 tab PO BID #14 tab 03/02/19 03/08/19 Rx clavulanate 125 mg tablet Past Med/Surg History Medical History LISANDRA on CPAP (Chronic) Back pain (Chronic) Neuropathy (Chronic) Chronic right hip pain (Chronic) LISANDRA and COPD overlap syndrome (Chronic) Family history of coronary artery disease (Chronic) Smoker (Chronic) Nonalcoholic hepatosteatosis (Chronic) Trigeminal neuralgia (Chronic) DM type 2 (diabetes mellitus, type 2) (Chronic) Osteoarthritis (Chronic) Depression (Chronic) HTN (hypertension) (Chronic) Dyslipidemia (Chronic) Surgical History History of bronchoscopy (Resolved) H/O oophorectomy (Resolved) History of bladder surgery (Resolved) History of right oophorectomy (Resolved) H/O ankle fusion (Resolved) H/O arthroscopic knee surgery (Resolved) History of cholecystectomy (Resolved) History of tonsillectomy (Resolved) H/O inguinal hernia repair (Resolved) H/O: hysterectomy (Resolved) Family History Father Coronary heart disease Myocardial infarction Mother Coronary heart disease Myocardial infarction Brother Myocardial infarction Social History Preferred Language: Faroese Communication Ability: Effective Visual Impairment: No Limitations 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 Beliefs That Will Affect Care: None marital status: Current Living Situation: Spouse Current Living Situation Comment: home on weekends Feels Safe at Home: Yes Smoking Status: Current every day smoker Tobacco Type: cigarettes ; Cigarettes Per Day: 20 ; Second Hand Exposure: No ; Hx Alcohol Use: No Hx Substance Use: No Review of Systems Review of Systems: Review of system Constitutional: No fever / no chills / no sweats / no weakness / no fatigue Eyes: no blurring of vision / no eye pain / no discharge / no redness ENT: no hearing loss / no epistaxis /no swallowing problems Respiratory: Shortness of breath, significant wheezing, productive cough/dry cough / no hemoptysis Cardiovascular: no Chest pain / no lower extremity edema / no palpitation Abdomen: no pain / no nausea / no vomiting / no constipation Musculoskeletal: no joint pain / no muscle pain / no joint swelling Genitourinary: no dysuria / no incontinence / no urinary retention Neurologic: no focal weakness / no numbness/tingling / no ataxia Psychiatric: no depression symptoms / no anxiety / no insomnia Endocrine: no excessive thirst / no excessive urination Hematologic: no abnormal bleeding / no bruising / no LN swelling Skin: No rash / no pallor Physical Exam Physical Exam: Physical examination General patient appears to be comfortable, not in acute distress HEENT: Atraumatic , normocephalic /no jaundice /no pallor /anicteric /no dry mucous membrane /normal external ear inspection Neck: Supple /no swelling /central trach Heart: S1/S2 normal/regular rate and rhythm/no gallop /no rub /no murmur Lungs: Decreased air entry bilaterally, generalized wheezing both lung garcia, scattered rhonchi, no chest wall tenderness Abdomen: Soft/nontender/no guarding/no rebound/no organomegaly/no pulsatile mass Musculoskeletal: No swelling/no edema/no tenderness/normal range of motion Neuro exam: Awake alert oriented 3/cranial nerves II through XII appear to be intact/sensation intact/moves all extremities/no abnormal movements Psychiatric evaluation: No depressed mood/normal affect Skin: No rash on exposed skin area/no erythema Extremity: Normal pulse/no pitting edema/no clubbing or cyanosis Endocrine/lymphatic: No obvious lymphadenopathy /no lymphedema Results & Data Vital Signs (Past 12 Hours) Vital Signs Temp Pulse Pulse Resp BP BP Pulse Ox 03/08/19 11:26 64 20 142/91 H 95 03/08/19 10:28 81 14 94 03/08/19 09:30 36.6 C 83 22 134/77 95 Code Status & VTE Plan VTE Prophylaxis Plan VTE Prophylaxis will be ordered: Yes PG Care Time/CCT Total # of Minutes Spent Total Time Spent with Patient: 35 minutes total time spent is greater than 50% in coordination of care (as documented) at patient's floor/unit and/or counseling patient/family discussion of care with nursing staff (1) DM type 2 (diabetes mellitus, type 2) Diabetes mellitus 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
[2019-03-08 13:45] LABS: Influenza A virus by PCR Neg for Influ A (Neg); Influenza B virus by PCR Neg for Influ B (Neg)
[2019-03-08 14:50] LABS: Partial Thromboplastin Time 27.3 Seconds (21.0-31.0)
[2019-03-08] MEDS: GABAPENTIN 300 MG CAP PO SCH ×2 (15:02→21:02)
[2019-03-08] MEDS: cefTRIAXone SODIUM 2,000 MG in DEXTROSE 5% 50 ML IV SCH (15:04)
[2019-03-08] MEDS: AZITHROMYCIN 500 MG in DEXTROSE 5% 250 ML IV SCH (15:04)
[2019-03-08] MEDS: INSULIN ASPART 100 UNITS/ML 3 ML PEN SC SCH ×4 (15:06→23:30)
[2019-03-08] MEDS: LACTOBACILLUS ACIDOPHILUS 1 GM PACK PO SCH (15:07)
[2019-03-08] MEDS: carvediloL 6.25 MG TAB PO SCH (15:08)
[2019-03-08] MEDS: ACETAMINOPHEN 500 MG TAB PO PRN (15:10)
[2019-03-08] MEDS ORDERED: INSULIN ASPART 100 UNITS/ML 3 ML PEN SC SCH ×2 (17:00)
[2019-03-08] MEDS: ENOXAPARIN INJ 40 MG/0.4 ML SYR SQ SCH (17:19)
[2019-03-08] MEDS: methylPREDNISolone 40 MG in SYRINGE 0 ML IV SCH ×2 (17:20→23:07)
--- NOTE | 2019-03-08 18:19 | Emergency Department Note ---
Entered by Antonietta Sherman acting as a scribe for Cristian Herrera MD ED Provider Note CHIEF COMPLAINT: Shortness of breath HISTORY OF PRESENT ILLNESS: The patient is a 58 year old female who presents to the Emergency Room with complaints of shortness of breath that started this morning. The patient states that she became sick 1.5 weeks ago, and was prescribed antibiotics and steroids by her PCP. The patient states that she been using inhalers, nebulizers and Mucinex, but nothing seems to help. The patient states that she has been coughing so much that she has chest pain, rib pain, a headache, back pain, nausea and vomiting. The patient notes that she has also been having intermittent diarrhea. Pt denies LOC, fevers, chills, diaphoresis, visual changes, neck pain, abdominal pain, melena, hematochezia, urinary symptoms, num bness, weakness, lymphadenopathy, rash, or other complaints. REVIEW OF SYSTEMS: See HPI for pertinent positives and negatives. A total of ten systems were re viewed and were otherwise negative. PMHx/PSHx: COPD, diabetes, HTN, osteoarthritis, depression. SOCIAL HISTORY: Patient lives at home. PHYSICAL EXAM: GENERAL: Awake, alert, well-appearing, in no distress HENT: Normocephalic, atraumatic. Oropharynx unremarkable. EYES: PERRL. Normal conjunctiva. Sclera non-icteric. NECK: Inspection normal. Non-tender. Supple. No nuchal rigidity. FROM. No masses. RESPIRATORY: Coarse breath sounds and wheezing bilaterally. Increased work of breathing, dyspneic appearing. CARDIAC: Normal rate. Normal rhythm. No murmurs. No rubs. Extremities warm and well perfused. Pulses equal. No JVD. GI: Soft, non-distended. No tenderness to palpation. No rebound or guarding. No masses. RECTAL: Deferred. MUSCULOSKELETAL: Midaxillary left lateral rib tenderness. Atraumatic. Chest examination reveals no tenderness. The back is symmetrical on inspection without obvious abnormality. There is no CVA tenderness to palpation. No joint edema. LOWER EXTREMITIES: Calves are equal size bilaterally and non-tender. No edema. No discoloration. NEURO: Normal sensorium. No sensory or motor deficits noted. SKIN: No rash or jaundice noted. EMERGENCY DEPARTMENT COURSE: 1010: Past medical records reviewed. The patient was evaluated in room B11, and a complete history and physical examination were performed. 1220: I discussed the patient's case with Dr. Abad- [facility] Hospitalist. He will evaluate the patient for further management. MEDICAL DECISION MAKING: B11 Triage Nursing notes reviewed and agree them. Additional history obtained from the family. The patient's history was concerning for shortness of breath. Differential diagnosis: Etiologies such as pneumonia, COPD, reactive airway disease, CHF, cardiac ischemia, pulmonary embolism, pneumothorax, musculoskeletal, infections, gastrointestinal, as well as others were entertained. Physical examination: The patient had very coarse breath sounds. She had a heavy cough and had rib tenderness on the left side. ER treatment provided: Hour-long DuoNeb IV Solu-Medrol IV morphine On reassessment the patient felt no better. She was still wheezing and had coarse breath sounds. Diagnostic interpretation by me: The electrocardiogram was negative for ischemic change. The labs revealed an unremarkable CBC and chemistry panel. Troponin negative. Imaging studies: Chest x-ray chronic findings. No acute disease. The patient has significant wheezing and coarse breath sounds. I suspect a COPD exacerbation as she is still actively smoking and has a long history of the same. She will need further management in the hospital. Consultation: A consultation was placed with the hospitalist. The case was discussed and diagnostics were reviewed. The patient was evaluated in the ER for further treatment. IMPRESSION: Dyspnea, COPD exacerbation, cough. PLAN: Evaluated by Hospitalist The scribe's documentation has been prepared under my direction and personally reviewed by me in its entirety. I confirm that the note above accurately reflects all work, treatment, procedures, and medical decision making performed by me. Impression & Plan Dyspnea, COPD exacerbation, Cough Past Med/Surg History Medical History LISANDRA on CPAP (Chronic) Back pain (Chronic) Neuropathy (Chronic) Chronic right hip pain (Chronic) LISANDRA and COPD overlap syndrome (Chronic) Family history of coronary artery disease (Chronic) Smoker (Chronic) Nonalcoholic hepatosteatosis (Chronic) Trigeminal neuralgia (Chronic) DM type 2 (diabetes mellitus, type 2) (Chronic) Osteoarthritis (Chronic) Depression (Chronic) HTN (hypertension) (Chronic) Dyslipidemia (Chronic) Surgical History History of bronchoscopy (Resolved) H/O oophorectomy (Resolved) History of bladder surgery (Resolved) History of right oophorectomy (Resolved) H/O ankle fusion (Resolved) H/O arthroscopic knee surgery (Resolved) History of cholecystectomy (Resolved) History of tonsillectomy (Resolved) H/O inguinal hernia repair (Resolved) H/O: hysterectomy (Resolved) Family History Father Coronary heart disease Myocardial infarction Mother Coronary heart disease Myocardial infarction Brother Myocardial infarction Social History Preferred Language: Wolof Communication Ability: Effective Visual Impairment: No Limitations Director Medical Required: No Beliefs That Will Affect Care: None marital status: Current Living Situation: Spouse Current Living Situation Comment: home on weekends Other Information That Helps Us Care for You: No Feels Safe at Home: Yes Safety Concerns: Feels Safe At This Time Smoking Status: Current every day smoker Tobacco Type: cigarettes ; Cigarettes Per Day: 20 ; Do You Dip or Chew Tobacco: No ; Second Hand Exposure: No ; Tobacco Cessation Education Requested by Patient: No Hx Alcohol Use: No Hx Substance Use: No Results & Data Vital Signs Vital Signs - 24 hr 03/08/19 09:30 03/08/19 10:22 03/08/19 10:28 Temperature 36.6 C Temperature Source Oral Sepsis Recent Fever Within 48 Hours No Sepsis New/Unexplained Change in Mental Status No Sepsis Action Taken by Nursing No Action Required Pulse Rate 83 Pulse Rate [Finger] 81 Pulse Rhythm [Finger] Respiratory Rate 22 14 Respiratory Effort / Characteristics Non-Labored Spontaneous Spontaneous Short of Breath Respiratory Depth Normal Respiratory Pattern Regular Blood Pressure 134/77 Blood Pressure [Right Arm] Blood Pressure Mean 96 Blood Pressure Mean [Right Arm] Blood Pressure Position Sitting Pulse Oximetry 95 94 Oxygen Delivery Method Room Air Room Air Room Air Oxygen Flow Rate 0 03/08/19 11:26 03/08/19 13:00 03/08/19 13:01 Temperature Temperature Source Sepsis Recent Fever Within 48 Hours Sepsis New/Unexplained Change in Mental Status Sepsis Action Taken by Nursing Pulse Rate Pulse Rate [Finger] 64 84 87 Pulse Rhythm [Finger] Regular Regular Regular Respiratory Rate 20 21 22 Respiratory Effort / Characteristics Non-Labored Spontaneous Spontaneous Spontaneous Respiratory Depth Normal Respiratory Pattern Regular Regular Regular Blood Pressure Blood Pressure [Right Arm] 142/91 H 126/80 Blood Pressure Mean Blood Pressure Mean [Right Arm] 108 95 Blood Pressure Position Pulse Oximetry 95 88 L 93 Oxygen Delivery Method Room Air Room Air Nasal Cannula Oxygen Flow Rate 2 03/08/19 13:05 03/08/19 13:41 Temperature Temperature Source Sepsis Recent Fever Within 48 Hours Sepsis New/Unexplained Change in Mental Status Sepsis Action Taken by Nursing Pulse Rate 87 Pulse Rate [Finger] Pulse Rhythm [Finger] Respiratory Rate 21 Respiratory Effort / Characteristics Spontaneous Short of Breath SOB on Exertion Respiratory Depth Normal Respiratory Pattern Tachypnea Blood Pressure 114/74 Blood Pressure [Right Arm] Blood Pressure Mean Blood Pressure Mean [Right Arm] Blood Pressure Position Pulse Oximetry 92 Oxygen Delivery Method Nasal Cannula Nasal Cannula Oxygen Flow Rate 2 2 Home Medications Current Medication List: was personally reviewed by me Laboratory Data Attestation: I reviewed the patient's lab results. Result diagrams: 03/08/19 10:02 03/08/19 10:02 Lab Results 03/08/19 03/08/19 03/08/19 Range/Units 10:02 10:02 10:02 WBC 7.93 (4.8-10.8) K/uL RBC 4.82 (4.2-5.4) M/uL Hgb 15.3 (12.0-16.0) g/dL Hct 44.6 (37-47) % MCV 92.5 (80-100) fL MCH 31.7 (25-34) pg MCHC 34.3 (32-36) g/dL RDW Std Deviation 45.3 (36.4-46.3) fL RDW Coeff of Cathy 13.3 (11.5-14.5) % Plt Count 177 (130-400) K/uL MPV 9.4 (7.4-10.4) fL Immature Gran % (Auto) 0.4 % Neut % (Auto) 52.9 % Lymph % (Auto) 34.3 % Charlton % (Auto) 8.6 % Eos % (Auto) 3.0 % Baso % (Auto) 0.8 % Immature Gran # (Auto) 0.03 H (0.00-0.02) K/uL Neut # (Auto) 4.20 (1.4-6.5) K/uL Lymph # (Auto) 2.72 (1.2-3.4) K/uL Charlton # (Auto) 0.68 H (0.11-0.59) K/uL Eos # (Auto) 0.24 (0-0.5) K/uL Baso # (Auto) 0.06 (0-0.2) K/uL PT (9.0-12.0) Seconds INR (0.9-1.1) APTT (21.0-31.0) Seconds PTT Ratio Sodium 143 (136-145) mmol/L Potassium 3.9 (3.5-5.1) mmol/L Chloride 109 H (98-107) mmol/L Carbon Dioxide 27 (21-32) mmol/L Anion Gap 7.0 (3-11) BUN 6 L (7-18) mg/dl Creatinine 0.69 (0.6-1.2) mg/dl Est Cr Clr Drug Dosing 97.4 ml/min Est GFR ( Amer) 111.2 Est GFR (Non-Af Amer) 96.0 BUN/Creatinine Ratio 8.3 L (10-20) Glucose 142 H (70-99) mg/dl Calcium 8.9 (8.5-10.1) mg/dl Total Bilirubin 0.3 (0.2-1) mg/dl AST 15 (15-37) U/L ALT 26 (12-78) U/L Alkaline Phosphatase 76 (45-117) U/L Troponin I < 0.015 (0-0.045) ng/ml Total Protein 7.0 (6.4-8.2) gm/dl Albumin 3.7 (3.4-5.0) gm/dl Globulin 3.3 (2.5-4.0) gm/dl Albumin/Globulin Ratio 1.1 (0.9-2) Procalcitonin < 0.05 (0-0.5) ng/ml Influenza Type A (PCR) (Neg) Influenza Type B (PCR) (Neg) 03/08/19 03/08/19 Range/Units 10:02 13:00 WBC (4.8-10.8) K/uL RBC (4.2-5.4) M/uL Hgb (12.0-16.0) g/dL Hct (37-47) % MCV (80-100) fL MCH (25-34) pg MCHC (32-36) g/dL RDW Std Deviation (36.4-46.3) fL RDW Coeff of Cathy (11.5-14.5) % Plt Count (130-400) K/uL MPV (7.4-10.4) fL Immature Gran % (Auto) % Neut % (Auto) % Lymph % (Auto) % Charlton % (Auto) % Eos % (Auto) % Baso % (Auto) % Immature Gran # (Auto) (0.00-0.02) K/uL Neut # (Auto) (1.4-6.5) K/uL Lymph # (Auto) (1.2-3.4) K/uL Charlton # (Auto) (0.11-0.59) K/uL Eos # (Auto) (0-0.5) K/uL Baso # (Auto) (0-0.2) K/uL PT 10.0 (9.0-12.0) Seconds INR 1.0 (0.9-1.1) APTT 27.3 (21.0-31.0) Seconds PTT Ratio 1.0 Sodium (136-145) mmol/L Potassium (3.5-5.1) mmol/L Chloride (98-107) mmol/L Carbon Dioxide (21-32) mmol/L Anion Gap (3-11) BUN (7-18) mg/dl Creatinine (0.6-1.2) mg/dl Est Cr Clr Drug Dosing ml/min Est GFR ( Amer) Est GFR (Non-Af Amer) BUN/Creatinine Ratio (10-20) Glucose (70-99) mg/dl Calcium (8.5-10.1) mg/dl Total Bilirubin (0.2-1) mg/dl AST (15-37) U/L ALT (12-78) U/L Alkaline Phosphatase (45-117) U/L Troponin I (0-0.045) ng/ml Total Protein (6.4-8.2) gm/dl Albumin (3.4-5.0) gm/dl Globulin (2.5-4.0) gm/dl Albumin/Globulin Ratio (0.9-2) Procalcitonin (0-0.5) ng/ml Influenza Type A (PCR) Neg for Influ A (Neg) Influenza Type B (PCR) Neg for Influ B (Neg) Administered Medications Acetaminophen (Tylenol) 500 mg PO Q6H PRN PRN Reason: Pain Stop: 04/07/19 12:47 Last Admin: 03/08/19 15:10 Dose: 500 mg Documented by: [id number] Carvedilol (Coreg) 6.25 mg PO BIDM [facility] Stop: 04/07/19 16:59 Last Admin: 03/08/19 15:08 Dose: 6.25 mg Documented by: [id number] Enoxaparin Sodium (Lovenox) 40 mg SQ Q24H ANYI Stop: 04/07/19 17:59 Last Admin: 03/08/19 17:19 Dose: 40 mg Documented by: [id number] Gabapentin (Neurontin) 300 mg PO TID [facility] Stop: 04/07/19 13:59 Last Admin: 03/08/19 15:02 Dose: Not Given Documented by: [id number] Azithromycin 500 mg/ Dextrose 255 mls @ 125 mls/hr IV Q24H ANYI; Protocol Stop: 03/13/19 14:59 Last Infusion: 03/08/19 17:00 Dose: 0 mls/hr Documented by: [id number] Admin: 03/08/19 15:04 Dose: 125 mls/hr Documented by: [id number] Ceftriaxone Sodium 2,000 mg/ (Dextrose) 70 mls @ 100 mls/hr IV Q24H ANYI; Protocol Stop: 03/15/19 14:29 Last Infusion: 03/08/19 15:43 Dose: 0 mls/hr Documented by: [id number] Admin: 03/08/19 15:04 Dose: 100 mls/hr Documented by: [id number] Methylprednisolone 40 mg/ (Syringe) 0.64 mls @ 1.5 mls/min IV Q6H ANYI Stop: 04/07/19 17:59 Last Admin: 03/08/19 17:20 Dose: 1.5 mls/min Documented by: [id number] Insulin Aspart (Novolog Flexpen) 0 units SC ACHS [facility] Stop: 04/07/19 16:29 Last Admin: 03/08/19 17:19 Dose: 3 units Documented by: [id number] Cosigned by: [id number] Admin: 03/08/19 15:06 Dose: 6 units Documented by: [id number] Cosigned by: [id number] Insulin Aspart (Novolog Flexpen) 5 units SC TIDM ANYI Stop: 04/07/19 16:59 Last Admin: 03/08/19 15:05 Dose: 5 units Documented by: [id number] Cosigned by: [id number] Lactobacillus Acidophilus (Floranex Granules/Powder Packet) 1 gm PO TIDM ANYI Stop: 04/07/19 16:59 Last Admin: 03/08/19 15:07 Dose: 1 gm Documented by: [id number] Discontinued Medications Albuterol (Duoneb) 3 ml NEB NOW STA Stop: 03/08/19 10:12 Last Admin: 03/08/19 10:45 Dose: Not Given Documented by: [id number] Albuterol (Duoneb) 12 ml NEB ONE ONE Stop: 03/08/19 10:17 Last Admin: 03/08/19 10:26 Dose: 12 ml Documented by: [id number] Promethazine HCl (Phenergan) 12.5 mg in 50.5 mls @ 202 mls/hr IV NOW STA Stop: 03/08/19 10:32 Last Infusion: 03/08/19 11:13 Dose: 0 mls/hr Documented by: [id number] Admin: 03/08/19 10:45 Dose: 202 mls/hr Documented by: [id number] Methylprednisolone (Solumedrol) 125 mg IV NOW STA Stop: 03/08/19 10:12 Last Admin: 03/08/19 10:45 Dose: 125 mg Documented by: [id number] Morphine Sulfate (Morphine Sulfate) 2 mg IV NOW STA Stop: 03/08/19 10:16 Last Admin: 03/08/19 10:45 Dose: 2 mg Documented by: [id number] Imaging Data Radiologist's Impression: Radiology results as stated below per my review and the radiologist's interpretation: XR chest 1V portable CLINICAL HISTORY: 58 years-old Female presenting with Dyspnea. TECHNIQUE: Portable upright AP view of the chest was obtained. COMPARISON: 03/02/2019. FINDINGS: Atherosclerosis of the aortic arch. Cardiac silhouette enlarged. Mild pulmonary vascular prominence. Lungs are hyperinflated. No focal opacity. No pleural effusion or pneumothorax. Osseous structures normal. Upper abdomen normal. IMPRESSION: 1. Cardiomegaly with possible mild volume overload. No advanced congestive change or letty pulmonary edema. Electronically signed by: Edil Chavarria M.D. 03/08/2019 10:18 AM ECG Data Attestation: I personally reviewed and interpreted this ECG as follows: Indication: SOB/dyspnea Rate (beats per minute): 75 Rhythm: sinus rhythm Findings: + other (low voltage QRS), + nonspecific-ST abn, + PVC and + prolonged QT; no ST depression and no ST elevation Blood Pressure Blood Pressure Findings: Normal blood pressure Blood Pressure Disposition: did not require urgent referral Discharge Plan Visit Data *Final* Discharge Date/Time: 03/08/19 13:41 Chief Complaint: Shortness of Breath/Dyspnea Stated Complaint: SOB ED Provider: Cristian Herrera Discharge Problem: Dyspnea, COPD exacerbation, Cough Patient Disposition: Admitted As Inpatient Discharge Instructions Interventions: ED Discharge Assessment Last Done: 03/08/19 13:41 Discharge Problem: Dyspnea Qualifiers: Dyspnea type: unspecified Qualified Code(s): R06.00 - Dyspnea, unspecified The scribe's documentation has been prepared under my direction and personally reviewed by me in its entirety. I confirm that the note above accurately reflects all work, treatment, procedures, and medical decision making performed by me.
[2019-03-08] MEDS: BUDESONIDE 0.5 MG/2 ML VIAL (PULMICORT) NEB SCH (19:41)
[2019-03-08] MEDS: ALBUT/IPRATROP 3MG/0.5MG NEB 3 ML VIAL INH PRN (19:42)
[2019-03-08] MEDS ORDERED: PHARMACY GLYCEMIC MGMT CONSULT PRN (20:45)
[2019-03-08] MEDS: BUTALBITAL/ACETAMIN/CAFFEINE TAB PO PRN (20:51)
[2019-03-08] MEDS ORDERED: COUGH DROP (SUGAR FREE) LOZ 24 LOZ/1 BOX BUCCAL PRN (20:58)
[2019-03-08] MEDS ORDERED: INSULIN GLARGINE SOLOSTAR 100 UNITS/ML 3 ML PEN SQ SCH (21:00)
[2019-03-08] MEDS ORDERED: INSULIN GLARGINE SOLOSTAR 100 UNITS/ML 3 ML PEN SQ ONE ×2 (21:00)
[2019-03-08] MEDS: BUDESONIDE/FORMOTEROL FUMARATE 160/4.5 60 PUFFS/INHALER INH SCH (21:02)
[2019-03-08] MEDS: ESCITALOPRAM OXALATE 10 MG TAB PO SCH (21:12)
[2019-03-08] MEDS: TRAZODONE HCL 50 MG TAB PO SCH (21:12)
[2019-03-08] MEDS: BENZONATATE 100 MG CAPSULE PO SCH (21:53)
[2019-03-08] MEDS ORDERED: KETOROLAC TROMETHAMINE 15 MG/ML VIAL IV ONE (22:39)
[2019-03-08] MEDS ORDERED: DiphenhydrAMINE HCL 50 MG/ML VIAL IV STA (22:39)
[2019-03-08] MEDS ORDERED: PROCHLORPERAZINE 5 MG in SYRINGE 4 ML IV ONE (22:39)
[2019-03-09] MEDS: INSULIN ASPART 100 UNITS/ML 3 ML PEN SC SCH ×6 (04:14→23:52)
[2019-03-09] MEDS: methylPREDNISolone 40 MG in SYRINGE 0 ML IV SCH ×2 (06:33→12:39)
[2019-03-09 06:57] LABS: Basophils # (auto) 0.01 K/uL (0-0.2); Basophils % (auto) 0.1 %; Hematocrit (blood only) 44.8 % (37-47); Hemoglobin 15.3 g/dL (12.0-16.0); Immature Granulocytes # (auto) 0.07 K/uL (0.00-0.02); Immature Granulocytes % (auto) 0.5 %; Lymphocytes # (auto) 1.58 K/uL (1.2-3.4); Lymphocytes % (auto) 10.9 %; Mean Corpuscular Hemoglobin 31.5 pg (25-34); Mean Corpuscular Hgb Conc 34.2 g/dL (32-36); Mean Corpuscular Volume 92.2 fL (80-100); Mean Platelet Volume 9.7 fL (7.4-10.4); Monocytes % (auto) 3.5 %; Neutrophils # (auto) 12.33 K/uL (1.4-6.5); Platelet Count 200 K/uL (130-400); RDW Coefficient of Variation 13.3 % (11.5-14.5); RDW Standard Deviation 44.9 fL (36.4-46.3); Red Blood Count 4.86 M/uL (4.2-5.4); White Blood Count 14.49 K/uL (4.8-10.8)
[2019-03-09] MEDS: BUDESONIDE 0.5 MG/2 ML VIAL (PULMICORT) NEB SCH (07:03)
[2019-03-09 07:32] LABS: Estimated Average Glucose 171 mg/dl; Hemoglobin A1C 7.6 % (4.5-5.6)
[2019-03-09 07:44] LABS: Albumin Level 3.5 gm/dl (3.4-5.0); BUN Creatinine Ratio 13.5 (10-20); Bilirubin,Total 0.2 mg/dl (0.2-1); Calcium 9.2 mg/dl (8.5-10.1); Creatinine Clr Calc Pharmacy 77.5 ml/min; Est GFR (African American) 85.1; Est GFR (Non-African American) 73.4; Globulin 3.4 gm/dl (2.5-4.0); Potassium 4.2 mmol/L (3.5-5.1); Total Protein 6.9 gm/dl (6.4-8.2)
[2019-03-09] MEDS ORDERED: INSULIN GLARGINE SOLOSTAR 100 UNITS/ML 3 ML PEN SQ ONE (08:30)
[2019-03-09] MEDS: BENZONATATE 100 MG CAPSULE PO SCH ×3 (08:38→22:00)
[2019-03-09] MEDS: ASPIRIN 81 MG ECTAB PO SCH (08:38)
[2019-03-09] MEDS: ATORVASTATIN 40 MG TAB PO SCH (08:38)
[2019-03-09] MEDS: PANTOprazole 40 MG TAB PO SCH (08:38)
[2019-03-09] MEDS: LACTOBACILLUS ACIDOPHILUS 1 GM PACK PO SCH ×3 (08:38→16:57)
[2019-03-09] MEDS: GABAPENTIN 300 MG CAP PO SCH ×3 (08:39→21:02)
[2019-03-09] MEDS: BUDESONIDE/FORMOTEROL FUMARATE 160/4.5 60 PUFFS/INHALER INH SCH (08:39)
[2019-03-09] MEDS: carvediloL 6.25 MG TAB PO SCH ×2 (08:39→16:57)
[2019-03-09] MEDS ORDERED: TRAZODONE HCL 50 MG TAB PO SCH (09:00)
[2019-03-09] MEDS ORDERED: ESCITALOPRAM OXALATE 10 MG TAB PO SCH (09:00)
[2019-03-09] MEDS: BUTALBITAL/ACETAMIN/CAFFEINE TAB PO PRN (12:39)
--- NOTE | 2019-03-09 15:04 | Pharmacy Report ---
Glycemic Control Consultation - Date of Service March 09, 2019 - Scope Scope: Glycemic Pharmacist consulted by Dr Garland on 03/08/19 for glycemic control and to write orders per [facility] inpatient glycemic control protocol - Objective Weight: 92 kg Accuchecks BSG (last 24hrs): 03/08/19 03/08/19 03/08/19 16:29 19:51 23:28 Glucose POC Glucose 308 H* 253 H 244 H 03/09/19 03/09/19 03/09/19 04:12 06:36 07:08 Glucose 197 H POC Glucose 201 H 198 H 03/09/19 11:14 Glucose POC Glucose 217 H Laboratory Data (last 24hrs): 03/09/19 06:36 Potassium 4.2 Carbon Dioxide 27 Anion Gap 7.0 Creatinine 0.87 Est Cr Clr Drug Dosing 77.5 HbA1c: Hemoglobin A1c 7.6 % (4.5-5.6) H 03/09/19 06:36 - Recent Pertinent Medications Outpatient Anti-diabetic Regimen: * Lantus 20 units qhs * Insulin lispro 5 units TIDM * Metformin 500 mg PO daily * A1c = 7.6 % [date] Risk Factors for Insulin Resistance: * Steroids: Methylprednisolone 40 mg IV q6h (dose to be tapered) * Infection: Receiving ceftriaxone and azithromycin IV for treatment of suspected bacterial bronchitis - Assessment & Plan Assessment & Plan: ASSESSMENT: * Patient admitted on 03/08/19 with acute respiratory failure likely secondary to pulmonary infection * H complete with type 2 DM, COPD, heavy tobacco use, dyslipidemia, hypertension, and depression * Currently on high doses of steroids (Methylprednisolone 40 mg IV q6h) * Per provider - Will likely be tapered today * BSGs ranging 197-308 mg/dL over past 24 hours Received 54 units of insulin yesterday (25 of which were basal) PLAN FOR INPATIENT GLYCEMIC CONTROL: * Holding outpatient oral diabetes medications * Basal insulin * Lantus 20 units SQ (0.2 unit/kg) ordered this morning to account for steroid-induced hyperglycemia * Will continue home dose of Lantus 20 units hs * Will adjust as necessary as steroids are tapered off * Bolus insulin - Will continue with aggressive CF and CR due to persistently elevated BSGs and to help manage steroid-induced hyperglycemia * NovoLog per scale ACHS or Q6hrs while NPO * Goal Range: Low 110 mg/dL - High 140 mg/dL * Correction Factor: 15 mg/dL/unit * Nutritional / Prandial insulin per carb ratio of 1 unit per 5 grams CHO consumed * Will add-on ,04 checks tonight * Please note that the plan above was derived based on current level of insulin resistance and hospital stress. These recommendations are appropriate for inpatient admission only. Plan of care upon discharge will need to be reassessed to avoid potential outpatient hypo/hyperglycemia. Thank you.
[2019-03-09] MEDS: cefTRIAXone SODIUM 2,000 MG in DEXTROSE 5% 50 ML IV SCH (15:06)
[2019-03-09] MEDS: AZITHROMYCIN 500 MG in DEXTROSE 5% 250 ML IV SCH (15:28)
--- NOTE | 2019-03-09 15:49 | Hospitalist Progress Note ---
Date of Service March 09, 2019 Assessment & Plan (1) Acute respiratory failure with hypoxia: Due to COPD exacerbation. Per prior notes, tracheomalacia and/or aspiration may be playing a role. - Continue DuoNebs, abx, and steroids (taper steroids to PO given tracheomalacia would actually be worsened by steroids) - Pulm consult for bronch as Liborio Busch was arranging this as an outpatient. - Speech consult for possible aspiration - They plan to do swallow eval after bronch. (2) COPD exacerbation: As above (3) Tobacco abuse: Counseled heavily regarding tobacco abuse, and willing to quit (4) DM type 2 (diabetes mellitus, type 2): A1c 7.6%. - Continue 20 units of long-acting insulin and 5 units pre-meal short-acting - Sliding scale insulin (5) Dyslipidemia: Appears to be stable We will leave it up to her primary care physician to order lipids panel and confirm compliance For now we will continue her Lipitor (6) HTN (hypertension): Controlled on medications Continue home meds (7) Depression: Controlled continue home meds Subjective Still having a cough with some shortness of breath, though improved from yesterday. Review of Systems Review of Systems: All systems reviewed & are unremarkable except as noted in HPI & below Physical Exam Constitutional: WD/WN, vitals as above Eyes: EOM intact bilaterally; no conjunctival abnormality ENMT: external ear and nose normal, oropharynx normal Neck: trachea midline, no thyromegaly normal visual inspection Respiratory: normal respiratory effort; no respiratory distress Auscultation: + wheezes Cardiovascular: RRR, no murmur, no edema Gastrointestinal (Abdomen): Inspection/Auscultation: abdomen normal to inspection; abdomen not distended Musculoskeletal: no cyanosis or clubbing, extremities motor strength 5/5 Skin: no rashes, warm and dry Neurologic: moves all extremities and awake Psychiatric: Orientation: alert, oriented to person and cooperative Results & Data Vital Signs (Past 12 Hours) Vital Signs Temp Pulse Resp BP Pulse Ox 03/09/19 11:27 36.8 C 72 18 118/73 95 03/09/19 07:57 36.7 C 84 22 110/71 94 03/09/19 07:05 84 18 96 PG Care Time/CCT Total # of Minutes Spent Total Time Spent with Patient: Total time spent is greater than 50% in coordination of care (as documented) at patient's floor/unit and/or counseling patient: (1) DM type 2 (diabetes mellitus, type 2) Diabetes mellitus complication status: with unspecified complications 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
[2019-03-09] MEDS: ALBUT/IPRATROP 3MG/0.5MG NEB 3 ML VIAL INH PRN (16:52)
[2019-03-09] MEDS: ENOXAPARIN INJ 40 MG/0.4 ML SYR SQ SCH (18:01)
[2019-03-09] MEDS ORDERED: IOVERSOL 100ml IV PRN (18:48)
[2019-03-09] MEDS: ARFORMOTEROL TART 15MCG/2ML VIAL INH SCH (19:03)
--- NOTE | 2019-03-09 19:11 | CT Scan Report ---
CHEST CT WITH CONTRAST CT DOSE: 519.04 mGy.cm HISTORY: Acute shortness of breath COPD exac TECHNIQUE: Multiaxial CT images of the chest were performed following the IV administration of 94 cc of Optiray 320. A dose lowering technique was utilized adhering to the principles of ALARA. COMPARISON: Chest radiograph 03/08/2019, CTA chest 06/21/2018. FINDINGS: Heart appears normal in size. Coronary arterial calcifications are noted. No pericardial effusion. No thoracic aortic aneurysm or dissection. Mild to moderate calcified plaque of the thoracic aortic arc h. Patency of the imaged great vessels. Pulmonary arterial tree is not well opacified, however appear s unremarkable on these images. No adenopathy. No pneumothorax, pleural effusion or overt pulmonary e trey. Subsegmental mostly linear consolidative opacities are noted about the basal right lower lobe. Mild subsegmental atelectasis about the anterior segment right upper lobe, lingula and right middle l obe. Small left-sided Bochdalek hernia. There are no suspicious pulmonary nodules or masses. Central airways appear to be patent. Indeterminate ill-defined area of hyperenhancement measuring 1.8 cm is noted about the subcapsular as pect of the anterior right hepatic lobe suggestive of an arterial enhancing lesion or transient hepat ic attenuation difference. Mild nonspecific wall thickening of the distal esophagus. Soft tissues are unremarkable. Bones appear to be intact. No suspicious bone lesions. IMPRESSION: 1. Asymmetric mostly linear consolidative opacities of the posterior basal segment right lower lobe s uggest atelectasis or pneumonia. Correlate clinically. 2. No adenopathy or pleural effusion. Electronically signed by: Dejuan Phillips M.D. 03/09/2019 7:10 PM
[2019-03-09] MEDS: ACETAMINOPHEN 500 MG TAB PO PRN (19:45)
[2019-03-09] MEDS ORDERED: INSULIN GLARGINE SOLOSTAR 100 UNITS/ML 3 ML PEN SQ SCH (21:00)
[2019-03-09] MEDS: ESCITALOPRAM OXALATE 10 MG TAB PO SCH (21:02)
[2019-03-09] MEDS: TRAZODONE HCL 50 MG TAB PO SCH (21:03)
[2019-03-09] MEDS: methylPREDNISolone 80 MG in SYRINGE 0 ML IV SCH (21:59)
[2019-03-09] MEDS: ZOLPIDEM TARTRATE 5 MG TAB PO PRN (23:48)
--- NOTE | 2019-03-10 01:59 | Consultation Report ---
DATE OF CONSULTATION: 03/09/2019 PULMONARY MEDICINE CONSULTATION REASON FOR CONSULTATION: COPD exacerbation, acute hypoxic and hypercarbic respiratory failure. HISTORY OF PRESENT ILLNESS: A 58-year-old white female well known to me with past medical history of essential hypertension, dyslipidemia, depression, and [id number] COPD, on nocturnal oxygen. The patient has been seen both by myself and Dr. Donald Neal in pulmonary consultation. She did undergo bronchoscopic evaluation on 11/03/2018 and changes consistent with severe chronic mucopurulent bronchitis along with endoscopic dynamic airway collapse (EDAC) were noted, especially the latter involving the right tracheobronchial tree. The patient was scheduled for a nocturnal polysomnograph tonight but unfortunately had to be hospitalized because of worsening chest discomfort, dyspnea. She has had a longstanding smoking history and unfortunately had smoked up to the time of admission. Dr. Neal saw patient in consultation this summer on 01/25/2019 during another hospitalization and suggested smoking cessation. I spoke with Dr. Neal today confirming his clinical suspicion that patient does have significant tracheomalacia with endoscopic dynamic airway collapse. It is unclear whether the patient has been tried on CPAP in the past, but she was scheduled for nocturnal polysomnography tonight. She has been on hypertonic saline nebulizer treatments in the past and Mucinex. She states that bronchoscopy with BAL was helpful in alleviating a lot of her symptoms. For details of past medical history, medications, family, and social history, I refer you to current and past record. PHYSICAL EXAMINATION: GENERAL: A well-developed, well-nourished, moderately obese white female in zzce-rs-nytleyoh respiratory distress. CURRENT VITAL SIGNS: Blood pressure 121/74, pulse 87 and regular, respiratory rate 22, temperature 36.7, O2 sat 95% on 2 liters. SKIN: Without lesion. HEENT: Atraumatic, normocephalic. PERRLA. LUNGS: Coarse wheezes and rhonchi diffusely, right greater than left. CARDIAC: Regular rhythm. No murmurs or gallops. PMI nondisplaced. ABDOMEN: Soft, protuberant. No evidence for hepatosplenomegaly. EXTREMITIES: Trace pedal edema. No clubbing. Peripheral cyanosis. NEUROLOGIC: Intact. No lateralizing signs. LABORATORY DATA: White count 14,000, H and H 15.3 and 44.8 with a leftward shift. ABGs on 06/25/2018, pH 7.48, pCO2 of 34, pO2 of 71 on 2 liters. Glucose levels have been erratic. BAL Aspergillus galactomannan index was 0.14, which was low. Serologies for influenza A and B have been negative. Chest x-ray shows cardiomegaly with possible mild volume overload. CTA of the chest last performed on 06/21/2018 was negative for pulmonary thromboembolic disease, but small parenchymal infiltrate at the left base with peribronchial prominence in the aef-ni-wictr lung zones were noted. Bronchial washings from 11/03/2018 grew out yeast with no pathognomonic organism identified. OVERALL ASSESSMENT AND PLAN: A 58-year-old chronic smoker with severe chronic obstructive pulmonary disease (emphysema and chronic mucopurulent bronchitis) along with tracheomalacia and endoscopic dynamic airway collapse seen on previous bronchoscopic evaluations, readmitted with similar presentation, aggravated by ongoing smoking habit. The patient once again requires aerosolized bronchodilator, IV Solu-Medrol, and vigorous pulmonary toilet. I would reimage her chest with a followup CT scan and agree with the choice of IV azithromycin and ceftriaxone. I would use higher doses for steroid therapy and will take the liberty of ordering IV Solu-Medrol rather than p.o. prednisone at this point in time and would consider CPAP therapy empirically at night for treatment of the EDAC although it is questionable how well tolerated that would be. We will follow along with you and if need be, patient may require bronchoscopic evaluation with BAL later in the week if she does not respond to therapy. MTDD
[2019-03-10] MEDS: INSULIN ASPART 100 UNITS/ML 3 ML PEN SC SCH ×5 (04:35→20:06)
[2019-03-10] MEDS: ARFORMOTEROL TART 15MCG/2ML VIAL INH SCH ×2 (07:06→19:06)
[2019-03-10] MEDS ORDERED: INSULIN GLARGINE SOLOSTAR 100 UNITS/ML 3 ML PEN SQ ONE (07:15)
[2019-03-10] MEDS: methylPREDNISolone 80 MG in SYRINGE 0 ML IV SCH ×2 (07:59→20:05)
[2019-03-10] MEDS: ASPIRIN 81 MG ECTAB PO SCH (07:59)
[2019-03-10] MEDS: ATORVASTATIN 40 MG TAB PO SCH (07:59)
[2019-03-10] MEDS: PANTOprazole 40 MG TAB PO SCH (08:00)
[2019-03-10] MEDS: carvediloL 6.25 MG TAB PO SCH ×2 (08:00→17:30)
[2019-03-10] MEDS: GABAPENTIN 300 MG CAP PO SCH ×3 (08:00→20:05)
[2019-03-10] MEDS: LACTOBACILLUS ACIDOPHILUS 1 GM PACK PO SCH ×3 (08:01→17:30)
[2019-03-10] MEDS: BENZONATATE 100 MG CAPSULE PO SCH ×3 (08:47→20:05)
[2019-03-10] MEDS ORDERED: predniSONE 20 MG TAB PO SCH (09:00)
[2019-03-10] MEDS ORDERED: INSULIN GLARGINE SOLOSTAR 100 UNITS/ML 3 ML PEN SC SCH (09:30)
--- NOTE | 2019-03-10 09:36 | Pharmacy Report ---
Pharmacy Glycemic Short Note 2 - Date of Service March 10, 2019 - Glycemic Short BSG Results (Last 24 hours): 03/09/19 03/09/19 03/09/19 11:14 16:44 20:13 POC Glucose 217 H 297 H 236 H 03/09/19 03/10/19 03/10/19 23:50 04:05 06:26 POC Glucose 149 H 303 H* 277 H 03/10/19 07:37 POC Glucose 243 H OUTPATIENT ANTIDIABETIC REGIMEN: * Lantus 20 units qhs * Insulin lispro 5 units TIDM * Metformin 500 mg PO daily * A1c = 7.6 % (03/09/19) ASSESSMENT: * IV methylprednisolone dose changed from 40 mg IV q6h to 80 mg q12h * Continues on azithromycin and ceftriaxone IV for COPD exacerbation/pulmonary infection * BSGs ranging 149-297 mg/dL yesterday * Fasting BSG this morning was 243 mg/dL and pre-lunch BSG of 122 mg/dL (33 units of Novolog given this AM) * Patient received 100 units of insulin yesterday (40 of which were basal) PLAN FOR INPATIENT GLYCEMIC CONTROL: * Hold outpatient oral diabetes medications * Basal insulin - Assuming insulin requirement for this patient while on steroids is at least 120 units of insulin * Ordered one-time Lantus 35 unit dose this morning * Lantus scale for this evenin units for BSG less than 140 mg/dL, 25 units for 140 mg/dL or above * Bolus insulin - loosened CF and CR based on significant reduction in BSG between breakfast and lunch * NovoLog per scale ACHS or Q6hrs while NPO * Goal Range: Low 110 mg/dL - High 140 mg/dL * Correction Factor: 20 mg/dL/unit * Nutritional / Prandial insulin per carb ratio of 1 unit per 7 grams CHO consumed PLAN FOR DISCHARGE: * Will reassess insulin needs once steroids tapered * Will most likely need current outpatient regimen intensified based on elevated A1c of 7.6% * Reasonable A1c goal for this patient is < 7%
[2019-03-10] MEDS: BUTALBITAL/ACETAMIN/CAFFEINE TAB PO PRN (09:42)
[2019-03-10] MEDS: ALBUT/IPRATROP 3MG/0.5MG NEB 3 ML VIAL INH PRN (09:51)
[2019-03-10] MEDS ORDERED: ACETAMINOPHEN W/CODEINE #3 1 TAB PO PRN (10:08)
[2019-03-10] MEDS ORDERED: BENZONATATE 100 MG CAPSULE PO ONE (10:09)
[2019-03-10] MEDS: KETOROLAC TROMETHAMINE 15 MG/ML VIAL IV PRN ×2 (12:45→20:09)
[2019-03-10] MEDS ORDERED: guaiFENesin SUGAR FREE 100 MG/5 ML UDC ONE (12:54)
[2019-03-10] MEDS ORDERED: GUAIFENESIN/CODEINE 200MG/20MG 10ML UDC ONE (12:58)
[2019-03-10] MEDS: GUAIFENESIN/CODEINE 200MG/20MG 10ML UDC PO PRN (12:59)
[2019-03-10] MEDS: DICLOFENAC SOD 1% GEL 100 GM TUBE EXT SCH ×3 (13:09→20:05)
[2019-03-10] MEDS: ACETAMINOPHEN 325 MG TAB PO SCH ×2 (13:09→20:09)
[2019-03-10] MEDS: ALBUT/IPRATROP 3MG/0.5MG NEB 3 ML VIAL NEB SCH ×3 (13:57→19:06)
[2019-03-10] MEDS ORDERED: BENZONATATE 100 MG CAPSULE PO SCH (14:00)
[2019-03-10] MEDS: cefTRIAXone SODIUM 2,000 MG in DEXTROSE 5% 50 ML IV SCH (14:04)
[2019-03-10] MEDS: AZITHROMYCIN 500 MG in DEXTROSE 5% 250 ML IV SCH (14:40)
--- NOTE | 2019-03-10 17:10 | Pulmonology Progress Note ---
Date of Service March 10, 2019 Assessment & Plan (1) COPD exacerbation: (2) Acute respiratory failure with hypoxia: Patient remains extremely symptomatic. Will start her on BiPAP therapy at night because of the presence of tracheomalacia/and probable overlap syndrome with obstructive sleep apnea. Will leave the high-dose steroid therapy despite the concomitant hyperglycemia as this is what she needs. Will add 7% normal saline to her nebulizer regimen and see how she does with this. Bronchoscopy with BAL may be indicated if these therapies are not effective. (3) Tobacco abuse: (4) GERD (gastroesophageal reflux disease): (5) LISANDRA on CPAP: (6) LISANDRA and COPD overlap syndrome: (7) Tracheomalacia, acquired: Subjective 58-year-old white female with severe COPD and tracheomalacia/endoscopic dynamic airway collapse readmitted with exacerbation. Patient still feels breathless on his bronchospastic and although was able to sleep reasonably well last night she is unable to expectorate any significant amounts of phlegm today. Review of Systems Constitutional: no problem reported Eyes: no problem reported Ear, Nose, Mouth, Throat: no problem reported Respiratory: no problem reported Cardiovascular: no problem reported Gastrointestinal: no problem reported Genitourinary: no problem reported Musculoskeletal: no problem reported Integumentary: no problem reported Neurologic: no problem reported Psychiatric: no problem reported Endocrine: no problem reported Hematologic / Lymphatic: no problem reported Allergy / Immunological: no problem reported Physical Exam Constitutional: well developed and well nourished; no acute distress Eyes: PERRL, conjunctivae normal, anicteric sclerae ENMT: external ear and nose normal, oropharynx normal Neck: trachea midline, no thyromegaly Respiratory: + respiratory distress, + hyperresonance to percussion and + prolonged expiratory phase Auscultation: lungs clear to auscultation bilaterally and + wheezes (Persistent wheezing and rhonchi bilaterally) Cardiovascular: RRR, no murmur, no edema Palpation: normal PMI; no thrill Gastrointestinal (Abdomen): normal bowel sounds, soft, nontender, no hepatosplenomegaly Musculoskeletal: no cyanosis or clubbing, extremities motor strength 5/5 Gait: normal gait Skin: no rashes, warm and dry Neurologic: PERRL, EOMI, accommodation nl, no face palsy, no dysarthria Psychiatric: A+Ox3, euthymic affect Lymphatic: no cervical or axillary lymphadenopathy Results & Data Vital Signs (Past 12 Hours) Vital Signs Temp Pulse Resp BP BP Pulse Ox 03/10/19 15:43 36.8 C 75 16 121/72 95 03/10/19 13:58 69 19 95 03/10/19 09:51 71 22 97 03/10/19 08:09 36.7 C 86 24 111/52 L 92 03/10/19 07:07 79 16 92 Laboratory Results Abnormal Labs 03/08/19 03/08/19 03/08/19 10:02 10:02 14:36 WBC Immature Gran # (Auto) 0.03 H Neut # (Auto) Dupage # (Auto) 0.68 H Chloride 109 H BUN 6 L BUN/Creatinine Ratio 8.3 L Glucose 142 H POC Glucose 221 H Hemoglobin A1c AST 03/08/19 03/08/19 03/08/19 16:29 19:51 23:28 WBC Immature Gran # (Auto) Neut # (Auto) Dupage # (Auto) Chloride BUN BUN/Creatinine Ratio Glucose POC Glucose 308 H* 253 H 244 H Hemoglobin A1c AST 03/09/19 03/09/19 03/09/19 04:12 06:36 06:36 WBC 14.49 H Immature Gran # (Auto) 0.07 H Neut # (Auto) 12.33 H Dupage # (Auto) Chloride BUN BUN/Creatinine Ratio Glucose 197 H POC Glucose 201 H Hemoglobin A1c AST 9 L 03/09/19 03/09/19 03/09/19 06:36 07:08 11:14 WBC Immature Gran # (Auto) Neut # (Auto) Dupage # (Auto) Chloride BUN BUN/Creatinine Ratio Glucose POC Glucose 198 H 217 H Hemoglobin A1c 7.6 H AST 03/09/19 03/09/19 03/09/19 16:44 20:13 23:50 WBC Immature Gran # (Auto) Neut # (Auto) Dupage # (Auto) Chloride BUN BUN/Creatinine Ratio Glucose POC Glucose 297 H 236 H 149 H Hemoglobin A1c AST 03/10/19 03/10/19 03/10/19 04:05 06:26 07:37 WBC Immature Gran # (Auto) Neut # (Auto) Dupage # (Auto) Chloride BUN BUN/Creatinine Ratio Glucose POC Glucose 303 H* 277 H 243 H Hemoglobin A1c AST 03/10/19 03/10/19 11:34 16:36 WBC Immature Gran # (Auto) Neut # (Auto) Dupage # (Auto) Chloride BUN BUN/Creatinine Ratio Glucose POC Glucose 122 H 213 H Hemoglobin A1c AST Medications Administered Current Inpatient Medications Acetaminophen (Tylenol) 650 mg PO TID [facility] Stop: 04/09/19 13:59 Last Admin: 03/10/19 13:09 Dose: Not Given Documented by: Acetaminophen/Butalbital/Caffeine (Fioricet) 1 tab PO Q8 PRN PRN Reason: Pain Stop: 04/07/19 13:17 Last Admin: 03/10/19 09:42 Dose: 1 tab Documented by: Al Hydrox/Mg Hydrox/Simethicone (Maalox) 15 ml PO Q4H PRN PRN Reason: Dyspepsia Stop: 04/07/19 12:49 Albuterol (Duoneb) 3 ml NEB QIDR [facility] Stop: 04/09/19 14:59 Last Admin: 03/10/19 14:02 Dose: 3 ml Documented by: Arformoterol Tartrate (Brovana Neb) 15 mcg INH BIDR [facility] Stop: 04/08/19 18:59 Last Admin: 03/10/19 07:06 Dose: 15 mcg Documented by: Aspirin (Ecotrin Ectab) 81 mg PO DAILY [facility] Stop: 04/08/19 08:59 Last Admin: 03/10/19 07:59 Dose: 81 mg Documented by: Atorvastatin Calcium (Lipitor) 40 mg PO DAILY [facility] Stop: 04/08/19 08:59 Last Admin: 03/10/19 07:59 Dose: 40 mg Documented by: Baclofen (Lioresal) 10 mg PO DAILY PRN PRN Reason: muscle spasm Stop: 04/07/19 12:47 Benzonatate (Tessalon Perle) 100 mg PO TID PRN PRN Reason: cough Stop: 04/07/19 12:47 Last Admin: 03/09/19 21:02 Dose: 100 mg Documented by: Benzonatate (Tessalon Perle) 200 mg PO TID [facility] Stop: 04/07/19 20:59 Last Admin: 03/10/19 13:09 Dose: 200 mg Documented by: Carvedilol (Coreg) 6.25 mg PO BIDM [facility] Stop: 04/07/19 16:59 Last Admin: 03/10/19 08:00 Dose: 6.25 mg Documented by: Diclofenac Sodium (Voltaren 1% Top) 1 appln EXT QID [facility] Stop: 04/09/19 12:59 Last Admin: 03/10/19 13:09 Dose: 1 appln Documented by: Enoxaparin Sodium (Lovenox) 40 mg SQ Q24H ANYI Stop: 04/07/19 17:59 Last Admin: 03/09/19 18:01 Dose: 40 mg Documented by: Escitalopram Oxalate (Lexapro Tab) 10 mg PO HS ANYI Stop: 04/07/19 21:29 Last Admin: 03/09/19 21:02 Dose: 10 mg Documented by: Fluticasone Propionate (Flonase) 2 sprays NA DAILY PRN PRN Reason: Allergy Symptoms Stop: 04/07/19 12:47 Gabapentin (Neurontin) 300 mg PO TID [facility] Stop: 04/07/19 13:59 Last Admin: 03/10/19 12:47 Dose: 300 mg Documented by: Glucagon (Glucagen) 1 mg SQ UD PRN; Protocol PRN Reason: Hypoglycemia Protocol Stop: 04/07/19 12:49 Glucose (Glucose 40%) 15 - 30 gm PO UD PRN; Protocol PRN Reason: Hypoglycemia Protocol Stop: 04/07/19 12:49 Glucose (Dex4 Glucose) 4 - 8 tabs PO UD PRN; Protocol PRN Reason: Hypoglycemia Protocol Stop: 04/07/19 12:49 Guaifenesin/Codeine Phosphate (Robitussin-Ac Sugar Free) 10 ml PO Q6H PRN PRN Reason: Cough Stop: 04/09/19 16:29 Last Admin: 03/10/19 12:59 Dose: 10 ml Documented by: Azithromycin 500 mg/ Dextrose 255 mls @ 125 mls/hr IV Q24H ANYI; Protocol Stop: 03/13/19 14:59 Last Infusion: 03/10/19 16:49 Dose: Infused Documented by: Ceftriaxone Sodium 2,000 mg/ (Dextrose) 70 mls @ 100 mls/hr IV Q24H ANYI; Protocol Stop: 03/15/19 14:29 Last Infusion: 03/10/19 14:49 Dose: Infused Documented by: Methylprednisolone 80 mg/ (Syringe) 1.28 mls @ 1.5 mls/min IV Q12 [facility] Stop: 04/08/19 20:59 Last Admin: 03/10/19 07:59 Dose: 1.5 mls/min Documented by: Insulin Aspart (Novolog Flexpen) 0 units SC ACHS ANYI Stop: 04/07/19 16:29 Last Admin: 03/10/19 12:52 Dose: 6 units Documented by: Insulin Aspart (Novolog Flexpen) 0 units SC TODAY@0000,0400 ANYI Stop: 03/11/19 04:01 Insulin Glargine (Lantus Solostar Pen) 0 units SQ HS ANYI; Protocol Stop: 04/09/19 20:59 Ioversol (Optiray 320 100ml) 94 ml IV ONCE PRN PRN Reason: Interaction Checking Stop: 03/13/19 18:47 Last Admin: 03/09/19 18:48 Dose: 94 ml Documented by: Ketorolac Tromethamine (Toradol) 15 mg IV Q6H PRN PRN Reason: Pain Stop: 03/15/19 11:38 Last Admin: 03/10/19 12:45 Dose: 15 mg Documented by: Lactobacillus Acidophilus (Floranex Granules/Powder Packet) 1 gm PO TIDM ANYI Stop: 04/07/19 16:59 Last Admin: 03/10/19 12:46 Dose: 1 gm Documented by: Magnesium Hydroxide (Milk Of Magnesia) 30 ml PO Q12H PRN PRN Reason: Constipation Stop: 04/07/19 12:49 Menthol (Nice) 1 melany BUCCAL Q2H PRN PRN Reason: Sore Throat Stop: 04/07/19 20:57 Miscellaneous (Carbohydrates For Hypoglycemia) 15 - 30 gm PO UD PRN PRN Reason: Hypoglycemia Treatment Stop: 04/07/19 12:49 Miscellaneous Information (Consult Glycemic Management Pharmacy) 1 ea N/A UD PRN; Protocol PRN Reason: Consult Stop: 04/07/19 20:44 Pantoprazole Sodium (Protonix) 40 mg PO DAILY ANYI Stop: 04/08/19 08:59 Last Admin: 03/10/19 08:00 Dose: 40 mg Documented by: Polyethylene Glycol (Miralax Powder Packet) 17 gm PO DAILY PRN PRN Reason: Constipation Stop: 04/07/19 12:49 Ranitidine HCl (Zantac) 300 mg PO HS ANYI Stop: 04/07/19 20:59 Last Admin: 03/09/19 21:02 Dose: 300 mg Documented by: Trazodone HCl (Desyrel) 150 mg PO HS ANYI Stop: 04/07/19 21:29 Last Admin: 03/09/19 21:03 Dose: 150 mg Documented by: Zolpidem Tartrate (Ambien) 5 mg PO HS PRN PRN Reason: Sleep Stop: 04/07/19 12:49 Last Admin: 03/09/19 23:48 Dose: 5 mg Documented by: PG Care Time/CCT Total # of Minutes Spent Total Time Spent with Patient: Total time spent is greater than 50% in coordination of care (as documented) at patient's floor/unit and/or counseling patient:
[2019-03-10] MEDS: ENOXAPARIN INJ 40 MG/0.4 ML SYR SQ SCH (17:30)
--- NOTE | 2019-03-10 18:19 | Hospitalist Progress Note ---
Date of Service March 10, 2019 Assessment & Plan (1) Acute respiratory failure with hypoxia: Due to pneumonia causing COPD exacerbation probably compounded by tracheomalacia making it harder for her to clear secretions -Escalate pulmonary toilet -Continue antibiotics and steroids -Continue supportive care (2) COPD exacerbation: As above, fortunately he is on room air (3) Tobacco abuse: Needs to quit desperately (4) DM type 2 (diabetes mellitus, type 2): A1c 7.6%. -Continue to titrate insulin management (5) Dyslipidemia: Appears to be stable We will leave it up to her primary care physician to order lipids panel and confirm compliance For now we will continue her Lipitor (6) HTN (hypertension): Blood pressure readings acceptable, continue home meds (7) Depression: Controlled continue home meds, offered empathy and support (8) Somatic dysfunction of rib cage region: OMT as above Subjective Ongoing cough and sputum production. Ongoing shortness of breath. Ongoing chest and back pain. Generally feels miserable. Review of Systems Review of Systems: All systems reviewed & are unremarkable except as noted in HPI & below Physical Exam Physical Exam: General she is awake and alert pleasant appears in no physical distress but does appear to be quite distraught over her overall situation. After coughing fits she does double over in pain briefly. HEENT normal cephalic atraumatic mucous membranes moist. Breathing shows scattered rhonchi throughout no rales no wheezes no accessory muscles good effort. Cardio somewhat distant. Extremities show no sinus clubbing or edema no calf tenderness. Neuro shows no focal deficits. Skin shows no rashes no pallor or icterus. Spastic structural exam shows right-sided intercostals ribs approximately 4-6 and right-sided paraspinals particularly in the lumbar region to be high in tone, tender, decreased range of motionbalanced ligamentous tension/direct myofascial done with some improvement. Patient tolerated well. Results & Data Vital Signs (Past 12 Hours) Vital Signs Temp Pulse Resp BP BP Pulse Ox 03/10/19 15:43 98.2 F 75 16 121/72 95 03/10/19 13:58 69 19 95 03/10/19 09:51 71 22 97 03/10/19 08:09 98.1 F 86 24 111/52 L 92 03/10/19 07:07 79 16 92 PG Care Time/CCT Total # of Minutes Spent Total Time Spent with Patient: Total time spent is greater than 50% in coordination of care (as documented) at patient's floor/unit and/or counseling patient: (1) DM type 2 (diabetes mellitus, type 2) Diabetes mellitus snf insulin use: unspecified long term care phlebotomist insulin use status Diabetes mellitus complication status: with unspecified complications Qualified Code(s): E11.8 - Type 2 diabetes mellitus with unspecified complications (2) HTN (hypertension) Hypertension type: unspecified Qualified Code(s): I10 - Essential (primary) hypertension (3) Depression Depression Type: unspecified Qualified Code(s): F32.9 - Major depressive di sorder, single episode, unspecified
[2019-03-10] MEDS: ESCITALOPRAM OXALATE 10 MG TAB PO SCH (20:05)
[2019-03-10] MEDS: TRAZODONE HCL 50 MG TAB PO SCH (20:05)
[2019-03-10] MEDS ORDERED: INSULIN GLARGINE SOLOSTAR 100 UNITS/ML 3 ML PEN SQ SCH (21:00)
[2019-03-11] MEDS: INSULIN ASPART 100 UNITS/ML 3 ML PEN SC SCH ×6 (00:44→22:27)
[2019-03-11 05:45] LABS: Hematocrit (blood only) 40.2 % (37-47); Hemoglobin 13.7 g/dL (12.0-16.0); Immature Granulocytes # (auto) 0.14 K/uL (0.00-0.02); Lymphocytes # (auto) 1.57 K/uL (1.2-3.4); Lymphocytes % (auto) 11.6 %; Mean Corpuscular Hemoglobin 31.4 pg (25-34); Mean Corpuscular Hgb Conc 34.1 g/dL (32-36); Mean Corpuscular Volume 92.2 fL (80-100); Mean Platelet Volume 9.6 fL (7.4-10.4); Monocytes % (auto) 5.2 %; Neutrophils # (auto) 11.07 K/uL (1.4-6.5); Neutrophils % (auto) 82.2 %; Platelet Count 185 K/uL (130-400); RDW Coefficient of Variation 13.6 % (11.5-14.5); RDW Standard Deviation 45.7 fL (36.4-46.3); Red Blood Count 4.36 M/uL (4.2-5.4); White Blood Count 13.48 K/uL (4.8-10.8)
[2019-03-11 06:17] LABS: BUN Creatinine Ratio 22.8 (10-20); Calcium 8.9 mg/dl (8.5-10.1); Creatinine Clr Calc Pharmacy 80.2 ml/min; Est GFR (African American) 88.8; Est GFR (Non-African American) 76.6; Potassium 4.1 mmol/L (3.5-5.1)
[2019-03-11] MEDS: ARFORMOTEROL TART 15MCG/2ML VIAL INH SCH ×2 (07:01→19:24)
[2019-03-11] MEDS: ALBUT/IPRATROP 3MG/0.5MG NEB 3 ML VIAL NEB SCH ×4 (07:36→19:24)
[2019-03-11] MEDS: KETOROLAC TROMETHAMINE 15 MG/ML VIAL IV PRN (08:48)
[2019-03-11] MEDS: GUAIFENESIN/CODEINE 200MG/20MG 10ML UDC PO PRN (08:48)
[2019-03-11] MEDS: methylPREDNISolone 80 MG in SYRINGE 0 ML IV SCH ×2 (08:55→22:21)
[2019-03-11] MEDS: BENZONATATE 100 MG CAPSULE PO SCH ×3 (08:55→22:25)
[2019-03-11] MEDS: ASPIRIN 81 MG ECTAB PO SCH (08:59)
[2019-03-11] MEDS: LACTOBACILLUS ACIDOPHILUS 1 GM PACK PO SCH ×3 (08:59→17:08)
[2019-03-11] MEDS: GABAPENTIN 300 MG CAP PO SCH ×3 (08:59→22:23)
[2019-03-11] MEDS: PANTOprazole 40 MG TAB PO SCH (08:59)
[2019-03-11] MEDS: carvediloL 6.25 MG TAB PO SCH ×2 (08:59→17:07)
[2019-03-11] MEDS: ATORVASTATIN 40 MG TAB PO SCH (08:59)
[2019-03-11] MEDS ORDERED: INSULIN GLARGINE SOLOSTAR 100 UNITS/ML 3 ML PEN SQ SCH (09:00)
[2019-03-11] MEDS ORDERED: KETOROLAC TROMETHAMINE 15 MG/ML VIAL IV PRN (09:02)
[2019-03-11] MEDS: DICLOFENAC SOD 1% GEL 100 GM TUBE EXT SCH ×4 (09:02→22:25)
[2019-03-11] MEDS: SODIUM CHLOR 7% 4 ML NEB INH SCH ×2 (11:02→19:23)
[2019-03-11] MEDS: ACETAMINOPHEN 325 MG TAB PO SCH ×3 (13:01→22:33)
--- NOTE | 2019-03-11 13:56 | Pulmonology Progress Note ---
Date of Service March 11, 2019 Assessment & Plan (1) Tracheomalacia, acquired: (2) COPD exacerbation: (3) Acute respiratory failure with hypoxia: Although patient has improved I believe she still requires bronchoscopic intervention and we will schedule her for Saturday a.m. as the longer we can have her on current treatment the better I believe she will tolerate the procedure . (4) Tobacco abuse: (5) LISANDRA on CPAP: (6) LISANDRA and COPD overlap syndrome: Subjective 58-year-old with severe COPD and tracheomalacia somewhat improved today with less' visible air hunger' but still with violent paroxysms of coughing. Tolerating BiPAP at night. Seen patient with Dr. Atkins may consider bronchoscopic evaluation on Saturday. Review of Systems Constitutional: no problem reported Eyes: no problem reported Ear, Nose, Mouth, Throat: no problem reported Respiratory: no problem reported Cardiovascular: no problem reported Gastrointestinal: no problem reported Genitourinary: no problem reported Musculoskeletal: no problem reported Integumentary: no problem reported Neurologic: no problem reported Psychiatric: no problem reported Endocrine: no problem reported Hematologic / Lymphatic: no problem reported Allergy / Immunological: no problem reported Physical Exam Constitutional: well developed and well nourished; no acute distress Eyes: PERRL, conjunctivae normal, anicteric sclerae ENMT: external ear and nose normal, oropharynx normal Neck: trachea midline, no thyromegaly Respiratory: normal respiratory effort Auscultation: lungs clear to auscultation bilaterally and + wheezes (Wheezing and rhonchi bilaterally less pronounced than yesterday) Cardiovascular: RRR, no murmur, no edema Palpation: normal PMI; no thrill Gastrointestinal (Abdomen): normal bowel sounds, soft, nontender, no hepatosplenomegaly Musculoskeletal: no cyanosis or clubbing, extremities motor strength 5/5 Gait: normal gait Skin: no rashes, warm and dry Neurologic: PERRL, EOMI, accommodation nl, no face palsy, no dysarthria Psychiatric: A+Ox3, euthymic affect Lymphatic: no cervical or axillary lymphadenopathy Results & Data Vital Signs (Past 12 Hours) Vital Signs Temp Pulse Resp BP Pulse Ox 03/11/19 11:16 79 18 94 03/11/19 07:12 36.6 C 55 L 19 143/78 H 98 03/11/19 07:01 79 16 93 Laboratory Results Abnormal Labs 03/08/19 03/08/19 03/08/19 10:02 10:02 14:36 WBC Immature Gran # (Auto) 0.03 H Neut # (Auto) [place] # (Auto) 0.68 H Chloride 109 H BUN 6 L BUN/Creatinine Ratio 8.3 L Glucose 142 H POC Glucose 221 H Hemoglobin A1c AST 03/08/19 03/08/19 03/08/19 16:29 19:51 23:28 WBC Immature Gran # (Auto) Neut # (Auto) [place] # (Auto) Chloride BUN BUN/Creatinine Ratio Glucose POC Glucose 308 H* 253 H 244 H Hemoglobin A1c AST 03/09/19 03/09/19 03/09/19 04:12 06:36 06:36 WBC 14.49 H Immature Gran # (Auto) 0.07 H Neut # (Auto) 12.33 H [place] # (Auto) Chloride BUN BUN/Creatinine Ratio Glucose 197 H POC Glucose 201 H Hemoglobin A1c AST 9 L 03/09/19 03/09/19 03/09/19 06:36 07:08 11:14 WBC Immature Gran # (Auto) Neut # (Auto) [place] # (Auto) Chloride BUN BUN/Creatinine Ratio Glucose POC Glucose 198 H 217 H Hemoglobin A1c 7.6 H AST 03/09/19 03/09/19 03/09/19 16:44 20:13 23:50 WBC Immature Gran # (Auto) Neut # (Auto) [place] # (Auto) Chloride BUN BUN/Creatinine Ratio Glucose POC Glucose 297 H 236 H 149 H Hemoglobin A1c AST 03/10/19 03/10/19 03/10/19 04:05 06:26 07:37 WBC Immature Gran # (Auto) Neut # (Auto) [place] # (Auto) Chloride BUN BUN/Creatinine Ratio Glucose POC Glucose 303 H* 277 H 243 H Hemoglobin A1c AST 03/10/19 03/10/19 03/10/19 11:34 16:36 19:59 WBC Immature Gran # (Auto) Neut # (Auto) [place] # (Auto) Chloride BUN BUN/Creatinine Ratio Glucose POC Glucose 122 H 213 H 202 H Hemoglobin A1c AST 03/11/19 03/11/19 03/11/19 00:42 03:30 05:35 WBC 13.48 H Immature Gran # (Auto) 0.14 H Neut # (Auto) 11.07 H [place] # (Auto) 0.70 H Chloride BUN BUN/Creatinine Ratio Glucose POC Glucose 184 H 174 H Hemoglobin A1c AST 03/11/19 03/11/19 03/11/19 05:35 07:55 11:49 WBC Immature Gran # (Auto) Neut # (Auto) [place] # (Auto) Chloride BUN 19 H D BUN/Creatinine Ratio 22.8 H Glucose 178 H POC Glucose 153 H 157 H Hemoglobin A1c AST Diagnostic Findings [place], [place] [phone] CT Scan Report Patient: YUN JHAVERI Date: 03/08/19 MR#: [id number]: [address] Acct ID:[id number]: [facility] Zip[facility] [place] [id number] Age: 58Location: 4W Sex: F Room[facility]Bed: [facility] Att Phy: Vahe Pandey, ANDREWiagnosis: ACUTE RESP FAILURE W/HYPOXIA 2NDRY TO COPD EXAC Corrie Phy: Lori VelázquezNPService Date: 03/09/19 Fam Phy:Interpreting Phy: Eliazar Phillips Admit Phy: Casie Mittal MD Ordering Phy: Paip Hidalgo MD cc: ~ CHEST CT WITH CONTRAST CT DOSE: 519.04 mGy.cm HISTORY: Acute shortness of breath COPD exac TECHNIQUE: Multiaxial CT images of the chest were performed following the IV administration of 94 cc of Optiray 320. A dose lowering technique was utilized adhering to the principles of ALARA. COMPARISON: Chest radiograph 03/08/2019, CTA chest 06/21/2018. FINDINGS: Heart appears normal in size. Coronary arterial calcifications are noted. No pericardial effusion. No thoracic aortic aneurysm or dissection. Mild to moderate calcified plaque of the thoracic aortic arch. Patency of the imaged great vessels. Pulmonary arterial tree is not well opacified, however appears unremarkable on these images. No adenopathy. No pneumothorax, pleural effusion or overt pulmonary edema. Subsegmental mostly linear consolidative opacities are noted about the basal right lower lobe. Mild subsegmental atelectasis about the anterior segment right upper lobe, lingula and right middle lobe. Small left- sided Bochdalek hernia. There are no suspicious pulmonary nodules or masses. Central airways appear to be patent. Indeterminate ill-defined area of hyperenhancement measuring 1.8 cm is noted about the subcapsular aspect of the anterior right hepatic lobe suggestive of an arterial enhancing lesion or transient hepatic attenuation difference. Mild nonspecific wall thickening of the distal esophagus. Soft tissues are unremarkable. Bones appear to be intact. No suspicious bone lesions. IMPRESSION: 1. Asymmetric mostly linear consolidative opacities of the posterior basal segment right lower lobe suggest atelectasis or pneumonia. Correlate clinically. 2. No adenopathy or pleural effusion. Electronically signed by: Dejuan Phillips M.D. 03/09/2019 7:10 PM Dictated: 03/09/191899 Transcribed: 03/09/191899 Medications Administered Current Inpatient Medications Acetaminophen (Tylenol) 650 mg PO TID [facility] Stop: 04/09/19 13:59 Last Admin: 03/11/19 13:01 Dose: Not Given Documented by: Acetaminophen/Butalbital/Caffeine (Fioricet) 1 tab PO Q8 PRN PRN Reason: Pain Stop: 04/07/19 13:17 Last Admin: 03/10/19 09:42 Dose: 1 tab Documented by: Al Hydrox/Mg Hydrox/Simethicone (Maalox) 15 ml PO Q4H PRN PRN Reason: Dyspepsia Stop: 04/07/19 12:49 Albuterol (Duoneb) 3 ml NEB QIDR [facility] Stop: 04/09/19 14:59 Last Admin: 03/11/19 11:02 Dose: 3 ml Documented by: Arformoterol Tartrate (Brovana Neb) 15 mcg INH BIDR [facility] Stop: 04/08/19 18:59 Last Admin: 03/11/19 07:01 Dose: 15 mcg Documented by: Aspirin (Ecotrin Ectab) 81 mg PO DAILY [facility] Stop: 04/08/19 08:59 Last Admin: 03/11/19 08:59 Dose: 81 mg Documented by: Atorvastatin Calcium (Lipitor) 40 mg PO DAILY [facility] Stop: 04/08/19 08:59 Last Admin: 03/11/19 08:59 Dose: 40 mg Documented by: Baclofen (Lioresal) 10 mg PO DAILY PRN PRN Reason: muscle spasm Stop: 04/07/19 12:47 Benzonatate (Tessalon Perle) 100 mg PO TID PRN PRN Reason: cough Stop: 04/07/19 12:47 Last Admin: 03/09/19 21:02 Dose: 100 mg Documented by: Benzonatate (Tessalon Perle) 200 mg PO TID [facility] Stop: 04/07/19 20:59 Last Admin: 03/11/19 08:55 Dose: 200 mg Documented by: Carvedilol (Coreg) 6.25 mg PO BIDM [facility] Stop: 04/07/19 16:59 Last Admin: 03/11/19 08:59 Dose: 6.25 mg Documented by: Diclofenac Sodium (Voltaren 1% Top) 1 appln EXT QID [facility] Stop: 04/09/19 12:59 Last Admin: 03/11/19 12:59 Dose: 1 appln Documented by: Enoxaparin Sodium (Lovenox) 40 mg SQ Q24H [facility] Stop: 04/07/19 17:59 Last Admin: 03/10/19 17:30 Dose: 40 mg Documented by: Escitalopram Oxalate (Lexapro Tab) 10 mg PO HS [facility] Stop: 04/07/19 21:29 Last Admin: 03/10/19 20:05 Dose: 10 mg Documented by: Fluticasone Propionate (Flonase) 2 sprays NA DAILY PRN PRN Reason: Allergy Symptoms Stop: 04/07/19 12:47 Gabapentin (Neurontin) 300 mg PO TID [facility] Stop: 04/07/19 13:59 Last Admin: 03/11/19 08:59 Dose: 300 mg Documented by: Glucagon (Glucagen) 1 mg SQ UD PRN; Protocol PRN Reason: Hypoglycemia Protocol Stop: 04/07/19 12:49 Glucose (Glucose 40%) 15 - 30 gm PO UD PRN; Protocol PRN Reason: Hypoglycemia Protocol Stop: 04/07/19 12:49 Glucose (Dex4 Glucose) 4 - 8 tabs PO UD PRN; Protocol PRN Reason: Hypoglycemia Protocol Stop: 04/07/19 12:49 Guaifenesin/Codeine Phosphate (Robitussin-Ac Sugar Free) 10 ml PO Q6H PRN PRN Reason: Cough Stop: 04/09/19 16:29 Last Admin: 03/11/19 08:48 Dose: 10 ml Documented by: Azithromycin 500 mg/ Dextrose 255 mls @ 125 mls/hr IV Q24H [facility]; Protocol Stop: 03/13/19 14:59 Last Infusion: 03/10/19 16:49 Dose: Infused Documented by: Ceftriaxone Sodium 2,000 mg/ (Dextrose) 70 mls @ 100 mls/hr IV Q24H [facility]I; Protocol Stop: 03/15/19 14:29 Last Infusion: 03/10/19 14:49 Dose: Infused Documented by: Methylprednisolone 80 mg/ (Syringe) 1.28 mls @ 1.5 mls/min IV Q12 [facility] Stop: 04/08/19 20:59 Last Admin: 03/11/19 08:55 Dose: 1.5 mls/min Documented by: Insulin Aspart (Novolog Flexpen) 0 units SC ACHS [facility] Stop: 04/07/19 16:29 Last Admin: 03/11/19 12:57 Dose: 7 units Documented by: Insulin Glargine (Lantus Solostar Pen) 0 units SQ BID [facility]; Protocol Stop: 04/10/19 20:59 Ioversol (Optiray 320 100ml) 94 ml IV ONCE PRN PRN Reason: Interaction Checking Stop: 03/13/19 18:47 Last Admin: 03/09/19 18:48 Dose: 94 ml Documented by: Ketorolac Tromethamine (Toradol) 15 mg IV Q6H PRN PRN Reason: Pain Stop: 03/15/19 11:38 Last Admin: 03/11/19 08:48 Dose: 15 mg Documented by: Lactobacillus Acidophilus (Floranex Granules/Powder Packet) 1 gm PO TIDM [facility] Stop: 04/07/19 16:59 Last Admin: 03/11/19 12:59 Dose: 1 gm Documented by: Magnesium Hydroxide (Milk Of Magnesia) 30 ml PO Q12H PRN PRN Reason: Constipation Stop: 04/07/19 12:49 Menthol (Nice) 1 melany BUCCAL Q2H PRN PRN Reason: Sore Throat Stop: 04/07/19 20:57 Miscellaneous (Carbohydrates For Hypoglycemia) 15 - 30 gm PO UD PRN PRN Reason: Hypoglycemia Treatment Stop: 04/07/19 12:49 Miscellaneous Information (Consult Glycemic Management Pharmacy) 1 ea N/A UD PRN; Protocol PRN Reason: Consult Stop: 04/07/19 20:44 Pantoprazole Sodium (Protonix) 40 mg PO DAILY [facility] Stop: 04/08/19 08:59 Last Admin: 03/11/19 08:59 Dose: 40 mg Documented by: Polyethylene Glycol (Miralax Powder Packet) 17 gm PO DAILY PRN PRN Reason: Constipation Stop: 04/07/19 12:49 Ranitidine HCl (Zantac) 300 mg PO HS [facility] Stop: 04/07/19 20:59 Last Admin: 03/10/19 21:18 Dose: 300 mg Documented by: Sodium Chloride (Sodium Chlor 7% Neb Solution) 4 ml INH BIDR [facility] Stop: 04/09/19 18:59 Last Admin: 03/11/19 11:02 Dose: 4 ml Documented by: Trazodone HCl (Desyrel) 150 mg PO HS [facility] Stop: 04/07/19 21:29 Last Admin: 03/10/19 20:05 Dose: 150 mg Documented by: Zolpidem Tartrate (Ambien) 5 mg PO HS PRN PRN Reason: Sleep Stop: 04/07/19 12:49 Last Admin: 03/09/19 23:48 Dose: 5 mg Documented by: PG Care Time/CCT Total # of Minutes Spent Total Time Spent with Patient: Total time spent is greater than 50% in coordination of care (as documented) at patient's floor/unit and/or counseling patient:
[2019-03-11] MEDS: cefTRIAXone SODIUM 2,000 MG in DEXTROSE 5% 50 ML IV SCH (14:43)
--- NOTE | 2019-03-11 14:58 | Pharmacy Report ---
Pharmacy Glycemic Short Note 2 - Date of Service March 11, 2019 - Glycemic Short BSG Results (Last 24 hours): 03/10/19 03/10/19 03/11/19 16:36 19:59 00:42 Glucose POC Glucose 213 H 202 H 184 H 03/11/19 03/11/19 03/11/19 03:30 05:35 07:55 Glucose 178 H POC Glucose 174 H 153 H 03/11/19 11:49 Glucose POC Glucose 157 H OUTPATIENT ANTIDIABETIC REGIMEN: * Lantus 20 units qhs * Insulin lispro 5 units TIDM * Metformin 500 mg PO daily * A1c = 7.6 % (03/09/19) ASSESSMENT: * Continues on methylprednisolone 80 mg IV q12h * Continues on azithromycin and ceftriaxone IV for COPD exacerbation/pulmonary infection * BSGs ranging 122-303 mg/dL yesterday * Fasting BSG this morning was 153 mg/dL and pre-lunch BSG of 157 mg/dL * Patient received 124 units of insulin yesterday (60 of which were basal) * Patient may receive bronchoscopic intervention on Saturday (per pulmonology note) PLAN FOR INPATIENT GLYCEMIC CONTROL: * Hold outpatient oral diabetes medications * Basal insulin - Assuming insulin requirement for this patient while on steroids is at least 120 units of insulin * Ordered one-time Lantus 30 unit dose this morning * Lantus scale for this evenin units for BSG less than 100 mg/dL, 20 units for 100-140 mg/dL, and 30 units for BSG > 140 mg/dL * Bolus insulin - tightened CF and CR based on persistently elevated BSGs yester day * NovoLog per scale ACHS or Q6hrs while NPO * Goal Range: Low 110 mg/dL - High 140 mg/dL * Correction Factor: 15 mg/dL/unit * Nutritional / Prandial insulin per carb ratio of 1 unit per 5 grams CHO consumed PLAN FOR DISCHARGE: * Will reassess insulin needs once steroids tapered * Will most likely need current outpatient regimen intensified based on elevated A1c of 7.6% * Reasonable A1c goal for this patient is < 7%
[2019-03-11] MEDS: AZITHROMYCIN 500 MG in DEXTROSE 5% 250 ML IV SCH (15:27)
--- NOTE | 2019-03-11 16:15 | Hospitalist Progress Note ---
Date of Service March 11, 2019 Assessment & Plan (1) Acute respiratory failure with hypoxia: Due to pneumonia causing COPD exacerbation probably compounded by tracheomalacia making it harder for her to clear secretions -Continue nebulizers, antibiotics, steroids, flutter valve, incentive spirometry -May need bronchoscopy as she seems to have difficulty mobilizing her secretions (2) COPD exacerbation: As above, fortunately she is on room air, despite her intermittent difficulty with breathing (3) Tobacco abuse: Needs to quit desperately, we discussed this in depth and at length. (4) DM type 2 (diabetes mellitus, type 2): A1c 7.6%. -Continue to titrate insulin management, sugars acceptable (5) Dyslipidemia: Appears to be stable We will leave it up to her primary care physician to order lipids panel and confirm compliance For now we will continue her Lipitor (6) HTN (hypertension): Blood pressure readings reasonable given the circumstances, continue home meds (7) Depression: Controlled continue home meds, offered empathy and support again (8) Somatic dysfunction of rib cage region: OMT as above (9) DVT prophylaxis: Lovenox Subjective Feeling may be the slightest bit better. This mostly is because she notes that whenever she is resting she does not have as much pain, and that the BiPAP helped a good bit. She notes however that she still having fairly uncontrolled coughing fits, without a whole lot of mucus production, and when she is in the midst of a coughing fit she has rather significant pain. Pulmonary present while I am discussing with patient, input greatly appreciated. Review of Systems Review of Systems: All systems reviewed & are unremarkable except as noted in HPI & below Physical Exam Physical Exam: General she is awake alert and oriented pleasant appears quite fatigued. Later I see her in walking in the hallway appearing fatigued but no significant distress other than appearing uncomfortable in the midst of a coughing fit. HEENT normal cephalic atraumatic mucous membranes moist. Cardio is regular, no rubs murmurs gallops. Lungs show diffuse rhonchi but a little bit better air entry than yesterday, no accessory muscle use good effort. Extremities show no sinus clubbing or edema. Osteopathic structural exam shows right greater than left intercostal and paraspinal musculature high in tone, tender, decreased range of motiondirect myofascial and balanced ligamentous tension, some improvement. Patient tolerated well. Results & Data Vital Signs (Past 12 Hours) Vital Signs Temp Pulse Resp BP BP Pulse Ox 03/11/19 15:42 98.6 F 77 18 160/68 H 93 03/11/19 14:27 86 16 91 03/11/19 11:16 79 18 94 03/11/19 07:12 97.9 F 55 L 19 143/78 H 98 03/11/19 07:01 79 16 93 PG Care Time/CCT Total # of Minutes Spent Total Time Spent with Patient: Total time spent is greater than 50% in coordination of care (as documented) at patient's floor/unit and/or counseling patient: (1) DM type 2 (diabetes mellitus, type 2) Diabetes mellitus long-term insulin use: unspecified long-term insulin use status Diabetes mellitus complication status: with unspecified complications Qualified Code(s): E11.8 - Type 2 diabetes mellitus with unspecified complications (2) HTN (hypertension) Hypertension type: unspecified Qualified Code(s): I10 - Essential (primary) hypertension (3) Depression Depression Type: unspecified Qualified Code(s): F32.9 - Major depressive disorder, single episode, unspecified
[2019-03-11] MEDS: ENOXAPARIN INJ 40 MG/0.4 ML SYR SQ SCH (17:47)
[2019-03-11] MEDS: ZOLPIDEM TARTRATE 5 MG TAB PO PRN (22:21)
[2019-03-11] MEDS: TRAZODONE HCL 50 MG TAB PO SCH (22:22)
[2019-03-11] MEDS: ESCITALOPRAM OXALATE 10 MG TAB PO SCH (22:23)
[2019-03-11] MEDS: INSULIN GLARGINE SOLOSTAR 100 UNITS/ML 3 ML PEN SQ SCH (22:26)
[2019-03-12] MEDS: INSULIN ASPART 100 UNITS/ML 3 ML PEN SC SCH ×6 (00:32→21:10)
[2019-03-12] MEDS: ALBUT/IPRATROP 3MG/0.5MG NEB 3 ML VIAL NEB SCH ×4 (07:01→18:50)
[2019-03-12] MEDS: ARFORMOTEROL TART 15MCG/2ML VIAL INH SCH ×2 (07:01→18:48)
[2019-03-12] MEDS: SODIUM CHLOR 7% 4 ML NEB INH SCH ×3 (07:19→18:50)
[2019-03-12] MEDS: carvediloL 6.25 MG TAB PO SCH ×2 (08:25→17:17)
[2019-03-12] MEDS: ATORVASTATIN 40 MG TAB PO SCH (08:25)
[2019-03-12] MEDS: LACTOBACILLUS ACIDOPHILUS 1 GM PACK PO SCH ×3 (08:25→17:17)
[2019-03-12] MEDS: ASPIRIN 81 MG ECTAB PO SCH (08:25)
[2019-03-12] MEDS: methylPREDNISolone 80 MG in SYRINGE 0 ML IV SCH ×2 (08:25→21:19)
[2019-03-12] MEDS: PANTOprazole 40 MG TAB PO SCH (08:25)
[2019-03-12] MEDS: GABAPENTIN 300 MG CAP PO SCH ×3 (08:25→21:06)
[2019-03-12] MEDS: BENZONATATE 100 MG CAPSULE PO SCH ×3 (08:25→21:08)
[2019-03-12] MEDS: DICLOFENAC SOD 1% GEL 100 GM TUBE EXT SCH ×4 (08:26→21:03)
[2019-03-12] MEDS: GUAIFENESIN/CODEINE 200MG/20MG 10ML UDC PO PRN (08:27)
[2019-03-12] MEDS: ACETAMINOPHEN 325 MG TAB PO SCH ×3 (08:27→21:20)
[2019-03-12] MEDS: INSULIN GLARGINE SOLOSTAR 100 UNITS/ML 3 ML PEN SQ SCH ×2 (08:33→21:08)
[2019-03-12] MEDS ORDERED: SODIUM CHLORIDE 0.65% NA SOLN 45 ML (OCEAN) ONE (11:07)
--- NOTE | 2019-03-12 11:58 | Fluoroscopy Report ---
FL video swallow CLINICAL HISTORY: 58 years-old Female with r/o aspiration; RLL pna. Acute cough with pneumonia TECHNIQUE: Video fluoroscopic evaluation of swallowing was performed in the AP and lateral projection s by the speech pathology staff. The patient is fed nectar-thick and thin liquid barium, a barium coa james wafer, and barium pudding. FLUOROSCOPY TIME: 1.7 minutes.. COMPARISON STUDY: Chest CT 03/09/2016. FINDINGS: There is normal hyoid excursion and epiglottic deflection. No significant penetration or as piration identified. Swallowing function is within normal limits. Mild oral pharyngeal dysmotility with solid consistency. Additionally, there is mild distal esophagea l dysmotility. IMPRESSION: 1. No aspiration identified. 2. Mild oropharyngeal dysmotility. 3. Please see the speech pathologist report for detailed findings and recommendations. Electronically signed by: Dejuan Phillips M.D. 03/12/2019 11:56 AM
[2019-03-12] MEDS: KETOROLAC TROMETHAMINE 15 MG/ML VIAL IV PRN (12:58)
--- NOTE | 2019-03-12 13:27 | Pulmonology Progress Note ---
Date of Service March 12, 2019 Assessment & Plan (1) Tracheomalacia, acquired: (2) COPD exacerbation: We will continue current therapy and check stool for C. difficile toxin and patient is scheduled tomorrow for bronchoscopic evaluation with lavage. Will need home CPAP and/or BiPAP therapy. (3) Acute respiratory failure with hypoxia: (4) LISANDRA on CPAP: Subjective 58-year-old white female with severe COPD and tracheomalacia who is somewhat improved today still quite breathless with modest exertion. Is complaining of diarrhea as well since institution of antibiotic therapy. Abdominal bloating or crampy abdominal pain noted. She is scheduled tomorrow for bronchoscopic evaluation and appears to be tolerating her BiPAP therapy nocturnally. Review of Systems Constitutional: no problem reported Eyes: no problem reported Ear, Nose, Mouth, Throat: no problem reported Respiratory: no problem reported Cardiovascular: no problem reported Gastrointestinal: no problem reported Genitourinary: no problem reported Musculoskeletal: no problem reported Integumentary: no problem reported Neurologic: no problem reported Psychiatric: no problem reported Endocrine: no problem reported Hematologic / Lymphatic: no problem reported Allergy / Immunological: no problem reported Physical Exam Constitutional: well developed and well nourished; no acute distress Eyes: PERRL, conjunctivae normal, anicteric sclerae ENMT: external ear and nose normal, oropharynx normal Neck: trachea midline, no thyromegaly Respiratory: normal respiratory effort Auscultation: + wheezes (Wheezes bilaterally persist.) Cardiovascular: RRR, no murmur, no edema Palpation: normal PMI; no thrill Gastrointestinal (Abdomen): normal bowel sounds, soft, nontender, no hepatosplenomegaly Musculoskeletal: no cyanosis or clubbing, extremities motor strength 5/5 Gait: normal gait Skin: no rashes, warm and dry Neurologic: PERRL, EOMI, accommodation nl, no face palsy, no dysarthria Psychiatric: A+Ox3, euthymic affect Lymphatic: no cervical or axillary lymphadenopathy Results & Data Vital Signs (Past 12 Hours) Vital Signs Temp Pulse Resp BP Pulse Ox 03/12/19 11:07 74 18 92 03/12/19 07:21 36.5 C 79 20 153/79 H 91 03/12/19 07:03 81 20 91 Laboratory Results Abnormal Labs 03/08/19 03/08/19 03/08/19 10:02 10:02 14:36 WBC Immature Gran # (Auto) 0.03 H Neut # (Auto) [place] # (Auto) 0.68 H Chloride 109 H BUN 6 L BUN/Creatinine Ratio 8.3 L Glucose 142 H POC Glucose 221 H Hemoglobin A1c AST 03/08/19 03/08/19 03/08/19 16:29 19:51 23:28 WBC Immature Gran # (Auto) Neut # (Auto) [place] # (Auto) Chloride BUN BUN/Creatinine Ratio Glucose POC Glucose 308 H* 253 H 244 H Hemoglobin A1c AST 03/09/19 03/09/19 03/09/19 04:12 06:36 06:36 WBC 14.49 H Immature Gran # (Auto) 0.07 H Neut # (Auto) 12.33 H [place] # (Auto) Chloride BUN BUN/Creatinine Ratio Glucose 197 H POC Glucose 201 H Hemoglobin A1c AST 9 L 03/09/19 03/09/19 03/09/19 06:36 07:08 11:14 WBC Immature Gran # (Auto) Neut # (Auto) [place] # (Auto) Chloride BUN BUN/Creatinine Ratio Glucose POC Glucose 198 H 217 H Hemoglobin A1c 7.6 H AST 03/09/19 03/09/19 03/09/19 16:44 20:13 23:50 WBC Immature Gran # (Auto) Neut # (Auto) [place] # (Auto) Chloride BUN BUN/Creatinine Ratio Glucose POC Glucose 297 H 236 H 149 H Hemoglobin A1c AST 03/10/19 03/10/19 03/10/19 04:05 06:26 07:37 WBC Immature Gran # (Auto) Neut # (Auto) [place] # (Auto) Chloride BUN BUN/Creatinine Ratio Glucose POC Glucose 303 H* 277 H 243 H Hemoglobin A1c AST 03/10/19 03/10/19 03/10/19 11:34 16:36 19:59 WBC Immature Gran # (Auto) Neut # (Auto) [place] # (Auto) Chloride BUN BUN/Creatinine Ratio Glucose POC Glucose 122 H 213 H 202 H Hemoglobin A1c AST 03/11/19 03/11/19 03/11/19 00:42 03:30 05:35 WBC 13.48 H Immature Gran # (Auto) 0.14 H Neut # (Auto) 11.07 H [place] # (Auto) 0.70 H Chloride BUN BUN/Creatinine Ratio Glucose POC Glucose 184 H 174 H Hemoglobin A1c AST 03/11/19 03/11/19 03/11/19 05:35 07:55 11:49 WBC Immature Gran # (Auto) Neut # (Auto) [place] # (Auto) Chloride BUN 19 H D BUN/Creatinine Ratio 22.8 H Glucose 178 H POC Glucose 153 H 157 H Hemoglobin A1c AST 03/11/19 03/11/19 03/12/19 16:47 20:24 00:22 WBC Immature Gran # (Auto) Neut # (Auto) [place] # (Auto) Chloride BUN BUN/Creatinine Ratio Glucose POC Glucose 215 H 153 H 120 H Hemoglobin A1c AST 03/12/19 03/12/19 03/12/19 04:18 07:59 11:54 WBC Immature Gran # (Auto) Neut # (Auto) [place] # (Auto) Chloride BUN BUN/Creatinine Ratio Glucose POC Glucose 163 H 155 H 189 H Hemoglobin A1c AST Diagnostic Findings FL video swallow CLINICAL HISTORY: 58 years-old Female with r/o aspiration; RLL pna. Acute cough with pneumonia TECHNIQUE: Video fluoroscopic evaluation of swallowing was performed in the AP and lateral projections by the speech pathology staff. The patient is fed nectar-thick and thin liquid barium, a barium coated wafer, and barium pudding. FLUOROSCOPY TIME: 1.7 minutes.. COMPARISON STUDY: Chest CT 03/09/2016. FINDINGS: There is normal hyoid excursion and epiglottic deflection. No significant penetration or aspiration identified. Swallowing function is within normal limits. Mild oral pharyngeal dysmotility with solid consistency. Additionally, there is mild distal esophageal dysmotility. IMPRESSION: 1. No aspiration identified. 2. Mild oropharyngeal dysmotility. 3. Please se Medications Administered Current Inpatient Medications Acetaminophen (Tylenol) 650 mg PO TID [facility] Stop: 04/09/19 13:59 Last Admin: 03/12/19 08:27 Dose: 650 mg Documented by: Acetaminophen/Butalbital/Caffeine (Fioricet) 1 tab PO Q8 PRN PRN Reason: Pain Stop: 04/07/19 13:17 Last Admin: 03/10/19 09:42 Dose: 1 tab Documented by: Al Hydrox/Mg Hydrox/Simethicone (Maalox) 15 ml PO Q4H PRN PRN Reason: Dyspepsia Stop: 04/07/19 12:49 Albuterol (Duoneb) 3 ml NEB QIDR [facility] Stop: 04/09/19 14:59 Last Admin: 03/12/19 11:07 Dose: 3 ml Documented by: Arformoterol Tartrate (Brovana Neb) 15 mcg INH BIDR [facility] Stop: 04/08/19 18:59 Last Admin: 03/12/19 07:01 Dose: 15 mcg Documented by: Aspirin (Ecotrin Ectab) 81 mg PO DAILY [facility] Stop: 04/08/19 08:59 Last Admin: 03/12/19 08:25 Dose: 81 mg Documented by: Atorvastatin Calcium (Lipitor) 40 mg PO DAILY [facility] Stop: 04/08/19 08:59 Last Admin: 03/12/19 08:25 Dose: 40 mg Documented by: Baclofen (Lioresal) 10 mg PO DAILY PRN PRN Reason: muscle spasm Stop: 04/07/19 12:47 Benzonatate (Tessalon Perle) 100 mg PO TID PRN PRN Reason: cough Stop: 04/07/19 12:47 Last Admin: 03/09/19 21:02 Dose: 100 mg Documented by: Benzonatate (Tessalon Perle) 200 mg PO TID [facility] Stop: 04/07/19 20:59 Last Admin: 03/12/19 08:25 Dose: 200 mg Documented by: Carvedilol (Coreg) 6.25 mg PO BIDM [facility] Stop: 04/07/19 16:59 Last Admin: 03/12/19 08:25 Dose: 6.25 mg Documented by: Diclofenac Sodium (Voltaren 1% Top) 1 appln EXT QID [facility] Stop: 04/09/19 12:59 Last Admin: 03/12/19 12:46 Dose: Not Given Documented by: Enoxaparin Sodium (Lovenox) 40 mg SQ Q24H [facility] Stop: 04/07/19 17:59 Last Admin: 03/11/19 17:47 Dose: 40 mg Documented by: Escitalopram Oxalate (Lexapro Tab) 10 mg PO HS [facility] Stop: 04/07/19 21:29 Last Admin: 03/11/19 22:23 Dose: 10 mg Documented by: Fluticasone Propionate (Flonase) 2 sprays NA DAILY PRN PRN Reason: Allergy Symptoms Stop: 04/07/19 12:47 Gabapentin (Neurontin) 300 mg PO TID [facility] Stop: 04/07/19 13:59 Last Admin: 03/12/19 08:25 Dose: 300 mg Documented by: Glucagon (Glucagen) 1 mg SQ UD PRN; Protocol PRN Reason: Hypoglycemia Protocol Stop: 04/07/19 12:49 Glucose (Glucose 40%) 15 - 30 gm PO UD PRN; Protocol PRN Reason: Hypoglycemia Protocol Stop: 04/07/19 12:49 Glucose (Dex4 Glucose) 4 - 8 tabs PO UD PRN; Protocol PRN Reason: Hypoglycemia Protocol Stop: 04/07/19 12:49 Guaifenesin/Codeine Phosphate (Robitussin-Ac Sugar Free) 10 ml PO Q6H PRN PRN Reason: Cough Stop: 04/09/19 16:29 Last Admin: 03/12/19 08:27 Dose: 10 ml Documented by: Azithromycin 500 mg/ Dextrose 255 mls @ 125 mls/hr IV Q24H [facility]; Protocol Stop: 03/13/19 14:59 Last Infusion: 03/11/19 17:48 Dose: Infused Documented by: Ceftriaxone Sodium 2,000 mg/ (Dextrose) 70 mls @ 100 mls/hr IV Q24H [facility]; Protocol Stop: 03/15/19 14:29 Last Infusion: 03/11/19 15:33 Dose: Infused Documented by: Methylprednisolone 80 mg/ (Syringe) 1.28 mls @ 1.5 mls/min IV Q12 [facility] Stop: 04/08/19 20:59 Last Admin: 03/12/19 08:25 Dose: 1.5 mls/min Documented by: Sodium Chloride (Nss) 500 mls @ 15 mls/hr IV .Q24H [facility] Stop: 03/13/19 23:59 Insulin Aspart (Novolog Flexpen) 0 units SC ACHS [facility] Stop: 04/07/19 16:29 Last Admin: 03/12/19 12:47 Dose: 16 units Documented by: Insulin Glargine (Lantus Solostar Pen) 0 units SQ BID [facility]; Protocol Stop: 04/10/19 20:59 Last Admin: 03/12/19 08:33 Dose: 30 units Documented by: Ioversol (Optiray 320 100ml) 94 ml IV ONCE PRN PRN Reason: Interaction Checking Stop: 03/13/19 18:47 Last Admin: 03/09/19 18:48 Dose: 94 ml Documented by: Ketorolac Tromethamine (Toradol) 15 mg IV Q6H PRN PRN Reason: Pain Stop: 03/15/19 11:38 Last Admin: 03/12/19 12:58 Dose: 15 mg Documented by: Lactobacillus Acidophilus (Floranex Granules/Powder Packet) 1 gm PO TIDM [facility] Stop: 04/07/19 16:59 Last Admin: 03/12/19 12:46 Dose: 1 gm Documented by: Magnesium Hydroxide (Milk Of Magnesia) 30 ml PO Q12H PRN PRN Reason: Constipation Stop: 04/07/19 12:49 Menthol (Nice) 1 melany BUCCAL Q2H PRN PRN Reason: Sore Throat Stop: 04/07/19 20:57 Miscellaneous (Carbohydrates For Hypoglycemia) 15 - 30 gm PO UD PRN PRN Reason: Hypoglycemia Treatment Stop: 04/07/19 12:49 Miscellaneous Information (Consult Glycemic Management Pharmacy) 1 ea N/A UD PRN; Protocol PRN Reason: Consult Stop: 04/07/19 20:44 Pantoprazole Sodium (Protonix) 40 mg PO DAILY [facility] Stop: 04/08/19 08:59 Last Admin: 03/12/19 08:25 Dose: 40 mg Documented by: Polyethylene Glycol (Miralax Powder Packet) 17 gm PO DAILY PRN PRN Reason: Constipation Stop: 04/07/19 12:49 Ranitidine HCl (Zantac) 300 mg PO HS [facility] Stop: 04/07/19 20:59 Last Admin: 03/11/19 22:23 Dose: 300 mg Documented by: Sodium Chloride (Sodium Chlor 7% Neb Solution) 4 ml INH BIDR [facility] Stop: 04/09/19 18:59 Last Admin: 03/12/19 07:19 Dose: Not Given Documented by: Trazodone HCl (Desyrel) 150 mg PO HS [facility] Stop: 04/07/19 21:29 Last Admin: 03/11/19 22:22 Dose: 150 mg Documented by: Zolpidem Tartrate (Ambien) 5 mg PO HS PRN PRN Reason: Sleep Stop: 04/07/19 12:49 Last Admin: 03/11/19 22:21 Dose: 5 mg Documented by: PG Care Time/CCT Total # of Minutes Spent Total Time Spent with Patient: Total time spent is greater than 50% in coordination of care (as documented) at patient's floor/unit and/or counseling patient:
[2019-03-12] MEDS: cefTRIAXone SODIUM 2,000 MG in DEXTROSE 5% 50 ML IV SCH (14:10)
[2019-03-12] MEDS: AZITHROMYCIN 500 MG in DEXTROSE 5% 250 ML IV SCH (14:57)
[2019-03-12] MEDS: BUTALBITAL/ACETAMIN/CAFFEINE TAB PO PRN (16:27)
[2019-03-12] MEDS: ENOXAPARIN INJ 40 MG/0.4 ML SYR SQ SCH (17:18)
--- NOTE | 2019-03-12 19:16 | Hospitalist Progress Note ---
Date of Service March 12, 2019 Assessment & Plan (1) Acute respiratory failure with hypoxia: Due to pneumonia causing COPD exacerbation probably compounded by tracheomalacia making it harder for her to clear secretions -Continue nebulizers, antibiotics, steroids, flutter valve, incentive spirometry -Given her general lack of improvement, I agree that it appears warranted to utilize a therapeutic bronchoscopy to help with her secretion management. (2) COPD exacerbation: As above, fortunately continues to not show any decline, does not really improving. (3) Tobacco abuse: Needs to quit desperately, we discussed this in depth and at length on 03/11 and 03/12. She has good strategies in place. (4) DM type 2 (diabetes mellitus, type 2): A1c 7.6%. -Continue to titrate insulin management to obtain goal glucose control (5) Dyslipidemia: Appears to be stable We will leave it up to her primary care physician to order lipids panel and confirm compliance For now we will continue her Lipitor (6) HTN (hypertension): Control acceptable given the circumstances, continue home meds (7) Depression: Controlled continue home meds, continue to offer empathy and support (8) Somatic dysfunction of rib cage region: OMT done for several days, she seems to have less complaint of rib pain today, will hold off on further OMT for now. Continue to follow (9) DVT prophylaxis: Lovenox Subjective Feeling about the same. Seems to have less rib cage pain at least. Still significant cough but no significant sputum production despite feeling a rattling in her chest quite a bit. Dyspnea about the same. For bronchoscopy tomorrow Review of Systems Review of Systems: All systems reviewed & are unremarkable except as noted in HPI & below Physical Exam Physical Exam: General she is awake and alert pleasant no distress, other than whenever she is having some coughing fits, but that distress seems to quickly resolved. HEENT normocephalic atraumatic mucous members moist. Lungs ongoing coarse expiratory rhonchi may be marginally slightly possibly better than yesterday but not of much significance, no accessory muscle use no wheezing good effort. Skin shows no rashes no pallor or icterus. Results & Data Vital Signs (Past 12 Hours) Vital Signs Temp Pulse Resp BP BP Pulse Ox 03/12/19 18:51 67 16 94 03/12/19 15:26 98.2 F 80 18 118/69 91 03/12/19 14:49 79 18 94 03/12/19 11:07 74 18 92 03/12/19 07:21 97.7 F 79 20 153/79 H 91 PG Care Time/CCT Total # of Minutes Spent Total Time Spent with Patient: Total time spent is greater than 50% in coordination of care (as documented) at patient's floor/unit and/or counseling patient: (1) DM type 2 (diabetes mellitus, type 2) Diabetes mellitus buttermaker continuous churn insulin use: unspecified buttermaker continuous churn insulin use status Diabetes mellitus complication status: with unspecified complications Qualified Code(s): E11.8 - Type 2 diabetes mellitus with unspecified complications (2) HTN (hypertension) Hypertension type: unspecified Qualified Code(s): I10 - Essential (primary) hypertension (3) Depression Depression Type: unspecified Qualified Code(s): F32.9 - Major depressive disorder, single episode, unspecified
[2019-03-12] MEDS: ZOLPIDEM TARTRATE 5 MG TAB PO PRN (21:05)
[2019-03-12] MEDS: ESCITALOPRAM OXALATE 10 MG TAB PO SCH (21:06)
[2019-03-12] MEDS: TRAZODONE HCL 50 MG TAB PO SCH (21:07)
[2019-03-12] MEDS ORDERED: INFLUENZA VIRUS QUAD VACCINE 0.5 ML SYR IM ONE (21:45)
[2019-03-12] MEDS ORDERED: INFLUENZA ADMINISTRATION CHARGE ONE (21:45)
[2019-03-13] MEDS ORDERED: Nursing to Pharmacy Communication ONE ×2 (01:18→13:16)
[2019-03-13] MEDS: INSULIN ASPART 100 UNITS/ML 3 ML PEN SC SCH ×5 (06:09→21:01)
[2019-03-13 07:05] LABS: Creatinine Clr Calc Pharmacy 74.1 ml/min; Est GFR (African American) 80.6; Est GFR (Non-African American) 69.5
[2019-03-13 07:06] LABS: Hematocrit (blood only) 41.4 % (37-47); Hemoglobin 14.3 g/dL (12.0-16.0); Mean Corpuscular Hemoglobin 32.1 pg (25-34); Mean Corpuscular Hgb Conc 34.5 g/dL (32-36); Mean Corpuscular Volume 92.8 fL (80-100); Mean Platelet Volume 9.8 fL (7.4-10.4); Platelet Count 204 K/uL (130-400); RDW Coefficient of Variation 13.3 % (11.5-14.5); RDW Standard Deviation 45.1 fL (36.4-46.3); Red Blood Count 4.46 M/uL (4.2-5.4); White Blood Count 12.98 K/uL (4.8-10.8)
[2019-03-13] MEDS: ARFORMOTEROL TART 15MCG/2ML VIAL INH SCH ×2 (07:19→19:18)
[2019-03-13] MEDS: ALBUT/IPRATROP 3MG/0.5MG NEB 3 ML VIAL NEB SCH ×4 (07:21→19:13)
[2019-03-13] MEDS: SODIUM CHLOR 7% 4 ML NEB INH SCH (07:21)
[2019-03-13] MEDS: GUAIFENESIN/CODEINE 200MG/20MG 10ML UDC PO PRN (07:53)
[2019-03-13] MEDS: carvediloL 6.25 MG TAB PO SCH ×2 (07:54→16:34)
[2019-03-13] MEDS: LACTOBACILLUS ACIDOPHILUS 1 GM PACK PO SCH ×3 (07:56→16:34)
[2019-03-13] MEDS: PANTOprazole 40 MG TAB PO SCH (07:56)
[2019-03-13] MEDS: ASPIRIN 81 MG ECTAB PO SCH (07:56)
[2019-03-13] MEDS: ATORVASTATIN 40 MG TAB PO SCH (07:56)
[2019-03-13] MEDS: GABAPENTIN 300 MG CAP PO SCH ×3 (07:56→20:47)
--- NOTE | 2019-03-13 07:56 | History & Physical Bridge Note ---
Date of Service March 13, 2019 History & Physical Bridge Note I have examined the patient, reviewed the History & Physical and in the interval since the performance of the History & Physical I have noted the following changes of clinical significance: no changes noted
[2019-03-13] MEDS: methylPREDNISolone 80 MG in SYRINGE 0 ML IV SCH (07:57)
[2019-03-13] MEDS: ACETAMINOPHEN 325 MG TAB PO SCH ×3 (07:57→20:55)
[2019-03-13] MEDS: BENZONATATE 100 MG CAPSULE PO SCH ×3 (07:57→20:50)
[2019-03-13] MEDS: DICLOFENAC SOD 1% GEL 100 GM TUBE EXT SCH ×4 (07:57→20:53)
--- NOTE | 2019-03-13 07:57 | Pre Anesthesia Assessment ---
Date of Service March 13, 2019 Pre Sedation Assessment Vital Signs Temp Pulse Resp BP BP Pulse Ox 03/13/19 07:23 83 20 92 03/13/19 07:21 36.7 C 64 16 143/86 H 91 03/12/19 23:47 36.9 C 60 18 132/77 95 03/12/19 18:51 67 16 94 03/12/19 15:26 36.8 C 80 18 118/69 91 03/12/19 14:49 79 18 94 03/12/19 11:07 74 18 92 Cardiovascular RRR, no murmur, no edema + peripheral pulses normal Respiratory + respiratory effort normal and + hyperresonance to percussion + wheezes Pre-Sedation Airway Assessment Smoking Status: Current every day smoker Hx Sleep Apnea: No Hx Difficult Intubation: No Mallampati Class: III ASA: ASA3 Procedure Planning Contraindications for Sedation: none Current Medications Reviewed: Yes Notes The planned sedation has been discussed with the patient. Informed Consent was obtained. I have identified the patient, determined the appropriateness of sedation and have assessed the patient immediately prior to the procedure. All medicine(s) and interventions are by my order.
[2019-03-13] MEDS: INSULIN GLARGINE SOLOSTAR 100 UNITS/ML 3 ML PEN SQ SCH ×2 (08:14→20:57)
[2019-03-13] MEDS ORDERED: SODIUM CHLORIDE 0.9% 500 ML IV SCH (08:30)
[2019-03-13] MEDS: BUTALBITAL/ACETAMIN/CAFFEINE TAB PO PRN (10:22)
[2019-03-13] MEDS ORDERED: fentaNYL citrate 100 MCG/2 ML VIAL IV ONE (11:31)
[2019-03-13] MEDS ORDERED: LIDOCAINE HCL VISCOUS SOLN 2% 15 ML UDC TOP ONE (11:31)
[2019-03-13] MEDS ORDERED: OXYMETAZOLINE 0.05% 30 ML BTL ONE (11:31)
[2019-03-13] MEDS ORDERED: LEVALBUTEROL HCL 1.25 MG/3 ML NEB NEB STA (11:31)
[2019-03-13] MEDS ORDERED: MIDAZOLAM HCL 1 MG/ML 2ML VIAL IV ONE (11:33)
[2019-03-13] MEDS ORDERED: LIDOCAINE 4% INH SOLN 4 ML BTL INFIL ONE (11:34)
[2019-03-13] MEDS ORDERED: LIDOCAINE HCL 2% (LOCAL) INJ 50 ML VIAL INFIL ONE (11:34)
--- NOTE | 2019-03-13 11:39 | Post Operative Brief Note ---
PG Immediate Post Op with CF Date of Surgery March 13, 2019 Pre & Post Diagnosis Operation Date: 03/13/19 10:00 Pre-Op Diagnosis: ACUTE RESP FAILURE W/HYPOXIA 2NDRY TO COPD EXAC Post-Op Diagnosis: ACUTE RESP FAILURE W/HYPOXIA 2NDRY TO COPD EXAC/Chronic Mucopurulent Bronchitis Procedure Operation Date: 03/13/19 10:00 Actual Procedures p Bronchoscopy Radiology(Bilateral) - Papi Hidalgo MD Surgeon Papi Hidalgo MD Commercial Marketing Specialist none Estimated Blood Loss 0 Findings Consistent with Post-Op Diagnosis Chronic Mucopurulent Bronchitis Specimens Specimen Description: Right and Left Lung Washing. Complications none Disposition Accompanied Patient To Recovery: No Overlapping Procedure I was present for: the critical portions of procedure. I was immediately available: during the entire case. Back up surgeon: was not required during procedure.
--- NOTE | 2019-03-13 11:40 | Post Anesthesia Assessment ---
Date of Service March 13, 2019 Post Sedation Assessment Vital Signs Temp Pulse Pulse Resp BP BP Pulse Ox 03/13/19 11:35 69 18 129/80 92 03/13/19 11:30 60 18 125/67 97 03/13/19 11:25 74 22 131/78 97 03/13/19 11:20 55 L 20 138/82 95 03/13/19 11:15 57 L 21 146/77 H 94 03/13/19 11:00 55 L 22 146/74 H 94 03/13/19 10:38 36.9 C 53 L 20 148/86 H 91 03/13/19 07:23 83 20 92 03/13/19 07:21 36.7 C 64 16 143/86 H 91 03/12/19 23:47 36.9 C 60 18 132/77 95 03/12/19 18:51 67 16 94 03/12/19 15:26 36.8 C 80 18 118/69 91 03/12/19 14:49 79 18 94 Recovery Score Activity: Moves 4 extremities Respiration: Deep Breath/Cough Circulation: +/-20% PreAnes Value Consciousness: Arouseable (by name) Oxygen Saturation: O2 needed for >90% Post Anesthesia Score: 8 Discharge Sedation Level of Care: Fast Track Phase II Post Sedation Plan On clinical assessment, the patient appears to have tolerated the sedation without complications. Patient is recovering as anticipated. Patient will continue to be monitored by nursing and may be discharged when sedation discharge criteria are met per below protocol. Upon Completions of procedure and additional 15 minutes continue every 5 minute vital signs and the P.A.R. score; then discharge to a Phase I or Fast Track to Phase II per the following guidelines: * Discharge Patient to appropriate Phase II area if PAR is 8 or greater or return to pre- procedure baseline. The post - procedure orders will be as directed. * If PAR score is less than 8 or not return to pre-procedure baseline then patient will follow Phase I monitoring till PAR is reached for Phase II. The Phase I may be done in procedure room or may call to secure a Phase I area. * If naloxone or flumazenil are used for reversal, hold in Phase I for continued monitoring from when last reversal dose was given for a minimum of 60 minutes or longer pending the nurse and/or physician discretion of patient condition before discharge to Phase II. Please call the Sedation Physician to re-evaluate and complete post-note for discharge to Phase II area. Do NOT discharge from procedure sedation or Phase 1 until post- sedation evaluation note is complete by procedure /sedation MD Sedation Discharge Instructions to be given to the patient at discharge to home.
[2019-03-13] MEDS: NICOTINE 7 MG/24 HR TDSY TD SCH (12:19)
[2019-03-13] MEDS: KETOROLAC TROMETHAMINE 15 MG/ML VIAL IV PRN ×2 (12:25→21:30)
--- NOTE | 2019-03-13 13:07 | Pulmonology Progress Note ---
Date of Service March 13, 2019 Assessment & Plan (1) Tracheomalacia, acquired: (2) COPD exacerbation: (3) Acute respiratory failure with hypoxia: (4) Tobacco abuse: (5) LISANDRA and COPD overlap syndrome: Subjective 58-year-old with severe COPD and chronic mucopurulent bronchitis as well as tracheomalacia underwent bronchoscopy today with BAL. Severe mucoid impaction was noted and Mucomyst was instilled in both the right and left tracheobronchial tree along with copious amounts of normal saline. Patient tolerated the procedure well but did have some chest discomfort postprocedure. I gave her 40 mg of IV Solu-Medrol in the bronchoscopy suite along with an aerosolized ama tment with Xopenex. Chest pain appeared to be musculoskeletal in origin and EKG done when patient returned to the floor showed no acute changes. We will continue current regimen and consider possible discharge within 24 to 48 hours. Review of Systems Constitutional: no problem reported Eyes: no problem reported Ear, Nose, Mouth, Throat: no problem reported Respiratory: no problem reported Cardiovascular: no problem reported Gastrointestinal: no problem reported Genitourinary: no problem reported Musculoskeletal: no problem reported Integumentary: no problem reported Neurologic: no problem reported Psychiatric: no problem reported Endocrine: no problem reported Hematologic / Lymphatic: no problem reported Allergy / Immunological: no problem reported Physical Exam Constitutional: well developed and well nourished; no acute distress Eyes: PERRL, conjunctivae normal, anicteric sclerae ENMT: external ear and nose normal, oropharynx normal Neck: trachea midline, no thyromegaly Respiratory: normal respiratory effort Auscultation: + wheezes (Wheezes bilaterally but not as prominently displayed.) Cardiovascular: RRR, no murmur, no edema Palpation: normal PMI; no thrill Gastrointestinal (Abdomen): normal bowel sounds, soft, nontender, no hepatosplenomegaly Musculoskeletal: no cyanosis or clubbing, extremities motor strength 5/5 Gait: normal gait Skin: no rashes, warm and dry Neurologic: PERRL, EOMI, accommodation nl, no face palsy, no dysarthria Psychiatric: A+Ox3, euthymic affect Lymphatic: no cervical or axillary lymphadenopathy Results & Data Vital Signs (Past 12 Hours) Vital Signs Temp Pulse Pulse Resp BP BP Pulse Ox 03/13/19 12:55 36.9 C 53 L 15 141/75 H 95 03/13/19 11:40 67 17 128/70 93 03/13/19 11:35 69 18 129/80 92 03/13/19 11:30 60 18 125/67 97 03/13/19 11:25 74 22 131/78 97 03/13/19 11:20 55 L 20 138/82 95 03/13/19 11:15 57 L 21 146/77 H 94 03/13/19 11:00 55 L 22 146/74 H 94 03/13/19 10:38 36.9 C 53 L 20 148/86 H 91 03/13/19 07:23 83 20 92 03/13/19 07:21 36.7 C 64 16 143/86 H 91 PG Care Time/CCT Total # of Minutes Spent Total Time Spent with Patient: Total time spent is greater than 50% in coordination of care (as documented) at patient's floor/unit and/or counseling patient:
--- NOTE | 2019-03-13 14:07 | Pharmacy Report ---
Pharmacy Glycemic Short Note 2 - Date of Service March 13, 2019 - Glycemic Short BSG Results (Last 24 hours): 03/12/19 03/12/19 03/13/19 16:55 20:27 00:15 POC Glucose 283 H 123 H 122 H 03/13/19 03/13/19 05:57 11:54 POC Glucose 147 H 119 H OUTPATIENT ANTIDIABETIC REGIMEN: * Lantus 20 units qhs * Insulin lispro 5 units TIDM * Metformin 500 mg PO daily * A1c = 7.6 % (03/09/19) ASSESSMENT: * Patient received a total of 120 mg IV methylprednisolone today * Now transitioned to Prednisone 20 mg PO BID - will decrease insulin dose as steroids taper off * Patient switched to Cefuroxime 500 mg PO BID for respiratory infection * BSGs acceptable with current regimen * Gave patient 20 units of Lantus this AM secondary to NPO status for bronchoscopy given continued steroid use PLAN FOR INPATIENT GLYCEMIC CONTROL: * Hold outpatient oral diabetes medications * Basal insulin * Lantus 20 units x 1 this AM for NPO * Now patient resumed previous diet, will restart Lantus BID per BSG scale: 0 units for BSG < 100 mg/dL, 20 units for BSG between 100-140 mg/dL and 30 units for BSG > 140 mg/dL * Bolus insulin - no changes from previous regimen * NovoLog per scale ACHS * Goal Range: Low 110 mg/dL - High 140 mg/dL * Correction Factor: 15 mg/dL/unit * Nutritional / Prandial insulin per carb ratio of 1 unit per 6 grams CHO consumed PLAN FOR DISCHARGE: * Will reassess insulin needs once steroids tapered * Will most likely need current outpatient regimen intensified based on elevated A1c of 7.6% * Reasonable A1c goal for this patient is < 7%
--- NOTE | 2019-03-13 15:01 | Hospitalist Progress Note ---
Date of Service March 13, 2019 Assessment & Plan (1) Acute respiratory failure with hypoxia: Due to pneumonia causing COPD exacerbation probably compounded by tracheomalacia making it harder for her to clear secretions -treating with nebulizers, antibiotics, steroids, flutter valve, incentive spirometry bronchoscopy on 03/[address] Hidalgo, copious mucoid impaction bilaterally, treated with mucomyst and suctioning, successful clearing of lower airways patient breathing better, lungs clear continue on Prednisone 20mg BID, Cefuroxime 500mg BID can likely be discharged tomorrow if she remains stable (2) COPD exacerbation: As above, improved a lot after the bronchoscopy on 03/13 (3) Tobacco abuse: Needs to quit desperately, we discussed this in depth and at length on 03/11 and 03/12. and 03/13 will use Nicotine patch on discharge family is committed to quitting as well she failed Chantix in the past discussed bupropion as option, however, would defer this to PCP who would be following her (4) DM type 2 (diabetes mellitus, type 2): A1c 7.6%. -Continue to titrate insulin management to obtain goal glucose control (5) Dyslipidemia: Appears to be stable We will leave it up to her primary care physician to order lipids panel and confirm compliance For now we will continue her Lipitor (6) HTN (hypertension): Control acceptable given the circumstances, continue home meds (7) Depression: Controlled continue home meds, continue to offer empathy and support (8) Somatic dysfunction of rib cage region: OMT done for several days, she seems to have less complaint of rib pain to day, will hold off on further OMT for now. Continue to follow (9) DVT prophylaxis: Lovenox Plan: d/c to home tomorrow if she remains stable close follow up with Dr. Hidalgo d/c home on Prednisone 20mg BID and taper over next 10 days and Cefuroxime 500mg BID to complete 7 days total Subjective patient seen early this afternoon after bronchoscopy with Dr. Hidalgo discussed patient's case with Dr. Hidalgo, he said there was a lot of mucoid impaction, successful suctioning patient says she feels a lot better, breathing easier, coughing less some chest pain after procedure, EKG without ischemic changes patient eating well she wanted to discuss smoking cessation she tried Chantix in the past, did not work at all she is willing to use patches but not convinced they will help it has been 5 days since her last cigarette and she is struggling her family removed cigarettes from her house and other smokers in the house have said that they are committed to stopping she wants to know about other medications, I brought up buproprion as option but would defer to her PCP as they would manage this senior care discussed that quitting is multifactorial, needs family/friends support, counselling, life style changes as well as nicotine supplementation at first she expressed to me that she knows if she continues to smoke she will continue to be in the hospital Review of Systems Review of Systems: All systems reviewed & are unremarkable except as noted in HPI & below Constitutional: no fever Respiratory: + cough, + dyspnea on exertion and + sputum production; no dyspnea Cardiovascular: no chest pain, no syncope and no edema Gastrointestinal: no abdominal pain, no nausea, no vomiting, no constipation and no diarrhea/loose stools Physical Exam Constitutional: WD/WN, vitals as above + obese Eyes: PERRL, conjunctivae normal, anicteric sclerae ENMT: external ear and nose normal, oropharynx normal Neck: trachea midline, no thyromegaly Respiratory: normal respiratory effort; no respiratory distress Auscultation: + diminished lung sounds and + bronchial breath sounds; no rales, no rhonchi and no wheezes Cardiovascular: RRR, no murmur, no edema Gastrointestinal (Abdomen): normal bowel sounds, soft, nontender, no hepatosplenomegaly Musculoskeletal: no cyanosis or clubbing, extremities motor strength 5/5 Skin: no rashes, warm and dry Neurologic: patellar DTR's 2+ bilat, sensation intact and PERRL, EOMI, accommodation nl, no face palsy, no dysarthria Psychiatric: A+Ox3, euthymic affect Lymphatic: no cervical or axillary lymphadenopathy Results & Data Vital Signs (Past 12 Hours) Vital Signs Temp Pulse Pulse Resp BP BP Pulse Ox 03/13/19 12:55 36.9 C 53 L 15 141/75 H 95 03/13/19 11:40 67 17 128/70 93 03/13/19 11:35 69 18 129/80 92 03/13/19 11:30 60 18 125/67 97 03/13/19 11:25 74 22 131/78 97 03/13/19 11:20 55 L 20 138/82 95 03/13/19 11:15 57 L 21 146/77 H 94 03/13/19 11:00 55 L 22 146/74 H 94 03/13/19 10:38 36.9 C 53 L 20 148/86 H 91 03/13/19 07:23 83 20 92 03/13/19 07:21 36.7 C 64 16 143/86 H 91 Laboratory Results Laboratory Results - last 24 hr 03/12/19 03/12/19 03/12/19 15:10 16:55 20:27 WBC RBC Hgb Hct MCV MCH MCHC RDW Std Deviation RDW Coeff of Cathy Plt Count MPV Creatinine Est Cr Clr Drug Dosing Est GFR ( Amer) Est GFR (Non-Af Amer) POC Glucose 283 H 123 H BAL A.galactomannan Ag BAL A.galactomann Index Stl C. diff Tox B Gene Negative Cdiff Gene 03/13/19 03/13/19 03/13/19 00:15 05:53 05:53 WBC 12.98 H RBC 4.46 Hgb 14.3 Hct 41.4 MCV 92.8 MCH 32.1 MCHC 34.5 RDW Std Deviation 45.1 RDW Coeff of Cathy 13.3 Plt Count 204 MPV 9.8 Creatinine 0.91 Est Cr Clr Drug Dosing 74.1 Est GFR ( Amer) 80.6 Est GFR (Non-Af Amer) 69.5 POC Glucose 122 H BAL A.galactomannan Ag BAL A.galactomann Index Stl C. diff Tox B Gene 03/13/19 03/13/19 03/13/19 05:57 11:23 11:54 WBC RBC Hgb Hct MCV MCH MCHC RDW Std Deviation RDW Coeff of Cathy Plt Count MPV Creatinine Est Cr Clr Drug Dosing Est GFR ( Amer) Est GFR (Non-Af Amer) POC Glucose 147 H 119 H BAL A.galactomannan Ag Pending BAL A.galactomann Index Pending Stl C. diff Tox B Gene Medications Administered Current Inpatient Medications Acetaminophen (Tylenol) 650 mg PO TID ANYI Stop: 04/09/19 13:59 Last Admin: 03/13/19 13:23 Dose: 650 mg Documented by: Acetaminophen/Butalbital/Caffeine (Fioricet) 1 tab PO Q8 PRN PRN Reason: Pain Stop: 04/07/19 13:17 Last Admin: 03/13/19 10:22 Dose: 1 tab Documented by: Acetylcysteine (Mucomyst 20%) 5 ml INH BID ANYI Stop: 04/12/19 20:59 Al Hydrox/Mg Hydrox/Simethicone (Maalox) 15 ml PO Q4H PRN PRN Reason: Dyspepsia Stop: 04/07/19 12:49 Albuterol (Duoneb) 3 ml NEB QIDR ANYI Stop: 04/09/19 14:59 Last Admin: 03/13/19 11:29 Dose: Not Given Documented by: Arformoterol Tartrate (Brovana Neb) 15 mcg INH BIDR [facility] Stop: 04/08/19 18:59 Last Admin: 03/13/19 07:19 Dose: 15 mcg Documented by: Aspirin (Ecotrin Ectab) 81 mg PO DAILY [facility] Stop: 04/08/19 08:59 Last Admin: 03/13/19 07:56 Dose: 81 mg Documented by: Atorvastatin Calcium (Lipitor) 40 mg PO DAILY [facility] Stop: 04/08/19 08:59 Last Admin: 03/13/19 07:56 Dose: 40 mg Documented by: Baclofen (Lioresal) 10 mg PO DAILY PRN PRN Reason: muscle spasm Stop: 04/07/19 12:47 Benzonatate (Tessalon Perle) 100 mg PO TID PRN PRN Reason: cough Stop: 04/07/19 12:47 Last Admin: 03/09/19 21:02 Dose: 100 mg Documented by: Benzonatate (Tessalon Perle) 200 mg PO TID [facility] Stop: 04/07/19 20:59 Last Admin: 03/13/19 13:22 Dose: 200 mg Documented by: Carvedilol (Coreg) 6.25 mg PO BIDM [facility] Stop: 04/07/19 16:59 Last Admin: 03/13/19 07:54 Dose: 6.25 mg Documented by: Cefuroxime Axetil (Ceftin) 500 mg PO BID [facility] Stop: 03/20/19 20:59 Diclofenac Sodium (Voltaren 1% Top) 1 appln EXT QID [facility] Stop: 04/09/19 12:59 Last Admin: 03/13/19 12:21 Dose: Not Given Documented by: Enoxaparin Sodium (Lovenox) 40 mg SQ Q24H [facility] Stop: 04/07/19 17:59 Last Admin: 03/12/19 17:18 Dose: 40 mg Documented by: Escitalopram Oxalate (Lexapro Tab) 10 mg PO HS [facility] Stop: 04/07/19 21:29 Last Admin: 03/12/19 21:06 Dose: 10 mg Documented by: Fluticasone Propionate (Flonase) 2 sprays NA DAILY PRN PRN Reason: Allergy Symptoms Stop: 04/07/19 12:47 Gabapentin (Neurontin) 300 mg PO TID ANYI Stop: 04/07/19 13:59 Last Admin: 03/13/19 13:22 Dose: 300 mg Documented by: Glucagon (Glucagen) 1 mg SQ UD PRN; Protocol PRN Reason: Hypoglycemia Protocol Stop: 04/07/19 12:49 Glucose (Glucose 40%) 15 - 30 gm PO UD PRN; Protocol PRN Reason: Hypoglycemia Protocol Stop: 04/07/19 12:49 Glucose (Dex4 Glucose) 4 - 8 tabs PO UD PRN; Protocol PRN Reason: Hypoglycemia Protocol Stop: 04/07/19 12:49 Guaifenesin/Codeine Phosphate (Robitussin-Ac Sugar Free) 10 ml PO Q6H PRN PRN Reason: Cough Stop: 04/09/19 16:29 Last Admin: 03/13/19 07:53 Dose: 10 ml Documented by: Sodium Chloride (Nss) 500 mls @ 15 mls/hr IV .Q24H ANYI Stop: 03/13/19 23:59 Last Admin: 03/13/19 12:20 Dose: Not Given Documented by: Insulin Aspart (Novolog Flexpen) 0 units SC ACHS [facility] Stop: 04/12/19 13:59 Last Admin: 03/13/19 14:29 Dose: 9 units Documented by: Insulin Glargine (Lantus Solostar Pen) 0 units SQ BID [facility]; Protocol Stop: 04/10/19 20:59 Last Admin: 03/13/19 08:14 Dose: 20 units Documented by: Ioversol (Optiray 320 100ml) 94 ml IV ONCE PRN PRN Reason: Interaction Checking Stop: 03/13/19 18:47 Last Admin: 03/09/19 18:48 Dose: 94 ml Documented by: Ketorolac Tromethamine (Toradol) 15 mg IV Q6H PRN PRN Reason: Pain Stop: 03/15/19 11:38 Last Admin: 03/13/19 12:25 Dose: 15 mg Documented by: Lactobacillus Acidophilus (Floranex Granules/Powder Packet) 1 gm PO TIDM ANYI Stop: 04/07/19 16:59 Last Admin: 03/13/19 12:20 Dose: Not Given Documented by: Magnesium Hydroxide (Milk Of Magnesia) 30 ml PO Q12H PRN PRN Reason: Constipation Stop: 04/07/19 12:49 Menthol (Nice) 1 melany BUCCAL Q2H PRN PRN Reason: Sore Throat Stop: 04/07/19 20:57 Miscellaneous (Carbohydrates For Hypoglycemia) 15 - 30 gm PO UD PRN PRN Reason: Hypoglycemia Treatment Stop: 04/07/19 12:49 Miscellaneous (Remove Nicoderm Patch) 1 ea N/A HS [facility] Stop: 04/12/19 20:59 Miscellaneous Information (Consult Glycemic Management Pharmacy) 1 ea N/A UD PRN; Protocol PRN Reason: Consult Stop: 04/07/19 20:44 Nicotine (Nicoderm Cq) 7 mg TD QAM ANYI Stop: 04/12/19 11:14 Last Admin: 03/13/19 12:19 Dose: 7 mg Documented by: Pantoprazole Sodium (Protonix) 40 mg PO DAILY ANYI Stop: 04/08/19 08:59 Last Admin: 03/13/19 07:56 Dose: 40 mg Documented by: Polyethylene Glycol (Miralax Powder Packet) 17 gm PO DAILY PRN PRN Reason: Constipation Stop: 04/07/19 12:49 Prednisone (Prednisone) 20 mg PO BID ANYI Stop: 04/12/19 20:59 Ranitidine HCl (Zantac) 300 mg PO HS ANYI Stop: 04/07/19 20:59 Last Admin: 03/12/19 21:02 Dose: 300 mg Documented by: Trazodone HCl (Desyrel) 150 mg PO HS ANYI Stop: 04/07/19 21:29 Last Admin: 03/12/19 21:07 Dose: 150 mg Documented by: Zolpidem Tartrate (Ambien) 5 mg PO HS PRN PRN Reason: Sleep Stop: 04/07/19 12:49 Last Admin: 03/12/19 21:05 Dose: 5 mg Documented by: PG Care Time/CCT Total # of Minutes Spent Total Time Spent with Patient: Total time spent is greater than 50% in coordination of care (as documented) at patient's floor/unit and/or counseling patient: (1) DM type 2 (diabetes mellitus, type 2) Diabetes mellitus tank terminal gauger insulin use: unspecified senior care insulin use status Diabetes mellitus complication status: with unspecified complications Qualified Code(s): E11.8 - Type 2 diabetes mellitus with unspecified complications (2) HTN (hypertension) Hypertension type: unspecified Qualified Code(s): I10 - Essential (primary) hypertension (3) Depression Depression Type: unspecified Qualified Code(s): F32.9 - Major depressive disorder, single episode, unspecified
--- NOTE | 2019-03-13 15:24 | Operative Report ---
DATE OF OPERATION: 03/13/2019 DATE OF PROCEDURE: 03/13/2019 TIME: 1100 hours. PROCEDURE: Fiberoptic bronchoscopy with bronchoalveolar lavage. INDICATIONS: COPD/chronic mucopurulent bronchitis with mucoid impaction/tracheomalacia. ANESTHESIA PREOPERATIVELY: None. ANESTHESIA DURING PROCEDURE: IV fentanyl 50 mcg, IV Versed 4 mg, 20 mL 2% Xylocaine spray above and below the cords, 4% viscous Xylocaine intranasally. Moderate conscious sedation was utilized and implemented at 11:15 and completed at 11:30. DESCRIPTION OF PROCEDURE: Fiberoptic bronchoscope was inserted into the right naris with minimal difficulty and passed to the level of the true vocal cords. The cords appear to approximate normally with phonation without evidence of lesions or paralysis. The area was anesthetized with 2% Xylocaine spray and the scope was then introduced in the trachea and right and left tracheobronchial tree. The barrett was sharp. Severe tracheobronchomalacia was noted with virtual collapse of the right and left tracheobronchial tree, right and left main stem bronchi with exploration and coughing paroxysms. The right main stem bronchus was explored initially, no endobronchial lesion was seen. Copious amount of mucoviscous secretion was seen globally virtually occluding all lobar segments. The right upper lobe, the apical posterior, anterior segments, bronchus intermedius, right middle lobe, medial lateral segments and all basilar segments of the right lower lobe were free of endobronchial lesions, but each lobar and segmental bronchus was impacted with thick mucoviscous secretion. On multiple occasions, suction was applied to the suction port and manually large mucus plugs were removed. The scope was reinserted each time through the nasopharynx through the cords into the right and left tracheobronchial tree. Bronchial crypts and clefts were visible throughout the right tracheobronchial tree. The aspirate from the right lower lobe were sent for appropriate studies. A 5 mL 20% Mucomyst was instilled throughout the right tracheobronchial tree. Left tracheobronchial tree was explored and similar findings were noted with lobar with mucoid impaction involving especially the left lower lobe basal segments. Left upper lobe, the apical-posterior and anterior segments, lingular subdivision, left lower lobe were found to be free of endobronchial lesions with a mild to moderate degree of global inflammatory mucosal change seen. Each lobar segment was lavaged with normosol and the aspirate sent for appropriate studies and in addition 5 mL of 20% Mucomyst was instilled throughout the left tracheobronchial tree. No brushings or biopsies were deemed necessary. The procedure was terminated. The patient was given a nebulizer treatment with Xopenex 1.25 mg, then transferred back to the medical floor, hemodynamically stable, no signs of respiratory compromise. We will follow up in the floor. The patient did complain of chest discomfort, but appeared to be more result of musculoskeletal/chest pain from strong paroxysms of coughing. EKG showed no acute changes. OVERALL ASSESSMENT: 1. Severe tracheobronchomalacia involving the right and left tracheobronchial tree. 2. Moderate to severe chronic obstructive pulmonary disease with chronic mucopurulent bronchitis/mucoid impaction. I attest to the content of the Intraoperative Record and any orders documented therein. Any exception s are noted below.
[2019-03-13] MEDS: ENOXAPARIN INJ 40 MG/0.4 ML SYR SQ SCH (17:35)
[2019-03-13] MEDS: ACETYLCYSTEINE 20% INHAL SOLN ***DISPENSED BY RESP. INH SCH (19:13)
[2019-03-13] MEDS: ESCITALOPRAM OXALATE 10 MG TAB PO SCH (20:47)
[2019-03-13] MEDS: TRAZODONE HCL 50 MG TAB PO SCH (20:48)
[2019-03-13] MEDS: cefUROXime axetil 500 MG TAB PO SCH (20:51)
[2019-03-13] MEDS: predniSONE 20 MG TAB PO SCH (20:52)
[2019-03-13] MEDS: ZOLPIDEM TARTRATE 5 MG TAB PO PRN (20:56)
[2019-03-14] MEDS: ARFORMOTEROL TART 15MCG/2ML VIAL INH SCH (06:53)
[2019-03-14] MEDS: ACETYLCYSTEINE 20% INHAL SOLN ***DISPENSED BY RESP. INH SCH (06:53)
[2019-03-14] MEDS: ALBUT/IPRATROP 3MG/0.5MG NEB 3 ML VIAL NEB SCH ×2 (06:54→11:09)
[2019-03-14] MEDS: NICOTINE 7 MG/24 HR TDSY TD SCH (07:39)
[2019-03-14] MEDS: carvediloL 6.25 MG TAB PO SCH (07:40)
[2019-03-14] MEDS: LACTOBACILLUS ACIDOPHILUS 1 GM PACK PO SCH (07:40)
[2019-03-14] MEDS: PANTOprazole 40 MG TAB PO SCH (07:40)
[2019-03-14] MEDS: GABAPENTIN 300 MG CAP PO SCH (07:40)
[2019-03-14] MEDS: ATORVASTATIN 40 MG TAB PO SCH (07:41)
[2019-03-14] MEDS: DICLOFENAC SOD 1% GEL 100 GM TUBE EXT SCH (07:41)
[2019-03-14] MEDS: predniSONE 20 MG TAB PO SCH (07:41)
[2019-03-14] MEDS: cefUROXime axetil 500 MG TAB PO SCH (07:41)
[2019-03-14] MEDS: BENZONATATE 100 MG CAPSULE PO SCH (07:41)
[2019-03-14] MEDS: ASPIRIN 81 MG ECTAB PO SCH (07:42)
[2019-03-14] MEDS: KETOROLAC TROMETHAMINE 15 MG/ML VIAL IV PRN (07:48)
[2019-03-14] MEDS: ACETAMINOPHEN 325 MG TAB PO SCH (07:48)
[2019-03-14] MEDS: INSULIN GLARGINE SOLOSTAR 100 UNITS/ML 3 ML PEN SQ SCH (08:32)
[2019-03-14] MEDS: INSULIN ASPART 100 UNITS/ML 3 ML PEN SC SCH (08:33)
--- NOTE | 2019-03-14 08:52 | Hospitalist Progress Note ---
Date of Service March 14, 2019 Assessment & Plan (1) Acute respiratory failure with hypoxia: Patient feels much better today eager to go home will be discharged. Follow-up with Dr. Hidalgo pulmonary next week Saturday or Saturday. Due to pneumonia causing COPD exacerbation probably compounded by tracheomalacia making it harder for her to clear secretions -Continue treatment with nebulizers, antibiotics, steroids, flutter valve, incentive spirometry bronchoscopy on 03/[address] Hidalgo, copious mucoid impaction bilaterally, treated with mucomyst and suctioning, successful clearing of lower airways patient breathing better, lungs clear continue on Prednisone 20mg BID, Cefuroxime 500mg BID for 7 days total. (2) COPD exacerbation: As above, improved a lot after the bronchoscopy on 03/13 (3) Tobacco abuse: Patient advised to stop smoking. Agreed to use nicotine patch on discharge family is committed to quitting as well she failed Chantix in the past discussed bupropion as option, however, would defer this to PCP who would be following her (4) DM type 2 (diabetes mellitus, type 2): A1c 7.6%. -Continue to titrate insulin management to obtain goal glucose control (5) Dyslipidemia: Appears to be stable We will leave it up to her primary care physician to order lipids panel and confirm compliance For now we will continue her Lipitor (6) HTN (hypertension): Control acceptable given the circumstances, continue home meds (7) Depression: Controlled continue home meds, continue to offer empathy and support (8) Somatic dysfunction of rib cage region: OMT done for several days, she seems to have less complaint of rib pain today, will hold off on further OMT for now. Continue to follow (9) DVT prophylaxis: Lovenox Plan: d/c to home tomorrow if she remains stable close follow up with Dr. Hidalgo d/c home on Prednisone 20mg BID and taper over next 10 days and Cefuroxime 500mg BID to complete 7 days total Subjective Patient seen and examined at the bedside. She feels much better. Discussed with Dr. Hidalgo and he is okay to discharge patient home. Patient is going to follow-up with Dr. Hidalgo next week Saturday or Saturday. She needs to make a call. Patient denies fever chills chest pain shortness of breath abdominal pain frequency urgency dysuria hematuria hemoptysis wheezing nausea or vomiting. Patient is eager to go home. Review of Systems Review of Systems: All systems reviewed & are unremarkable except as noted in HPI & below Respiratory: + cough, + dyspnea on exertion and + sputum production; no dyspnea Physical Exam Constitutional: WD/WN, vitals as above well developed and + obese Eyes: PERRL, conjunctivae normal, anicteric sclerae ENMT: external ear and nose normal, oropharynx normal Neck: trachea midline, no thyromegaly Respiratory: normal respiratory effort, lungs clear to auscultation Cardiovascular: RRR, no murmur, no edema Chest (Breasts): normal inspection/palpation of breasts Gastrointestinal (Abdomen): normal bowel sounds, soft, nontender, no hepatosplenomegaly Musculoskeletal: no cyanosis or clubbing, extremities motor strength 5/5 Skin: no rashes, warm and dry Neurologic: patellar DTR's 2+ bilat, sensation intact Psychiatric: A+Ox3, euthymic affect Lymphatic: no cervical or axillary lymphadenopathy Results & Data Vital Signs (Past 12 Hours) Vital Signs Temp Pulse Pulse Resp BP Pulse Ox 03/14/19 07:58 62 03/14/19 07:14 36.4 C L 53 L 20 140/72 98 03/14/19 06:59 53 L 16 95 03/13/19 23:14 55 L 22 95 03/13/19 23:04 36.6 C 61 18 110/62 92 PG Care Time/CCT Total # of Minutes Spent Total Time Spent with Patient: Total time spent is greater than 50% in coordination of care (as documented) at patient's floor/unit and/or counseling patient: (1) DM type 2 (diabetes mellitus, type 2) Diabetes mellitus complication status: with unspecified complications Diabetes mellitus custodial insulin use: unspecified terminal supervisor insulin use status Qualified Code(s): E11.8 - Type 2 diabetes mellitus with unspecified complications (2) Depression Depression Type: unspecified Qualified Code(s): F32.9 - Major depressive disorder, single episode, unspecified (3) HTN (hypertension) Hypertension type: unspecified Qualified Code(s): I10 - Essential (primary) hypertension
--- NOTE | 2019-03-14 11:22 | Pulmonology Progress Note ---
Date of Service March 14, 2019 Assessment & Plan (1) Tracheomalacia, acquired: (2) COPD exacerbation: Which improved Book to her hospitalist and feel she can be discharged safely today on a tapered steroid course and will arrange for outpatient nocturnal polysomnography and BiPAP therapy for tracheomalacia as well. I have asked the patient to call my office and arrange appointment this coming to be seen by myself. (3) Acute respiratory failure with hypoxia: (4) Tobacco abuse: Subjective 58-year-old with severe COPD and chronic mucopurulent bronchitis along with profound tracheomalacia much improved today post bronchoscopy with BAL. She very much wants to go home and I believe she can safely be discharged. Tolerated her BiPAP well last night as predicted now that her pulmonary status has improved. Review of Systems Review of Systems: All systems reviewed & are unremarkable except as noted in HPI & below Constitutional: no problem reported Eyes: no problem reported Ear, Nose, Mouth, Throat: no problem reported Respiratory: no problem reported Cardiovascular: no problem reported Gastrointestinal: no problem reported Genitourinary: no problem reported Musculoskeletal: no problem reported Integumentary: no problem reported Neurologic: no problem reported Psychiatric: no problem reported Endocrine: no problem reported Hematologic / Lymphatic: no problem reported Allergy / Immunological: no problem reported Physical Exam Constitutional: well developed and well nourished; no acute distress Eyes: PERRL, conjunctivae normal, anicteric sclerae ENMT: external ear and nose normal, oropharynx normal Neck: trachea midline, no thyromegaly Respiratory: normal respiratory effort, + hyperresonance to percussion and + prolonged expiratory phase Auscultation: lungs clear to auscultation bilaterally and + wheezes (Few scattered expiratory wheezes but much clear than o previous examination) Cardiovascular: RRR, no murmur, no edema Palpation: normal PMI; no thrill Gastrointestinal (Abdomen): normal bowel sounds, soft, nontender, no hepatosplenomegaly Musculoskeletal: no cyanosis or clubbing, extremities motor strength 5/5 Gait: normal gait Skin: no rashes, warm and dry Neurologic: PERRL, EOMI, accommodation nl, no face palsy, no dysarthria Psychiatric: A+Ox3, euthymic affect Lymphatic: no cervical or axillary lymphadenopathy Results & Data Vital Signs (Past 12 Hours) Vital Signs Temp Pulse Resp BP BP Pulse Ox 09/28/19 11:14 63 16 96 03/14/19 10:37 36.4 C L 62 20 140/72 121/70 98 03/14/19 07:58 62 03/14/19 07:14 36.4 C L 53 L 20 140/72 98 03/14/19 06:59 53 L 16 95 PG Care Time/CCT Total # of Minutes Spent Total Time Spent with Patient: Total time spent is greater than 50% in coordination of care (as documented) at patient's floor/unit and/or counseling patient:
--- NOTE | 2019-03-14 11:51 | Discharge Summary ---
Date of Service March 14, 2019 Principal Diagnosis none Discharge Exam Constitutional WD/WN, vitals as above well developed and + obese Eyes PERRL, conjunctivae normal, anicteric sclerae ENMT external ear and nose normal, oropharynx normal Neck trachea midline, no thyromegaly Respiratory normal respiratory effort, lungs clear to auscultation Cardiovascular RRR, no murmur, no edema Chest (Breasts) normal inspection/palpation of breasts Gastrointestinal (Abdomen) normal bowel sounds, soft, nontender, no hepatosplenomegaly Musculoskeletal no cyanosis or clubbing, extremities motor strength 5/5 Skin no rashes, warm and dry Neurologic patellar DTR's 2+ bilat, sensation intact Psychiatric A+Ox3, euthymic affect Lymphatic no cervical or axillary lymphadenopathy Discharge Data Allergies Allergy/AdvReac Type Severity Reaction Status Date / Time sumatriptan Allergy Intermediate DIAPHORESIS, Verified 03/08/19 11:19 "SKIN CRAWLING" carbamazepine Allergy Unknown RASH Verified 03/08/19 11:19 Consultations 03/08/19 12:23 ED Decision to Admit Stat 03/09/19 11:40 Consult Pulmonology Routine Procedures Performed Operation Date: 03/13/19 10:00 Actual Procedures p Bronchoscopy Radiology(Bilateral) - Papi Hidalgo MD Ordered Studies 03/09/19 17:45 CT chest w con Routine 03/12/19 11:30 FL video swallow Routine Hospital Course (1) Acute respiratory failure with hypoxia: Patient feels much better today eager to go home will be discharged. Follow-up with Dr. Hidalgo pulmonary next week Saturday or Saturday. Due to pneumonia causing COPD exacerbation probably compounded by tracheomalacia making it harder for her to clear secretions -Continue treatment with nebulizers, antibiotics, steroids, flutter valve, incentive spirometry bronchoscopy on 03/[address] Hidalgo, copious mucoid impaction bilaterally, treated with mucomyst and suctioning, successful clearing of lower airways patient breathing better, lungs clear continue on Prednisone 20mg BID, Cefuroxime 500mg BID for 7 days total. (2) COPD exacerbation: As above, improved a lot after the bronchoscopy on 03/13 (3) Tobacco abuse: Patient advised to stop smoking. Agreed to use nicotine patch on discharge family is committed to quitting as well she failed Chantix in the past discussed bupropion as option, however, would defer this to PCP who would be following her (4) DM type 2 (diabetes mellitus, type 2): A1c 7.6%. -Continue to titrate insulin management to obtain goal glucose control (5) Dyslipidemia: Appears to be stable We will leave it up to her primary care physician to order lipids panel and conf irm compliance For now we will continue her Lipitor (6) HTN (hypertension): Control acceptable given the circumstances, continue home meds (7) Depression: Controlled continue home meds, continue to offer empathy and support (8) Somatic dysfunction of rib cage region: OMT done for several days, she seems to have less complaint of rib pain today, will hold off on further OMT for now. Continue to follow (9) DVT prophylaxis: Lovenox Plan: d/c to home tomorrow if she remains stable close follow up with Dr. Hidalgo d/c home on Prednisone 20mg BID and taper over next 10 days and Cefuroxime 500mg BID to complete 7 days total Total Time Total Time Spent Total Time Spent (In Minutes): over 30 min Discharge Plan Discharge Items Patient Disposition: Home - Self-Care Reason For Visit: ACUTE RESP FAILURE W/HYPOXIA 2NDRY TO COPD EXAC Discharge Diagnosis: Acute respiratory failure secondary to COPD exacerbation Activity: Resume your previous activity Non-emergency contact: Primary Care Provider Call non-emergency contact if: you have any medication questions, your symptoms worsen and your rectal temperature is above 100.4 Follow-up/Referrals: Papi Hidalgo MD [Physician] - 03/25/19 11:15 am (A follow up appt. has been made for you with Liborio Busch PA-C on 03/25 at 11:15am.) Lori Velázquez CRNP, MS, [employer]-C [Primary Care Provider] - 03/24/19 1:30 pm (A follow up appt. has been made for you with NICK Seaman on 03/24 at 1:30pm (this was first avaiable)) Diet: Carb Consistent or DM2 and Heart Healthy Addtl Attending Provider Instructions: Follow-up with Dr. Hidalgo on Saturday or Saturday. Please make a call to his office on Saturday and make sure that appointment is scheduled. You will continue with cefuroxime 500 mg p.o. twice daily for 5 additional days and prednisone taper.Prednisone taper: take 1 tab PO BID for 3 days, then 1 tab PO daily for 3 days then 1/2 tab PO daily for 4 days then stop.Please buy NicoDerm patch 14 mg over the counter and abstain from smoking. Pending Studies at Discharge: No Stand-Alone Forms: My [facility] Medications and DC Order Prescriptions: New prednisone 20 mg tablet 20 mg PO BID Qty: 9 RF: 0 cefuroxime axetil 500 mg tablet 500 mg PO BID Qty: 10 RF: 0 Continued ranitidine HCl 300 mg capsule 300 mg PO DAILY Qty: 30 RF: 2 benzonatate [Tessalon Perles] 100 mg capsule 100 mg PO TID PRN (Reason: cough) Qty: 90 RF: 1 baclofen 10 mg tablet 10 mg PO DAILY PRN (Reason: muscle spasm) Qty: 90 RF: 0 gabapentin [Neurontin] 300 mg capsule 300 mg PO TID Qty: 90 RF: 5 albuterol sulfate 90 mcg/actuation HFA aerosol inhaler 2 puffs INH Q4H PRN (Reason: Shortness Of Breath Or Wheezing) Qty: 18 RF: 3 escitalopram oxalate 10 mg tablet 10 mg PO DAILY Qty: 90 RF: 3 Basaglar KwikPen U-100 Insulin 100 unit/mL (3 mL) insulin pen 20 unit subcut QPM Qty: 3 RF: 3 insulin lispro [Admelog SoloStar U-100 Insulin] 100 unit/mL insulin pen 5 unit subcut TIDM PRN (Reason: sliding scale) Qty: 3 RF: 3 atorvastatin [Lipitor] 40 mg tablet 40 mg PO ONCE RF: 0 trazodone 150 mg tablet 150 mg PO DAILY Qty: 30 RF: 3 pantoprazole [Protonix] 40 mg tablet,delayed release (DR/EC) 40 mg PO DAILY Qty: 30 RF: 3 metformin 500 mg tablet extended release 24 hr 500 mg PO DAILY Qty: 30 RF: 3 Symbicort 160-4.5 mcg/actuation HFA aerosol inhaler 2 puff INHALATION BID RF: 0 ipratropium-albuterol 0.5 mg-3 mg(2.5 mg base)/3 mL Solution For Nebulization 3 ml INHALATION QID PRN (Reason: Shortness Of Breath Or Wheezing) RF: 0 aspirin [Aspir-Low] 81 mg Tablet,Delayed Release (Dr/Ec) 81 mg PO DAILY RF: 0 acetaminophen [Tylenol Extra Strength] 500 mg Tablet 500 mg PO Q6H PRN (Reason: Pain) RF: 0 carvedilol [Coreg] 6.25 mg tablet 6.25 mg PO BIDM RF: 0 fluticasone propionate 50 mcg/actuation spray,suspension 2 spray Intranasal DAILY PRN (Reason: Allergy Symptoms) RF: 0 polyethylene glycol 3350 [ClearLax] 17 gram/dose powder 17 g PO DAILY PRN (Reason: Constipation) RF: 0 nydnqedmrg-bkfewnjzgzfjk-busu [Fioricet] 50-300-40 mg capsule 1 cap PO Q8H PRN (Reason: Pain) RF: 0 Discontinued amoxicillin-pot clavulanate [Augmentin] 875-125 mg tablet 1 tab PO BID Qty: 14 RF: 0 Discharge Orders: Discharge Order (Routine); Ordered 03/14/19 Ordered By: Gene Evans Admission Data Admit Date/Time: 03/08/19 14:11 Attending Provider: Booker Tyler Admit Provider: Casie Mittal Primary Care Provider: Lori Velázquez Other Providers: Vahe Pandey ; Casie Mittal ; Papi Hidalgo Other Interventions: Discharge Summary Assessment (RN) Last Done: 03/14/19 10:37
== END 2019-03-14 12:02 | disposition home or self-care (01) | DRG 190 ==
LOC: ED 09:25 → 2S 13:41 → SUATTDRO 14:11 → 4W 03-09 16:29